=== PATIENT | male | born 1950 | race Caucasian/White ===

== ENCOUNTER → 2017-09-28 10:49 | Outpatient (CLI) | payer MEDICARE, OTHER, SELFPAY ==
--- NOTE | 2017-09-28 10:52 | ECHOD_ITS ---
Reason For Study: DYSPNEA/SOB Procedure This was a 2D Doppler, Color Flow transthoracic echocardiogram. Exam performed in department. Left Ventricle Moderate concentric left ventricular hypertrophy. The estimated ejection fraction is 65 %. Stage 1 diastolic dysfunction. No regional wall motion abnormalities noted. Right Ventricle Normal size and thickness. Normal systolic function. Atria Normal left atrium. Normal right atrium. Normal atrial septum. Mitral Valve The mitral valve is structurally normal. No prolapse or stenosis seen. Trivial mitral valve insufficiency. Tricuspid Valve Normal tricuspid valve. Trivial tricuspid valve insufficiency. Right ventricular systolic pressure estimated to be 28 mmHg. Aortic Valve Trisinus/trileaflet aortic valve. Moderate focal aortic valve thickening. Moderate restriction of the aortic valve. Moderate aortic stenosis. Peak aortic valve gradient 37 mmHg. Mean aortic valve gradient 22 mmHg. Calculated aortic valve area (continuity equation) is 1.2 cm2. Trivial aortic valve insufficiency. Pulmonic Valve Normal pulmonic valve. Great Vessels Normal aortic root. Normal arch. Normal inferior vena cava. Inferior vena cava collapse with sniff. Pericardium/Pleural No pericardial effusion. MMode/2D Measurements & Calculations LVIDd: 3.8 cm IVSd: 1.6 cm LVOT diam: 2.0 cm LVIDs: 2.2 cm LVPWd: 1.4 cm LVOT area: 3.3 cm2 RVDd: 2.7 cm FS: 41.5 % Ao root diam: 2.9 cm LAV(MOD-bp): 46.9 ml EDV(MOD-sp4): 91.6 ml LAV(MOD-bp) Indexed: 21.6 ml/m2 ESV(MOD-sp4): 31.6 ml LAV(MOD-sp2): 56.7 ml EF(MOD-sp4): 65.5 % LAV(MOD-sp4): 36.9 ml SV(MOD-sp4): 60.0 ml LA A4 area: 14.5 cm2 RA A4 area: 11.8 cm2 Time Measurements MV dec time: 0.22 sec Doppler Measurements & Calculations MV E max wilbur: 72.8 cm/sec Lat Peak E' Wilbur: 7.4 cm/sec Med Peak E' Wilbur: 7.4 cm/sec MV A max wilbur: 85.3 cm/sec E/E' lat: 9.9 E/E' med: 9.8 MV E/A: 0.85 Ao V2 max: 292.8 cm/sec LV V1 max: 108.5 cm/sec SV(LVOT): 87.0 ml Ao max P.3 mmHg LV V1 max P.7 mmHg Ao V2 mean: 218.1 cm/sec LV V1 mean P.5 mmHg Ao mean P.9 mmHg LV V1 mean: 74.9 cm/sec Ao V2 VTI: 67.9 cm LV V1 VTI: 26.7 cm HEATHER(I,D): 1.3 cm2 HEATHER(V,D): 1.2 cm2 PA V2 max: 105.2 cm/sec TR max wilbur: 249.4 cm/sec TR max P.9 mmHg Interpretation Summary Moderate concentric left ventricular hypertrophy. The estimated ejection fraction is 65 %. Stage 1 diastolic dysfunction. Trivial mitral valve insufficiency. Right ventricular systolic pressure estimated to be 28 mmHg. Moderate focal aortic valve thickening. Moderate aortic stenosis. Trivial aortic valve insufficiency. Compared to echo report dated 12/09/2013, LV function has remained the same, and aortic stenosis has slightly worsened. Ordering Physician: Dion Selby Referring Physician: LETHA CABALLERO Performed By: Nica Cote RDCS
[2017-09-28 11:54] LABS: AST(SGOT) 16 U/L (15-37); Alanine Aminotransfer ALT/SGPT 21 U/L (16-61); Albumin, Serum 4.1 g/dL (3.2-5.0); Alkaline Phosphatase 83 U/L (45-117); Bilirubin, Direct 0.14 mg/dL (0.00-0.30); Cholesterol 203 mg/dL (200); Globulin 3.8 g/dL (2.2-4.2); High Density Lipoprotein 48 mg/dL; Protein, Total 7.9 g/dL (6.4-8.2); Triglycerides 135 mg/dL; Very Low Density Lipoprotein 27 mg/dL (5-40)
== END ==
PROVIDERS: Family Provider Family Medicine; PCP Family Medicine; Visit Provider Internal Medicine Cardiovascular Disease
DX: I10 Essential (primary) hypertension (principal); R01.1 Cardiac murmur, unspecified; R06.00 Dyspnea, unspecified
CPT/HCPCS: 36415; 80061; 80076; 93306

== ENCOUNTER → 2017-11-01 09:17 | Outpatient (CLI) | payer MEDICARE, OTHER, SELFPAY ==
--- NOTE | 2017-11-01 09:19 | STE_ITS ---
Reason For Study: DYSPNEA/SOB Stress Results Protocol: Stress Echocardiogram Maximum Predicted HR: 153 bpm Target HR: 130 bpm% Maximum Pr edicted HR: 86 % DurationHeart Rate Stage (mm:ss) (bpm) BPCom ment BASELINE 75 156/96 4 ML DILUTED DEFINITY USED ABIODUN PROTOCOL- STAGE 1 3:00 11 8 154/84MIDSTERNAL TIGHTNESS 3 ON SCALE 1-10 ABIODUN PROTOCOL- STAGE 2 2:50 13 1 156/90MIDSTERNAL TIGHTNESS 6 ON SCALE 1-10, SOB RECOVERY 85 160/84 Stress Duration: 5:50 mm:ss Maximum Stress HR: 131 bpm Baseline Echocardiogram Findings The estimated ejection fraction is 65 %. Stress Echo Wall motion Data Resting WMIntermediate WMStress WM Resting Wall Motion Wall Motion Stress No regional wall motion No regional wall motion abnormalities noted. abnormalities noted. EKG Data The baseline ECG displays normal sinus rhythm. The patient exercised according to the regular Abiodun protocol for a total duration of 5:50. The maximum heart rate attained was 131 beats per minute. This was 85% of maximum predicted heart rate. The stress ECG displays diffuse abnormal ST segments. Interpretation Summary The study was technically difficult. Contrast injection was performed. The estimated ejection fraction is 65 %. Abnormal, adequate, treadmill echocardiogram. Positive for ischemia by EKG and echocardiographic criteria. Positive anginal symptoms noted. Patient developed mid anterior and lateral hypokinesis on echocardiogram. Patient developed 1-2 mm of inferior lateral ST segment depression at peak exercise which resolved by 8 minutes 50 seconds into recovery. Chest pain completely resolved during recovery. No arrhythmias noted. Appropriate blood pressure response to exercise. Final LVEF of 55%. Patient was referred immediately to our office to arrange for ANGELINA followed by left and right her catheterization. Ordering Physician: Dion Selby Referring Physician: Dion Selby Performed By: Angi Lezama, ELIEL, RVT
[2017-11-01 11:09] LABS: Absolute Lymphocyte Count 1.83 X10^3/ul (0.83-4.51); Absolute Neutrophil Count 4.7 X10^3/uL (2.0-7.7); Basophil# 0.03 X10^3/uL; Basophil% 0.4 % (0-1); Eosinophil# 0.09 X10^3/uL; Eosinophils% 1.3 % (0-5); Hematocrit 44.1 % (40-54); Hemoglobin 15.3 g/dl (13.0-16.5); Lymphocyte # 1.83 X10^3/ul (4.0); Lymphocyte % 26.3 % (19-41); Mean Corp Hgb Conc 34.7 g/gl (32-36); Mean Corpuscular Volume 89.5 fL (80-94); Mean Platelet Vol. 9.7 fl (6.2-12.0); Monocyte# 0.33 X10^3/uL; Monocyte% 4.7 % (0-10); Neutrophil # 4.65 X10^3/uL (2.7-7.7); Platelet Count 222 K/mm3 (150-450); RBC Distribution Width CV 12.4 % (11.6-14.6); RBC Distribution Width SD 40.7 fl (35.1-43.9); Red Blood Count 4.93 M/mm3 (4.6-6.2)
[2017-11-01 11:10] LABS: POSITIVE COUNT NO; POSITIVE DIFFERENTIAL NO; POSITIVE MORPHOLOGY NO
[2017-11-01 11:18] LABS: International Normalized Ratio 1.1; Prothrombin Time (Protime)PT. 13.7 SECONDS (11.7-14.9)
[2017-11-01 11:42] LABS: Anion Gap 10 (5-15); BUN 19 mg/dL (7-18); BUN/Creat Ratio 21.9 RATIO (10-20); Calcium,Total 9.2 mg/dL (8.5-10.1); Chloride 106 mmol/L (98-107); Creatinine, Serum 0.87 mg/dL (0.70-1.30); EST Glomerular Filtration Rate 93 mL/min (>60); Est Glom Filt Rate - Afr Amer 113 mL/min (>60); Glucose 95 mg/dL (74-106); Potassium 4.1 mmol/L (3.5-5.1); Sodium Level 139 mmol/L (136-145)
--- NOTE | 2017-11-01 12:25 | RAD_ITS ---
STUDY: X-RAY CHEST REASON FOR EXAM: Male, 67 years old. Chest pain. Irregular heart rate. Preheart catheterization examination. TECHNIQUE: PA and lateral views of the chest. COMPARISON: None. FINDINGS: The lungs are clear and expanded. There is no demonstrated pleural abnormality. Normal size heart. Calcified bilateral hilar lymph nodes slightly worse on the left side. Normal visualized pulmonary arteries. Normal visualized aortic arch and descending thoracic aorta. There are diffuse degenerative changes of the visualized thoracic spine. Normal visualized ribs, clavicles, and shoulders. There is no demonstrated abnormality of the visualized soft tissue structures of the upper abdomen. RAD/Chest PA and Lateral IMPRESSION: No acute abnormality is seen. Electronically Signed: Cuate Mccall MD at 12:58 EDT Tel [phone], Service support ,
== END ==
PROVIDERS: Family Provider Family Medicine; PCP Family Medicine; Visit Provider Internal Medicine Cardiovascular Disease
DX: R94.31 Abnormal electrocardiogram [ECG] [EKG] (principal); R06.00 Dyspnea, unspecified; R01.1 Cardiac murmur, unspecified; I10 Essential (primary) hypertension; E66.9 Obesity, unspecified
CPT/HCPCS: 36415; 71046; 80048; 85025; 85610; 93017; 93350; Q9957; A4216; C8928

== ENCOUNTER 2017-11-02 08:00 | Inpatient (IN) | payer MEDICARE, OTHER, SELFPAY ==
[2017-11-02] VITALS (21 sets, daily range): BP systolic 138–194; BP diastolic 50–74; PULSE 57–80; RESP 9–18; TEMP 36.7–37.3; O2SAT 94–100; BMI 32.5; BMI 32.2; BMI 32.1
--- NOTE | 2017-11-02 08:01 | ECHOTEE_ITS ---
Reason For Study: Valve Replacement Eval Medication ANGELINA probe passed with minimal difficulty. No complications were noted. [id number] gargled and swallowed. Cetacaine Topical [place] given X2 orally. Versed 4 mg given slow IVP. Fentanyl 50 mcg given slow IVP. Performed a rapid injection of agitated mix of 9 cc saline and 1cc air to assess for atrial septal defect. Left Ventricle Normal size and thickness. The estimated ejection fraction is 65 %. No regional wall motion abnormalities noted. Right Ventricle Normal size and thickness. Normal systolic function. The right ventricular wall motion is normal. Atria Normal atrial septum. Bubble contrast study negative for right to left interatrial shunt. Normal left atrium. No thrombus is detected in the left atrial appendage. Normal right atrium. Mitral Valve The mitral valve is structurally normal. No prolapse or stenosis seen. Trivial mitral valve insufficiency. Tricuspid Valve Normal tricuspid valve. Trivial tricuspid valve insufficiency. Unable to estimate RV systolic pressure due to inadequate jet, pulmonary artery pressure probably normal. Aortic Valve Trisinus/trileaflet aortic valve. Moderate diffuse aortic valve thickening. Moderate restriction of the aortic valve. Moderate aortic stenosis. Calculated aortic valve area (continuity equation) is 1.2 cm2. Trivial aortic valve insufficiency. Pulmonic Valve Normal pulmonic valve. Vessels Calcified aortic root. Mild atherosclerosis of the aortic arch. Normal pulmonary veins. Pulmonary venous flow normal. Interpretation Summary The estimated ejection fraction is 65 %. Bubble contrast study negative for right to left interatrial shunt. Trivial mitral valve insufficiency. Trivial tricuspid valve insufficiency. Unable to estimate RV systolic pressure due to inadequate jet, pulmonary artery pressure probably normal. Moderate diffuse aortic valve thickening. Moderate to severe restriction of the aortic valve. Moderate to severe aortic stenosis. Calculated aortic valve area (continuity equation) is 1.2 cm2. No thrombus is detected in the left atrial appendage. Ordering Physician: Dion Selby Referring Physician: Dion Selby Performed By: Vasiliy Copeland RCS ??? Reason For Study: Valve Replacement Eval Interpretation Summary The estimated ejection fraction is 65 %. Bubble contrast study negative for right to left interatrial shunt. Trivial mitral valve insufficiency. Trivial tricuspid valve insufficiency. Unable to estimate RV systolic pressure due to inadequate jet, pulmonary artery pressure probably normal. Moderate diffuse aortic valve thickening. Moderate to severe restriction of the aortic valve. Moderate to severe aortic stenosis. Calculated aortic valve area (continuity equation) is 1.2 cm2. No thrombus is detected in the left atrial appendage. Ordering Physician: Dion Selby Referring Physician: Dion Selby Performed By: Vasiliy Copeland RCS
[2017-11-02 11:21] LABS: Blood Gas Specimen Type VEN; VBG BASE EXCESS 2 mmol/L (-1.0-3.5); VBG Bicarbonate 28 mmol/L (22-26); VBG Oxygen Content 29 mmol/L (23-33); VBG PO2 35 mmHg (25-40); VBG SO2 65 % (50-70); VBG pH 7.37 (7.32-7.42)
[2017-11-02 11:21] LABS: Base Excess 2 mmol/L (-2 to +2); Bicarbonate 26.7 mmol/L (22-26); Blood Gas Specimen Type ART; PO2 71 mmHG (75-100); SO2 94 % (95-99); Total Carbon Dioxide 28 mmol/L; pCO2 44.3 mmHg (35-45); pH 7.39 (7.35-7.45)
[2017-11-02 11:21] LABS: Blood Gas Specimen Type VEN; VBG BASE EXCESS 1 mmol/L (-1.0-3.5); VBG Bicarbonate 27 mmol/L (22-26); VBG Oxygen Content 28 mmol/L (23-33); VBG PO2 36 mmHg (25-40); VBG SO2 67 % (50-70); VBG pH 7.37 (7.32-7.42)
--- NOTE | 2017-11-02 11:31 | CL.D_ITS ---
Patient Name: ROLANDO SUNG Study Date: 11/02/2017 Performing: Dion Selby MD Ht: 70.86 inches 180 cm : 1950 Wt: 233.69 lbs 106 kg Age: 67 Gender: male BSA: 2.25 PROCEDURE(S) PERFORMED QV20-OAT/LHC/COR/LV [id number] INSERTION CLINICAL PROFILE AND INDICATIONS Indications: New Onset Angina <= 2 months, Worsening Angina, Suspected CAD, Valvular Disease Heart Failure: None Stress/Imaging Stress Echocardiogram: Yes Result: Positive High RiskStress Echocardiogram: Positi ve High Risk Angina Classification Anginal Classification w/in 2 Weeks: CCS IV CAD Presentations: Unstable angina. Comorbidities/Risk Factors: Hypertension Dyslipidemia CONCLUSIONS Perserved Left Ventricular systolic function with normal EDP [place] Multivessel CAD involving LM, ostial LAD, OM#1 and proximal RCA. Right heart pressures - Normal Aortic Valve Stenosis - moderate to severe with mean pullback gradient of 26 mm Hg and estimated HEATHER= 1.14cm2 by cath. IABP placed to assist with LM and multi-vessel CAD, as well as aortic stenosis given pt's markedly ab normal stress test and periodic rest chest pain. RECOMMENDATIONS Transfer to [facility] ICU under Dr Peng once bed available for CABG and AVR. RFV sheath removal. Heparin gtt at 800 units/hr; keep PTT b/w 50-70 seconds. D/w Hang Leo at [facility] (Dr Peng's [employer] REPA[employer] SUPERVISOR) to assist with transfer. DESCRIPTION OF PROCEDURE The patient arrived to the procedure lab. The risks and benefits of the procedure as well as a full d escription of our services here and current unavailability of surgical backup were fully explained to the patient and/or their significant other prior to the catheterization. The Timeout was completed, verifying the correct patient and procedure. The patient's procedural site was prepped and draped in the usual fashion. Local anesthetic was given subcutaneously to right groin region with Lidocaine 2%. Using a modified Seldinger technique, arterial access was obtained via the right femoral artery, a 4 Fr sheath was inserted Venous access was obtained via the right femoral vein, a 7Fr sheath was insert ed. A 7Fr thermal dilution catheter was inserted and right heart pressures were recorded, it was then advanced to PA position for cardiac outputs. O2 saturations were then obtained. Thermal dilution car diac outputs were then recorded. Left Ventriculography was performed in MARTINEZ projection using a 4 Fr. Pigtail catheter. Simultaneous pressures were then recorded. LV to AO pullback pressures were then re corded. The Thermal dilution catheter was then removed. Left Coronary Artery selective angiography wa s performed in multiple views using a 4 Fr. JL5 catheter. Right Coronary Artery selective angiography was then performed in multiple views using a 4 Fr. 3DRC catheter.Arrow 40cc 7.5F UltraFlex IABP - Qt y: 1 Each Part #: [id number], IABP catheter inserted - 40 cc into right femoral artery, IABP settings: 1:1 ratio, ecg trigger, IABP Augmented BP: 180 mmHgThe venous sheath was then pulled and manual compressi on applied until hemostasis achieved CORONARY ANGIOGRAPHY DOMINANCE: Right Dominant LEFT HEART ASSESSMENT Left Ventricular Ejection Fraction: by LV Gram 65 % Normal LV wall motion Normal Left Ventricular systolic function RIGHT HEART ASSESSMENT Thermal CO: 5.48 Thermal CI: 2.44 PW: 9 PA: 25/6 15 RV: 33/0 7 RA: 8/5 3 PVR: 88 SVR: 1372 Aortic Valve Area: 1.14 Aortic Valve Index: 0.51 Aortic Valve Mean Gradient: 26.2 Mitral Valve Area: 3.41 Mitral Valve index: 1.52 Mitral Valve Mean Gradient: 14.1 Right Heart pressures - normal LEFT MAIN: 85 distal LM % Stenosis LEFT ANTERIOR DECENDING ARTERY: OSTIAL LAD: 70 % Stenosis CIRCUMFLEX ARTERY: OSTIAL CIRC: 60 % Stenosis MID CIRC: 60 % long Stenosis OM 1: Mid - 70 % Stenosis RIGHT CORONARY ARTERY: PROX RCA: 75 % Stenosis VALVE FINDINGS: Aortic Valve Stenosis - moderate to severe with mean pullback gradient of 26 mm Hg and estimated HEATHER= 1.14cm2 by cath. COMPLICATIONS No Complications PROCEDURE MEDICATIONS Heparin 25,000u / 250ml D5W @ 800 u/hr IV started 11/02/2017 11:23:22 SUMMARY OF HEMODYNAMIC DATA Time AIR REST ECG 08:25:13 RA 8/5 (3) SV 10:36:56 RV 33/0, 7 10:37:06 PW (9) PV 10:37:45 PA /6 (15) PA 10:37:59 LV 177/-13, 14 10:42:57 LV 175/-8, 7 10:43:04 LV 174/-9, 9 10:43:20 PW 17/13 (10) 10:43:20 LV 173/-4, 10 10:43:27 PW 19/13 (10) 10:43:27 LV 180/-7, 22 10:43:48 RV 33/1, 7 10:43:48 LV 181/-8, 15 10:43:55 RV 30/0, 7 10:43:55 LV 177/-9, 16 10:44:05 RV 32/0, 6 10:44:05 LVp 175/-12, 17 10:45:21 AOp 157/55 (93) 10:45:26 AO 133/70 (97) SA 10:47:19 11:24:15 Valve Area (c P-P/ms Time AIR REST Mitral 3.41 14.1 mn/162 ms 1.0 pk/162 ms 10:43:20 Aortic 1.14 26.2 mn/378 ms 18.0 pk/378 ms 10:45:21 Type SV CO (l/m) CI (l/m/ HR Time AIR REST Thermal 88.40 5.48 2.44 62 08:25:14 Label % O2 Pres/Loc Time AIR REST AO 94 PV 10:49:08 PA 66 PA 10:49:57 Signed By Dion Selby MD On 11/02/2017 11:31:06 Dion Selby MD
[2017-11-02 13:35] LABS: Absolute Lymphocyte Count 2.83 X10^3/ul (0.83-4.51); Absolute Neutrophil Count 6.1 X10^3/uL (2.0-7.7); Basophil# 0.02 X10^3/uL; Basophil% 0.2 % (0-1); Eosinophil# 0.14 X10^3/uL; Eosinophils% 1.5 % (0-5); Hematocrit 44.2 % (40-54); Hemoglobin 14.7 g/dl (13.0-16.5); Lymphocyte # 2.83 X10^3/ul (4.0); Lymphocyte % 29.5 % (19-41); Mean Corp Hgb Conc 33.3 g/gl (32-36); Mean Corpuscular Hgb 30.4 pg (27.0-32.0); Mean Corpuscular Volume 91.5 fL (80-94); Mean Platelet Vol. 9.8 fl (6.2-12.0); Monocyte# 0.48 X10^3/uL; Neutrophil # 6.12 X10^3/uL (2.7-7.7); Neutrophil % 63.7 % (47-70); Platelet Count 233 K/mm3 (150-450); RBC Distribution Width CV 12.6 % (11.6-14.6); RBC Distribution Width SD 41.9 fl (35.1-43.9); Red Blood Count 4.83 M/mm3 (4.6-6.2); White Blood Count 9.6 K/mm3 (4.4-11.0)
[2017-11-02] MEDS: Losartan Potassium 25 MG Tablet PO (13:36)
[2017-11-02 13:38] LABS: POSITIVE COUNT NO; POSITIVE DIFFERENTIAL NO; POSITIVE MORPHOLOGY NO
[2017-11-02 13:39] LABS: Anion Gap 6 (5-15); BUN 14 mg/dL (7-18); BUN/Creat Ratio 15.1 RATIO (10-20); Calcium,Total 9.2 mg/dL (8.5-10.1); Chloride 106 mmol/L (98-107); Creatinine, Serum 0.93 mg/dL (0.70-1.30); EST Glomerular Filtration Rate 86 mL/min (>60); Est Glom Filt Rate - Afr Amer 105 mL/min (>60); Estimated Creatinine Clearance 82.09 ml/min; Glucose 80 mg/dL (74-106); Potassium 4.3 mmol/L (3.5-5.1); Sodium Level 139 mmol/L (136-145)
[2017-11-02] MEDS: HYDROcodone Bitartrate/Apap 5/325 Tablet PO ×2 (16:19→21:11)
--- NOTE | 2017-11-02 17:42 | HP.PCM_ITS ---
Problem List (1) Abnormal stress echo Status: Acute (2) Non-rheumatic aortic stenosis Status: Chronic (3) Hypertension Status: Chronic (4) Obesity (BMI 30.0-34.9) Status: Chronic (5) CAD (coronary artery disease) Status: Chronic (6) Unstable angina Status: Acute History of Present Illness Date of Admission: 11/02/17 Chief Complaint: ongoing chest tightness, shortness of breath, abnormal stress test The patient is a 67 year old M who initially presented today for outpatient cardiac catheterization and was noted to have significant multivessel disease. He was to be arranged for transfer to [facility] however, bed is not currently available and he is being admitted to monitor until bed becomes available for coronary bypass. Patient states he has had ongoing chest tightness and shortness of breath, worse with exertion for months. He states in August he was on a hiking trip in [facility] and noticed chest tightness and shortness of breath with hiking. He has seen primary care physician/urgent care with similar complaints since that time and was thought to have bronchitis. He recently went to primary care physician who noted a murmur on examination and with concern for recent symptoms, referred him to Dr. Selby for further evaluation. He underwent nuclear stress test yesterday which was abnormal. He returned today for cardiac catheterization which, as previously stated noted significant multivessel disease. Dr. Selby recommended patient go to [facility] to be evaluated by cardiothoracic surgeon. Bed availability pending. Patient denies previous cardiac history although he states he does have a significant family history of CAD. He has a history of hypertension, hyperlipidemia, obesity. Past Medical History Past Medical History (Chronic Problems): Chronic Problems (Last Reviewed 11/01/17 @ 11:16 by Jewell Shields) CAD (coronary artery disease) (Chronic) Non-rheumatic aortic stenosis (Chronic) Hypertension (Chronic) Obesity (BMI 30.0-34.9) (Chronic) Medical History: Medical History (Last Reviewed 11/01/17 @ 11:16 by Jewell Shields) Hypertension (Chronic) I10 Obesity (BMI 30.0-34.9) (Chronic) E66.9 Allergies No Known Allergies Allergy (Verified 11/02/17 07:41) Home Medications: Ambulatory Orders Medication Instructions Recorded celecoxib 200 mg capsule 200 mg PO QDAY 09/17/17 hydrocodone 5 mg-acetaminophen 300 1 tab PO TID 09/17/17 mg tablet metoprolol succinate ER 100 mg 100 mg PO DAILY 09/17/17 tablet,extended release 24 hr cholecalciferol (vitamin D3) 1,000 1,000 unit PO QDAY 09/18/17 unit capsule cyanocobalamin (vit B-12) 5,000 5,000 mcg SUBLINGUAL QDAY 09/18/17 mcg sublingual tablet omega-3 fatty acids 1,000 mg 1,000 mg PO QDAY 09/18/17 capsule aspirin 81 mg tablet,delayed 81 mg PO QDAY 11/01/17 release Atorvastatin Calcium [Lipitor] 20 mg PO QDAY 11/02/17 Clopidogrel Bisulfate [Clopidogrel] 75 mg PO QDAY 11/02/17 Surgical History: Surgical History (Last Reviewed 11/02/17 @ 17:33 by MELY Zee) History of open reduction and internal fixation (ORIF) procedure Onset Date: ~ 1995 Z98.890 left elbow 8 surgeries History of tonsillectomy Z90.89 Psychiatric History: No pertinent psych hx Lives: Spouse/ Significant Other Smoking Status: Former smoker Tobacco Use: Non-smoker Alcohol: Occasional Drugs: None - *Family History Paternal Family History: Family History (Last Reviewed 11/01/17 @ 11:16 by Jewell Shields) Father Myocardial infarction CAD (coronary artery disease) Mother Diabetes Hypertension Brother Diabetes CAD (coronary artery disease) Brother CAD (coronary artery disease) Review of Systems Constitutional: Denies: Chills, Fever, Weight Change HEENT: Denies: Head Aches, Sinus Congestion, Sinus Drainage Cardiovascular: Reports: Chest Tightness. Denies: Edema, Light Headedness, Palpitations, Syncope Respiratory: Reports: Shortness of breath upon exertion. Denies: Cough, Wheezing Gastrointestinal: Denies: Abdominal Pain, Nausea, Vomiting Genitourinary: Reports: Dysuria Musculoskeletal: Denies: Joint Pain, Joint Tenderness Skin: Denies: Rash, Wounds Neurological: Denies: Numbness, Tingling, Focal weakness Psychiatric: Denies: Anxiety, Depression, Homicidal Ideations, Suicidal Ideations Hematologic/ Lymphatic: Denies: Easy Bruising, Easy Bleeding VTE Information - Inpt Only VTE Present on Admission: No VTE Mechan Device Prophylaxis: None VTE Pharm Prophylaxis ordered?: Yes Patient Problems: Active and Suspected Problems (Last Reviewed 11/01/17 @ 11:16 by Jewell Shields) Unstable angina (Acute) - Physical Exam General: Alert, Oriented x3, Cooperative, No apparent distress HEENT: Atraumatic, PERRLA, EOMI, Normocephalic Neck: Supple, No JVD, Negative Carotid Bruits Lungs: Clear to auscultation, Normal air movement Cardiovascular: Regular rate, Regular Rhythm, Normal S1, Normal S2, Murmur Abdomen: Bowel Sounds Present, Soft, Non Tender, Non-Distended Extremities: No clubbing, No cyanosis, No edema, Capillary Refill Less than 3 Seconds Skin: No rashes, No breakdown Musculoskeletal: No Tenderness to Palpation of Joints or Extremities Neurological: Cranial nerves II-XII grossly intact, Neuro grossly intact Psych/Mental Status: Normal Affect, Appropriate Vital Signs Temp Pulse Resp BP Pulse Ox 98.7 F 65 13 142/68 H 97 11/02/17 16:00 11/02/17 17:00 11/02/17 17:00 11/02/17 17:00 11/02/17 17:00 Oxygen Flow Rate (L/min) 2 Oxygen Delivery Method Room Air Weight: 104.6 kg Body Mass Index (BMI) 32.1 Intake and Output for Last 24 Hours 10/31/17 11/01/17 11/02/17 23:59 23:59 23:59 Intake Total 244 / 244 Output Total 1130 / 1130 Balance -886 / -886 Laboratory Tests Past 24 Hrs 11/02/17 11/02/17 11/02/17 10:41 10:44 10:48 WBC RBC Hgb Hct MCV MCH MCHC RDW RDW Differential Plt Count MPV Immature Gran % (Auto) Neut % (Auto) Lymph % (Auto) Trinity % (Auto) Eos % (Auto) Baso % (Auto) Absolute Neuts (auto) Absolute Lymphs (auto) Total Counted APTT Specimen Type CARLOS CARLOS ART pH 7.39 Bicarbonate Actual 26.7 H POC Total CO2 28 Base Excess 2 O2 Saturation 94 L ABG pCO2 44.3 ABG pO2 71 L VBG pH 7.37 7.37 VBG pO2 36 35 VBG O2 Sat (Calc) 67 65 VBG O2 Content 28 29 VBG Base Excess 1 2 POC Mix VBG pCO2 Pt Tmp 46.0 48.0 Sodium Potassium Chloride Carbon Dioxide Anion Gap BUN Creatinine Estim Creat Clear Calc Est GFR (MDRD) Af Amer Est GFR (MDRD) Non-Af BUN/Creatinine Ratio Glucose Calcium 11/02/17 11/02/17 11/02/17 11:55 11:55 11:55 WBC 9.6 RBC 4.83 Hgb 14.7 Hct 44.2 MCV 91.5 MCH 30.4 MCHC 33.3 RDW 12.6 RDW Differential 41.9 Plt Count 233 MPV 9.8 Immature Gran % (Auto) 0.100 Neut % (Auto) 63.7 Lymph % (Auto) 29.5 Trinity % (Auto) 5.0 Eos % (Auto) 1.5 Baso % (Auto) 0.2 Absolute Neuts (auto) 6.1 Absolute Lymphs (auto) 2.83 Total Counted Not Reportable APTT 36.0 Specimen Type pH Bicarbonate Actual POC Total CO2 Base Excess O2 Saturation ABG pCO2 ABG pO2 VBG pH VBG pO2 VBG O2 Sat (Calc) VBG O2 Content VBG Base Excess POC Mix VBG pCO2 Pt Tmp Sodium 139 Potassium 4.3 Chloride 106 Carbon Dioxide 27.0 Anion Gap 6 BUN 14 Creatinine 0.93 Estim Creat Clear Calc 82.09 Est GFR (MDRD) Af Amer 105 Est GFR (MDRD) Non-Af 86 BUN/Creatinine Ratio 15.1 Glucose 80 Calcium 9.2 Assessment/Plan All Active Problems (Last Reviewed 11/01/17 @ 11:16 by Jewell Shields) Unstable angina (Acute) Abnormal stress echo (Acute) 1. Coronary artery disease/unstable angina-abnormal stress test yesterday. Cardiac catheterization this morning demonstrated 85% stenosis left main, ostial LAD 70% stenosis, ostial circumflex 60% stenosis, mid circumflex 60% stenosis, OM1 mid to 70% stenosis, proximal RCA 70% stenosis. Aortic valve stenosis moderate to severe estimated HEATHER 1.14 cm?. Patient was placed in the ICU on heparin drip and with balloon pump. Awaiting bed at [facility] for bypass per recommendations of Dr. Selby. Patient states his family is in the [facility] and he is familiar with [facility] hospitals. Requesting if there is an unexpected delay with transfer to [facility], that [place] facilities be considered. ANGELINA demonstrated EF of 65%, moderate to severe restriction of aortic valve, moderate to severe aortic stenosis. Continue aspirin, statin, losartan, metoprolol. Patient received loading dose of Plavix prior to cath which has since been discontinued. Surgery is tentatively planned for 11/05/2017 at [facility]. 2. Moderate to severe aortic stenosis 3. Hypertension-continue losartan, metoprolol. Continue to monitor. 4. Hyperlipidemia-continue statin. 5. Obesity-encouraged diet and lifestyle modifications. DVT prophylaxis-heparin drip This patient was seen by MELY Zee under the supervision of Dr. Hearn.
[2017-11-02 19:37] LABS: Partial Thromboplast Time 37.5 Seconds (24.1-36.2)
[2017-11-02] MEDS: Atorvastatin Calcium 80 MG Tablet PO (21:11)
[2017-11-02] MEDS: Zolpidem Tartrate 5 MG Tablet PO (21:11)
[2017-11-02] MEDS: Heparin Injection (Vial) 5,000 UNIT/ML VIAL 3000 UNIT IV (21:26)
[2017-11-03] VITALS: BP 151/65; BP 174/74; BP_SYST 175; PULSE 70; RESP 18; O2SAT 97
--- NOTE | 2017-11-03 00:33 | PCM.DC.SUM ---
Discharge Date and Diagnosis - Problem List Patient Problems: Active and Suspected Problems (Last Reviewed 11/01/17 @ 11:16 by Jewell Shields) Unstable angina (Acute) Date of Admission: 11/02/17 Date of Discharge: 11/03/17 - Primary Discharge Diagnosis Active and Suspected Problems (Last Reviewed 11/01/17 @ 11:16 by Jewell Shields) Unstable angina (Acute) - Secondary Discharge Diagnosis Chronic Problems (Last Reviewed 11/01/17 @ 11:16 by Jewell Shielsd) CAD (coronary artery disease) (Chronic) Non-rheumatic aortic stenosis (Chronic) Hypertension (Chronic) Obesity (BMI 30.0-34.9) (Chronic) Hospital Course and Treatment Operations: - - Balloon pump Summary of Care Provided: The patient is a 67 year old male w/ h/o triple-vessel coronary artery disease, moderate to severe aortic stenosis, and HTN admitted after cardiac cath and a balloon pump was placed. 1) CAD: Cardiac cath disclosed 85% stenosis left main, ostial LAD 70% stenosis, ostial circumflex 60% stenosis, mid circumflex 60% stenosis, OM1 mid to 70% stenosis, proximal RCA 70% stenosis. Aortic valve stenosis moderate to severe estimated HEATHER 1.14 cm?. C/w heparin gtt. C/w balloon pump. 2) Moderate to severe aortic stenosis: C/w supportive care. ANGELINA demonstrated EF of 65%, moderate to severe restriction of aortic valve, moderate to severe aortic stenosis. Continue aspirin, statin, losartan, metoprolol. Patient received loading dose of Plavix prior to cath which has since been discontinued. 3) Dispo: Will transfer to [place] per family request. Discharge Diet: No Restrictions Discharge Activity: Return to Normal Activity Call your doctor if you observe: Fever of 101 or Higher, Coldness, Increased Pain, Numbness or Tingling, Change in Color, Inability to urinate, Inability to have a bowel movement Home Medications: Medications to take at Discharge celecoxib 200 mg capsule 200 mg PO QDAY 09/17/17 hydrocodone 5 mg-acetaminophen 300 mg tablet 1 tab PO TID 09/17/17 metoprolol succinate ER 100 mg tablet,extended release 24 hr 100 mg PO DAILY 09/17/17 cholecalciferol (vitamin D3) 1,000 unit capsule 1,000 unit PO QDAY 09/18/17 cyanocobalamin (vit B-12) 5,000 mcg sublingual tablet 5,000 mcg SUBLINGUAL QDAY 09/18/17 omega-3 fatty acids 1,000 mg capsule 1,000 mg PO QDAY 09/18/17 aspirin 81 mg tablet,delayed release 81 mg PO QDAY 11/01/17 Atorvastatin Calcium [Lipitor] 20 mg PO QDAY 11/02/17 Clopidogrel Bisulfate [Clopidogrel] 75 mg PO QDAY 11/02/17 Primary Care Physician: Wilder Rebollar [Primary Care Provider] - Medical Necessity - Tobacco Use Smoking Status: Former smoker Tobacco Use: Non-smoker Meaningful Use Info Meaningful Use Diagnoses (Choose all that apply): None applicable
--- NOTE | 2017-11-03 00:43 | DS.PCM_ITS ---
Discharge Date and Diagnosis - Problem List Patient Problems: Active and Suspected Problems (Last Reviewed 11/01/17 @ 11:16 by Jewell Shields) Unstable angina (Acute) Date of Admission: 11/02/17 Date of Discharge: 11/03/17 - Primary Discharge Diagnosis Active and Suspected Problems (Last Reviewed 11/01/17 @ 11:16 by Jewell Shields) Unstable angina (Acute) - Secondary Discharge Diagnosis Chronic Problems (Last Reviewed 11/01/17 @ 11:16 by Jewell Shields) CAD (coronary artery disease) (Chronic) Non-rheumatic aortic stenosis (Chronic) Hypertension (Chronic) Obesity (BMI 30.0-34.9) (Chronic) Hospital Course and Treatment Operations: - - Balloon pump Summary of Care Provided: The patient is a 67 year old male w/ h/o triple-vessel coronary artery disease, moderate to severe aortic stenosis, and HTN admitted after cardiac cath and a balloon pump was placed. 1) CAD: Cardiac cath disclosed 85% stenosis left main, ostial LAD 70% stenosis , ostial circumflex 60% stenosis, mid circumflex 60% stenosis, OM1 mid to 70% stenosis, proximal RCA 70% stenosis. Aortic valve stenosis moderate to severe estimated HEATHER 1.14 cm?. C/w heparin gtt. C/w balloon pump. 2) Moderate to severe aortic stenosis: C/w supportive care. ANGELINA demonstrated EF of 65%, moderate to severe restriction of aortic valve, moderate to severe aortic stenosis. Continue aspirin, statin, losartan, metoprolol. Patient received loading dose of Plavix prior to cath which has since been discontinued. 3) Dispo: Will transfer to [place] per family request. Discharge Diet: No Restrictions Discharge Activity: Return to Normal Activity Call your doctor if you observe: Fever of 101 or Higher, Coldness, Increased Pain, Numbness or Tingling, Change in Color, Inability to urinate, Inability to have a bowel movement Home Medications: Medications to take at Discharge celecoxib 200 mg capsule 200 mg PO QDAY 09/17/17 hydrocodone 5 mg-acetaminophen 300 mg tablet 1 tab PO TID 09/17/17 metoprolol succinate ER 100 mg tablet,extended release 24 hr 100 mg PO DAILY 11/28 cholecalciferol (vitamin D3) 1,000 unit capsule 1,000 unit PO QDAY 09/18/17 cyanocobalamin (vit B-12) 5,000 mcg sublingual tablet 5,000 mcg SUBLINGUAL QDAY 09/18/17 omega-3 fatty acids 1,000 mg capsule 1,000 mg PO QDAY 09/18/17 aspirin 81 mg tablet,delayed release 81 mg PO QDAY 11/01/17 Atorvastatin Calcium [Lipitor] 20 mg PO QDAY 11/02/17 Clopidogrel Bisulfate [Clopidogrel] 75 mg PO QDAY 11/02/17 Primary Care Physician: Wilder Rebollar [Primary Care Provider] - Medical Necessity - Tobacco Use Smoking Status: Former smoker Tobacco Use: Non-smoker Meaningful Use Info Meaningful Use Diagnoses (Choose all that apply): None applicable
[2017-11-03 01:00] VITALS: BP 148/73; BP 167/61; PULSE 80; RESP 18; O2SAT 97
[2017-11-03 02:00] VITALS: BP 127/60; BP 140/71; BP_SYST 146; PULSE 70; RESP 24; O2SAT 96
[2017-11-03] MEDS: HYDROcodone Bitartrate/Apap 5/325 Tablet PO (02:24)
[2017-11-03 03:00] VITALS: BP 131/53; BP 145/62; BP_SYST 146; PULSE 71; PULSE 72; RESP 2; O2SAT 96
[2017-11-03 04:00] VITALS: BP 116/50; BP 148/61; BP_SYST 125; PULSE 72; RESP 17; O2SAT 96
[2017-11-03 04:32] LABS: Hematocrit 43.3 % (40-54); Mean Corp Hgb Conc 34.6 g/gl (32-36); Mean Corpuscular Hgb 31.3 pg (27.0-32.0); Mean Corpuscular Volume 90.2 fL (80-94); Mean Platelet Vol. 9.7 fl (6.2-12.0); Platelet Count 264 K/mm3 (150-450); RBC Distribution Width CV 12.5 % (11.6-14.6); RBC Distribution Width SD 40.8 fl (35.1-43.9)
[2017-11-03 04:34] LABS: Scan Indicated on CBC? Y/N NO
[2017-11-03 04:35] LABS: Partial Thromboplast Time 45.8 Seconds (24.1-36.2)
[2017-11-03 04:43] LABS: Anion Gap 9 (5-15); BUN 15 mg/dL (7-18); BUN/Creat Ratio 16.8 RATIO (10-20); Calcium,Total 8.9 mg/dL (8.5-10.1); Chloride 105 mmol/L (98-107); Creatinine, Serum 0.89 mg/dL (0.70-1.30); EST Glomerular Filtration Rate 90 mL/min (>60); Est Glom Filt Rate - Afr Amer 109 mL/min (>60); Estimated Creatinine Clearance 85.78 ml/min; Glucose 146 mg/dL (74-106); Potassium 3.8 mmol/L (3.5-5.1); Sodium Level 141 mmol/L (136-145)
[2017-11-03 05:00] VITALS: BP 113/50; BP 118/63; BP_SYST 137; PULSE 65; RESP 18; O2SAT 94
--- NOTE | 2017-11-03 06:11 | NURSING ---
[facility]. Pt was stable on the balloon pump when he left the unit with transport. VSS and Lungs CTA and ABD soft non-tender and non-distended.
== END 2017-11-03 06:15 | disposition short-term general hospital (02) | DRG 271 ==
LOC: ICU 13:10 → CLSP 13:10
PROVIDERS: Nurse Practitioner Family; Admitting Provider Internal Medicine; Family Provider Family Medicine; PCP Family Medicine; Visit Provider Internal Medicine Cardiovascular Disease
DX: I25.110 Atherosclerotic heart disease of native coronary artery with unstable angina pectoris (principal); I35.0 Nonrheumatic aortic (valve) stenosis; E66.9 Obesity, unspecified; Z68.32 Body mass index [BMI] 32.0-32.9, adult; I10 Essential (primary) hypertension; E78.5 Hyperlipidemia, unspecified; Z82.49 Family history of ischemic heart disease and other diseases of the circulatory system
CPT/HCPCS: 33967; 36415; 71046; 80048; 82803; 83735; 85025; 85027; 85610; 85730; 93017; 93312; 93320; 93325; 93350; 93460; J7040; Q9957; Q9967; A4216; C1751; C1769; C1894; C8928; J2310

== ENCOUNTER → 2017-12-10 13:21 | Outpatient (CLI) | payer MEDICARE, OTHER, SELFPAY ==
--- NOTE | 2017-12-10 13:40 | RAD_ITS ---
STUDY: X-RAY CHEST REASON FOR EXAM: Male, 67 years old. Follow-up open heart surgery 4 weeks ago TECHNIQUE: PA and lateral views of the chest. COMPARISON: Prior study of 11/01/2017 FINDINGS: There are mild fibrotic and/or atelectatic changes of the left lung base. There is no demonstrated pleural abnormality. The heart size is within normal limits. Status post cardiac valvular replacement changes are noted. There are calcified left hilar nodes. Normal visualized pulmonary arteries. There are calcified plaques of the aortic arch. There are diffuse degenerative changes of the visualized thoracic spine. Normal visualized ribs, clavicles, and shoulders. There is no demonstrated abnormality of the visualized soft tissue structures of the upper abdomen. RAD/Chest PA and Lateral IMPRESSION: 1. Status post cardiac valvular replacement changes. 2. Mild fibrotic and/or atelectatic changes of the left lung base. This is a new interval finding. 3. Calcified plaques of the aortic arch. 4. Calcified left hilar nodes. 5. Diffuse degenerative changes of the thoracic spine. 6. No acute cardiopulmonary disease process is seen. Electronically Signed: Santos Miller MD at 23:50 EDT , Service support ,
[2017-12-10 14:40] LABS: AST(SGOT) 12 U/L (15-37); Alanine Aminotransfer ALT/SGPT 24 U/L (16-61); Albumin, Serum 3.6 g/dL (3.2-5.0); Alkaline Phosphatase 128 U/L (45-117); Bilirubin, Direct 0.14 mg/dL (0.00-0.30); Globulin 4.2 g/dL (2.2-4.2); Protein, Total 7.8 g/dL (6.4-8.2)
== END ==
PROVIDERS: Family Provider Family Medicine; PCP Family Medicine
DX: R06.00 Dyspnea, unspecified (principal); Z79.899 Other long term (current) drug therapy
CPT/HCPCS: 36415; 71046; 80076

== ENCOUNTER → 2018-01-10 10:03 | Outpatient (CLI) | payer MEDICARE, OTHER, SELFPAY ==
--- NOTE | 2018-01-10 10:27 | PCM.CR.ITP ---
General Information - General Information Admitting Diagnosis: CABG X 4, Aortic valve replacement 11/05/17 - Education/Goals Barriers to Learning: None Individual Counseling: Initial Assessment: Abnormal Cholesterol Levels, High Blood Pressure, Overweight/Obesity, Hypertension, Family History of Heart Disease (under 65 years) Cardiac Rehabilitation Goals: 1. Maintain the individual as the primary focus of care. 2. To improve the patient's quality of life. 3. Identification of cardiac risk factors and provide cardiac risk factor management. 4. Enhance the psychosocial status of the patient. 5. Reconditioning enough to allow the patient to resume customary activities. 6. Control symptoms of cardiac disease Scale for measuring improvement of personal goals: Enter appropriate number in Comments. 2 = Unchanged. 3 = Slightly Better. 4 = Moderate Improvement. 5 = Met my Goal Personal Goals: Initial Assessment: Improve energy level, Participate in home exercise program, Get back to work, or to resume activities faster, Improve knowledge of cardiac disease, Improve muscle strength and endurance, Improve diet and eating habits (eat healthier), Control risk factors (learn risk factor modification) Nutrition - Initial Assessment - Program Goals Nutrition Program Goals: LDL <70. Total Cholesterol <200. HDL >45. Triglycerides <150. HgbA1C <7%. BMI <25 - Visit Date of Assessment:: 01/10/18 - Stages of Change Stages of Change:: Action - Diabetes Diabetes:: No - Weight Management Height: 1.8 m Weight:: 100.244 kg Weight Goal (kg):: 90.718 kg Body Fat %:: 31 Goal % Body Fat:: 24 - Intervention Referral to dietitian:: Yes Referral to Diabetic Clinic:: No Will attend diet classes:: Yes - Education Gave educational materials for:: Relate diabetes to coronary artery disease, Healthy eating Tobacco - Initial Assessment - Program Goals Tobacco Program Goals: Complete smoking cessation. Attend education classes. Improve Knowledge Test score - Stage of Change Stages of Change:: Action - Learning Barriers Learning Barriers: Ready to Learn Total Score:: 20 - Family Support Do you have family support?: Yes - Tobacco Use Tobacco Use: Non-smoker How long ago did you quit using tobacco products?: Greater than or equal to 6 months ago Years Smokin - Intervention Smoking Cessation Referral:: No Individual Education/Counseling:: No Education Schedule Given:: Yes - Education Gave educational material for:: Tobacco triggers, Coronary artery disease, Risk factors, Sexuality, Medical compliance, Cardiac A&P, Angina signs & symptoms Psychosocial - Initial Assess - Target Goals Target Goals: Assess presence or absence of depression. Using a valid screening tool, maximizes coping skills. Positive support system - Stages of Change Stages of Change:: Maintenance, Action - Psychosocial Test Tool Used:: HANDS Depression Questionnaire Self-reported stress:: no Total Mood Screening Score:: 4 Self-Efficacy Score:: 9 - Intervention PS - Interventions: Yes Attend Stress Management Classes, Yes Uses Stress Management Skills, No Referral to Mental Health, No Referral to [facility] Case Management, No Referral to Physician - Education Gave educational materials for:: Coping techniques, Signs & symptoms of depression, Stress management, Relaxation techniques - Patient/Program Goal Preventative Medication(s):: Aspirin, MAINE inhibitor, Clopidogrel, Beta dionicio, Statin/lipid - Assistive Devices Assistive Devices:: None Fall Risk Assessed:: Yes Patient Health Questionnaire Initial Assessment 1. Little interest or pleasure in doing things: Not at all 2. Feeling down, depressed, or hopeless: Not at all 3. Trouble falling or staying asleep, or sleeping too much: Several days 4. Feeling tired or having little energy: More than half the days 5. Poor appetite or overeating: Not at all 6. Feeling bad about yourself -- or that you are a failure or have let yourself or your family down: Not at all 7. Trouble concentrating on things, such as reading the newspaper or watching television: Several days 8. Moving or speaking so slowly that other people could have noticed. Or the opposite - being so fidgety or restless that you have been moving around a lot more than usual: Not at all 9. Thoughts that you would be better off , or of hurting yourself in some way: Not at all How difficult have these problems made it for you to do your work, take care of things at home, or get along with other people?: Not difficult at all Total Score: 4 EDVIN-Q SV Test - Statements CAD is a disease of the arteries in the heart: False Examples of risk factors for heart disease: True Angina is chest pain or discomfort: True The benefits of resistance training include: True Eating more meat and dairy products: False Anti-platelet medications such as aspirin are important: True The only effective way to manage stress: False An exercise warm-up slowly increases heart rate: True Prepared, processed foods usually have high sodium: True Depression is common after a heart attack: True The statin medications lower cholesterol: True To control blood pressure, lower the amount of sodium: True If someone gets chest discomfort during walking: False Transfats are partially hydrogenated vegetable oils: True Sleep apnea that is not treated increases the risk: False To control cholesterol, one should become a vegetarian: False Someone knows if he/she is exercising at the right level: True Diabetes cannot be prevented with exercise & health eating: False Stress is a large risk for heart attack: True A diet that can help lower blood pressure is rich in: True - Total Score Total Correct Responses: 20 Self-Efficacy Initial Assessment We would like to know how confident you are in doing certain activities. Please select your confidence level for:: Select your confidence level for the following using the scale 1-10 where 1 is not at all confident and 10 is totally confident. Your score is the average of all 6 responses. Fatigue: How confident are you that you can keep the fatigue caused by your disease from interfering with the things you want to do? Select Number: 9 Physical Discomfort or Pain: How confident are you that you can keep the physical discomfort or pain of your disease from interfering with the things you want to do? Select Number: 9 Emotional Distress: How confident are you that you can keep the emotional distress caused by your disease from interfering with the things you want to do? Select Number: 9 Other Symptoms or Health Problems: How confident are you that you can keep other symptoms or health problems from interfering with the things you want to do? Select Number: 9 Different Tasks and Activities: How confident are you that you can do the different tasks and activities needed to manage your health condition so as to reduce your need to see a doctor? Select Number: 9 Medication: How confident are you that you can do things other than just taking medication to reduce how much your illness affects your everyday life? Select Number: 9 Total Score:: 9 Nutrition Survey - Nutrition Survey Instructions Scoring Instructions: Scoring is as follows: Yes = 1 points. No = 0 point. Patient score that is >/=12 is considered to be at potential nutritional risk and could benefit from a referral to a registered dietitian. - Nutrition Survey Initial Have you lost >10 lbs over the past 2 months without trying?: Yes Are you following a special diet at home for diabetes, low fat, or low salt?: Yes Are you interested in meeting with a dietitian for help understanding your diet?: Yes Do you eat less than 3 meals a day?: No Do you eat fatty meats (bustamante, sausage, ribs, etc), fried foods, desserts, large amounts of salad dressings, margarine, butter, or cheese most days?: Yes Do you have food allergies? [Enter types in comment field]: No Do you season food with salt, seasoning salt, or garlic salt?: Yes Do you used canned, boxed, frozen meals, or soups, seasoning packets?: No
--- NOTE | 2018-01-10 10:28 | PCM.CR.HP2 ---
CR - History & Physical - General Arrival date:: 01/10/18 Arrival time:: 10:28 Date of Referral:: 01/10/18 Date of CR Evaluation:: 01/10/18 Referring Physician: Dr. Sarai Selby Primary Diagnosis: CABG - History of Present Cardiac Event Onset Date: Enter Onset Date of cardiac illnesses in Comment field below Current stable Angina Pectoris:: No Acute Myocardial Infarction within 12 months:: No Coronary Artery Bypass Graft:: Yes - 11/05/17 Heart valve replacement or repair:: Yes - 11/05/17 Aortic valve replacement PTCA or coronary stenting:: No Heart or Heart-Lung Transplant:: No Heart Failure EF <35%:: No Type of Symptoms:: cough Interventions with present event:: echo, stress test, heart cath, ANGELINA Were there any complications?: AFib post op - Medications Home Medications: Ambulatory Orders Medication Instructions Recorded hydrocodone 5 mg-acetaminophen 300 1 tab PO TID 09/17/17 mg tablet cholecalciferol (vitamin D3) 1,000 1,000 unit PO QDAY 09/18/17 unit capsule cyanocobalamin (vit B-12) 5,000 5,000 mcg SUBLINGUAL QDAY 09/18/17 mcg sublingual tablet omega-3 fatty acids 1,000 mg 1,000 mg PO QDAY 09/18/17 capsule aspirin 81 mg tablet,delayed 81 mg PO QDAY 11/01/17 release Clopidogrel Bisulfate [Clopidogrel] 75 mg PO QDAY 11/02/17 atorvastatin 40 mg tablet PO 30 Days #30 01/04/18 diphenhydramine 50 mg capsule 50 mg PO QHS PRN 01/04/18 loratadine 10 mg tablet 10 mg PO DAILY 01/04/18 melatonin 10 mg capsule 10 mg PO HS PRN 01/04/18 metoprolol tartrate 100 mg tablet PO 30 Days #60 01/04/18 - Allergies Allergies/Adverse Reactions: Allergies No Known Allergies Allergy (Verified 01/04/18 13:46) - Sleep Disorder Evaluation Hx of Sleep Apnea: No Do you snore loudly (louder than talking or can be heard through closed doors)?: No Do you often feel tired/ fatigued/ sleepy during daytime?: Yes Has anyone observed you stop breathing during sleep?: No History of Hypertension (for STOP score): Yes - has been through 2 sleep studies. STOP Results: Positive Advanced Directives - Advanced Directives Power of Account Management Specialist: Yes Living Will: Yes Advance Directives Information Provided: Yes Advance Directives on File: No DNR Order?:: No Past Medical History - Past Medical Illness Medical History: Past Medical History (Last Reviewed 11/01/17 @ 11:16 by Jewell Shields) Hypertension (Chronic) I10 Obesity (BMI 30.0-34.9) (Chronic) E66.9 - Past Surgical History Surgical History: Past Surgical History (Last Updated 01/04/18 @ 14:01 by HAYES Eaton) History of aortic valve replacement (Chronic) Onset Date: 11/05/17 Z95.2 AVR w/23MM hernandez intuity pericardial valve History of coronary artery bypass graft (Chronic) Onset Date: 11/05/17 Z95.1 MUSTAFA-LAD, SVG seq OM1-OM2, SVG-PDA History of open reduction and internal fixation (ORIF) procedure Onset Date: ~1995 Z98.890 left elbow 8 surgeries History of tonsillectomy Z90.89 - Family History Summary Family History: Family History (Last Updated 01/04/18 @ 13:48 by Aminta Jansen) Father Myocardial infarction from [place] age 59 CAD (coronary artery disease) Mother Diabetes Hypertension Brother Diabetes age 62 from diabetic complications CAD (coronary artery disease) coronary stent Brother CAD (coronary artery disease) CABG Brother Heart disease Social History - Smoking History Smoking Status: Former smoker - quit 43 years ago Years Smokin Packs Smoked per Day: 2 Hx Smoking Cessation Date: 43 years ago Hx Tobacco Use: No Hx Smoking Exposure: No - Alcohol Use Alcohol Usage: Yes - 4x/week wine or beer x 1 - Substance Abuse Hx Substance Use: No - Occupation Occupation (List type of work in comments):: Retired - Hobbies, Recreation, Social Activities Hobbies: Exercise - walking, Other - gardening Recreational Activities: I am able to engage in most, but not all activities Social Environment - Status Marital Status: - Current Living Arrangements Living Environment:: Spouse - Children How many children do you have?: 3 Do any of your children live nearby?: Yes - Safety Do you feel safe in your surroundings?: Yes - Assistance Do you need any assistance at home?: no Review of Systems - Review of Systems Hints: Right click = Denies ([place]ash). Left click = Reports ([place]) Review of Present Symptoms: Reports: Operative Discomfort, Fatigue, Appetite - Special Diet - cardiac. Denies: Shortness of Breath at Rest, Shortness of Breath with Exertion, PVD, Angina, Wound Healing, Dizziness/Lightheadedness, Heart Arrhythmia/Irregularities, Appetite - Normal, Sleep - Normal - some nights not as good as others, Sexual Changes - Pain Is Patient Pain Free?: No Pain Location: chest, upper extremity - left elbow chronic pain. Pain Level: 610 - Yulan used for usual arm pain. Previous experience dealing with pain?: Celebrex, Vicodin, Lyrica Risk Factor Assessment - Chief Complaint Chief Complaint: s/p CABG - Pulse Pulse Rate: 64 Pulse Rhythm: Regular - Hypertension How long have you been treated?: 4 years On medication(s)?: yes Blood Pressure Sitting - Right Arm: 134/74 - For Smoking Smoking Risk Guidelines: Smoking Low Risk: None or quit greater than 6 months ago. Smoking Moderate Risk: Smoker or quit 6 months or less ago. Smoking High Risk: Smoker - For Dyslipidemia Dyslipidemia Risk Guidelines: Low Risk: Moderate Risk: High Risk: 15-25% fat 25.1-29% fat >/= 30% fat. <7% sat fat 7-9% sat fat >9% sat fat. <150 mg chol 150-299 mg chol >/= 300 mg chol. LDL <100 LDL 100-129 LDL >/= 130. Chol/HDL ratio <5.0 Chol/HDL ratio 5.0-6.0 Chol/HDL ratio >6.0. Triglycerides <100 Triglycerides 100-149 Triglycerides >/= 150 - For Diabetes Mellitus Diabetes Risk Guidelines: Diabetes Low Risk: HgA1c <6.5% and/or FBG <120. Diabetes Moderate Risk: HgA1c 6.6-7.9% and/or FBG 120-180. Diabetes High Risk: HgA1c >/= 8% and/or FBG >180 - For Obesity/Overweight Obesity/Overweight Risk Guidelines: Obesity Low Risk: BMI <25.0. Obesity Moderate Risk: BMI 25-29.9. Obesity High Risk: BMI >/= 30.0 - For Hypertension Hypertension Risk Guidelines: Hypertension Low Risk: Systolic <120 and Diastolic <80. Hypertension Moderate Risk: Systolic 120-139 and Diastolic 80-89. Hypertension High Risk: Systolic >/= 140 and Diastolic >/= 90 - For Sedentary Lifestyle Sedentary Lifestyle Risk Guidelines: Sedentary Lifestyle Low Risk: >/= 1,500 kcal/week. Sedentary Lifestyle Moderate Risk: 700-1,499 kcal/week. Sedentary Lifestyle High Risk: < 700 kcal/week - For Depression Depression Risk Guidelines: Depression Low Risk: Not clinically depressed. Depression Moderate Risk: Mildly depressed. Depression High Risk: Clinically depressed - Family History Family History: Family History (Last Updated 01/04/18 @ 13:48 by Aminta Jansen) Father Myocardial infarction CAD (coronary artery disease) Mother Diabetes Hypertension Brother Diabetes CAD (coronary artery disease) Brother CAD (coronary artery disease) Brother Heart disease
[2018-01-10 11:54] VITALS: BMI 30.8
[2018-01-10 12:02] VITALS: BP 134/74; PULSE 64
== END ==
PROVIDERS: Family Provider Family Medicine; PCP Family Medicine; Visit Provider Internal Medicine Cardiovascular Disease
DX: Z95.1 Presence of aortocoronary bypass graft (principal)

== ENCOUNTER → 2018-01-25 07:28 | Outpatient (CLI) | payer MEDICARE, OTHER, SELFPAY ==
[2018-01-25 08:32] LABS: AST(SGOT) 16 U/L (15-37); Alanine Aminotransfer ALT/SGPT 26 U/L (16-61); Albumin, Serum 3.8 g/dL (3.2-5.0); Alkaline Phosphatase 107 U/L (45-117); Bilirubin, Direct 0.14 mg/dL (0.00-0.30); Cholesterol 93 mg/dL (200); Globulin 4.1 g/dL (2.2-4.2); High Density Lipoprotein 39 mg/dL; Protein, Total 7.9 g/dL (6.4-8.2); Triglycerides 116 mg/dL; Very Low Density Lipoprotein 23 mg/dL (5-40)
== END ==
PROVIDERS: Family Provider Family Medicine; PCP Family Medicine; Visit Provider Physician Assistant Medical
DX: I10 Essential (primary) hypertension (principal); I35.0 Nonrheumatic aortic (valve) stenosis; I25.10 Atherosclerotic heart disease of native coronary artery without angina pectoris; Z95.1 Presence of aortocoronary bypass graft
CPT/HCPCS: 36415; 80061; 80076; 93798

== ENCOUNTER 2018-01-28 09:15 | Outpatient (RCR) | payer MEDICARE, OTHER, SELFPAY | END 2018-02-10 23:59 | LOC: CR 09:15 | PROVIDERS: Family Provider Family Medicine; PCP Family Medicine; Visit Provider Internal Medicine Cardiovascular Disease | DX: Z95.2 Presence of prosthetic heart valve (principal); Z95.1 Presence of aortocoronary bypass graft | CPT/HCPCS: 93798 ==

== ENCOUNTER 2018-03-13 08:00 | Outpatient (RCR) | payer MEDICARE, OTHER, SELFPAY ==
--- NOTE | 2018-02-22 11:24 | PCM.CR.ITP ---
General Information - General Information Admitting Diagnosis: CABG - Education/Goals Cardiac Rehabilitation Goals: 1. Maintain the individual as the primary focus of care. 2. To improve the patient's quality of life. 3. Identification of cardiac risk factors and provide cardiac risk factor management. 4. Enhance the psychosocial status of the patient. 5. Reconditioning enough to allow the patient to resume customary activities. 6. Control symptoms of cardiac disease Scale for measuring improvement of personal goals: Enter appropriate number in Comments. 2 = Unchanged. 3 = Slightly Better. 4 = Moderate Improvement. 5 = Met my Goal Exercise - 30-day Assessment - Visit Date of Eval: 02/22/18 Session #:: 7 - Stages of Change Stages of Change:: Action - Exercise Prescription Mode:: Treadmill, Airdyne, NuStep Frequency (x/week): 3 Duration:: 30 METs - Progression: 0.5-1 MET as tolerated: 4.5 Target Heart Rate:: 114-122 - Hypertension Resting Blood Pressure:: 124/68 Peak Exercise Blood Pressure:: 156/70 Medication Changes:: No - Intervention Home Exercise/Activity Goal:: Sitting Time <3 hrs/day - Education Goals:: Warm-up, RPE MAVIS Scale, S/S, Safe Exercise, Self-Monitoring - Exercise Program Goals Exercise Program Goals: Aerobic Activity >30 min, B/P <130/80 Nutrition - 30-Day Assessment - Program Goals Nutrition Program Goals: LDL <70. Total Cholesterol <200. HDL >45. Triglycerides <150. HgbA1C <7%. BMI <25 - Visit Date of Eval: 02/22/18 - Stages of Change Stages of Change:: Action - Lipids Has the patient seen the dietitian?: No - Diabetes Diabetes:: No - Weight Management Weight:: 104.78 kg - Intervention Referral to dietitian:: Yes Referral to Diabetic Clinic:: No Will attend diet classes:: Yes - Education Attended class for:: Signs & symptoms of hypoglycemia, Signs & symptoms of hyperglycemia, Relate diabetes to coronary artery disease, Healthy eating Tobacco - Initial Assessment - Program Goals Tobacco Program Goals: Complete smoking cessation. Attend education classes. Improve Knowledge Test score - Learning Barriers Learning Barriers: Ready to Learn Tobacco - 30-Day Assessment - Program Goals Tobacco Program Goals: Complete smoking cessation. Attend education classes. Improve Knowledge Test score - Stage of Change Stages of Change:: Action - Learning Barriers Learning Barriers: Participates in education - Family Support Do you have family support?: Yes - Tobacco Use Tobacco Use: Non-smoker Do you use smokeless tobacco?: No - Intervention Smoking Cessation Referral:: No Individual Education/Counseling:: No Education Schedule Given:: Yes - Education Attended class for:: Tobacco triggers, Coronary artery disease, Risk factors, Sexuality, Medical compliance, Cardiac A&P, Angina signs & symptoms Psychosocial - Initial Assess - Target Goals Target Goals: Assess presence or absence of depression. Using a valid screening tool, maximizes coping skills. Positive support system - Psychosocial Test Tool Used:: HANDS Depression Questionnaire - Assistive Devices Fall Risk Assessed:: Yes Psychosocial - 30-Day Assess - Target Goals Target Goals: Assess presence or absence of depression. Using a valid screening tool, maximizes coping skills. Positive support system - Stages of Change Stages of Change:: Action - Psychosocial Test Tool Used:: HANDS Depression Questionnaire - Intervention PS - Interventions: Yes Attend Stress Management Classes, Yes Uses Stress Management Skills, No Referral to Mental Health, No Referral to [facility] Case Management, No Referral to Physician - Education Attended classes for:: Coping techniques, Signs & symptoms of depression, Stress management, Relaxation techniques - Assistive Devices Assistive Devices:: None Fall Risk Assessed:: Yes Patient Health Questionnaire 30-Day Re-eval Assessment 1. Little interest or pleasure in doing things: Not at all 2. Feeling down, depressed, or hopeless: Not at all 3. Trouble falling or staying asleep, or sleeping too much: Several days 4. Feeling tired or having little energy: More than half the days 5. Poor appetite or overeating: Not at all 6. Feeling bad about yourself -- or that you are a failure or have let yourself or your family down: Not at all 7. Trouble concentrating on things, such as reading the newspaper or watching television: Several days 8. Moving or speaking so slowly that other people could have noticed. Or the opposite - being so fidgety or restless that you have been moving around a lot more than usual: Not at all 9. Thoughts that you would be better off , or of hurting yourself in some way: Not at all How difficult have these problems made it for you to do your work, take care of things at home, or get along with other people?: Not difficult at all Total Score: 4 Self-Efficacy 30-Day Re-eval Assessment We would like to know how confident you are in doing certain activities. Please select your confidence level for:: Select your confidence level for the following using the scale 1-10 where 1 is not at all confident and 10 is totally confident. Your score is the average of all 6 responses. Fatigue: How confident are you that you can keep the fatigue caused by your disease from interfering with the things you want to do? Select Number: 9 Physical Discomfort or Pain: How confident are you that you can keep the physical discomfort or pain of your disease from interfering with the things you want to do? Select Number: 9 Emotional Distress: How confident are you that you can keep the emotional distress caused by your disease from interfering with the things you want to do? Select Number: 9 Other Symptoms or Health Problems: How confident are you that you can keep other symptoms or health problems from interfering with the things you want to do? Select Number: 9 Different Tasks and Activities: How confident are you that you can do the different tasks and activities needed to manage your health condition so as to reduce your need to see a doctor? Select Number: 9 Medication: How confident are you that you can do things other than just taking medication to reduce how much your illness affects your everyday life? Select Number: 9 Total Score:: 9
[2018-02-22 11:29] VITALS: BP 124/68; BP 156/70
== END 2018-03-13 23:59 ==
LOC: CR 08:00
PROVIDERS: Family Provider Family Medicine; PCP Family Medicine; Referring Provider Internal Medicine Cardiovascular Disease; Visit Provider Internal Medicine Cardiovascular Disease
DX: Z95.2 Presence of prosthetic heart valve (principal); Z95.1 Presence of aortocoronary bypass graft
CPT/HCPCS: 93798

== ENCOUNTER 2018-04-12 06:30 | Outpatient (RCR) | payer MEDICARE, OTHER, SELFPAY ==
[2018-03-14 00:26] VITALS: BP 124/68; BP 156/70
[2018-03-25 07:34] VITALS: BP 132/70; BP 152/78
--- NOTE | 2018-03-25 07:34 | CR.ITP_ITS ---
Exercise - 60-Day Assessment - Visit Date of Eval: 03/25/18 Session #:: 24 - Stages of Change Stages of Change:: Action - Exercise Prescription Mode:: Treadmill, Airdyne, NuStep Frequency (x/week): 3 Duration:: 35 METs: 7.5 Target Heart Rate:: 114-122 w/ max HR 106 - Hypertension Resting Blood Pressure:: 132/70 Peak Exercise Blood Pressure:: 152/78 Medication Changes:: No - Intervention Home Exercise/Activity Goal:: Moderate Exercise 30 min/day x 5 days/wk - Education Goals:: Warm-up, RPE MAVIS Scale, S/S, Safe Exercise, Self-Monitoring - Exercise Program Goals Exercise Program Goals: Aerobic Activity >30 min Nutrition - 60-Day Assessment - Program Goals Nutrition Program Goals: LDL <70. Total Cholesterol <200. HDL >45. Triglycerides <150. HgbA1C <7%. BMI <25 - Visit Date of Eval: 03/25/18 - Stages of Change Stages of Change:: Action - Lipids Has the patient seen the dietitian?: No - Diabetes Diabetes:: No - Weight Management Weight:: 230 lb - down 5 pounds this month - Intervention Referral to dietitian:: No Will attend diet classes:: Yes - Education Attended class for:: Healthy eating Tobacco - Initial Assessment - Program Goals Tobacco Program Goals: Complete smoking cessation. Attend education classes. Improve Knowledge Test score - Learning Barriers Learning Barriers: Ready to Learn Tobacco - 60-Day Assessment - Program Goals Tobacco Program Goals: Complete smoking cessation. Attend education classes. Improve Knowledge Test score - Stage of Change Stages of Change:: Action - Learning Barriers Learning Barriers: Participates in education - Tobacco Use Tobacco Use: Non-smoker Do you use smokeless tobacco?: No - Intervention Smoking Cessation Referral:: No Education Schedule Given:: Yes - Education Attended class for:: Coronary artery disease, Risk factors, Sexuality, Medical compliance, Cardiac A&P, Angina signs & symptoms Psychosocial - Initial Assess - Target Goals Target Goals: Assess presence or absence of depression. Using a valid screening tool, maximizes coping skills. Positive support system - Psychosocial Test Tool Used:: HANDS Depression Questionnaire - Assistive Devices Fall Risk Assessed:: Yes Psychosocial - 60-Day Assess - Target Goals Target Goals: Assess presence or absence of depression. Using a valid screening tool, maximizes coping skills. Positive support system - Stages of Change Stages of Change:: Action - Psychosocial Test Tool Used:: HANDS Depression Questionnaire - Intervention PS - Interventions: Yes Attend Stress Management Classes, Yes Uses Stress Management Skills, No Referral to Mental Health, No Referral to [facility] Case Management, No Referral to Physician - Education Attended classes for:: Coping techniques, Signs & symptoms of depression, Stress management, Relaxation techniques - Patient/Program Goal Preventative Medication(s):: Aspirin, Clopidogrel, Beta dionicio, Statin/lipid - Assistive Devices Assistive Devices:: None Fall Risk Assessed:: Yes Patient Health Questionnaire 60-Day Re-eval Assessment 1. Little interest or pleasure in doing things: Not at all 2. Feeling down, depressed, or hopeless: Not at all 3. Trouble falling or staying asleep, or sleeping too much: Not at all 4. Feeling tired or having little energy: Not at all 5. Poor appetite or overeating: Not at all 6. Feeling bad about yourself -- or that you are a failure or have let yourself or your family down: Not at all 7. Trouble concentrating on things, such as reading the newspaper or watching television: Not at all 8. Moving or speaking so slowly that other people could have noticed. Or the opposite - being so fidgety or restless that you have been moving around a lot more than usual: Not at all 9. Thoughts that you would be better off , or of hurting yourself in some way: Not at all How difficult have these problems made it for you to do your work, take care of things at home, or get along with other people?: Not difficult at all Total Score: 0 Self-Efficacy 60-Day Re-eval Assessment We would like to know how confident you are in doing certain activities. Please select your confidence level for:: Select your confidence level for the following using the scale 1-10 where 1 is not at all confident and 10 is totally confident. Your score is the average of all 6 responses. Fatigue: How confident are you that you can keep the fatigue caused by your disease from interfering with the things you want to do? Select Number: 10 Physical Discomfort or Pain: How confident are you that you can keep the physical discomfort or pain of your disease from interfering with the things you want to do? Select Number: 10 Emotional Distress: How confident are you that you can keep the emotional distress caused by your disease from interfering with the things you want to do? Select Number: 10 Other Symptoms or Health Problems: How confident are you that you can keep other symptoms or health problems from interfering with the things you want to do? Select Number: 10 Different Tasks and Activities: How confident are you that you can do the different tasks and activities needed to manage your health condition so as to reduce your need to see a doctor? Select Number: 10 Medication: How confident are you that you can do things other than just taking medication to reduce how much your illness affects your everyday life? Select Number: 10 Total Score:: 10
== END 2018-04-12 23:59 ==
LOC: CR 06:30
PROVIDERS: Family Provider Family Medicine; PCP Family Medicine; Referring Provider Internal Medicine Cardiovascular Disease; Visit Provider Internal Medicine Cardiovascular Disease
DX: Z95.2 Presence of prosthetic heart valve (principal); Z95.1 Presence of aortocoronary bypass graft
CPT/HCPCS: 93798

== ENCOUNTER 2018-04-22 06:30 | Outpatient (RCR) | payer MEDICARE, OTHER, SELFPAY ==
[2018-01-10 11:54] VITALS: BMI 30.8
[2018-04-13 00:29] VITALS: BP 132/70; BP 152/78
== END 2018-05-13 23:59 ==
LOC: CR 06:30
PROVIDERS: Family Provider Family Medicine; PCP Family Medicine; Referring Provider Internal Medicine Cardiovascular Disease; Visit Provider Internal Medicine Cardiovascular Disease
DX: Z95.2 Presence of prosthetic heart valve (principal); Z95.1 Presence of aortocoronary bypass graft
CPT/HCPCS: 93798

== ENCOUNTER → 2018-12-19 13:58 | Outpatient (CLI) | payer MEDICARE, OTHER, SELFPAY ==
[2018-12-06 10:01] VITALS: BMI 34.9
--- NOTE | 2018-12-19 14:00 | ECHOD_ITS ---
Reason For Study: Valvel Replacement Procedure This was a 2D Doppler, Color Flow transthoracic echocardiogram. Exam performed in department. Left Ventricle Normal size and thickness. The estimated ejection fraction is 65 %. Stage 2 diastolic dysfunction. No regional wall motion abnormalities noted. Right Ventricle Normal size and thickness. Normal systolic function. Atria The left atrium is mildly enlarged. Normal right atrium. Normal atrial septum. Mitral Valve The mitral valve is structurally normal. No prolapse or stenosis seen. Trivial mitral valve insufficiency. Tricuspid Valve Normal tricuspid valve. Trivial tricuspid valve insufficiency. Right ventricular systolic pressure estimated to be 26 mmHg. Aortic Valve Peak aortic valve gradient 26 mmHg. Mean aortic valve gradient 13 mmHg. Stable appearing bioprosthetic aortic valve apparatus. Pulmonic Valve Normal pulmonic valve. Trivial pulmonic valve insufficiency. Great Vessels Normal aortic root. Normal arch. Normal inferior vena cava. Inferior vena cava collapse with sniff. Pericardium/Pleural No pericardial effusion. MMode/2D Measurements & Calculations LVIDd: 4.4 cm IVSd: 1.2 cm LVOT diam: 2.0 cm LVIDs: 2.9 cm LVPWd: 1.0 cm LVOT area: 3.1 cm2 RVDd: 3.4 cm FS: 34.3 % Ao root diam: 3.6 cm LAV(MOD-sp4): 72.7 ml LA A4 area: 21.9 cm2 LA dimension(2D): 4.4 cm RA A4 area: 16.5 cm2 Time Measurements MV dec time: 0.20 sec Doppler Measurements & Calculations MV E max wilbur: 93.3 cm/sec Lat Peak E' Wilbur: 9.0 cm/sec Med Peak E' Wilbur: 5.7 cm/sec MV A max wilbur: 78.3 cm/sec E/E' lat: 10.4 E/E' med: 16.4 MV E/A: 1.2 Ao V2 max: 227.4 cm/sec LV V1 max: 92.6 cm/sec SV(LVOT): 77.8 ml Ao max P.0 mmHg LV V1 max P.5 mmHg Ao V2 mean: 158.3 cm/sec LV V1 mean P.0 mmHg Ao mean P.0 mmHg LV V1 mean: 67.7 cm/sec Ao V2 VTI: 51.7 cm LV V1 VTI: 25.0 cm HEATHER(I,D): 1.5 cm2 HEATHER(V,D): 1.3 cm2 PA V2 max: 106.1 cm/sec TR max wilbur: 229.5 cm/sec TR max P.1 mmHg Interpretation Summary The estimated ejection fraction is 65 %. Stage 2 diastolic dysfunction. The left atrium is mildly enlarged. Trivial mitral valve insufficiency. Trivial tricuspid valve insufficiency. Right ventricular systolic pressure estimated to be 26 mmHg. Stable appearing and normal functioning bioprosthetic aortic valve apparatus. 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 Ordering Physician: Dion Selby Referring Physician: Wilder Rebollar Performed By: Angi Lezama RDCS, RVT
== END ==
PROVIDERS: Family Provider Family Medicine; PCP Family Medicine; Referring Provider Internal Medicine Cardiovascular Disease; Visit Provider Internal Medicine Cardiovascular Disease
DX: I25.10 Atherosclerotic heart disease of native coronary artery without angina pectoris (principal)
CPT/HCPCS: 93306

== ENCOUNTER → 2019-06-13 10:00 | Outpatient (CLI) | payer MEDICARE, OTHER, SELFPAY ==
[2018-12-06 10:01] VITALS: BMI 34.9
[2019-06-13 11:46] LABS: AST(SGOT) 20 U/L (15-37); Alanine Aminotransfer ALT/SGPT 37 U/L (16-61); Alkaline Phosphatase 90 U/L (45-117); Bilirubin, Direct 0.17 mg/dL (0.00-0.30); Cholesterol 117 mg/dL (200); Globulin 4.1 g/dL (2.2-4.2); High Density Lipoprotein 43 mg/dL; Protein, Total 8.1 g/dL (6.4-8.2); Triglycerides 128 mg/dL; Very Low Density Lipoprotein 26 mg/dL (5-40)
== END ==
PROVIDERS: PCP Family Medicine; Referring Provider Internal Medicine Cardiovascular Disease; Visit Provider Internal Medicine Cardiovascular Disease
DX: I25.10 Atherosclerotic heart disease of native coronary artery without angina pectoris (principal); I10 Essential (primary) hypertension; Z95.1 Presence of aortocoronary bypass graft
CPT/HCPCS: 36415; 80061; 80076

== ENCOUNTER → 2019-07-15 | Outpatient (CLI) | payer MEDICARE, OTHER, SELFPAY ==
[2019-06-13 11:07] VITALS: BMI 35.1
--- NOTE | 2019-07-15 08:00 | RAD_ITS ---
STUDY: X-RAY - RIGHT SHOULDER REASON FOR EXAM: Male, 68 years old. NKI, pain TECHNIQUE: 4 view(s) of the shoulder. COMPARISON: None. FINDINGS: Normal glenohumeral articulation. Normal acromioclavicular joint. Normal acromion. Normal humeral head and visualized proximal humerus. The soft tissue structures are unremarkable. Normal visualized pulmonary apex. RAD/Shoulder min 2 Views IMPRESSION: Normal x-ray examination of the shoulder. Electronically Signed: Andre Swan MD at 8:46 EST Tel , Service support ,
== END | disposition home or self-care (01) ==
LOC: RAD 07:54
PROVIDERS: PCP Family Medicine; Referring Provider Family Medicine; Visit Provider Family Medicine
DX: M25.511 Pain in right shoulder (principal)
CPT/HCPCS: 73030

== ENCOUNTER → 2019-12-29 | Outpatient (CLI) | payer MEDICARE, OTHER, SELFPAY ==
[2019-06-13 11:07] VITALS: BMI 35.1
[2019-12-29 11:58] LABS: AST(SGOT) 17 U/L (15-37); Alanine Aminotransfer ALT/SGPT 25 U/L (16-61); Albumin, Serum 3.8 g/dL (3.2-5.0); Alkaline Phosphatase 83 U/L (45-117); Bilirubin, Direct 0.19 mg/dL (0.00-0.30); Cholesterol 103 mg/dL (200); Globulin 3.7 g/dL (2.2-4.2); High Density Lipoprotein 36 mg/dL; Protein, Total 7.5 g/dL (6.4-8.2); Triglycerides 141 mg/dL; Very Low Density Lipoprotein 28 mg/dL (5-40)
== END | disposition home or self-care (01) ==
LOC: LAB 10:51
PROVIDERS: PCP Family Medicine; Referring Provider Internal Medicine Cardiovascular Disease; Visit Provider Internal Medicine Cardiovascular Disease
DX: E78.00 Pure hypercholesterolemia, unspecified (principal); I25.10 Atherosclerotic heart disease of native coronary artery without angina pectoris
CPT/HCPCS: 36415; 80061; 80076

== ENCOUNTER → 2020-07-05 10:08 | Outpatient (CLI) | payer MEDICARE, OTHER, SELFPAY ==
[2019-12-29 10:52] VITALS: BMI 47.7
[2020-07-05 11:05] LABS: AST(SGOT) 17 U/L (15-37); Alanine Aminotransfer ALT/SGPT 29 U/L (16-61); Alkaline Phosphatase 91 U/L (45-117); Bilirubin, Direct 0.19 mg/dL (0.00-0.30); Cholesterol 109 mg/dL (200); Globulin 3.8 g/dL (2.2-4.2); High Density Lipoprotein 43 mg/dL; Protein, Total 7.8 g/dL (6.4-8.2); Triglycerides 102 mg/dL; Very Low Density Lipoprotein 20 mg/dL (5-40)
== END ==
PROVIDERS: Internal Medicine Cardiovascular Disease; PCP Family Medicine; Referring Provider Physician Assistant Medical; Visit Provider Physician Assistant Medical
DX: E78.00 Pure hypercholesterolemia, unspecified (principal); I25.10 Atherosclerotic heart disease of native coronary artery without angina pectoris
CPT/HCPCS: 36415; 80061; 80076

== ENCOUNTER → 2020-07-14 10:49 | Outpatient (CLI) | payer MEDICARE, OTHER, SELFPAY ==
[2020-07-05 10:29] VITALS: BMI 47.9
--- NOTE | 2020-07-14 10:52 | CDU_ITS ---
Reason For Study: Bilateral carotid bruit Rt. Velocities/BP Lt. Velocities/BP Prox CCA 73.9/11.3 cm/sec. Prox CCA 70.3/18.8 cm/sec. Mid CCA 101.1/16.3 cm/sec. Mid CCA 58.1/18.8 cm/sec. Dist CCA 94.9/18.8 cm/sec. Dist CCA 53.2/15.1 cm/sec. Bulb 167.4/20.4. Prox ICA 145.5/31.4 cm/sec. Prox ICA 117.4/17 cm/sec. Mid ICA 114.8/31. cm/sec. Mid ICA 110.1/27.9 cm/sec. Dist ICA 115.6/27.9 cm/sec. Dist ICA 90/29.8 cm/sec. Lt. ICA/CCA = 2.50. Rt. ICA/CCA = 1.24. Prox ECA 362/19.4 cm/sec. Prox ECA 171.8/5 cm/sec. Lt. Vert. 66.7/12.6 cm/sec. Rt. Vert. 51.9/13.9 cm/sec. Right Extracranial There is homogeneous, smooth atherosclerotic plaque noted in the right common carotid artery. There is heterogeneous, irregular atherosclerotic plaque noted in the right internal carotid artery. The atherosclerotic plaque causes acoustic shadowing. There is heterogeneous, irregular atherosclerotic plaque noted in the right external carotid artery. Antegrade flow is noted in the right vertebral artery. There is heterogeneous, irregular atherosclerotic plaque noted in the right bulb. Left Extracranial There is homogeneous, smooth atherosclerotic plaque noted in the left common carotid artery. There is heterogeneous, irregular atherosclerotic plaque noted in the left internal carotid artery. There is heterogeneous, irregular atherosclerotic plaque noted in the left external carotid artery. Antegrade flow is noted in the left vertebral artery. Procedure Carotid Duplex 30397. This is a Carotid Duplex examination using B-mode, color flow and specral Doppler. Exam performed in department. Interpretation Summary Moderate (50-69%) stenosis right extracranial internal carotid. Moderate (50-69%) stenosis left extracranial internal carotid. Flow within the vertebral arteries is antegrade bilaterally. Ordering Physician: Breanna Collins Referring Physician: Wilder Rebollar Performed By: Ciera Coello RVT
== END ==
PROVIDERS: PCP Family Medicine; Referring Provider Physician Assistant Medical; Visit Provider Physician Assistant Medical
DX: R09.89 Other specified symptoms and signs involving the circulatory and respiratory systems (principal)
CPT/HCPCS: 93880

== ENCOUNTER → 2020-08-12 08:40 | Outpatient (CLI) | payer MEDICARE, OTHER, SELFPAY ==
[2020-07-27 12:55] VITALS: BMI 36.6
--- NOTE | 2020-08-12 08:42 | AAAS_ITS ---
Reason For Study: PULSATILE MASS Aorta Measurements Aorta Doppler Measurements Proximal aorta measures1.8 X 1.8cm. in cross- Peak systolic flow velocities within the proximal sectional axis. aorta measure 122.3 cm/sec. Proximal aorta measures1.8cm. in longitudinal Peak systolic flow velocities within the mid aorta axis. measure 150.8 cm/sec. Mid aorta measures1.8 X 1.8cm. in cross-sectional Peak systolic flow velocities within the distal axis. aorta measure 127.4 cm/sec. Mid aorta measures1.8cm. in longitudinal axis. Distal aorta measures1.9 X 1.9cm. in cross- sectional axis. Distal aorta measures2.0cm. in longitudinal axis. Left Iliac Artery Left iliac artery measures 1.1 X 1.2 cm. in the longitudinal axis. Left iliac artery measures 1.1 cm. in the cross-sectional axis. Peak systolic velocity in the left iliac artery measures 256.2 cm/sec. Right Iliac Artery Right iliac artery measures .8 X .8 cm. in the longitudinal axis. Right iliac artery measures .9 cm. in the cross-sectional axis. Peak systolic velocity in the right iliac artery measures 228.5 cm/sec. Procedure Aorta IVC Iliac vasculature or bypass grafts [id number]. Exam performed in department. VL/AAA Screening Interpretation Summary Maximal aortic dimensions with the distal abdominal aorta measuring 1.9 x 1.9 c m in diameter Elevated peak systolic velocity within the mid abdominal aorta at 150.8 cm/s Left common iliac artery 1.1 x 1.2 cm in diameter with elevated velocity at 256 cm/s flow Right common iliac artery 0.8 x 0.8 cm in diameter with peak systolic velocity of 228 cm/s flow Abdominal aortic aneurysm is not identified. Ordering Physician: Greg Blackman Referring Physician: LETHA CABALLERO Performed By: Ghada Sherwood, OZZIECS, RVT
== END ==
PROVIDERS: PCP Family Medicine; Referring Provider Surgery; Visit Provider Surgery
DX: R19.00 Intra-abdominal and pelvic swelling, mass and lump, unspecified site (principal)
CPT/HCPCS: 76706

== ENCOUNTER → 2020-12-20 11:10 | Outpatient (CLI) | payer MEDICARE, OTHER, SELFPAY ==
[2020-07-27 12:55] VITALS: BMI 36.6
[2020-12-20 12:08] LABS: AST(SGOT) 18 U/L (15-37); Alanine Aminotransfer ALT/SGPT 27 U/L (16-61); Albumin, Serum 4.1 g/dL (3.2-5.0); Alkaline Phosphatase 71 U/L (45-117); Anion Gap 6 (5-15); BUN 28 mg/dL (7-18); BUN/Creat Ratio 21.9 RATIO (10-20); Bilirubin, Direct 0.18 mg/dL (0.00-0.30); Calcium,Total 9.3 mg/dL (8.5-10.1); Chloride 105 mmol/L (98-107); Cholesterol 104 mg/dL (200); Creatinine, Serum 1.28 mg/dL (0.70-1.30); EST Glomerular Filtration Rate 59 mL/min (>60); Est Glom Filt Rate - Afr Amer 71 mL/min (>60); Globulin 3.7 g/dL (2.2-4.2); Glucose 92 mg/dL (74-106); High Density Lipoprotein 39 mg/dL; Potassium 4.7 mmol/L (3.5-5.1); Protein, Total 7.8 g/dL (6.4-8.2); Sodium Level 138 mmol/L (136-145); Triglycerides 138 mg/dL; Very Low Density Lipoprotein 28 mg/dL (5-40)
== END ==
PROVIDERS: PCP Family Medicine; Referring Provider Physician Assistant Medical; Visit Provider Physician Assistant Medical
DX: E78.00 Pure hypercholesterolemia, unspecified (principal); I25.10 Atherosclerotic heart disease of native coronary artery without angina pectoris; I10 Essential (primary) hypertension; R09.89 Other specified symptoms and signs involving the circulatory and respiratory systems; Z95.1 Presence of aortocoronary bypass graft
CPT/HCPCS: 36415; 80048; 80061; 80076

== ENCOUNTER → 2021-02-02 06:50 | Outpatient (CLI) | payer MEDICARE, OTHER, SELFPAY ==
--- NOTE | 2021-02-02 06:52 | ECHOCS_ITS ---
Reason For Study: AV Replacement Procedure This was a 2D Doppler, Color Flow transthoracic echocardiogram. The study was technically difficult. Contrast injection was performed. Exam performed in department. Left Ventricle Normal LV size. Mid cavitary false tendon noted. Left ventricular systolic function is normal. The estimated ejection fraction is 65 %. No regional wall motion abnormalities noted. Right Ventricle Normal RV size. Normal systolic function. Atria Normal left atrium. Normal right atrium. No doppler evidence for ASD. Mitral Valve There is no mitral annular calcification. Normal mitral valve. Mild (1+) mitral valve insufficiency. Tricuspid Valve Normal tricuspid valve. Trivial tricuspid valve insufficiency. Unable to estimate RV systolic pressure/pulmonary artery pressure due to technically difficult study. Aortic Valve Stable appearing bioprosthetic aortic valve apparatus. Pulmonic Valve The pulmonic valve is not well visualized. Great Vessels Normal sized aortic root. Pericardium/Pleural No pericardial effusion. Medication 22 gauge I.V. with prn adaptor inserted into right arm. Diluted definity 2ml given slow IV push to enhance endocardial definition. MMode/2D Measurements & Calculations LVIDd: 3.9 cm IVSd: 1.3 cm LVOT diam: 2.0 cm LVIDs: 2.1 cm LVPWd: 1.2 cm FS: 46.3 % LVOT area: 3.1 cm2 Ao root diam: 3.5 cm LAV(MOD-bp): 51.4 ml LA A4 area: 17.5 cm2 LA dimension: 4.5 cm LAV(MOD-bp) Indexed: 22.8 ml/m2 LAV(MOD-sp2): 57.7 ml LAV(MOD-sp4): 44.2 ml RA A4 area: 13.3 cm2 Time Measurements MV dec time: 0.25 sec Doppler Measurements & Calculations MV E max wilbur: 81.5 cm/sec Lat Peak E' Wilbur: 9.4 cm/sec Med Peak E' Wilbur: 6.0 cm/sec MV A max wilbur: 70.6 cm/sec E/E' lat: 8.7 E/E' med: 13.6 MV E/A: 1.2 MV V2 max: 89.3 cm/sec MV P1/2t max wilbur: 89.7 cm/sec Ao V2 max: 139.6 cm/sec MV max P.2 mmHg MV P1/2t: 67.8 msec Ao max P.8 mmHg MV V2 mean: 45.2 cm/sec MV dec slope: 387.8 cm/sec2 Ao V2 mean: 97.6 cm/sec MV mean P.0 mmHg Ao mean P.4 mmHg MV V2 VTI: 24.8 cm MVA(P1/2t): 3.2 cm2 Ao V2 VTI: 33.0 cm MVA(VTI): 2.5 cm2 HEATHER(I,D): 1.9 cm2 HEATHER(V,D): 1.8 cm2 LV V1 max: 81.5 cm/sec SV(LVOT): 62.3 ml PA V2 max: 89.6 cm/sec LV V1 max P.7 mmHg LV V1 mean P.6 mmHg LV V1 mean: 59.4 cm/sec LV V1 VTI: 20.3 ECHO/Echo Complete W/ Contrast Interpretation Summary The study was technically difficult. Contrast injection was performed. Left ventricular systolic function is normal. The estimated ejection fraction is 65 %. Mid cavitary false tendon noted. Mild (1+) mitral valve insufficiency. Trivial tricuspid valve insufficiency. Stable appearing bioprosthetic aortic valve apparatus. Unable to estimate RV systolic pressure/pulmonary artery pressure due to techni albert difficult study. Transmitral diastolic flow velocities suggest diastolic dysfunction (pseudonorm al pattern). Ordering Physician: Syed Rubio Referring Physician: Wilder Rebollar Performed By: Vasiliy Copeland RCS
== END ==
PROVIDERS: PCP Family Medicine; Referring Provider Internal Medicine Cardiovascular Disease; Visit Provider Internal Medicine Cardiovascular Disease
DX: I25.10 Atherosclerotic heart disease of native coronary artery without angina pectoris (principal); R06.00 Dyspnea, unspecified; R07.89 Other chest pain; I10 Essential (primary) hypertension; Z86.79 Personal history of other diseases of the circulatory system; Z95.1 Presence of aortocoronary bypass graft; Z95.2 Presence of prosthetic heart valve
CPT/HCPCS: 78452; 93017; 93306; A9500; Q9957; A4216; C8929; J3490

== ENCOUNTER 2021-03-08 16:42 | Observation (INO) | payer MEDICARE, OTHER, SELFPAY ==
--- NOTE | 2021-02-18 09:52 | RAD_ITS ---
STUDY: X-RAY CHEST REASON FOR EXAM: Male, 70 years old. Preop for heart catheter TECHNIQUE: PA and lateral views of the chest. COMPARISON: 2017 FINDINGS: The lungs are clear and expanded. There is no demonstrated pleural abnormality. Previous sternotomy and valve replacement. Normal mediastinum and dajuan. Normal visualized pulmonary arteries. There is atherosclerotic calcification of the aortic arch with tortuosity. There are diffuse degenerative changes of the visualized thoracic spine. Normal visualized ribs, clavicles, and shoulders. There is no demonstrated abnormality of the visualized soft tissue structures of the upper abdomen. RAD/Chest PA and Lateral IMPRESSION: No acute pulmonary process Electronically Signed: Francesco Piper MD at 10:09 EDT , Service support ,
[2021-02-18 10:19] LABS: Basophil# 0.06 X10^3/uL; Basophil% 0.7 % (0-1); Eosinophil# 0.24 X10^3/uL; Eosinophils% 2.6 % (0-5); Hematocrit 41.6 % (40-54); Hemoglobin 13.7 g/dL (13.0-16.5); Lymphocyte % 24.1 % (19-41); Mean Corp Hgb Conc 32.9 g/dL (32-36); Mean Corpuscular Volume 94.1 fL (80-94); Mean Platelet Vol. 9.8 fl (6.2-12.0); Monocyte# 0.56 X10^3/uL; Monocyte% 6.1 % (0-10); NRBC Flagged by Analyzer 0 % (0-5); Neutrophil # 6.03 X10^3/uL (2.7-7.7); Neutrophil % 66.2 % (47-70); Platelet Count 213 K/mm3 (150-450); RBC Distribution Width CV 12.2 % (11.6-14.6); RBC Distribution Width SD 42.5 fl (35.1-43.9); Red Blood Count 4.42 M/mm3 (4.6-6.2); White Blood Count 9.1 K/mm3 (4.4-11.0)
[2021-02-18 10:31] LABS: Prothrombin Time (Protime)PT. 12.8 SECONDS (11.7-14.9)
[2021-02-18 10:32] LABS: Partial Thromboplast Time 31.9 Seconds (24.1-36.2)
[2021-02-18 10:51] LABS: Anion Gap 5 (5-15); BUN 22 mg/dL (7-18); BUN/Creat Ratio 16.9 RATIO (10-20); Calcium,Total 9.2 mg/dL (8.5-10.1); Chloride 108 mmol/L (98-107); EST Glomerular Filtration Rate 58 mL/min (>60); Est Glom Filt Rate - Afr Amer 70 mL/min (>60); Glucose 95 mg/dL (74-106); Potassium 4.7 mmol/L (3.5-5.1); Sodium Level 140 mmol/L (136-145)
[2021-03-07 13:29] VITALS: BMI 36.4
--- NOTE | 2021-03-07 18:29 | PCM.HP.BLA ---
History and Physical Date of Admission: 03/08/21 [facility] [id number] [place], [place] [phone] OFFICE VISIT Date of Service: 02/18/21 MR#:[id number]: ROLANDO SUNGRep #:[id number] Provider:Dr. Saúl Calderon MDAge/Sex: 70/M [facility] H[facility] HPI History of Present Illness Surgical H&P: Yes Details: This is a 70-year-old white male with a past cardiovascular history which is included underlying CAD, status post CABG (October 2017: [facility]: MUSTAFA to the LAD, sequential SVG to OM1 and OM2, and SVG to the PDA), status post aortic valve replacement (October 2017: [facility]: Number 23 mm Costello Intuity pericardial valve), superimposed upon hyperlipidemia, and hypertension. He states that he has noticed, when exerting himself such as going up an incline, he has been having increased shortness of breath and dyspnea and along with that the sensation of a vague chest discomfort. He notes this is similar to but not as dramatic as it was prior to his original open heart surgery procedure. He has denied any resting symptoms. There has been no obvious orthopnea or PND or peripheral pitting edema. He has had no near syncope or syncope. Based upon his ongoing issues he recently underwent evaluation with a transthoracic echocardiogram and an exercise tolerance test/imaging study. The results of his study are noted below. They were reviewed with him. It has been recommended that he seek reevaluation with diagnostic cardiac catheterization. The procedure and risks have been discussed with him. He has been agreeable to this approach. Intake Vital Signs 02/18/21 11:06 Height 5 ft 10 in Weight: 254 lb 2 oz BP 142/68 H Blood Pressure Location Lt brachial Position Sitting Respiration 18 Pulse 56 L Pulse Source Auscultation Intake Visit Reasons: 6 MO F/U (MANUEL PT) Laminating Machine Feeder Required: No Accompanied by: Self Allergies poison kaylyn extract Allergy (Intermediate, Verified 02/18/21 11:10) Rash Medications cholecalciferol (vitamin D3) 25 mcg (1,000 unit) capsule 1,000 unit PO QDAY 09/18/17 [History Confirmed 02/18/21] cyanocobalamin (vitamin B-12) 5,000 mcg sublingual tablet 5,000 mcg SUBLINGUAL QDAY 09/18/17 [History Confirmed 02/18/21] omega-3 fatty acids 1,000 mg capsule 1,000 mg PO QDAY 09/18/17 [History Confirmed 02/18/21] loratadine 10 mg tablet 10 mg PO DAILY PRN 01/04/18 [History Confirmed 02/18/21] melatonin 10 mg capsule 10 mg PO HS PRN 01/04/18 [History Confirmed 02/18/21] aspirin 81 mg tablet,delayed release 162 mg PO DAILY tab 12/06/18 [History Confirmed 02/18/21] amoxicillin 500 mg tablet 500 mg PO .COMPLEX #4 tab 02/10/20 [Rx Confirmed 02/18/21] meloxicam 15 mg tablet 15 mg PO DAILY tab 07/27/20 [History Confirmed 02/18/21] turmeric root extract 500 mg capsule 1,000 mg PO DAILY cap 07/27/20 [History Confirmed 02/18/21] atorvastatin 40 mg tablet 40 mg PO QHS #90 tab 09/23/20 [Rx Confirmed 02/18/21] metoprolol tartrate 100 mg tablet 100 mg PO BID #180 tab 10/07/20 [Rx Confirmed 02/18/21] diphenhydramine HCl 50 mg capsule 50 mg PO QHS 12/24/20 [History Confirmed 02/18/21] hydrocodone-acetaminophen 5-325mg 5mg-325mg 1 tab PO Q8H PRN 12/24/20 [History Confirmed 02/18/21] lisinopril 5 mg tablet 10 mg PO DAILY #90 tab 12/24/20 [Rx Confirmed 02/18/21] pregabalin 50 mg capsule 50 mg PO BID cap 12/24/20 [History Confirmed 02/18/21] clopidogrel 75 mg tablet 75 mg PO DAILY #30 tab 02/18/21 [Rx Confirmed 02/18/21] nitroglycerin 0.4 mg sublingual tablet 0.4 mg SUBLINGUAL Q5-15M PRN #90 tab 02/18/21 [Rx Confirmed 02/18/21] [facility] Medical History (Updated 02/18/21 @ 12:[address] Saúl Caldeorn MD) Atherosclerotic heart disease of one[place] coronary artery without angina pectoris Bilateral carotid artery stenosis Essential hypertension History of aortic valve stenosis HLD (hyperlipidemia) Obesity (BMI 30.0-34.9) Osteoarthritis Surgical History History of aortic valve replacement (11/05/17) History of colonoscopy (~2018) History of coronary artery bypass graft (11/05/17) History of elbow surgery History of open reduction and internal fixation (ORIF) procedure (~1995) History of tonsillectomy Family History Father Myocardial infarction from [place] age 59 CAD (coronary artery disease) Mother Diabetes Hypertension Brother Diabetes age 62 from diabetic complications CAD (coronary artery disease) coronary stent Brother CAD (coronary artery disease) CABG Brother Heart disease Social History Smoking Status: Former smoker quit date: 05/14/74 pack-years: 6 alcohol intake: current alcohol intake frequency: a few times a week Alcohol type: wine caffeine: Yes Type: coffee Number of servings: 1 ROS Const Const: Negative for fatigue, weakness, frequent falls, excessive sweating, weight gain or weight loss Eyes Eyes: Negative for transient loss of vision, blurry vision or change in vision ENT ENT: Positive for dizziness (occasional when standing); Negative for balance problems Cardio Chest Pain: No Palpitations: No Edema: None Muscle aches with walking: None Resp Respiratory: Positive for SOB with activity (need to take an extra breath, notices SOB); Negative for SOB at rest GI GI: Negative vomiting or vomiting blood/hematemesis : Negative for hematuria Musc Musc: Negative for muscle aches/ myalgia, muscle weakness, joint pain or balance problems Skin Skin: Negative non-healing lesions or rash Neuro Neuro: Positive for dizziness (occasional when standing); Negative for lightheadedness, orthostatic symptoms, frequent falls, weakness or blurry vision Noel Hematologic/Lymphatic: Negative for easy bleeding Endo Endo: Negative for fatigue or excessive sweating Psych Psych: Negative for anxiety or depression Allergy Allergy/Immunology: Negative for hives and Negative for rash Cardiology Exam Const Appearance: cooperative, healthy appearing, comfortable, no acute distress, well developed and well groomed Nutritional Appearance: overweight Orientation: alert, awake and oriented x3 Head Head: normal to inspection and normocephalic Ears: hearing grossly normal bilaterally Nose: external nose normal Face and Sinus: face symmetric Eyes Eyelids: eyelids normal Conjunctivae: conjunctivae normal Pupils: PERRL EOM: EOM intact bilaterally Neck Neck: normal visual inspection and full ROM Carotids: normal carotid upstroke Chest Chest inspection: normal inspection of the chest, symmetric chest movement, midline sternotomy incision and normal respiratory effort Auscultation: Bilateral: Clear to Auscultation Cardio Rate: regular rate Rhythm: regular rhythm Heart sounds: S1 normal, S2 normal and murmur Murmur: Grade 2/6, soft, mid systolic, LLSB, LVOT and sternal notch GI GI: normal to inspection, soft and bowel sounds present Neuro General: patient alert, patient awake, patient oriented x3, gait normal and moves all extremities Skin Skin: no rashes or lesions noted Extremities Pulses: Normal: Right Radial Pulse and Left Radial Pulse Lower Extremity Edema: None: Bilateral Psych Psychological: normal affect Assessment and Plan Assessment and Plan (1) Angina pectoris: Status: Acute Orders: Orders: Left Heart Cath/COR/LV Percut Today Basic Metabolic Profile (BMP) Today Partial Thromboplast Time Today Prothrombin Time w/INR Today CBC W/Diff, Automated Today Chest PA and Lateral Today Plan - Dr. Saúl Calderon MD: At the present time he does have symptoms concerning for an exertional angina pectoris. He does have an abnormal stress ECG/nuclear imaging study. He has been recommended for further evaluation with diagnostic cardiac catheterization. The procedure and risks have been discussed with him. He is agreeable to this approach. (2) Atherosclerotic heart disease of oneida coronary artery without angina pectoris: Status: Chronic Comment: MUSTAFA-LAD, SVG seq OM1-OM2, SVG-PDA Orders: Orders: 12 Lead EKG performed by BMS Today Left Heart Cath/COR/LV Percut Today Basic Metabolic Profile (BMP) Today Partial Thromboplast Time Today Prothrombin Time w/INR Today CBC W/Diff, Automated Today Chest PA and Lateral Today Plan - Dr. Saúl Calderon MD: His CAD history was reviewed with him. Based upon his recent symptoms and findings there is concern of progression of oneida vessel disease and/or possibly graft vessel disease. Thus he will continue medical therapy and undergo evaluation as described above. (3) History of coronary artery bypass graft: Status: Chronic Comment: MUSTAFA-LAD, SVG seq OM1-OM2, SVG-PDA Orders: Orders: 12 Lead EKG performed by BMS Today Left Heart Cath/COR/LV Percut Today Basic Metabolic Profile (BMP) Today Partial Thromboplast Time Today Prothrombin Time w/INR Today CBC W/Diff, Automated Today Chest PA and Lateral Today Plan - Dr. Saúl Calderon MD: There would be concern as to whether or not there has been a development with his SVG graft especially doubt related to his LCx/OM distribution. At this time he will continue medical therapy and proceed with further evaluation with diagnostic cardiac catheterization. (4) History of aortic valve replacement: Status: Chronic Comment: AVR w/23MM costello intuity pericardial valve Orders: Orders: 12 Lead EKG performed by BMS Today Left Heart Cath/COR/LV Percut Today Basic Metabolic Profile (BMP) Today Partial Thromboplast Time Today Prothrombin Time w/INR Today CBC W/Diff, Automated Today Chest PA and Lateral Today Plan - Dr. Saúl Calderon MD: Based upon his examination and his echocardiogram his bioprosthetic aortic valve appears to be stable. He will continue AHA antibiotic prophylaxis. (5) Abnormal stress test: Status: Acute Orders: Orders: 12 Lead EKG performed by BMS Today Left Heart Cath/COR/LV Percut Today Basic Metabolic Profile (BMP) Today Partial Thromboplast Time Today Prothrombin Time w/INR Today CBC W/Diff, Automated Today Chest PA and Lateral Today Plan - Dr. Saúl Calderon MD: Again his stress test is abnormal with both the ECG portion and the nuclear imaging portion. Thus he will undergo further evaluation as described. (6) HLD (hyperlipidemia): Status: Acute Qualifiers: Hyperlipidemia type: unspecified Qualified Code(s): E78.5 - Hyperlipidemia, unspecified Plan - Dr. Saúl Calderon MD: He recently had lipid labs on 12-20-2020. His total cholesterol is 104 with an LDL of 37 and an HDL of 39. His triglycerides were 138. He will continue medical therapy. (7) Essential hypertension: Status: Acute Plan - Dr. Saúl Calderon MD: His systolic blood pressure is mildly elevated today. He will continue medical therapy. His blood pressure will be monitored. Depending upon his blood pressure findings he may need further adjustment of his antihypertensive regimen. Plan Details Other Medications: New: clopidogrel (Plavix) 75 mg PO DAILY 30 tabs 3RF nitroglycerin do not exceed 3 doses per episode 0.4 mg sublingual Q5-15M PRN 90 tabs 6RF chest pain Other Orders: Orders: Partial Thromboplast Time Today I65.23 CBC W/Diff, Automated Today E66.9 Additional Comments: Thank you for allowing me to participate in the care of your patient. Please don't hesitate to call if any issues arise. This note was generated using a voice recognition system and there may be incorrect words, spelling or punctuation that were not noted when reviewing the office note prior to saving. Follow Up: 3 Months (PFM ) COVID (Procedure Consent) Procedure Criteria Procedure Criteria: Yes Elective The surgeon/proceduralist and patient have discussed in detail the risk of exposure to and/or potential harm posed by the COVID-19 virus with having a surgery/procedure at this time versus the risk of delaying the surgery/procedure. It is not possible to know either the risk of delaying the surgery or procedure or chance of getting an infection with perfect accuracy, but a joint decision was made between the patient and the surgeon/proceduralist to proceed at this time with the scheduled surgery/procedure as indicated on the consent form. Coding Level of Care Code Off vis,est,level 5 Diagnoses Angina pectoris I20.9 Atherosclerotic heart disease of oneida coronary artery without angina pectoris I25.10 History of coronary artery bypass graft Z95.1 History of aortic valve replacement Z95.2 Abnormal stress test R94.39 HLD (hyperlipidemia) E78.5 Hyperlipidemia type: unspecified Essential hypertension I10 Coding Level of Care Code Off vis,est,level 5 Diagnoses Angina pectoris I20.9 Atherosclerotic heart disease of [place] coronary artery without angina pectoris I25.10 History of coronary artery bypass graft Z95.1 History of aortic valve replacement Z95.2 Abnormal stress test R94.39 HLD (hyperlipidemia) E78.5 Hyperlipidemia type: unspecified Essential hypertension I10 Supplemental Info Supplemental Information Echocardiogram 2018: Moderate concentric left ventricular hypertrophy. The estimated ejection fraction is 65 %. Stage 1 diastolic dysfunction. Trivial mitral valve insufficiency. Right ventricular systolic pressure estimated to be 28 mmHg. Moderate focal aortic valve thickening. Moderate aortic stenosis. Trivial aortic valve insufficiency. Compared to echo report dated 12/09/2013, LV function has remained the same, and aortic stenosis has slightly worsened. Echocardiogram 12/2018: The estimated ejection fraction is 65 %. Stage 2 diastolic dysfunction. The left atrium is mildly enlarged. Trivial mitral valve insufficiency. Trivial tricuspid valve insufficiency. Right ventricular systolic pressure estimated to be 26 mmHg. Stable appearing and normal functioning bioprosthetic aortic valve apparatus. 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 Echocardiogram: 02-02-2021 Interpretation Summary The study was technically difficult. Contrast injection was performed. Left ventricular systolic function is normal. The estimated ejection fraction is 65 %. Mid cavitary false tendon noted. Mild (1+) mitral valve insufficiency. Trivial tricuspid valve insufficiency. Stable appearing bioprosthetic aortic valve apparatus. Unable to estimate RV systolic pressure/pulmonary artery pressure due to technically difficult study. Transmitral diastolic flow velocities suggest diastolic dysfunction (pseudonormal pattern). Stress Test Report Date: 02-02-2021 Procedure: Exercise tolerance test/imaging study Indications: Chest pain; shortness of breath/dyspnea; CAD; CABG; status post AVR Consent: Per the patient Procedure: The patient exercised on a Abiodun protocol for 6 minutes and 31 seconds completing Stage II and 31 seconds of Stage III achieving a peak heart rate of 150 bpm (100% predicted maximal heart rate) with a peak blood pressure 202/82 mmHg and a peak MET capacity of 8 METs. The baseline ECG demonstrated sinus rhythm. The peak exercise ECG demonstrated somatic/motion artifact with the appearance of 1 to [address] segment depression in leads I, II, III, aVF, and V3 through V6 with gradual resolution towards baseline in recovery. There was an occasional PVC during exercise and recovery. The functional capacity was considered average. There was no complaint of chest discomfort during exercise or recovery. The examination was discontinued secondary to shortness of breath/dyspnea. Impression: 1. Technically adequate (percent predicted maximal heart rate greater than 85%) exercise tolerance test 2. Peak exercise ECG demonstrated the appearance of 1 to [address] segment depression in leads I, II, III, aVF, and V3 through V6 with gradual resolution towards baseline in recovery 3. There was an occasional PVC during exercise and recovery 4. Nuclear images pending Myocardial perfusion imaging study: Technique: The patient was injected with 14 point mCi of technetium 99m Cardiolite and subsequently rest SPECT Cardiolite nuclear imaging was obtained in the horizontal long, vertical long, and short axis views. The patient exercised on a Abiodun protocol for 6 minutes and 31 seconds completing Stage II and 31 seconds of Stage III achieving a peak heart rate of 150 bpm (100% predicted maximal heart rate) with a peak blood pressure 202/82 mmHg and a peak MET capacity of 8 METs. The patient was injected with 44.7 mCi of technetium 99m Cardiolite and subsequently stress SPECT Cardiolite nuclear imaging was obtained in the horizontal long, vertical long, and short axis views. A gated Cardiolite study at peak stress was obtained. Interpretation: Rest and stress SPECT Cardiolite nuclear imaging status post realignment, normalization, and attenuation correction, demonstrates the appearance of relative uniform tracer uptake at rest and status post stress the appearance of diminished absence of myocardial perfusion/tracer uptake in the basal to mid lateral segments. There are similar type findings on the resting and stress polar map images. There is diminished end systolic thickening and brightening in the aforementioned area. The gated Cardiolite study demonstrates myocardial thickening and inward wall motion. The reported LVEF is 61%. Impression: 1. Rest and stress SPECT Cardiolite nuclear imaging demonstrate myocardial perfusion changes concerning for an area of stress-induced myocardial ischemia in the basal to mid lateral segments. 2. The gated Cardiolite study reports an LVEF of 61%. Cardiac catheterization: 11-02-2017 CONCLUSIONS Perserved Left Ventricular systolic function with normal EDP [place] Multivessel CAD involving LM, ostial LAD, OM#1 and proximal RCA. Right heart pressures - Normal Aortic Valve Stenosis - moderate to severe with mean pullback gradient of 26 mm Hg and estimated HEATHER=1.14cm2 by cath. IABP placed to assist with LM and multi-vessel CAD, as well as aortic stenosis given pt's markedly abnormal stress test and periodic rest chest pain. RECOMMENDATIONS Transfer to [facility] ICU under Dr Peng once bed available for CABG and AVR. RFV sheath removal. Heparin gtt at 800 units/hr; keep PTT b/w 50-70 seconds. D/w Hang Leo at [facility] (Dr Peng's PANMAN) to assist with transfer. DESCRIPTION OF PROCEDURE The patient arrived to the procedure lab. The risks and benefits of the procedure as well as a full description of our services here and current unavailability of surgical backup were fully explained to the patient and/or their significant other prior to the catheterization. The Timeout was completed, verifying the correct patient and procedure. The patient's procedural site was prepped and draped in the usual fashion. Local anesthetic was given subcutaneously to right groin region with Lidocaine 2%. Using a modified Seldinger technique, arterial access was obtained via the right femoral artery, a 4Fr sheath was inserted Venous access was obtained via the right femoral vein, a 7Fr sheath was inserted. A 7Fr thermal dilution catheter was inserted and right heart pressures were recorded, it was then advanced to PA position for cardiac outputs. O2 saturations were then obtained. Thermal dilution cardiac outputs were then recorded. Left Ventriculography was performed in MARTINEZ projection using a 4 Fr. Pigtail catheter. Simultaneous pressures were then recorded. LV to AO pullback pressures were then recorded. The Thermal dilution catheter was then removed. Left Coronary Artery selective angiography was performed in multiple views using a 4 Fr. JL5 catheter. Right Coronary Artery selective angiography was then performed in multiple views using a 4 Fr. 3DRC catheter.Arrow 40cc 7.5F UltraFlex IABP - Qty: 1 Each Part #: [id number], IABP catheter inserted - 40 cc into right femoral artery, IABP settings: 1:1 ratio, ecg trigger, IABP Augmented BP: 180 mmHg The venous sheath was then pulled and manual compression applied until hemostasis achieved CORONARY ANGIOGRAPHY DOMINANCE: Right Dominant LEFT HEART ASSESSMENT Left Ventricular Ejection Fraction: by LV Gram 65 % Normal LV wall motion Normal Left Ventricular systolic function RIGHT HEART ASSESSMENT Thermal CO: 5.48 Thermal CI: 2.44 PW: 14/13 9 PA: 25/6 15 RV: 33/0 7 RA: 8/5 3 PVR: 88 SVR: 1372 Aortic Valve Area: 1.14 Aortic Valve Index: 0.51 Aortic Valve Mean Gradient: 26.2 Mitral Valve Area: 3.41 Mitral Valve index: 1.52 Mitral Valve Mean Gradient: 14.1 Right Heart pressures - normal LEFT MAIN: 85 distal LM % Stenosis LEFT ANTERIOR DECENDING ARTERY: OSTIAL LAD: 70 % Stenosis CIRCUMFLEX ARTERY: OSTIAL CIRC: 60 % Stenosis MID CIRC: 60 % long Stenosis OM 1: Mid - 70 % Stenosis RIGHT CORONARY ARTERY: PROX RCA: 75 % Stenosis VALVE FINDINGS: Aortic Valve Stenosis - moderate to severe with mean pullback gradient of 26 mm Hg and estimated HEATHER=1.14cm2 by cath. Open heart surgery: 11-05-2017: [facility] MUSTAFA to the LAD SVG sequential graft to OM1 and OM 2 SVG to the PDA Aortic valve replacement with a number 23 mm Costello Intuity pericardial tissue valve Labs: LDL Cholesterol 37 mg/dL (0-130) HDL Cholesterol 39 mg/dL (40-) L Triglycerides 138 mg/dL (-199) VLDL Cholesterol 28 mg/dL (5-40) Diagnostics: Electrocardiogram Echocardiogram Transesophageal Echocardiogram Stress Echocardiogram Stress Test NM Stress Test Cardiac Catheterization Chest X-Ray Pulmonary: No Data to Display 02/18/21 [id number]<Electronically signed by Saúl Calderon MD>Date Saúl Calderon MD Cosigner Signature:Date (if applicable) CC: Dr. Wilder Rebollar MD ~ Assessment & Plan Addt'l Comments I have re-examined the patient. There are no clinical changes since date of exam.
--- NOTE | 2021-03-08 11:14 | PCI.CARDCATH ---
PCI Cardiac Cath Report PCI Report: 1. Successful PCI of proximal RCA 75% stenosis with VAN-3 flow With predilatation using 2.5 x 15 mm balloon, followed by placement of drug-eluting stent 3.5 x 26 mm/Orsiro Postdilated with 4 x 15 mm NC balloon/Euphora with reduction of stenosis from 75% to 0% and maintenance of VAN-3 flow. 2. Successful placement of Perclose to the right common femoral artery arteriotomy site. 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 Presentation symptoms of shortness of breath and significantly abnormal electrocardiogram on the exercise stress test, 1-[address] depression noted in lead to 3 aVF and V3 to V5 which Resolved with rest. Patient underwent cardiac catheterization by his primary bottle labeler Dr. Calderon Findings reviewed distal left main 85%, LAD ostial 70%, high-grade proximal circumflex and proximal RCA 75%. Consistent with severe [place] coronary artery atherosclerosis Graft angiography patent MUSTAFA to LAD, patent sequential SVG graft to OM1 and OM 2 and occluded SVG graft to the RCA. Based on clinical presentation and significant coronary atherosclerosis involving the proximal RCA and change in the EKG in the inferior lead. We proceed with PCI of the proximal RCA. Consent; Risk and benefit of procedure explained detail to the patient elected to proceed informed consent obtained. Interventional equipment and plan; 1. 6 [place] sheath in the right common femoral artery 2. 6 Lithuanian JR4 guide 3. 0.014 run-through extra floppy 180 cm straight 0.035 150 cm standard J-wire Patient was given a total of 6000 of heparin ACT level is 253, following placement of Perclose patient received additional 2000 units of heparin. Patient was on Plavix and he was given additional 300 mg of Plavix in the Geriatric Personal Care Aide. 4. Drug-eluting stent 3.5 x 26 mm/orsiro 5. NC balloon 4 x 15 mm 6. Perclose to the right common femoral artery arteriotomy site. Procedure in detail; We proceed with the 6 [place]ian JR4 guide advanced ascending aorta cannulated the right coronary ostium without difficulty Then followed by 0.14 run-through wire across the lesion in the proximal RCA followed by predilatation using 2.5 x 15 mm regular balloon Followed by placement of drug-eluting stent 3.5 x 26 mm/Orsiro, followed by postdilatation using 4 x 50 mm NC balloon And achievement of excellent result with reduction of stenosis of the proximal RCA from 75% to 0% and maintenance of VAN-3 flow Following this selective angiographic view of the right common femoral artery angiography obtained and Perclose used to close the right common femoral artery artery arteriotomy site without complication in the Geriatric Personal Care Aide Conclusion; Successful PCI of the proximal RCA as described Recommendation and plan; 1. Continue on DAPT/Plavix 75 mg in addition to 81 mg of aspirin daily for 12 months 2. Patient will be scheduled for cardiac rehab phase 1 3. Patient will follow up with the primary bottle labeler Dr. Calderon for continuation of cardiac care plan. Sara Borjas MD,FACC,[facility]
--- NOTE | 2021-03-08 12:11 | CRPHASE1_ITS ---
Patient Communication Former Patient:: Phase II PHII Cardiac Rehab Discussed with Patient:: Yes Guide to Cardiac Rehab Given to Patient:: Yes Cardiac Rehab Facility Choice List Given to Patient:: Yes Choice Program [facility] CR PHII:: Communication Given to CR Electrical Plumbing Supervisor:: Sara Borjas Refer Phase II Cardiac Rehab:: Yes Sessions:: 36 sessions - 3 days/wk, 12 weeks Cardiac Rehabilitation Info Cardiac Rehabilitation Program Information: Cardiac Rehabilitation is important for patients like you who are recovering from a heart problem. Cardiac rehabilitation programs are recognized as integral to the continued care of the patient with coronary heart disease. The cardiac rehabilitation program is designed to optimize a patient's physical, psychological, and social functioning. Health healthcare administration internship work in cardiac rehabilitation programs and assist you with getting the treatments you need to get stronger and healthier - like exercise, healthy eating habits, and medications. Cardiac rehabilitation has been show to help people with heart problems live longer and have better life enjoyment than people who do not go to cardiac rehabilitation. Please contact the Cardiac Rehabilitation Program at [facility] at in two weeks if you have not heard from them.
--- NOTE | 2021-03-08 12:11 | CRPH1.INST_ITS ---
General Education CAD and cardiac anatomy and function:: Patient communicates acknowledgment, Family communicates acknowledgment Explanation of diagnoses and procedures:: Patient communicates acknowledgment, Family communicates acknowledgment Sign/Symptoms of MA:: Patient communicates acknowledgment, Family communicates acknowledgment Antiplatelet therapy: Patient communicates acknowledgment, Family communicates acknowledgment Proper use of NTG-SL: Patient communicates acknowledgment, Family communicates acknowledgment Emergency procedures and activation of EMS: Patient communicates acknowledgment, Family communicates acknowledgment Compliance of all prescribed medications: Patient communicates acknowledgment, Family communicates acknowledgment Smoking Patient Nicotine/Smoking Risk Factors Are:: Non-smoker Recommendations Include:: Previous smoker; encourage continued cessation Nicotine/Smoking Response Code:: Patient communicates acknowledgment, Family communicates acknowledgment Dyslipidemia Patient Dyslipidemia Risk Factors Are:: Total Cholesterol, Triglycerides, HDL, LDL Recommendations Include:: Lipid profile not available Dyslipidemia Response Code:: Patient communicates acknowledgment, Family communicates acknowledgment Overweight/Obesity Patient Overweight/Obesity Risk Factors Are:: Obesity - > or = 30 Recommendations Include:: Weight loss of 5-10%, Reduced calorie diet, Exercise 5-7 times/week Overweight/Obesity:: Patient communicates acknowledgment, Family communicates acknowledgment Hypertension Recommendations Include:: Maintain BP <130/85, Decrease/maintain normal body weight, Moderation of ETOH Hypertension:: Patient communicates acknowledgment, Family communicates acknowledgment Heart Disease Patient Heart Disease Risk Factors Are:: Previous cardiac event Recommendations Include:: Educated family members of their risk, Educated family members of importance of prevention of heart disease Heart Disease Response Code:: Patient communicates acknowledgment, Family communicates acknowledgment Diabetes Patient Diabetes Risk Factors Are:: No documented hx of diabetes Sedentary Patient Sedentary Risk Factors Are:: Lack of regular exercise Recommendations Include:: Aerobic exercise 5-7 times/week for 20-30 minutes continuously, Benefits of regular exercise, Discussed home walking program, Monitored Outpatient Cardiac Rehab Sedentary Response Code:: Patient communicates acknowledgment, Family co mmunicates acknowledgment
--- NOTE | 2021-03-08 12:33 | CL.D_ITS ---
Patient Name: HERB SUNG EDNJ Study Date: 03/08/2021 Performing: Saúl Calderon MD Ht: 70.07 inches 178 cm : 1950 Wt: 253.53 lbs 115 kg Age: 70 Gender: male BSA: 2.31 PROCEDURE(S) PERFORMED [id number]/COR/CABG DC11-AO ROOT ANGIO WITH HEART CATH [id number] W OR WO PTCA, SINGLE CORONARY ARTERY CLINICAL PROFILE AND INDICATIONS Indications: Worsening Angina, Valvular Disease Heart Failure: None Stress/Imaging Date: 02/02/2021tress Test with SPECT MPI: Positive Intermediate Risk Angina Classification Anginal Classification w/in 2 Weeks: CCS III CAD Presentations: Other: worsening angina CONCLUSIONS [place] Multivessel CAD Stable appearing bioprosthetic aortic valve apparatus MUSTAFA to LAD: patent SVG to OM1 sequencing to OM2: patent SVG to RCA: occluded RECOMMENDATIONS Risk factor modification Medical therapy Referred for immediate PCI DESCRIPTION OF PROCEDURE The patient arrived to the procedure lab. The risks and benefits of the procedure as well as a full d escription of our services here and current unavailability of surgical backup were fully explained to the patient and/or their significant other prior to the catheterization. The Timeout was completed, verifying the correct patient and procedure. The patient's procedural site was prepped and draped in the usual fashion. Local anesthetic was given subcutaneously to right groin region with Lidocaine 2%. Using a modified Seldinger technique, arterial access was obtained via the right femoral artery, a 4 Fr sheath was inserted Left Coronary Artery selective angiography was performed in multiple views us ing a 4 Fr. JL5 catheter. Right Coronary Artery selective angiography was then performed in multiple views using a 4 Fr. 3DRC catheter. Sequential Saphenous Vein graft to the OM 1 and OM 2 selective ang iography was performed in multiple views using a 4 Fr. 3DRC catheter. Left internal mammary artery graft to the LAD selective angiography was performed in multiple views using a 4 Fr. 3 DRC catheter. Left internal mammary artery graft to the LAD selective angiography was performed in mu ltiple views using a 4 Fr. IM catheter. Ascending (root) aorta selective angiography was then perform ed in single view. Ascending (root) aorta selective angiography was then performed in single view.Con trast was injected through the sheath and the Right Iliac and Femoral artery were assessed for possib le closure device.The arterial sheath was pulled and a Perclose closure device was deployed for hemos tasis CORONARY ANGIOGRAPHY DOMINANCE: Right Dominant LEFT HEART ASSESSMENT Left Ventricular Ejection Fraction: Not assessed LEFT MAIN: distal: eccentric: 85 % Stenosis LEFT ANTERIOR DESCENDING ARTERY: PROX LAD: 50 % Stenosis MID LAD: fills from antegrade flow and MUSTAFA graft flow with no angiographically significant appearing disease distal to the graft attachment CIRCUMFLEX ARTERY: PROX CIRC: 50 % Stenosis OM 1: Distal - no obvious flow distal to the graft attachment OM 2: Distal - no obvious flow distal to the graft attachment RIGHT CORONARY ARTERY: PROX RCA: smooth: eccentric: 75 % Stenosis GRAFTS: MUSTAFA graft to the Mid LAD is patent Saphenous Vein graft to the 1st OM is patent with sequential portion to 2nd OM patent and s/p the heather stomosis no obvious distal flow in OM1 or OM2 Saphenous Vein graft to the RCA is totally occluded VALVE FINDINGS: Stable appearing bioprosthetic aortic valve AORTIC ROOT: Angiographically normal COMPLICATIONS No Complications PROCEDURE MEDICATIONS Fentanyl 50 mcg IV Versed 1 mg IV Fentanyl 50 mcg IV Versed 1 mg IV Fentanyl 50 mcg IV Oxygen: 2 L/min via nasal cannula Heparin 7000 unit(s) IV 03/08/2021 10:17:17 Heparin 200 unit(s) IV 03/08/2021 10:52:59 Nitro 200 mcg IC 03/08/2021 10:36:03 Plavix 300 mg PO 03/08/2021 10:13:37 SUMMARY OF HEMODYNAMIC DATA Time AIR REST ECG 08:13:48 AO 163/75 (110) SA 09:37:37 ECG 11:30:37 Signed By Saúl Calderon MD On 03/08/2021 12:33:10 PM Saúl Calderon MD
[2021-03-08 15:20] VITALS: BP 127/64; PULSE 64; RESP 16; TEMP 36.8; O2SAT 98; BMI 33.5
--- NOTE | 2021-03-08 15:32 | PCS.PANDOC ---
PANDEMIC DOCUMENTATION INITIATED: Date: 12/27/2020 Time: 190
[2021-03-08 16:03] VITALS: O2SAT 97
[2021-03-08 16:18] VITALS: PULSE 67
[2021-03-08] MEDS: 0.9% Normal Saline 1,000 ML 75 ML IV (16:19)
[2021-03-08 19:10] VITALS: PULSE 72
[2021-03-08 21:25] VITALS: BP 114/53; PULSE 72; RESP 17; TEMP 36.4; O2SAT 97
[2021-03-08] MEDS: Pregabalin 50 MG Capsule PO (21:25)
[2021-03-08] MEDS: Metoprolol Tartrate 100 MG Tablet PO (21:25)
[2021-03-08] MEDS: Atorvastatin Calcium 40 MG Tablet PO (21:26)
[2021-03-08] MEDS: HYDROcodone Bitartrate/Apap 5/325 Tablet PO (22:03)
[2021-03-08 23:08] VITALS: PULSE 73
[2021-03-09 03:33] VITALS: PULSE 63
[2021-03-09 05:00] VITALS: BP 115/50; PULSE 65; RESP 17; TEMP 36.6; O2SAT 98
[2021-03-09 06:53] LABS: Absolute Lymphocyte Count 1.41 X10^3/uL (0.83-4.51); Absolute Neutrophil Count 6.4 X10^3/uL (2.0-7.7); Basophil# 0.05 X10^3/uL; Basophil% 0.6 % (0-1); Eosinophils% 2.3 % (0-5); Hematocrit 39.1 % (40-54); Hemoglobin 12.9 g/dL (13.0-16.5); Lymphocyte # 1.41 X10^3/ul (0.83-4.51); Lymphocyte % 16.1 % (19-41); Mean Corpuscular Hgb 30.7 pg (27.0-32.0); Mean Corpuscular Volume 93.1 fL (80-94); Mean Platelet Vol. 9.6 fl (6.2-12.0); Monocyte# 0.62 X10^3/uL; Monocyte% 7.1 % (0-10); NRBC Flagged by Analyzer 0 % (0-5); Neutrophil # 6.44 X10^3/uL (2.7-7.7); Neutrophil % 73.6 % (47-70); Platelet Count 184 K/mm3 (150-450); RBC Distribution Width CV 12.3 % (11.6-14.6); RBC Distribution Width SD 41.8 fl (35.1-43.9); White Blood Count 8.8 K/mm3 (4.4-11.0)
[2021-03-09 07:16] VITALS: O2SAT 92
[2021-03-09 07:26] LABS: AST(SGOT) 20 U/L (15-37); Alanine Aminotransfer ALT/SGPT 25 U/L (16-61); Albumin, Serum 3.3 g/dL (3.2-5.0); Alkaline Phosphatase 75 U/L (45-117); Anion Gap 5 (5-15); BUN 25 mg/dL (7-18); BUN/Creat Ratio 20.7 RATIO (10-20); Calcium,Total 8.9 mg/dL (8.5-10.1); Chloride 107 mmol/L (98-107); Creatinine, Serum 1.21 mg/dL (0.70-1.30); EST Glomerular Filtration Rate 63 mL/min (>60); Est Glom Filt Rate - Afr Amer 76 mL/min (>60); Globulin 3.4 g/dL (2.2-4.2); Glucose 97 mg/dL (74-106); Potassium 4.2 mmol/L (3.5-5.1); Protein, Total 6.7 g/dL (6.4-8.2); Sodium Level 140 mmol/L (136-145)
[2021-03-09 07:40] VITALS: PULSE 66
[2021-03-09 07:50] VITALS: BP 128/67; PULSE 65; RESP 16; TEMP 36.5; O2SAT 94
[2021-03-09 07:58] VITALS: RESP 16; O2SAT 94
--- NOTE | 2021-03-09 08:45 | DCINST_ITS ---
Discharge Instructions Diet Discharge Diet: Low fat / Low cholesterol Activity Discharge Activity: May Not Drive (x 48 hours ), May Shower (Today) and May Take a Tub Bath (in 7 days) May resume sexual activity in: 1-2 weeks Weight Bearing Status: - (Avoid heavy lifting / exertional activity for 1 week then resume normal activity as tolerated) Dressing / Incision Call your doctor if your incision/area has: Continuous Slow Oozing, Sudden Increased Bleeding, Increased Pain/ Swelling, Increased Redness, Foul Smelling Discharge and Swelling at the incision site Call your doctor if you observe: Fever of 101 or Higher, Shortness of breath, Fainting spells, Swelling in the ankles, Chest pain, Increased palpitations (irregular heartbeat), Calf discomfort and Uncontrolled pain Remove Dressing in: 1 day Cleanse incision/area with: Soap & Water Follow Up Care Please Follow Up With: Zaynab De Paz NP, MANAGEMENT PLANNER-C When: 03/22/2021 @ 10:30 AM Test Results: Test results from this visit will be discussed in further detail at your follow-up appointment, if applicable. Discharge Plan Admission Admit Date/Time: 03/08/21 16:42 Primary Reason for Your Visit: Abnormal Stress Test: Cardiac Catheterization Attending Provider: Saúl Calderon Primary Care Provider: Wilder Rebollar Discharge Orders/Prescriptions Prescriptions: Continued omega-3 fatty acids [Fish Oil Concentrate] 1,000 mg capsule 1,000 mg PO QDAY RF: 0 cyanocobalamin (vit B-12) 5,000 mcg sublingual tablet 5,000 mcg tablet, sublingual 5,000 mcg SUBLINGUAL QDAY RF: 0 cholecalciferol (vitamin D3) 1,000 unit capsule 1,000 unit PO QDAY RF: 0 aspirin [Adult Aspirin Regimen] 81 mg tablet,delayed release (DR/EC) 162 mg PO DAILY RF: 0 melatonin 10 mg capsule 10 mg PO HS PRN (Reason: Insomnia) RF: 0 loratadine [Allergy Relief (loratadine)] 10 mg tablet 10 mg PO DAILY PRN (Reason: Allergies) RF: 0 Lyrica 50 mg capsule 50 mg PO BID RF: 0 clopidogrel [Plavix] 75 mg tablet 75 mg PO DAILY Qty: 30 RF: 3 nitroglycerin 0.4 mg tablet, sublingual 0.4 mg sublingual Q5-15M PRN (Reason: chest pain) Qty: 90 RF: 6 hydrocodone-acetaminophen 5-325 mg tablet 1 tab PO Q8H PRN (Reason: Pain) RF: 0 diphenhydramine HCl 50 mg capsule 50 mg PO QHS RF: 0 lisinopril 5 mg tablet 10 mg PO DAILY Qty: 90 RF: 3 atorvastatin 40 mg tablet 40 mg PO QHS Qty: 90 RF: 3 metoprolol tartrate 100 mg tablet 100 mg PO BID Qty: 180 RF: 3 No Action meloxicam 15 mg tablet 15 mg PO DAILY RF: 0 turmeric root extract 500 mg capsule 1,000 mg PO DAILY RF: 0 Referrals / Follow Up: Wilder Rebollar MD [Primary Care Provider] - Saúl Calderon MD [STAFF PHYSICIAN] -
--- NOTE | 2021-03-09 08:52 | PCM.DC.SUM ---
Providers Date of Admission: 03/08/21 Primary Care Physician: Dr. Wilder Rebollar MD Reason For Visit: ABNORMAL STRESS Diagnosis Discharge Diagnosis (1) Atherosclerotic heart disease of [place] coronary artery without angina pectoris: Status: Chronic Code(s): I25.10 - Atherosclerotic heart disease of [place] coronary artery without angina pectoris (2) History of coronary artery bypass graft: Status: Chronic Code(s): Z95.1 - Presence of aortocoronary bypass graft (3) History of aortic valve replacement: Status: Chronic Code(s): Z95.2 - Presence of prosthetic heart valve (4) Presence of stent in coronary artery: Status: Acute Code(s): Z95.5 - Presence of coronary angioplasty implant and graft (5) HLD (hyperlipidemia): Status: Acute Code(s): E78.5 - Hyperlipidemia, unspecified Qualifiers: Hyperlipidemia type: unspecified Qualified Code(s): E78.5 - Hyperlipidemia, unspecified (6) Essential hypertension: Status: Acute Code(s): I10 - Essential (primary) hypertension Medications at Discharge Home Medications cholecalciferol (vitamin D3) 25 mcg (1,000 unit) capsule 1,000 unit PO QDAY 09/18/17 cyanocobalamin (vitamin B-12) 5,000 mcg sublingual tablet 5,000 mcg SUBLINGUAL QDAY 09/18/17 omega-3 fatty acids 1,000 mg capsule 1,000 mg PO QDAY 09/18/17 loratadine 10 mg tablet 10 mg PO DAILY PRN 01/04/18 melatonin 10 mg capsule 10 mg PO HS PRN 01/04/18 aspirin 81 mg tablet,delayed release 162 mg PO DAILY tab 12/06/18 meloxicam 15 mg tablet 15 mg PO DAILY tab 07/27/20 turmeric root extract 500 mg capsule 1,000 mg PO DAILY cap 07/27/20 atorvastatin 40 mg tablet 40 mg PO QHS #90 tab 09/23/20 metoprolol tartrate 100 mg tablet 100 mg PO BID #180 tab 10/07/20 diphenhydramine HCl 50 mg capsule 50 mg PO QHS 12/24/20 hydrocodone-acetaminophen 5-325mg 5mg-325mg 1 tab PO Q8H PRN 12/24/20 lisinopril 5 mg tablet 10 mg PO DAILY #90 tab 08/13/21 pregabalin 50 mg capsule 50 mg PO BID cap 12/24/20 clopidogrel 75 mg tablet 75 mg PO DAILY #30 tab 02/18/21 nitroglycerin 0.4 mg sublingual tablet 0.4 mg SUBLINGUAL Q5-15M PRN #90 tab 02/18/21 Hospital Course Procedures Cardiac catheterization and - (Cardiac Intervention: PCI) Summary of Care Provided Minutes Spent on Discharge: 45 Hospital Course: The patient presented to [facility] for concerns of angina pectoris and an abnormal stress nuclear imaging study for further evaluation with diagnostic cardiac catheterization. The patient underwent diagnostic cardiac catheterization which subsequently resulted in cardiac intervention with RCA PTCA/WALDEMAR. The patient was monitored overnight. On this day he appeared to be symptomatically and hemodynamically stable for release home for continued outpatient cardiovascular follow-up and outpatient cardiac rehabilitation. Physical Exam Const alert, oriented x3 and no apparent distress General Appearance: cooperative, comfortable, well kempt and well developed HEENT normocephalic, head/scalp atraumatic and hearing grossly normal bilaterally Head and Scalp: normal to inspection and normocephalic Neck full ROM Chest Chest: midline sternotomy incision Resp normal respiratory effort and clear to auscultation bilaterally Cardio regular rate, regular rhythm, S1 normal heart sound and S2 normal heart sound GI normal to inspection, nondistended, normoactive bowel sounds Extremity Peripheral Pulses: Yes femoral pulses present right (No obvious bruits: No obvious hematoma) 2+ Neuro oriented x3, moves all extremities, no focal motor deficits and no sensory deficits noted Weight / BMI Weight Weight: 240 lb Body Mass Index (BMI) 33.5 ABG / Lab / Microbiology Data Result Diagrams: 03/09/21 06:16 03/09/21 06:16 Laboratory: Laboratory Results - last 24 hr 03/09/21 06:16: WBC 8.8, RBC 4.20 L, Hgb 12.9 L, Hct 39.1 L, MCV 93.1, MCH 30.7, MCHC 33.0, RDW Std Deviation 41.8, RDW Coeff of Reyna 12.3, Plt Count 184, MPV 9.6, Immature Gran % (Auto) 0.300, Neut % (Auto) 73.6 H, Lymph % (Auto) 16.1 L, [place] % (Auto) 7.1, Eos % (Auto) 2.3, Baso % (Auto) 0.6, Absolute Neuts (auto) 6.4, Absolute Lymphs (auto) 1.41, Nucleated RBC % 0 03/09/21 06:16: Sodium 140, Potassium 4.2, Chloride 107, Carbon Dioxide 28.0, Anion Gap 5, BUN 25 H, Creatinine 1.21, Estim Creat Clear Calc 60.50, Est GFR (MDRD) Af Amer 76, Est GFR (MDRD) Non-Af 63, BUN/Creatinine Ratio 20.7 H, Glucose 97, Calcium 8.9, Total Bilirubin 0.50, AST 20, ALT 25, Alkaline Phosphatase 75, Total Protein 6.7, Albumin 3.3, Globulin 3.4, Albumin/Globulin Ratio 1.0 D/C Instructions Discharge Diet: Low fat / Low cholesterol May resume sexual activity in: 1-2 weeks Weight Bearing Status: - (Avoid heavy lifting / exertional activity for 1 week then resume normal activity as tolerated) Call your doctor if your incision/area has: Continuous Slow Oozing, Sudden Increased Bleeding, Increased Pain/ Swelling, Increased Redness, Foul Smelling Discharge and Swelling at the incision site Call your doctor if you observe: Fever of 101 or Higher, Shortness of breath, Fainting spells, Swelling in the ankles, Chest pain, Increased palpitations (irregular heartbeat), Calf discomfort and Uncontrolled pain Cleanse incision/area with: Soap & Water Please Follow Up With: Zaynab De Paz MAKE UP GIRL, MAKE UP GIRL-C When: 03/22/2021 @ 10:30 AM Meaningful Use Info Meaningful Use Diagnoses (Choose all that apply): None applicable Discharge Plan Admission Admit Date/Time: 03/08/21 16:42 Primary Reason for Your Visit: Abnormal Stress Test: Cardiac Catheterization Attending Provider: Saúl Calderon Primary Care Provider: Wilder Rebollar Discharge Orders/Prescriptions Prescriptions: Continued omega-3 fatty acids [Fish Oil Concentrate] 1,000 mg capsule 1,000 mg PO QDAY RF: 0 cyanocobalamin (vit B-12) 5,000 mcg sublingual tablet 5,000 mcg tablet, sublingual 5,000 mcg SUBLINGUAL QDAY RF: 0 cholecalciferol (vitamin D3) 1,000 unit capsule 1,000 unit PO QDAY RF: 0 aspirin [Adult Aspirin Regimen] 81 mg tablet,delayed release (DR/EC) 162 mg PO DAILY RF: 0 melatonin 10 mg capsule 10 mg PO HS PRN (Reason: Insomnia) RF: 0 loratadine [Allergy Relief (loratadine)] 10 mg tablet 10 mg PO DAILY PRN (Reason: Allergies) RF: 0 Lyrica 50 mg capsule 50 mg PO BID RF: 0 clopidogrel [Plavix] 75 mg tablet 75 mg PO DAILY Qty: 30 RF: 3 nitroglycerin 0.4 mg tablet, sublingual 0.4 mg sublingual Q5-15M PRN (Reason: chest pain) Qty: 90 RF: 6 hydrocodone-acetaminophen 5-325 mg tablet 1 tab PO Q8H PRN (Reason: Pain) RF: 0 diphenhydramine HCl 50 mg capsule 50 mg PO QHS RF: 0 lisinopril 5 mg tablet 10 mg PO DAILY Qty: 90 RF: 3 atorvastatin 40 mg tablet 40 mg PO QHS Qty: 90 RF: 3 metoprolol tartrate 100 mg tablet 100 mg PO BID Qty: 180 RF: 3 No Action meloxicam 15 mg tablet 15 mg PO DAILY RF: 0 turmeric root extract 500 mg capsule 1,000 mg PO DAILY RF: 0 Referrals / Follow Up: Wilder Rebollar MD [Primary Care Provider] - Saúl Calderon MD [STAFF PHYSICIAN] -
--- NOTE | 2021-03-09 10:00 | EKG12_ITS ---
Test Reason : AM Blood Pressure : / mmHG Vent. Rate : 062 BPM Atrial Rate : 062 BPM P-R Int : 214 ms QRS Dur : 082 ms QT Int : 390 ms P-R-T Axes : 042 -04 111 degrees QTc Int : 395 ms Sinus rhythm with 1st degree A-V block T wave abnormality, consider lateral ischemia Abnormal ECG When compared with ECG of 08-MAR-2021 10:33, MANUAL COMPARISON REQUIRED, DATA IS UNCONFIRMED Confirmed by POLY BLANDON, RADHA ([id number]), editor producer JULIO LAFLEUR ([id number]) on 03/09/2021 1:54:17 PM Referred By: Saúl Calderon Confirmed By:RADHA PANG MD
== END 2021-03-09 08:56 | disposition home or self-care (01) ==
LOC: PCU 17:34 → CLSP 03-09 08:29
PROVIDERS: Internal Medicine Interventional Cardiology; Nurse Practitioner Family; Admitting Provider Internal Medicine Cardiovascular Disease; PCP Family Medicine; Referring Provider Internal Medicine Cardiovascular Disease; Visit Provider Internal Medicine Cardiovascular Disease
DX: I25.118 Atherosclerotic heart disease of native coronary artery with other forms of angina pectoris (principal); I10 Essential (primary) hypertension; R94.39 Abnormal result of other cardiovascular function study; E78.5 Hyperlipidemia, unspecified; E66.9 Obesity, unspecified; M19.90 Unspecified osteoarthritis, unspecified site; I08.0 Rheumatic disorders of both mitral and aortic valves; R06.02 Shortness of breath; R94.31 Abnormal electrocardiogram [ECG] [EKG]; I25.82 Chronic total occlusion of coronary artery; I44.0 Atrioventricular block, first degree; Q25.46 Tortuous aortic arch; R93.1 Abnormal findings on diagnostic imaging of heart and coronary circulation; Z95.1 Presence of aortocoronary bypass graft; Z95.3 Presence of xenogenic heart valve; Z79.899 Other long term (current) drug therapy; Z79.82 Long term (current) use of aspirin; Z79.02 Long term (current) use of antithrombotics/antiplatelets; Z68.33 Body mass index [BMI] 33.0-33.9, adult; Z87.891 Personal history of nicotine dependence; Z87.74 Personal history of (corrected) congenital malformations of heart and circulatory system
CPT/HCPCS: 36415; 71046; 80048; 80053; 85025; 85610; 85730; 92928; 93005; 93459; 93567; 96360; 96361; 99152; 99153; 99218; C1874; J7030; J7040; Q9967; C1725; C1760; C1769; C1887; C1894; C9600; G0378

== ENCOUNTER → 2021-03-16 10:29 | Outpatient (CLI) | payer MEDICARE, OTHER, SELFPAY ==
--- NOTE | 2021-03-16 13:30 | CR.HP_ITS ---
CR - History & Physical - General Arrival date:: 03/16/21 Arrival time:: 13:30 Date of Referral:: 03/08/21 Date of CR Evaluation:: 03/16/21 Referring Physician: Dr. Saúl Calderon Primary Diagnosis: PCI w/coronary stent - History of Present Cardiac Event Onset Date: Enter Onset Date of cardiac illnesses in Comment field below Coronary Artery Bypass Graft:: Yes - 2017 Quad vessel bypass Heart valve replacement or repair:: Yes - 2017 Aortic Valve replacement also done PTCA or coronary stenting:: Yes - 03/08/2021 Type of Symptoms:: One of the bypass grafts was failing and required the stent. Shortness of breath walkign inclines, breathing heavier, more tired. Interventions with present event:: Nuclear stress test indicatred one of the bypass graft had occlusion -cath - Sleep Disorder Evaluation Hx of Sleep Apnea: No Do you snore loudly (louder than talking or can be heard through closed doors)?: No - rare occasionally with seasonal allergies, deviated septum wears nasal strip Do you often feel tired/ fatigued/ sleepy during daytime?: No - some, mostly feel it in his legs. Has anyone observed you stop breathing during sleep?: No History of Hypertension (for STOP score): Yes STOP Results: Negative - Medications Home Medications: Ambulatory Orders Medication Instructions Recorded cholecalciferol (vitamin D3) 25 1,000 unit PO QDAY 09/18/17 mcg (1,000 unit) capsule cyanocobalamin (vitamin B-12) 5,000 mcg SUBLINGUAL QDAY 09/18/17 5,000 mcg sublingual tablet omega-3 fatty acids 1,000 mg 1,000 mg PO QDAY 09/18/17 capsule loratadine 10 mg tablet 10 mg PO DAILY PRN 01/04/18 melatonin 10 mg capsule 10 mg PO HS PRN 01/04/18 aspirin 81 mg tablet,delayed 162 mg PO DAILY tab 12/06/18 release meloxicam 15 mg tablet 15 mg PO DAILY tab 07/27/20 turmeric root extract 500 mg 1,000 mg PO DAILY cap 07/27/20 capsule atorvastatin 40 mg tablet 40 mg PO QHS #90 tab 09/23/20 metoprolol tartrate 100 mg tablet 100 mg PO BID #180 tab 10/07/20 diphenhydramine HCl 50 mg capsule 50 mg PO QHS 12/24/20 hydrocodone-acetaminophen 5-325mg 1 tab PO Q8H PRN 12/24/20 5mg-325mg lisinopril 5 mg tablet 10 mg PO DAILY #90 tab 12/24/20 pregabalin 50 mg capsule 50 mg PO BID cap 12/24/20 clopidogrel 75 mg tablet 75 mg PO DAILY #30 tab 02/18/21 nitroglycerin 0.4 mg sublingual 0.4 mg SUBLINGUAL Q5-15M PRN #90 02/18/21 tablet tab - Allergies Allergies/Adverse Reactions: Allergies poison kaylyn extract Allergy (Intermediate, Verified 02/18/21 11:10) Rash Advanced Directives - Advanced Directives 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 Living Will: Yes Advance Directives Information Provided: No Advance Directives on File: No DNR Order?:: No - MOLST See MOLST form: No Past Medical History - Covid-19 Screening Fever: No Unexplained muscle aches: No Current respiratory symptoms: No - Seasonal allergies, chronic rhinitis Upper respiratory infections symptoms: No Gastro-intestinal symptoms: No - GERD Vod-Jbau-Boestg symptoms: No Has tested positive for COVID-19 in last 30 days: No 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; 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 Had contact w/person w/symptoms or Covid-19 (+) last 14 days: No Has High Risk Exposures ID'd by Health dept/Inf Control team: No 65 years or older:: Yes Lives in Assisted Living facility:: No Has a chronic lung disease or moderate to severe asthma:: No Has a serious heart condition:: Yes Immunocompromised:: No Severely obese (Body Mass Index of 40 or higher):: No Diabetic:: No Has chronic kidney disease undergoing dialysis:: No Has liver disease:: No - Past Medical Illness Medical History: Past Medical History (Last Reviewed 03/08/21 @ 15:32 by Gwendolyn Salas) 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 MUSTAFA-LAD, SVG seq OM1-OM2, SVG-PDA Bilateral carotid artery stenosis I65.23 Essential hypertension I10 History of aortic valve stenosis Z86.79 Valve replaced 11/05/17 concomittent with CABG surgery HLD (hyperlipidemia) E78.5 Obesity (BMI 30.0-34.9) E66.9 Osteoarthritis M19.90 - Past Surgical History Surgical History: Past Surgical History (Last Reviewed 03/08/21 @ 15:32 by Gwendolyn Salas) History of aortic valve replacement Onset Date: 11/05/17 Z95.2 AVR w/23MM hernandez intuity pericardial valve History of colonoscopy Onset Date: ~2018 Z98.890 History of coronary artery bypass graft Onset Date: 11/05/17 Z95.1 MUSTAFA-LAD, SVG seq OM1-OM2, SVG-PDA History of elbow surgery Z98.890 left elbow surgery x7 History of open reduction and internal fixation (ORIF) procedure Onset Date: ~1995 Z98.890 left elbow 8 surgeries History of tonsillectomy Z90.89 Presence of stent in coronary artery Onset Date: ~03/08/21 Z95.5 Successful PCI of proximal RCA 75% stenosis with VAN-3 flow With predilatation using 2.5 x 15 mm balloon, followed by placement of drug- eluting stent 3.5 x 26 mm/Orsiro Postdilated with 4 x 15 mm NC balloon/Euphora with reduction of stenosis from 75% to 0% and maintenance of VAN-3 flow 03/08/21 - Family History Summary Family History: Family History (Last Reviewed 03/08/21 @ 15:32 by Gwendolyn Salas) Father Myocardial infarction from [place] age 59 CAD (coronary artery disease) Mother Diabetes Hypertension Brother Diabetes age 62 from diabetic complications CAD (coronary artery disease) coronary stent Brother CAD (coronary artery disease) CABG Brother Heart disease Social History - Smoking History Smoking Status: Former smoker - Quit 46 years ago. Hx Tobacco Use: No Hx Smoking Exposure: No - Alcohol Use Alcohol Usage: Yes - glass of wine a few times per week. - Substance Abuse Hx Substance Use: No - Occupation Occupation (List type of work in comments):: Retired - Hobbies, Recreation, Social Activities Hobbies: Hiking, Walking, Exercise, Other - gardening Recreational Activities: I am able to engage in all my recreational activities Social Environment - Status Marital Status: - Current Living Arrangements Living Environment:: Spouse - 46 years - Children How many children do you have?: 3 - 9 grandchildren Do any of your children live nearby?: Yes - Safety Do you feel safe in your surroundings?: Yes - Assistance Do you need any assistance at home?: no Review of Systems - Review of Systems Hints: Right click = Denies ([place]ash). Left click = Reports ([place]) Review of Present Symptoms: Reports: Shortness of Breath with Exertion - hard to tell if it has improved since the stent adhering to the recommendation of the doctor to cut back on heavy activities., Dizziness/Lightheadedness - occasionally if getting up to fast., Fatigue, Heart Arrhythmia/Irregularities - H/O 1st degree AV block, Appetite - Normal, Appetite - Special Diet - try to keep to the [place] diet, Sleep - Normal. Denies: Shortness of Breath at Rest, Angina, Sexual Changes - Pain Is Patient Pain Free?: Yes Pain Location: none Pain Level: 0/10 Risk Factor Assessment - Chief Complaint Chief Complaint: 70 yr male patietn of Dr. Calderon'annabel who presents to cardiac rehab following recent PCI and stent procedure on 03/08/2021 of one of his coronary bypass grafts. Patient previously participated in our CR program back in 2018 following his CABG and aortic valve replacement procedures. - Vital Signs Temperature: 97.6 F Respiratory Rate: 16 Pulse Ox: 97 Blood Pressure: 142/68 - Pulse Pulse Rate: 56 Pulse Rhythm: Regular - Hypertension Blood Pressure Sitting - Left Arm: 142/68 - Blood Cholesterol/Lipids Total Cholesterol (mg/dL) Goal = less than 200 mg/dL: 104 HDL Cholesterol (mg/dL) Goal = less than 40 mg/dL: 39 LDL Cholesterol (mg/dL) Goal = less than 70 mg/dL: 37 Triglycerides (mg/dL) Goal = less than 150 mg/dL: 138 - Diabetes Nutrition Referral for Diabetes: No - Obesity Height: 5 ft 11 in Weight:: 240 lb Weight in Pounds: 240.0 lbs Weight Source: Standing Scale Body Mass Index (BMI): 33.5 Nutritional Referral for Obesity: Yes - Physical Inactivity Physical Inactivity: Reg Exercise 30 min/day - Risk Stratification Risk Guidelines: Lowest Risk: Risk Factor for Smoking, Risk Factor for Dyslipidemia, Risk Factor for Diabetes, Risk Factor for Sedentary Lifestyle, Risk Factor for Depression, Moderate Risk: Risk Factor for Hypertension - 142/68, Highest Risk: Risk Factor for Obesity - Family History Family History: Family History (Last Reviewed 03/08/21 @ 15:32 by Gwendolyn Salas) Father Myocardial infarction CAD (coronary artery disease) Mother Diabetes Hypertension Brother Diabetes CAD (coronary artery disease) Brother CAD (coronary artery disease) Brother Heart disease Motivation - Motivation to Participate On a scale of 1 to 10, how prepared are you to commit to attending program?: 10 What do you see as barriers to successfully being able to complete the program?: drive for the sesisons almost the same What do you see as the benefits of succesfully completing the program? In other words, what do you hope to get out of participating in the program?: getting all the knowledge and exercise Are there issues you are dealing with that will interfere with completing the program?: none Do you have a spouse or signficant other, family or friends who will help support you to complete the program?: Yes
--- NOTE | 2021-03-16 13:30 | PCM.CR.ITP ---
Diagnosis - General Information Admitting Diagnosis: PCI w/coronary stent Secondary Diagnosis: Previosu S/P CABG & Aortic Valve Replacement in 2018 Personal Learning Style:: Audio/Visual, Written Barriers to Learning: Vision Impairment Stage of change r/t lifestyle modifications:: Action Gave educational material for:: Treating Heart Disease, Emotions & Heart Disease, Stress Management & Relaxation, Sleep Disorders & Heart Disease, How The Heart Works, What it means to have Heart Disease, How Coronary Artery Disease is Diagnosed, Heart Procedures, What Heart Medications Do, Risk Factors & Modifications, Living an Active Life, Nutrition - Education/Goals Individual Counseling: Initial Assessment: Abnormal Cholesterol Levels, High Blood Pressure, Overweight/Obesity Cardiac Rehabilitation Goals: 1. Maintain the individual as the primary focus of care. 2. To improve the patient's quality of life. 3. Identification of cardiac risk factors and provide cardiac risk factor management. 4. Enhance the psychosocial status of the patient. 5. Reconditioning enough to allow the patient to resume customary activities. 6. Control symptoms of cardiac disease Personal Goals: Initial Assessment: Improve energy level, Improve knowledge of cardiac disease, Improve muscle strength and endurance, Improve diet and eating habits (eat healthier), Control risk factors (learn risk factor modification), Other goal: Scale for measuring improvement of personal goals: Enter appropriate number in Comments. 2 = Unchanged. 3 = Slightly Better. 4 = Moderate Improvement. 5 = Met my Goal - Diagnosis & Disease Process Outcomes/Goals: Pt IDs own risk factors & lifestyle modifications by Session 10, Verbalizes symptoms of angina & response by session 3., Pt independently manages Plan/Interventions: Assist Pt to ID & engage in lifestyle modification to reduce CVD risk, Instruct on individual risk factors, Review symptoms of angina & emergency actions, Review secondary diagnosis & identify educational needs. - Safety Referral to Physical Therapy: No Referral to [facility] Case Management: No Fall Risk Assessed:: Yes Assistive Devices:: None Exercise - Initial Assessment - Visit Date of Eval: 03/16/21 Session #:: 0 - Pre-cardiac rehab evaluation Mets: Pre-: >7 METS for 30 minutes by discharge - Physician Prescribed Exercise Modalities: Treadmill, Rower, Airdyne, NuStep Frequency: 3x/week for 12 weeks [36 sessions] Intensity: 60-80% of age predicted maximum heart rate reserve Current METSs:: 4.0 Target Heart Rate:: 98-128 Resting Blood Pressure: 142/68 EKG Type: Sinus bradycardia w/1st degree AV block - Outcomes & Goals Goals:: Verbalizes understanding of THR, RPE & goal METS by session 6, Documents in home exercise log/reports 30 min aerobic 5 day/wk by DC, Demonstrates accurate pulse taking by DC - Intervention & Plan Exercise Program Goals: Instruct on personal THR & RPE, Instruct on MET level & personal MET goal, Show patient to take own pulse /validate performance until accurate, Instruct on home exercise - Physical Activity Home Exercise Physical Activity - Home Exercise: Safe Exercise, Warm-up, Self-monitoring, Cool-Down, Home Exercise > 30 min Daily, Sitting Time <3 hours/daily - Outcomes & Goals Outcomes/Goals: Demonstrates correct Warm-up/exercise Cool-Down (S3) if = 2.5 METs, Verbalizes symptoms of exercise intolerance by Session 3 (S3), Demonstrate safe equipment use (S3) & follows exercise prescrition (6) - Intervention & Plan Plan/Intervention: Instruct warm-up & cool-down if exercising at > 2 METs, Instruct on symptoms of exercise intolerance & actions to take, Instruct & monitor on saf, Assess intial functional capacity & safety risk Nutrition - Initial Assessment - Program Goals Nutrition Program Goals: LDL <100 optimal. 100 - 129 Near optimal. 130 - 159 Borderline High. 160 - 189 High. Total Cholesterol <200 desirable. 200 - 239 Borderline High. >/= 240 High. HDL < 40 Low >/=60 High. Triglycerides <150 desirable. <199 optimal. VlDL 5 - 40. HgbA1C <7%. BMI <25 Patient has diagnosis of Hyperlipidemia (ICD E78)?: Yes - Visit Date of Assessment:: 03/16/21 Session #:: 0 - Pre-cardiac rehab evaluation - Cholesterol/Lipids Triglycerides (mg/dL): 138 Total Cholesterol (mg/dL): 104 LDL Cholesterol (mg/dL): 37 HDL Cholesterol (mg/dL): 39 Determine presence & major risk factors that modify LDL goal: Hypertension or hypertensive medication, Low HDL cholesterol <40 mg/dL*, Family history of premature CHD in Male < 55 years: female <65 yearsFa, Age men > 45 years; women >/= 55 years Outcomes/Goals: Pt IDs own risk factors & lifestyle modifications by Session 10, Verbalizes symptoms of angina & response by session 3., Pt independently manages Intervention/Plan: Instruct on personal lipid levels & lipid goals/NCEP guidelines, Instruct on cholesterol Referral to dietitian:: Yes - Medical Nutrition Therapy - Diabetes (Other Core Measures) Diabetes Type: Not Applicable - Weight Mgt (Other Care) Not Applicable: No Height: 5 ft 10 in Weight:: 240 lb BMI: 34.4 Diagnosis Overweight/Obesity BMI> 30% ICD-10 E66: Yes Diagnosis High BMI/Morbid Obesity BMI> 35% ICD-10 Z68: No Outcomes/Goals: Pt sets, maintains & shows weight loss goal & trend during rehab Intervention/Plan: Instruct on ideal BMI & set weight loss goal w/patient, Assist pt to ID & incorporate diet changes for weight loss by S9, Refer to Structured Weight Loss program as appropriate, Encourage goal of using 250-300dcal per session for weight loss - Healthy Eating Habits Will attend diet classes:: Yes Outcomes/Goals:: Consume diet rich in vegs,fruits,whole grain/high fiber,fish,lean meat, Limit sat/trans fats,cholesterol & added salts & sugars Intervention/Plan:: Assess current eating habits - Education Gave educational materials for:: Healthy eating Nutrition - 30-Day Assessment Nutrition - 60-Day Assessment Nutrition - 90-Day Assessment Nutrition - Final Assessment Medical - Initial Assessment - Visit Date of Eval: 03/16/21 Session #:: 0 - Pre-cardiac rehab evaluation - Medication Compliance Preventative Medication(s):: Aspirin, Clopidogrel/P2Y12 inhibit, Statin/lipid, Beta dionicio H/O mental health issues: depression, anxiety, or addiction?: No Doesn?t believe in the benefits of treatment?: No Believes medications are unnecessary or harmful?: No Has a concern about medication side effects?: No Expresses concern over the cost of medications?: No Outcomes/Goals: Verbalizes medications,desired effect & common side effects @ DC, Pt self-reports following medication regimen, Keeps card in wallet w/medications listed by DC Interventions/plans: Instruct on medication effects & side effects, Review medication list w/patient every two weeks, Instruct importance of taking meds as ordered & assist problem solving - Tobacco Use Tobacco Use: Non-smoker - Hypertension Hypertension Diagnosis:: Hypertension ICD-10 I10 Resting Blood Pressure:: 142/68 [place] [employer] Hypertension Guidelines: [place] [employer] Hypertension Guidelines. Normal BP Less than 120/80. Elevated BP 120/80. Hypertension Stage 1: BP 130-139/80-89. Hypertesnion Stage 2: BP 140 or higher/90 or higher. Hypertension Crisis: BP higher than 180/120 Outcomes/Goals: Able to verbalize/achieve optimal blood pressure <130/80, Incorporates diet changes & exercise for blood pressure control by DC Interventions/plan: Instruct on optimal blood pressure, hypertension & medications, Instruct on effects of sodium, alcohol, stress, exercise &hypertension - Tobacco Cessation Referral Smoking Cessation Referral:: No Individual Education/Counseling:: No Education Schedule Given:: Yes Medical- 30-Day Assessment Medical- 60-Day Assessment Medical- 90-Day Assessment Medical - Final Assessment Psychosocial - Initial Assess - VIsit Date of Eval: 03/16/21 Session #:: 0 - Pre-cardiac rehab evaluation Not Applicable: Yes History of previous Mental disease:: No - Psychosocial Test Tool Used:: Henry Araiza QOL Cardiac, PHQ-9 Questionnaire phq-9 Severity: Severity. 1-4 Minimal Depression. 5-9 Mild Depression. 10-14 Moderate Depression. 15-19 Moderately Sever Depression. 20-27 Severe Depression. Rule: - Referral to Behavioral Health PS - Interventions: Yes Attend Stress Management Classes, No Referral to Behavioral Health if PHQ-9 score >9:, No Referral to [facility], No Referral to Physician if PHQ-9 if score is 5-9: - Outcomes/Goals: See list Psychosocial Outcomes/Goals:: ID's personal stressors & 2 strategies to manage stress by discharge - Intervention/Plan: See List Interventions/Plan:: Assess stressors,coping strategies & signs of derpression on admission, Instruct/assist pt to develop coping & personal stress Mgt strategies, Instruct patient to recognize signs & symptoms of depression, Instruct patient to recog Psychosocial - 30-Day Assess Psychosocial - 60-Day Assess Psychosocial - 90-Day Assess Psychosocial - Final Assessmen Patient Health Questionnaire Initial Assessment 1. Little interest or pleasure in doing things: Not at all 2. Feeling down, depressed, or hopeless: Not at all 3. Trouble falling or staying asleep, or sleeping too much: Not at all 4. Feeling tired or having little energy: Not at all 5. Poor appetite or overeating: Not at all 6. Feeling bad about yourself -- or that you are a failure or have let yourself or your family down: Not at all 7. Trouble concentrating on things, such as reading the newspaper or watching television: Not at all 8. Moving or speaking so slowly that other people could have noticed. Or the opposite - being so fidgety or restless that you have been moving around a lot more than usual: Not at all 9. Thoughts that you would be better off , or of hurting yourself in some way: Not at all Total Score: 0 EDVIN-Q SV Test - Statements CAD is a disease of the arteries in the heart: False Examples of risk factors for heart disease: True Angina is chest pain or discomfort: True The benefits of resistance training include: True Eating more meat and dairy products: False Anti-platelet medications such as aspirin are important: False The only effective way to manage stress: False An exercise warm-up slowly increases heart rate: True Prepared, processed foods usually have high sodium: True Depression is common after a heart attack: True The statin medications lower cholesterol: True To control blood pressure, lower the amount of sodium: True If someone gets chest discomfort during walking: False Transfats are partially hydrogenated vegetable oils: True Sleep apnea that is not treated increases the risk: False To control cholesterol, one should become a vegetarian: False Someone knows if he/she is exercising at the right level: True Diabetes cannot be prevented with exercise & health eating: False Stress is a large risk for heart attack: True A diet that can help lower blood pressure is rich in: True - Total Score Total Correct Responses: 19 Self-Efficacy Initial Assessment We would like to know how confident you are in doing certain activities. Please select your confidence level for:: Select your confidence level for the following using the scale 1-10 where 1 is not at all confident and 10 is totally confident. Your score is the average of all 6 responses. Fatigue: How confident are you that you can keep the fatigue caused by your disease from interfering with the things you want to do? Select Number: 10 Physical Discomfort or Pain: How confident are you that you can keep the physical discomfort or pain of your disease from interfering with the things you want to do? Select Number: 8 Emotional Distress: How confident are you that you can keep the emotional distress caused by your disease from interfering with the things you want to do? Select Number: 9 Other Symptoms or Health Problems: How confident are you that you can keep other symptoms or health problems from interfering with the things you want to do? Select Number: 8 Different Tasks and Activities: How confident are you that you can do the different tasks and activities needed to manage your health condition so as to reduce your need to see a doctor? Select Number: 9 Medication: How confident are you that you can do things other than just taking medication to reduce how much your illness affects your everyday life? Select Number: 9 Total Score:: 8 Nutrition Survey - Nutrition Survey Initial Have you lost >10 lbs over the past 2 months without trying?: No Are you following a special diet at home for diabetes, low fat, or low salt?: Yes Are you interested in meeting with a dietitian for help understanding your diet?: Yes Do you eat less than 3 meals a day?: Yes Do you eat fatty meats (bustamante, sausage, ribs, etc), fried foods, desserts, large amounts of salad dressings, margarine, butter, or cheese most days?: No Do you have food allergies? [Enter types in comment field]: No Do you eat in restaurants more than 3 times a week?: No Do you season food with salt, seasoning salt, or garlic salt?: No Do you used canned, boxed, frozen meals, or soups, seasoning packets?: No Total Score:: 3
[2021-03-16 13:58] VITALS: BP 142/68; PULSE 56; RESP 16; TEMP 36.4; O2SAT 97; BMI 33.5
[2021-03-16 14:20] VITALS: BP 142/68; BMI 34.4
== END ==
PROVIDERS: PCP Family Medicine; Referring Provider Internal Medicine Cardiovascular Disease; Visit Provider Internal Medicine Cardiovascular Disease
DX: Z95.5 Presence of coronary angioplasty implant and graft (principal)

== ENCOUNTER 2021-04-11 10:30 | Outpatient (RCR) | payer MEDICARE, OTHER, SELFPAY ==
[2021-03-16 14:20] VITALS: BMI 34.4
== END 2021-04-12 23:59 ==
LOC: CR 10:30
PROVIDERS: PCP Family Medicine; Referring Provider Internal Medicine Cardiovascular Disease; Visit Provider Internal Medicine Cardiovascular Disease
DX: I25.10 Atherosclerotic heart disease of native coronary artery without angina pectoris (principal); Z95.5 Presence of coronary angioplasty implant and graft
CPT/HCPCS: 93798

== ENCOUNTER 2021-05-11 08:00 | Outpatient (RCR) | payer MEDICARE, OTHER, SELFPAY ==
[2021-03-16 14:20] VITALS: BMI 34.4
--- NOTE | 2021-04-13 09:06 | CR.ITP_ITS ---
Diagnosis Exercise - 30-day Assessment - Visit Date of Eval: 04/13/21 Session #:: 36 - Physician Prescribed Exercise Modalities: Treadmill, Rower, Airdyne, NuStep Frequency: 3x/week for 12 weeks [36 sessions] Intensity: 60-80% of age predicted maximum heart rate reserve Current METSs:: 5.0 INCREASED FROM 4.0 Target Heart Rate:: 98-128 Current RPE:: 12-14 Maximum Excercise HR:: 101 Resting Blood Pressure: 140/70 - Report of resting BPs sent to Dr. Calderon Maximum Exercise Blood Pressure: 160/80 EKG Type: NSR to sinus tach with rare PVCs Current Physical Activity or Exercising minutes: 44:32 - Outcomes & Goals Goals:: Verbalizes understanding of THR, RPE & goal METS by session 6, Documents in home exercise log/reports 30 min aerobic 5 day/wk by DC, Demonstrates accurate pulse taking by DC - Intervention & Plan Exercise Program Goals: Instruct on personal THR & RPE, Instruct on MET level & personal MET goal, Show patient to take own pulse /validate performance until accurate, Instruct on home exercise - 30-day Reassessments 30 day Reassessments:: Progressing - Physical Activity Home Exercise Physical Activity - Home Exercise: Safe Exercise, Warm-up, Self-monitoring, Cool-Down, Home Exercise > 30 min Daily, Sitting Time <3 hours/daily - Outcomes & Goals Outcomes/Goals: Demonstrates correct Warm-up/exercise Cool-Down (S3) if = 2.5 METs, Verbalizes symptoms of exercise intolerance by Session 3 (S3), Demonstrate safe equipment use (S3) & follows exercise prescrition (6) - Intervention & Plan Plan/Intervention: Instruct warm-up & cool-down if exercising at > 2 METs, Instruct on symptoms of exercise intolerance & actions to take, Instruct & monitor on saf, Assess intial functional capacity & safety risk - 30-day Reassessments 30 day Reassessments:: Progressing Nutrition - Initial Assessment Nutrition - 30-Day Assessment - Program Goals Nutrition Program Goals: LDL <100 optimal. 100 - 129 Near optimal. 130 - 159 Borderline High. 160 - 189 High. Total Cholesterol <200 desirable. 200 - 239 Borderline High. >/= 240 High. HDL < 40 Low >/=60 High. Triglycerides <150 desirable. <199 optimal. VlDL 5 - 40. HgbA1C <7%. BMI <25 Patient has diagnosis of Hyperlipidemia (ICD E78)?: Yes - Visit Date of Assessment:: 04/13/21 Session #:: 6 - Cholesterol/Lipids Triglycerides (mg/dL): 138 Total Cholesterol (mg/dL): 104 LDL Cholesterol (mg/dL): 37 HDL Cholesterol (mg/dL): 39 Determine presence & major risk factors that modify LDL goal: Hypertension or hypertensive medication, Low HDL cholesterol <40 mg/dL*, Family history of premature CHD in Male < 55 years: female <65 yearsFa, Age men > 45 years; women >/= 55 years Outcomes/Goals: Pt IDs own risk factors & lifestyle modifications by Session 10, Verbalizes symptoms of angina & response by session 3., Pt independently manages Intervention/Plan: Instruct on personal lipid levels & lipid goals/NCEP guidelines, Instruct on cholesterol Referral to dietitian:: Yes - Medical Nutrition Therapy 30-day Reassessments:: Progressing - Diabetes (Other Core Measures) Diabetes Type: Not Applicable - Weight Mgt (Other Care) Not Applicable: No Height: 5 ft 10 in Weight:: 252 lb - unchanged BMI: 36.1 Diagnosis Overweight/Obesity BMI> 30% ICD-10 E66: Yes Diagnosis High BMI/Morbid Obesity BMI> 35% ICD-10 Z68: Yes Outcomes/Goals: Pt sets, maintains & shows weight loss goal & trend during rehab Intervention/Plan: Instruct on ideal BMI & set weight loss goal w/patient, Assist pt to ID & incorporate diet changes for weight loss by S9, Refer to Structured Weight Loss program as appropriate, Encourage goal of using 250- 300dcal per session for weight loss 30 day Reassessments:: Not Met - Healthy Eating Habits Will attend diet classes:: Yes Outcomes/Goals:: Consume diet rich in vegs,fruits,whole grain/high fiber,fish,lean meat, Limit sat/trans fats,cholesterol & added salts & sugars Intervention/Plan:: Assess current eating habits 30-day Reassessments:: Progressing - Education Gave educational materials for:: Healthy eating Nutrition - 60-Day Assessment Nutrition - 90-Day Assessment Nutrition - Final Assessment Medical - Initial Assessment Medical- 30-Day Assessment - Visit Date of Eval: 04/13/21 Session #:: 6 - Medication Compliance Preventative Medication(s):: Aspirin, Clopidogrel/P2Y12 inhibit, Statin/lipid, Beta dionicio H/O mental health issues: depression, anxiety, or addiction?: No Doesn?t believe in the benefits of treatment?: No Believes medications are unnecessary or harmful?: No Has a concern about medication side effects?: No Expresses concern over the cost of medications?: No Outcomes/Goals: Verbalizes medications,desired effect & common side effects @ DC, Pt self-reports following medication regimen, Keeps card in wallet w/medications listed by DC Interventions/plans: Instruct on medication effects & side effects, Review medication list w/patient every two weeks, Instruct importance of taking meds as ordered & assist problem solving 30-day Reassessments:: Progressing - Tobacco Use Tobacco Use: Non-smoker - Hypertension Hypertension Diagnosis:: Hypertension ICD-10 I10 Resting Blood Pressure:: 140/70 - Report of resting BPs sent to Dr. Calderon [place] [employer] Hypertension Guidelines: [place] [employer] Hypertension Guidelines. Normal BP Less than 120/80. Elevated BP 120/80. Hypertension Stage 1: BP 130-139/80-89. Hypertesnion Stage 2: BP 140 or higher/90 or higher. Hypertension Crisis: BP higher than 180/120 Peak Exercise Blood Pressure:: 160/80 Outcomes/Goals: Able to verbalize/achieve optimal blood pressure <130/80, Incorporates diet changes & exercise for blood pressure control by DC Interventions/plan: Instruct on optimal blood pressure, hypertension & medications, Instruct on effects of sodium, alcohol, stress, exercise &hypertension 30 day Reassessments:: Progressing - Tobacco Cessation Referral Smoking Cessation Referral:: No Individual Education/Counseling:: No Education Schedule Given:: Yes Medical- 60-Day Assessment Medical- 90-Day Assessment Medical - Final Assessment Psychosocial - Initial Assess Psychosocial - 30-Day Assess - VIsit Date of Eval: 04/13/21 Session #:: 6 Not Applicable: Yes History of previous Mental disease:: No - Psychosocial Test Tool Used:: PHQ-9 Questionnaire phq-9 Severity: Severity. 1-4 Minimal Depression. 5-9 Mild Depression. 10-14 Moderate Depression. 15-19 Moderately Sever Depression. 20-27 Severe Depression. Rule: - Referral to Behavioral Health PS - Interventions: Yes Attend Stress Management Classes, No Referral to Behavioral Health if PHQ-9 score >9:, No Referral to [facility], No Referral to Physician if PHQ-9 if score is 5-9: - Outcomes/Goals: See list Psychosocial Outcomes/Goals:: ID's personal stressors & 2 strategies to manage stress by discharge - Intervention/Plan: See List Interventions/Plan:: Assess stressors,coping strategies & signs of derpression on admission, Instruct/assist pt to develop coping & personal stress Mgt strategies, Instruct patient to recognize signs & symptoms of depression, Instruct patient to recog - 30-day Reassessments: 30 day Reassessments:: Progressing Psychosocial - 60-Day Assess Psychosocial - 90-Day Assess Psychosocial - Final Assessmen Patient Health Questionnaire 30-Day Re-eval Assessment 1. Little interest or pleasure in doing things: Not at all 2. Feeling down, depressed, or hopeless: Not at all 3. Trouble falling or staying asleep, or sleeping too much: Not at all 4. Feeling tired or having little energy: Not at all 5. Poor appetite or overeating: Not at all 6. Feeling bad about yourself -- or that you are a failure or have let yourself or your family down: Not at all 7. Trouble concentrating on things, such as reading the newspaper or watching television: Not at all 8. Moving or speaking so slowly that other people could have noticed. Or the opposite - being so fidgety or restless that you have been moving around a lot more than usual: Not at all 9. Thoughts that you would be better off , or of hurting yourself in some way: Not at all How difficult have these problems made it for you to do your work, take care of things at home, or get along with other people?: Not difficult at all Total Score: 0 Self-Efficacy 30-Day Re-eval Assessment We would like to know how confident you are in doing certain activities. Please select your confidence level for:: Select your confidence level for the following using the scale 1-10 where 1 is not at all confident and 10 is totally confident. Your score is the average of all 6 responses. Fatigue: How confident are you that you can keep the fatigue caused by your disease from interfering with the things you want to do? Select Number: 10 Physical Discomfort or Pain: How confident are you that you can keep the physical discomfort or pain of your disease from interfering with the things you want to do? Select Number: 8 Emotional Distress: How confident are you that you can keep the emotional distress caused by your disease from interfering with the things you want to do? Select Number: 9 Other Symptoms or Health Problems: How confident are you that you can keep other symptoms or health problems from interfering with the things you want to do? Select Number: 9 Different Tasks and Activities: How confident are you that you can do the different tasks and activities needed to manage your health condition so as to reduce your need to see a doctor? Select Number: 9 Medication: How confident are you that you can do things other than just taking medication to reduce how much your illness affects your everyday life? Select Number: 9 Total Score:: 9 Nutrition Survey
[2021-04-13 09:21] VITALS: BP 140/70; BP 160/80; BMI 36.1
== END 2021-05-13 23:59 ==
LOC: CR 08:00
PROVIDERS: PCP Family Medicine; Referring Provider Internal Medicine Cardiovascular Disease; Visit Provider Internal Medicine Cardiovascular Disease
DX: I25.10 Atherosclerotic heart disease of native coronary artery without angina pectoris (principal); Z95.5 Presence of coronary angioplasty implant and graft
CPT/HCPCS: 93798

== ENCOUNTER 2021-05-20 08:00 | Outpatient (RCR) | payer MEDICARE, OTHER, SELFPAY ==
[2021-04-13 09:21] VITALS: BMI 36.1
[2021-05-14 00:33] VITALS: BP 140/70; BP 160/80
--- NOTE | 2021-05-16 08:48 | PCM.CR.ITP ---
Diagnosis Exercise - 60-day Assessment - Visit Date of Eval: 05/16/21 Session #:: 18 - Physician Prescribed Exercise Modalities: Treadmill, Rower, Airdyne, NuStep Frequency: 3x/week for 12 weeks [36 sessions] Intensity: 60-80% of age predicted maximum heart rate reserve Current METSs:: 6.0 increased from 5.0 Target Heart Rate:: 98-128 Current RPE:: 12-13 Maximum Excercise HR:: 90 Resting Blood Pressure: 132/70 Maximum Exercise Blood Pressure: 144/74 EKG Type: Sinus rachel to NSR with rare PACs, noted T wave inversion. Current Physical Activity or Exercising minutes: 40:32 - Outcomes & Goals Goals:: Verbalizes understanding of THR, RPE & goal METS by session 6, Documents in home exercise log/reports 30 min aerobic 5 day/wk by DC, Demonstrates accurate pulse taking by DC - Intervention & Plan Exercise Program Goals: Instruct on personal THR & RPE, Instruct on MET level & personal MET goal, Show patient to take own pulse /validate performance until accurate, Instruct on home exercise - 30-day Reassessments 30 day Reassessments:: Progressing - Physical Activity Home Exercise Physical Activity - Home Exercise: Safe Exercise, Warm-up, Self-monitoring, Cool-Down, Home Exercise > 30 min Daily, Sitting Time <3 hours/daily - Outcomes & Goals Outcomes/Goals: Demonstrates correct Warm-up/exercise Cool-Down (S3) if = 2.5 METs, Verbalizes symptoms of exercise intolerance by Session 3 (S3), Demonstrate safe equipment use (S3) & follows exercise prescrition (6) - Intervention & Plan Plan/Intervention: Instruct warm-up & cool-down if exercising at > 2 METs, Instruct on symptoms of exercise intolerance & actions to take, Instruct & monitor on saf, Assess intial functional capacity & safety risk - 30-day Reassessments 30 day Reassessments:: Progressing Nutrition - Initial Assessment Nutrition - 30-Day Assessment Nutrition - 60-Day Assessment - Program Goals Nutrition Program Goals: LDL <100 optimal. 100 - 129 Near optimal. 130 - 159 Borderline High. 160 - 189 High. Total Cholesterol <200 desirable. 200 - 239 Borderline High. >/= 240 High. HDL < 40 Low >/=60 High. Triglycerides <150 desirable. <199 optimal. VlDL 5 - 40. HgbA1C <7%. BMI <25 Patient has diagnosis of Hyperlipidemia (ICD E78)?: Yes - Visit Date of Assessment:: 05/16/21 Session #:: 18 - Cholesterol/Lipids Triglycerides (mg/dL): 138 Total Cholesterol (mg/dL): 104 LDL Cholesterol (mg/dL): 37 HDL Cholesterol (mg/dL): 39 Determine presence & major risk factors that modify LDL goal: Hypertension or hypertensive medication, Low HDL cholesterol <40 mg/dL*, Family history of premature CHD in Male < 55 years: female <65 yearsFa, Age men > 45 years; women >/= 55 years Outcomes/Goals: Pt IDs own risk factors & lifestyle modifications by Session 10, Verbalizes symptoms of angina & response by session 3., Pt independently manages Intervention/Plan: Instruct on personal lipid levels & lipid goals/NCEP guidelines, Instruct on cholesterol Referral to dietitian:: Yes - Medical Nutrition Therapy 30-day Reassessments:: Progressing - Diabetes (Other Core Measures) Diabetes Type: Not Applicable - Weight Mgt (Other Care) Not Applicable: No Height: 5 ft 10 in Weight:: 256 lb BMI: 36.7 Diagnosis Overweight/Obesity BMI> 30% ICD-10 E66: Yes Diagnosis High BMI/Morbid Obesity BMI> 35% ICD-10 Z68: Yes Outcomes/Goals: Pt sets, maintains & shows weight loss goal & trend during rehab Intervention/Plan: Instruct on ideal BMI & set weight loss goal w/patient, Assist pt to ID & incorporate diet changes for weight loss by S9, Refer to Structured Weight Loss program as appropriate, Encourage goal of using 250-300dcal per session for weight loss 30 day Reassessments:: Not Met - Healthy Eating Habits Will attend diet classes:: Yes Outcomes/Goals:: Consume diet rich in vegs,fruits,whole grain/high fiber,fish,lean meat, Limit sat/trans fats,cholesterol & added salts & sugars Intervention/Plan:: Assess current eating habits 30-day Reassessments:: Progressing - Education Gave educational materials for:: Healthy eating Nutrition - 90-Day Assessment Nutrition - Final Assessment Medical - Initial Assessment Medical- 30-Day Assessment Medical- 60-Day Assessment - Visit Date of Eval: 05/16/21 Session #:: 18 - Medication Compliance Preventative Medication(s):: Aspirin, Clopidogrel/P2Y12 inhibit, Statin/lipid, Beta dionicio H/O mental health issues: depression, anxiety, or addiction?: No Doesn?t believe in the benefits of treatment?: No Believes medications are unnecessary or harmful?: No Has a concern about medication side effects?: No Expresses concern over the cost of medications?: No Outcomes/Goals: Verbalizes medications,desired effect & common side effects @ DC, Pt self-reports following medication regimen, Keeps card in wallet w/medications listed by DC Interventions/plans: Instruct on medication effects & side effects, Review medication list w/patient every two weeks, Instruct importance of taking meds as ordered & assist problem solving 30-day Reassessments:: Progressing - Tobacco Use Tobacco Use: Non-smoker - Hypertension Hypertension Diagnosis:: Hypertension ICD-10 I10 Resting Blood Pressure:: 132/76 - [employer] Hypertension Guidelines: [employer] Hypertension Guidelines. Normal BP Less than 120/80. Elevated BP 120/80. Hypertension Stage 1: BP 130-139/80-89. Hypertesnion Stage 2: BP 140 or higher/90 or higher. Hypertension Crisis: BP higher than 180/120 Peak Exercise Blood Pressure:: 150/72 Outcomes/Goals: Able to verbalize/achieve optimal blood pressure <130/80, Incorporates diet changes & exercise for blood pressure control by DC Interventions/plan: Instruct on optimal blood pressure, hypertension & medications, Instruct on effects of sodium, alcohol, stress, exercise &hypertension 30 day Reassessments:: Not Met - Resting BPs remain above 130/70 or > - Tobacco Cessation Referral Smoking Cessation Referral:: No Individual Education/Counseling:: No Education Schedule Given:: Yes Medical- 90-Day Assessment Medical - Final Assessment Psychosocial - Initial Assess Psychosocial - 30-Day Assess Psychosocial - 60-Day Assess - VIsit Date of Eval: 05/16/21 Session #:: 18 Not Applicable: Yes History of previous Mental disease:: No - Psychosocial Test Tool Used:: PHQ-9 Questionnaire phq-9 Severity: Severity. 1-4 Minimal Depression. 5-9 Mild Depression. 10-14 Moderate Depression. 15-19 Moderately Sever Depression. 20-27 Severe Depression. Rule: - Referral to Behavioral Health PS - Interventions: Yes Attend Stress Management Classes, No Referral to Behavioral Health if PHQ-9 score >9:, No Referral to [facility], No Referral to Physician if PHQ-9 if score is 5-9: - Outcomes/Goals: See list Psychosocial Outcomes/Goals:: ID's personal stressors & 2 strategies to manage stress by discharge - Intervention/Plan: See List Interventions/Plan:: Assess stressors,coping strategies & signs of derpression on admission, Instruct/assist pt to develop coping & personal stress Mgt strategies, Instruct patient to recognize signs & symptoms of depression, Instruct patient to recog - 30-day Reassessments: 30 day Reassessments:: Progressing Psychosocial - 90-Day Assess Psychosocial - Final Assessmen Patient Health Questionnaire 60-Day Re-eval Assessment 1. Little interest or pleasure in doing things: Not at all 2. Feeling down, depressed, or hopeless: Not at all 3. Trouble falling or staying asleep, or sleeping too much: Several days 4. Feeling tired or having little energy: Not at all 5. Poor appetite or overeating: Not at all 6. Feeling bad about yourself -- or that you are a failure or have let yourself or your family down: Not at all 7. Trouble concentrating on things, such as reading the newspaper or watching television: Not at all 8. Moving or speaking so slowly that other people could have noticed. Or the opposite - being so fidgety or restless that you have been moving around a lot more than usual: Not at all 9. Thoughts that you would be better off , or of hurting yourself in some way: Not at all Total Score: 1 Self-Efficacy 60-Day Re-eval Assessment We would like to know how confident you are in doing certain activities. Please select your confidence level for:: Select your confidence level for the following using the scale 1-10 where 1 is not at all confident and 10 is totally confident. Your score is the average of all 6 responses. Fatigue: How confident are you that you can keep the fatigue caused by your disease from interfering with the things you want to do? Select Number: 8 Physical Discomfort or Pain: How confident are you that you can keep the physical discomfort or pain of your disease from interfering with the things you want to do? Select Number: 9 Emotional Distress: How confident are you that you can keep the emotional distress caused by your disease from interfering with the things you want to do? Select Number: 10 Other Symptoms or Health Problems: How confident are you that you can keep other symptoms or health problems from interfering with the things you want to do? Select Number: 10 Different Tasks and Activities: How confident are you that you can do the different tasks and activities needed to manage your health condition so as to reduce your need to see a doctor? Select Number: 10 Medication: How confident are you that you can do things other than just taking medication to reduce how much your illness affects your everyday life? Select Number: 10 Total Score:: 9 Nutrition Survey
[2021-05-16 08:56] VITALS: BP 132/70; BP 132/76; BP 150/72; BMI 36.7
== END 2021-06-13 23:59 ==
LOC: CR 08:00
PROVIDERS: PCP Family Medicine; Referring Provider Internal Medicine Cardiovascular Disease; Visit Provider Internal Medicine Cardiovascular Disease
DX: I25.10 Atherosclerotic heart disease of native coronary artery without angina pectoris (principal); Z95.5 Presence of coronary angioplasty implant and graft
CPT/HCPCS: 93798

== ENCOUNTER 2021-06-15 05:59 | Outpatient (RCR) | payer MEDICARE, OTHER, SELFPAY ==
[2021-05-16 08:56] VITALS: BMI 36.7
[2021-06-14 00:40] VITALS: BP 132/70; BP 132/76; BP 150/72
--- NOTE | 2021-06-14 09:15 | PCM.CR.ITP ---
Diagnosis Nutrition - Initial Assessment Nutrition - 30-Day Assessment Nutrition - 60-Day Assessment Nutrition - 90-Day Assessment Nutrition - Final Assessment Medical - Initial Assessment Medical- 30-Day Assessment Medical- 60-Day Assessment Medical- 90-Day Assessment Medical - Final Assessment Psychosocial - Initial Assess Psychosocial - 30-Day Assess Psychosocial - 60-Day Assess Psychosocial - 90-Day Assess Psychosocial - Final Assessmen Nutrition Survey
--- NOTE | 2021-06-16 10:21 | PCM.CR.ITP ---
Diagnosis Exercise - 90-day Assessment - Visit Date of Eval: 06/16/21 Session #:: 20 - Physician Prescribed Exercise Modalities: Treadmill, Rower, NuStep Frequency: 3x/week for 12 weeks [36 sessions] Intensity: 60-80% of age predicted maximum heart rate reserve Current METSs:: 6 Target Heart Rate:: 98-128 Current RPE:: 13-14 Maximum Excercise HR:: 86 Resting Blood Pressure: 130/74 Maximum Exercise Blood Pressure: 174/84 EKG Type: SB to NSR with rare PAC. Twave inversion. - Outcomes & Goals Goals:: Verbalizes understanding of THR, RPE & goal METS by session 6, Documents in home exercise log/reports 30 min aerobic 5 day/wk by DC, Demonstrates accurate pulse taking by DC, Other additional outcome/goals: see below - Intervention & Plan Exercise Program Goals: Instruct on personal THR & RPE, Instruct on MET level & personal MET goal, Show patient to take own pulse /validate performance until accurate, Instruct on home exercise, Other additional plan/int - 30-day Reassessments 30 day Reassessments:: Progressing - Physical Activity Home Exercise Physical Activity - Home Exercise: Safe Exercise, Warm-up, Self-monitoring, Cool-Down, Home Exercise > 30 min Daily, Sitting Time <3 hours/daily - Outcomes & Goals Outcomes/Goals: Demonstrates correct Warm-up/exercise Cool-Down (S3) if = 2.5 METs, Verbalizes symptoms of exercise intolerance by Session 3 (S3), Demonstrate safe equipment use (S3) & follows exercise prescrition (6), Other: See below - Intervention & Plan Plan/Intervention: Instruct warm-up & cool-down if exercising at > 2 METs, Instruct on symptoms of exercise intolerance & actions to take, Instruct & monitor on saf, Assess intial functional capacity & safety risk, Other See below - 30-day Reassessments 30 day Reassessments:: Progressing Nutrition - Initial Assessment Nutrition - 30-Day Assessment Nutrition - 60-Day Assessment Nutrition - 90-Day Assessment - Program Goals Nutrition Program Goals: LDL <100 optimal. 100 - 129 Near optimal. 130 - 159 Borderline High. 160 - 189 High. Total Cholesterol <200 desirable. 200 - 239 Borderline High. >/= 240 High. HDL < 40 Low >/=60 High. Triglycerides <150 desirable. <199 optimal. VlDL 5 - 40. HgbA1C <7%. BMI <25 Patient has diagnosis of Hyperlipidemia (ICD E78)?: Yes - Visit Date of Assessment:: 06/16/21 Session #:: 20 - Cholesterol/Lipids Determine presence & major risk factors that modify LDL goal: Hypertension or hypertensive medication, Low HDL cholesterol <40 mg/dL*, Family history of premature CHD in Male < 55 years: female <65 yearsFa, Age men > 45 years; women >/= 55 years Outcomes/Goals: Pt IDs own risk factors & lifestyle modifications by Session 10, Verbalizes symptoms of angina & response by session 3., Pt independently manages, Other Additional Outcomes/Goals: Intervention/Plan: Advocate for lipid panel cholesterol medication if applicable, Instruct on personal lipid levels & lipid goals/NCEP guidelines, Instruct on cholesterol, Other additional plan/int Referral to dietitian:: Yes - medical nutrition therapy 30-day Reassessments:: Progressing - Diabetes (Other Core Measures) Diabetes Type: Not Applicable - Weight Mgt (Other Care) Height: 5 ft 10 in Weight:: 116.12 kg BMI: 36.7 Diagnosis High BMI/Morbid Obesity BMI> 35% ICD-10 Z68: Yes Outcomes/Goals: Pt sets, maintains & shows weight loss goal & trend during rehab, Other additional outcomes/goals 30 day Reassessments:: Progressing - Healthy Eating Habits Will attend diet classes:: Yes Outcomes/Goals:: Consume diet rich in vegs,fruits,whole grain/high fiber,fish,lean meat, Limit sat/trans fats,cholesterol & added salts & sugars, Other additional outcome/goals: Intervention/Plan:: Assess current eating habits, Other Additional plan/interventions 30-day Reassessments:: Progressing - Education Gave educational materials for:: Signs & symptoms of hypoglycemia, Signs & symptoms of hyperglycemia, Relate diabetes to coronary artery disease, Healthy eating Nutrition - Final Assessment Medical - Initial Assessment Medical- 30-Day Assessment Medical- 60-Day Assessment Medical- 90-Day Assessment - Visit Date of Eval: 06/16/21 Session #:: 20 - Medication Compliance Preventative Medication(s):: Aspirin, Clopidogrel/P2Y12 inhibit, Statin/lipid, Beta dionicio H/O mental health issues: depression, anxiety, or addiction?: No Doesn?t believe in the benefits of treatment?: No Has a concern about medication side effects?: No Expresses concern over the cost of medications?: No Outcomes/Goals: Verbalizes medications,desired effect & common side effects @ DC, Pt self-reports following medication regimen, Keeps card in wallet w/medications listed by DC, Other additional outcome/goals: Interventions/plans: Instruct on medication effects & side effects, Review medication list w/patient every two weeks, Instruct importance of taking meds as ordered & assist problem solving, Other additional 30-day Reassessments:: Progressing - Tobacco Use Tobacco Use: Non-smoker - Hypertension Hypertension Diagnosis:: Hypertension ICD-10 I10 Resting Blood Pressure:: 130/74 [place] [employer] Hypertension Guidelines: [place] [employer] Hypertension Guidelines. Normal BP Less than 120/80. Elevated BP 120/80. Hypertension Stage 1: BP 130-139/80-89. Hypertesnion Stage 2: BP 140 or higher/90 or higher. Hypertension Crisis: BP higher than 180/120 Peak Exercise Blood Pressure:: 174/84 Outcomes/Goals: Able to verbalize/achieve optimal blood pressure <130/80, Incorporates diet changes & exercise for blood pressure control by DC, Other additional outcomes/goals Interventions/plan: Instruct on optimal blood pressure, hypertension & medications, Instruct on effects of sodium, alcohol, stress, exercise &hypertension, Other additional plan/interventions 30 day Reassessments:: Progressing - Tobacco Cessation Referral Smoking Cessation Referral:: No Individual Education/Counseling:: No Education Schedule Given:: Yes Medical - Final Assessment Psychosocial - Initial Assess Psychosocial - 30-Day Assess Psychosocial - 60-Day Assess Psychosocial - 90-Day Assess - VIsit Date of Eval: 06/16/21 Session #:: 20 History of previous Mental disease:: No - Intervention/Plan: See List Interventions/Plan:: Assess stressors,coping strategies & signs of derpression on admission, Instruct/assist pt to develop coping & personal stress Mgt strategies, Refer to Behavioral Health if appropriate, Refer to Physician if appropriate, Instruct patient to recognize signs & symptoms of depression, Instruct patient to recog, Other additional plan/intervention - 30-day Reassessments: 30 day Reassessments:: Progressing Psychosocial - Final Assessmen Patient Health Questionnaire 90-Day Re-eval Assessment 1. Little interest or pleasure in doing things: Not at all 2. Feeling down, depressed, or hopeless: Not at all 3. Trouble falling or staying asleep, or sleeping too much: Several days 4. Feeling tired or having little energy: Not at all 5. Poor appetite or overeating: Not at all 6. Feeling bad about yourself -- or that you are a failure or have let yourself or your family down: Not at all 7. Trouble concentrating on things, such as reading the newspaper or watching television: Not at all 8. Moving or speaking so slowly that other people could have noticed. Or the opposite - being so fidgety or restless that you have been moving around a lot more than usual: Not at all How difficult have these problems made it for you to do your work, take care of things at home, or get along with other people?: Not difficult at all Total Score: 1 Self-Efficacy 90-Day Re-eval Assessment We would like to know how confident you are in doing certain activities. Please select your confidence level for:: Select your confidence level for the following using the scale 1-10 where 1 is not at all confident and 10 is totally confident. Your score is the average of all 6 responses. Fatigue: How confident are you that you can keep the fatigue caused by your disease from interfering with the things you want to do? Select Number: 8 Physical Discomfort or Pain: How confident are you that you can keep the physical discomfort or pain of your disease from interfering with the things you want to do? Select Number: 9 Emotional Distress: How confident are you that you can keep the emotional distress caused by your disease from interfering with the things you want to do? Select Number: 10 Other Symptoms or Health Problems: How confident are you that you can keep other symptoms or health problems from interfering with the things you want to do? Select Number: 10 Different Tasks and Activities: How confident are you that you can do the different tasks and activities needed to manage your health condition so as to reduce your need to see a doctor? Select Number: 10 Medication: How confident are you that you can do things other than just taking medication to reduce how much your illness affects your everyday life? Select Number: 10 Total Score:: 9 Nutrition Survey
[2021-06-16 10:31] VITALS: BP 130/74; BP 174/84; BMI 36.7
== END 2021-07-11 23:59 ==
LOC: CR 05:59
PROVIDERS: PCP Family Medicine; Referring Provider Internal Medicine Cardiovascular Disease; Visit Provider Internal Medicine Cardiovascular Disease
DX: I25.10 Atherosclerotic heart disease of native coronary artery without angina pectoris (principal); Z95.5 Presence of coronary angioplasty implant and graft
CPT/HCPCS: 93798

== ENCOUNTER 2021-06-22 08:27 | Outpatient (CLI) | payer MEDICARE, OTHER, SELFPAY ==
[2021-06-22 10:03] LABS: AST(SGOT) 19 U/L (15-37); Alanine Aminotransfer ALT/SGPT 33 U/L (16-61); Albumin, Serum 3.9 g/dL (3.2-5.0); Alkaline Phosphatase 91 U/L (45-117); Bilirubin, Direct 0.09 mg/dL (0.00-0.30); Cholesterol 115 mg/dL (200); High Density Lipoprotein 35 mg/dL; Protein, Total 7.9 g/dL (6.4-8.2); Triglycerides 185 mg/dL; Very Low Density Lipoprotein 37 mg/dL (5-40)
[2021-06-22 12:00] LABS: Anion Gap 4 (5-15); BUN 23 mg/dL (7-18); BUN/Creat Ratio 19.3 RATIO (10-20); Calcium,Total 9.3 mg/dL (8.5-10.1); Chloride 107 mmol/L (98-107); Creatinine, Serum 1.19 mg/dL (0.70-1.30); EST Glomerular Filtration Rate 64 mL/min (>60); Est Glom Filt Rate - Afr Amer 78 mL/min (>60); Glucose 95 mg/dL (74-106); Potassium 4.7 mmol/L (3.5-5.1); Sodium Level 139 mmol/L (136-145)
== END 2021-06-22 23:59 | disposition home or self-care (01) ==
PROVIDERS: Physician Assistant Medical; PCP Family Medicine; Referring Provider Nurse Practitioner Family; Visit Provider Nurse Practitioner Family
DX: I10 Essential (primary) hypertension (principal); E78.5 Hyperlipidemia, unspecified; I25.10 Atherosclerotic heart disease of native coronary artery without angina pectoris; E78.00 Pure hypercholesterolemia, unspecified; Z95.2 Presence of prosthetic heart valve; Z95.1 Presence of aortocoronary bypass graft
CPT/HCPCS: 36415; 80048; 80061; 80076

== ENCOUNTER 2021-07-27 09:58 | Outpatient (CLI) | payer MEDICARE, OTHER, SELFPAY ==
--- NOTE | 2021-07-27 10:01 | CDU_ITS ---
Reason For Study: Stenosis Rt. Velocities/BP Lt. Velocities/BP Prox CCA 108.3/17 cm/sec. Prox CCA 63/20 cm/sec. Mid CCA 106.5/22.5 cm/sec. Mid CCA 72.8/22.5 cm/sec. Dist CCA 99.2/22.5 cm/sec. Dist CCA 70.4/21.2 cm/sec. Bulb, 218.4/31.9 cm/sec. Prox ICA 171.8/40.2 cm/sec. Prox ICA 149.9/35.8 cm/sec. Mid ICA 134.5/29.2 cm/sec. Mid ICA 106.5/29.8 cm/sec. Dist ICA 106.5/24.3 cm/sec. Dist ICA 99.2/33.4 cm/sec. Lt. ICA/CCA = 2.44. Rt. ICA/CCA = 1.41. Prox ECA 213.2/13.7 cm/sec. Prox ECA 215.8/16.3 cm/sec. Lt. Vert. 73.6/17 cm/sec. Rt. Vert. 64.5/17 cm/sec. Right Extracranial There is heterogeneous, irregular atherosclerotic plaque noted in the right common carotid artery. There is heterogeneous, irregular atherosclerotic plaque noted in the right internal carotid artery. There is heterogeneous, irregular atherosclerotic plaque noted in the right external carotid artery. Antegrade flow is noted in the right vertebral artery. Left Extracranial There is homogeneous, smooth atherosclerotic plaque noted in the left common carotid artery. There is heterogeneous, irregular atherosclerotic plaque noted in the left internal carotid artery. There is heterogeneous, irregular atherosclerotic plaque noted in the left external carotid artery. Antegrade flow is noted in the left vertebral artery. Procedure Carotid Duplex 32623. This is a Carotid Duplex examination using B-mode, color flow and specral Doppler. Exam performed in department. VL/Carotid Duplex Ultrasound Interpretation Summary Irregular calcific plaque in the proximal right internal carotid artery with 50 to 69% stenosis. Moderately elevated velocities noted in the right carotid bulb as well Greater than 50% stenosis right external carotid artery Irregular calcific plaque with shadowing at the proximal left internal carotid artery with 50 to 69% stenosis Greater than 50% stenosis left external carotid artery Patent and antegrade vertebral arteries bilaterally Increase in degree of stenosis right proximal internal carotid artery from the previous examination of July 14, 2020 when it was felt to be less than 50% stenosis Ordering Physician: Greg Blackman Referring Physician: Wilder Rebollar Performed By: Ciera Coello RVT
== END 2021-07-27 23:59 | disposition home or self-care (01) ==
LOC: CVS 10:00
PROVIDERS: PCP Family Medicine; Referring Provider Surgery; Visit Provider Surgery
DX: R09.89 Other specified symptoms and signs involving the circulatory and respiratory systems (principal)
CPT/HCPCS: 93880

== ENCOUNTER 2021-08-22 09:05 | Outpatient (CLI) | payer MEDICARE, OTHER, SELFPAY ==
--- NOTE | 2021-08-22 09:08 | AAAS_ITS ---
Reason For Study: Screening for AAA Aorta Measurements Aorta Doppler Measurements Proximal aorta measures1.53 x 1.50cm. in cross- Peak systolic flow velocities within the proximal sectional axis. aorta measure 100.8 cm/sec. Proximal aorta measures1.54cm. in longitudinal Peak systolic flow velocities within the mid aorta axis. measure 159.3 cm/sec. Mid aorta measures1.65 x 1.65cm. in cross- Peak systolic flow velocities within the distal sectional axis. aorta measure 150.5 cm/sec. Mid aorta measures1.64cm. in longitudinal axis. Distal aorta measures1.24 x 1.24cm. in cross- sectional axis. Distal aorta measures1.28cm. in longitudinal axis. Left Iliac Artery Left iliac artery measures 0.89 x 0.89 cm. in the cross-sectional axis. Left iliac artery measures 0.93 cm. in the longitudinal axis. Peak systolic velocity in the left iliac artery measures 296.7 cm/sec. Right Iliac Artery Right iliac artery measures 0.87 x 0.85 cm. in the cross-sectional axis. Right iliac artery measures 0.89 cm. in the longitudinal axis. Peak systolic velocity in the right iliac artery measures 288.8 cm/sec. Procedure Aorta IVC Iliac vasculature or bypass grafts [id number]. Exam performed in department. VL/AAA Screening Interpretation Summary Maximal aortic diameter 1.65 x 1.65 cm diameter mid abdominal aorta. Flow rate slightly elevated 159 cm/s flow. Left common iliac artery normal at 0.89 x 0.89 cm in diameter but peak systolic velocity is elevated 296 cm/s Right common iliac artery measures 0.87 x 0.85 cm diameter with an increased fl ow rate of 288 cm/s Findings suggest no evidence for abdominal aortic aneurysm. 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 Clinical correlation would b e appropriate. Ordering Physician: Greg Blackman Referring Physician: Wilder Rebollar Performed By: Ciera Coello RVT
== END 2021-08-22 23:59 | disposition home or self-care (01) ==
LOC: CVS 09:06
PROVIDERS: PCP Family Medicine; Referring Provider Surgery; Visit Provider Surgery
DX: Z13.6 Encounter for screening for cardiovascular disorders (principal)
CPT/HCPCS: 76706

== ENCOUNTER → 2021-12-07 | Outpatient (CLI) | payer MEDICARE, OTHER, SELFPAY ==
[2021-12-07 12:57] LABS: AST(SGOT) 20 U/L (15-37); Alanine Aminotransfer ALT/SGPT 30 U/L (16-61); Albumin, Serum 3.7 g/dL (3.2-5.0); Alkaline Phosphatase 76 U/L (45-117); Bilirubin, Direct 0.14 mg/dL (0.00-0.30); Cholesterol 115 mg/dL (200); Globulin 3.5 g/dL (2.2-4.2); High Density Lipoprotein 38 mg/dL; Protein, Total 7.2 g/dL (6.4-8.2); Triglycerides 144 mg/dL; Very Low Density Lipoprotein 29 mg/dL (5-40)
== END | disposition home or self-care (01) ==
LOC: LAB 11:02
PROVIDERS: Nurse Practitioner Family; PCP Family Medicine; Visit Provider Internal Medicine Cardiovascular Disease
DX: E78.5 Hyperlipidemia, unspecified (principal)
CPT/HCPCS: 36415; 80061; 80076

== ENCOUNTER → 2021-12-08 | Outpatient (CLI) | payer MEDICARE, OTHER, SELFPAY ==
[2021-12-08 11:00] LABS: Anion Gap 4 (5-15); BUN 18 mg/dL (7-18); BUN/Creat Ratio 15.7 RATIO (10-20); Calcium,Total 9.4 mg/dL (8.5-10.1); Chloride 106 mmol/L (98-107); Creatinine, Serum 1.15 mg/dL (0.70-1.30); EST Glomerular Filtration Rate 67 mL/min (>60); Est Glom Filt Rate - Afr Amer 81 mL/min (>60); Glucose 96 mg/dL (74-106); Potassium 4.6 mmol/L (3.5-5.1); Sodium Level 139 mmol/L (136-145)
[2021-12-08 12:24] LABS: BNP,B-Type NATRIURETIC PEPTIDE 74.4 pg/mL (0-100)
== END | disposition home or self-care (01) ==
LOC: LAB 10:13
PROVIDERS: PCP Family Medicine; Referring Provider Nurse Practitioner Family; Visit Provider Nurse Practitioner Family
DX: R06.00 Dyspnea, unspecified (principal); I10 Essential (primary) hypertension; I25.10 Atherosclerotic heart disease of native coronary artery without angina pectoris; Z95.2 Presence of prosthetic heart valve; Z95.1 Presence of aortocoronary bypass graft
CPT/HCPCS: 36415; 80048; 83880

== ENCOUNTER → 2021-12-26 | Outpatient (CLI) | payer MEDICARE, OTHER, SELFPAY ==
--- NOTE | 2021-12-26 09:00 | STRESSREP_ITS ---
Stress Test Report Date: 12-26-2021 Procedure: Exercise tolerance test/imaging study Indications: Shortness of breath/dyspnea on exertion; CAD; PCI; CABG; status post AVR Consent: Per the patient Procedure: The patient exercised on a Abiodun protocol for 6 minutes and 30 seconds completing Stage II and 30 seconds of Stage III achieving a peak heart rate of 144 bpm (96% predicted maximal heart rate) with a peak blood pressure 162/70 mmHg and a peak MET capacity of 8 METs. The baseline ECG demonstrated normal sinus rhythm. The peak exercise ECG demonstrated the appearance of approximately 1 to [address] segment depression in leads II, III, aVF, and V4 through V6 with resolution towards baseline beginning less than 1 minute in recovery with subsequent gradual resolution to baseline. There was a rare PVC during recovery. The functional capacity was considered good. There was no complaint of chest discomfort during exercise or recovery. The examination was discontinued secondary to dyspnea and fatigue. Impression: 1. Technically adequate (percent predicted maximal heart rate greater than 85%) exercise tolerance test 2. Peak exercise ECG with approximately 1 to [address] segment depression in leads II, III, aVF, and V4 through V6 with resolution towards baseline beginning less than 1 minute in recovery with subsequent gradual resolution to baseline 3. There was a rare PVC during recovery 4. Nuclear images pending Myocardial perfusion imaging study: Technique: The patient was injected with 14.4 mCi of technetium 99m Cardiolite and subsequently rest SPECT Cardiolite nuclear imaging was obtained in the horizontal long, vertical long, and short axis views. The patient exercised on a Abiodun protocol for 6 minutes and 30 seconds completing Stage II and 30 seconds of Stage III achieving a peak heart rate of 144 bpm (96% predicted maximal heart rate) with a peak blood pressure 162/70 mmHg and a peak MET capacity of 8 METs. The patient was injected with 44.8 mCi of technetium 99m Cardiolite and subsequently stress SPECT Cardiolite nuclear imaging was obtained in the horizontal long, vertical long, and short axis views. A gated Cardiolite study at peak stress was obtained. Interpretation: Rest and stress SPECT Cardiolite nuclear imaging status post realignment, normalization, and attenuation correction, demonstrates at rest the appearance of relative uniform tracer uptake and myocardial perfusion appearing within normal limits. Status post stress there is notation of diminished myocardial pe rfusion/tracer uptake in portions of the mid lateral segments. There is diminished end-systolic thickening and brightening in the aforementioned area. The gated Cardiolite study demonstrates myocardial thickening and inward wall motion. The reported LVEF is 70%. Impression: 1. Rest and stress SPECT Cardiolite nuclear imaging demonstrate myocardial perfusion changes concerning for an area of stress-induced myocardial ischemia involving the mid lateral segments. 2. The gated Cardiolite study reports an LVEF of 70%. This note was generated with [employer] software. It may contain incorrect words, spelling, and punctuation that were not noted in checking the note before signing.
== END | disposition home or self-care (01) ==
LOC: CVS 05:50
PROVIDERS: PCP Family Medicine; Referring Provider Nurse Practitioner Family; Visit Provider Nurse Practitioner Family
DX: R06.02 Shortness of breath (principal); I10 Essential (primary) hypertension; I25.10 Atherosclerotic heart disease of native coronary artery without angina pectoris; Z95.1 Presence of aortocoronary bypass graft; Z95.2 Presence of prosthetic heart valve
CPT/HCPCS: 78452; 93017; A9500; A4216

== ENCOUNTER 2022-01-06 06:57 | Day surgery (SDC) | payer MEDICARE, OTHER, SELFPAY ==
--- NOTE | 2022-01-05 06:15 | RAD_ITS ---
STUDY: X-RAY CHEST REASON FOR EXAM: Male, 71 years old. [id number] TECHNIQUE: PA and lateral views of the chest. COMPARISON: Comparison is made with prior study dated 02/18/2021. FINDINGS: The lungs are clear and expanded. There is no demonstrated pleural abnormality. Sternal cerclage wires and vascular clips are present from a prior sternotomy and coronary artery bypass graft procedure (CABG). Prior mitral valve replacement. Normal mediastinum and dajuan. Normal visualized pulmonary arteries. There is atherosclerotic calcification of the aortic arch with tortuosity. There are degenerative changes of the visualized thoracic spine. Normal visualized ribs, clavicles, and shoulders. There is no demonstrated abnormality of the visualized soft tissue structures of the upper abdomen. RAD/Chest PA and Lateral IMPRESSION: No acute abnormality is seen. Electronically Signed: Cuate Mccall MD at 10:38 EDT ,
[2022-01-05 07:21] LABS: Absolute Lymphocyte Count 2.33 X10^3/uL (0.83-4.51); Absolute Neutrophil Count 5.2 X10^3/uL (2.0-7.7); Basophil# 0.06 X10^3/uL; Basophil% 0.7 % (0-1); Eosinophil# 0.21 X10^3/uL; Eosinophils% 2.5 % (0-5); Hematocrit 41.3 % (40-54); Hemoglobin 13.8 g/dL (13.0-16.5); Lymphocyte # 2.33 X10^3/ul (0.83-4.51); Lymphocyte % 27.9 % (19-41); Mean Corp Hgb Conc 33.4 g/dL (32-36); Mean Corpuscular Hgb 31.2 pg (27.0-32.0); Mean Corpuscular Volume 93.4 fL (80-94); Mean Platelet Vol. 9.8 fl (6.2-12.0); Monocyte# 0.56 X10^3/uL; Monocyte% 6.7 % (0-10); NRBC Flagged by Analyzer 0 % (0-5); Neutrophil # 5.16 X10^3/uL (2.7-7.7); Neutrophil % 61.8 % (47-70); Platelet Count 190 K/mm3 (150-450); RBC Distribution Width CV 12.3 % (11.6-14.6); RBC Distribution Width SD 42.5 fl (35.1-43.9); Red Blood Count 4.42 M/mm3 (4.6-6.2); White Blood Count 8.4 K/mm3 (4.4-11.0)
[2022-01-05 07:41] LABS: Anion Gap 3 (5-15); BUN 20 mg/dL (7-18); BUN/Creat Ratio 17.9 RATIO (10-20); Calcium,Total 9.3 mg/dL (8.5-10.1); Chloride 110 mmol/L (98-107); Creatinine, Serum 1.12 mg/dL (0.70-1.30); EST Glomerular Filtration Rate 69 mL/min (>60); Est Glom Filt Rate - Afr Amer 83 mL/min (>60); Glucose 90 mg/dL (74-106); Potassium 4.3 mmol/L (3.5-5.1); Sodium Level 141 mmol/L (136-145)
[2022-01-05 08:03] LABS: International Normalized Ratio 1.1; Prothrombin Time (Protime)PT. 13.9 SECONDS (11.7-14.9)
[2022-01-05 08:04] LABS: Partial Thromboplast Time 31.6 Seconds (24.1-36.2)
[2022-01-05 09:07] VITALS: BMI 36.6
--- NOTE | 2022-01-05 18:10 | HP.PCM_ITS ---
History and Physical Date of Admission: 01/06/22 [facility] [address] [place] [address] OFFICE VISIT Date of Service:? 12/08/21 MR#: [id number] Acct: [id number] Name:HERB GUTIÉRREZ Rep #: [id number] : 1950 ?Provider: ?MELY Rubio Age/Sex:? 71/M ?[place] [facility] [place] Status: Signed with Addenda ADDENDUM by? MELY Rubio on 01/03/22 at 0848 Addendum Addendum Details:: On account of shortness of breath and history of coronary artery disease, he underwent a stress test on 12/26/2021 that showed myocardial perfusion changes concerning for an area of stress-induced myocardial ischemia involving the mid lateral segments.? Ejection fraction was reported at 70%. On account of stress test results and symptoms, he will proceed with left heart catheterization. 01/03/22 0849 <Electronically signed by Syed BOONE> Date Syed Rubio NP cc:? Dr. Wilder Rebollar MD ~* Signed HPI HPI History of Present Illness Details: This is a 70-year-old white male that presents to the office today for a cardiovascular visit. He has a past cardiovascular history which includes underlying CAD, status post CABG (October 2017: [facility]: MUSTAFA to the LAD, sequential SVG to OM1 and OM2, and SVG to the PDA), status post aortic valve replacement (October 2017: [facility]: Number 23 mm Costello Intuity pericardial valve), and status post Drug-eluting stent to proximal RCA in February 2021, superimposed upon hyperlipidemia, and hypertension. He denies chest, arm, jaw, or neck discomfort. He states shortness of breath with exertion that improves with rest. This this most noted when going uphill/incline or long period of talking. He feels this to be worsening. He also states his notices it more. He states intermittent difficulty swallowing with liquids. This is not associated with cough. He denies symptoms of shortness of breath at rest, orthopnea, PND, sudden weight gain, or bilateral lower extremity edema. He notes leg fatigue with activity such as walking up steps or a hill. He denies chronic cough. He denies palpitations, lightheadedness, dizziness, near syncope, or syncopal episodes. He denies claudication issues. He denies fever or chills. He denies blood in urine, blood in stool, or epistaxis. He denies myalgia. He denies unexplainable fatigue. His exercise tolerance is stable. He states his sleeps in another room on account of snoring. Intake Vital Signs ? 06/13/2209:16 06/16/2209:31 12/08/2208:15 12/08/2208:20 Height 5 ft 10 in 5 ft 10 in 5 ft 10 in 5 ft 10 in Weight: ? ? ? 255 lb BMI ? ? ? 36.6 BP ? ? ? 147/74 H Blood Pressure Location ? ? ? Lt brachial Position ? ? ? Sitting Respiration ? ? ? 16 Pulse ? ? ? 53 L Pulse Source ? ? ? NIBP Oxygen Delivery Method ? ? ? room air Intake Visit Reasons:?6 m fu Allergies poison kaylyn extract Allergy (Intermediate, Verified 12/08/21 09:25) Rash Medications cholecalciferol (vitamin D3) 25 mcg (1,000 unit) capsule 1,000 unit PO QDAY [facility] 09/18/17 [History Confirmed 12/08/21] cyanocobalamin (vitamin B-12) 5,000 mcg sublingual tablet (Vitamin B-12) 5,000 mcg sublingual QDAY [facility] 09/18/17 [History Confirmed 12/08/21] omega-3 fatty acids 1,000 mg capsule (Fish Oil Concentrate) 1,000 mg PO QDAY [facility] 09/18/17 [History Confirmed 12/08/21] loratadine 10 mg tablet (Allergy Relief (loratadine)) 10 mg PO DAILY PRN Allergies 01/04/18 [History Confirmed 12/08/21] aspirin 81 mg tablet,delayed release (Adult Aspirin Regimen) 162 mg PO DAILY heart 12/06/18 [History Confirmed 12/08/21] turmeric root extract 500 mg capsule 1,000 mg PO DAILY supplement 07/27/20 [History Confirmed 12/08/21] pregabalin 50 mg capsule (Lyrica) 50 mg PO BID pain 12/24/20 [History Confirmed 12/08/21] nitroglycerin 0.4 mg sublingual tablet 0.4 mg sublingual Q5-15M PRN chest pain #90 tabs 02/18/21 [Rx Confirmed 12/08/21] lisinopril 20 mg tablet 20 mg PO DAILY #90 tabs 06/13/21 [Rx Confirmed 12/08/21] atorvastatin 40 mg tablet 40 mg PO QHS #90 tabs 07/06/21 [Rx Confirmed 12/08/21] metoprolol tartrate 100 mg tablet 100 mg PO BID #180 tabs 07/18/21 [Rx Confirmed 12/08/21] amoxicillin 500 mg tablet 500 mg PO .COMPLEX PRN 08/15/21 [History Confirmed 12/08/21] clopidogrel 75 mg tablet (Plavix) 75 mg PO DAILY #90 tabs 08/30/21 [Rx Confirmed 12/08/21] amlodipine 2.5 mg tablet 2.5 mg PO DAILY #90 tabs 12/08/21 [Rx Confirmed 12/08/21] diphenhydramine HCl 50 mg capsule 50 mg PO QHS sleep 12/08/21 [History Confirmed 12/08/21] hydrocodone-acetaminophen 5-325mg 5mg-325mg 1 tab PO Q8H Pain 12/08/21 [History Confirmed 12/08/21] melatonin 10 mg capsule 10 mg PO HS Insomnia 12/08/21 [History Confirmed 12/08/21] PFSH Medical History?(Reviewed 12/08/21 @ 09:20 by Syed Rubio [employer], [employer]-C) Atherosclerotic heart disease of [place] coronary artery without angina pectoris Bilateral carotid artery stenosis Encounter for screening for COVID-19 Essential hypertension History of aortic valve stenosis HLD (hyperlipidemia) Obesity (BMI 30.0-34.9) Osteoarthritis URI (upper respiratory infection) Surgical History? History of aortic valve replacement (11/05/17) History of colonoscopy (~2018) History of coronary artery bypass graft (11/05/17) History of elbow surgery History of open reduction and internal fixation (ORIF) procedure (~1995) History of tonsillectomy Presence of stent in coronary artery (~03/08/21) Family History? Father?? Myocardial infarction ?? ? from [place] age 59 CAD (coronary artery disease)Mother Diabetes HypertensionBrother Diabetes ?? ? age 62 from diabetic complications CAD (coronary artery disease) ?? ? coronary stentBrother CAD (coronary artery disease) ?? ? CABGBrother Heart disease Social History?(Updated 12/08/21 @ 09:25 by Syed Rubio NP, [employer]-C) Smoking Status:? Former smoker (Quit 46 years ago.) quit date: 05/14/74 pack- years: 6 alcohol intake:? current alcohol intake frequency: a few times a week Alcohol type: wine caffeine:? Yes Type: coffee Number of servings: 1 ROS Const Const: Negative for fatigue, weakness, body ache, fever(s) or chills ENT ENT: Negative for dizziness or Nosebleed/epistaxis Cardio Chest Pain: No Palpitations: No Edema: None Muscle aches with walking: None Resp Respiratory: Positive for SOB with activity and snoring; Negative for SOB at rest, SOB orthopnea\SOB lying down, Cough or paroxysmal nocturnal dyspnea GI GI: Positive for heartburn (intermittent) and Difficulty Swallowing; Negative nausea, vomiting blood/hematemesis, bright, red blood in stools or black,tarry stools : Negative for hematuria or frequent nighttime urination/ nocturia Musc Musc: Positive for muscle weakness (legs with walking uphill or steps); Negative for muscle aches/ myalgia Skin Skin: Negative non-healing lesions or rash Neuro Neuro: Negative for dizziness, lightheadedness, near syncope, syncope, orthostatic symptoms or weakness Endo Endo: Negative for fatigue Allergy Allergy/Immunology: Negative for rash Cardiology Exam Const Appearance: cooperative, healthy appearing, comfortable and no acute distress Nutritional Appearance: well nourished and obese Orientation: alert, awake and oriented x3 Head Head: normal to inspection Ears: hearing grossly normal bilaterally Nose: external nose normal Face and Sinus: face symmetric Mouth: oral mucosae normal Eyes General: appearance normal, both eyes and all related structures Eyelids: eyelids normal EOM: EOM intact bilaterally Neck Neck: normal visual inspection and no JVD Carotids: normal carotid upstroke Chest Chest inspection: normal inspection of the chest, symmetric chest movement and normal respiratory effort; Negative cough Auscultation: Bilateral: Clear to Auscultation Cardio Rate: regular rate Rhythm: regular rhythm Heart sounds: S1 normal and S2 normal; Negative rub, gallop or murmur GI GI: normal to inspection and obese Neuro General: patient alert, patient awake, patient oriented x3 and CN's II-XI intact bilaterally Skin Skin: no rashes or lesions noted Extremities Pulses: Normal: Right Posterior Tibial Pulse, Left Posterior Tibial Pulse, Right Radial Pulse and Left Radial Pulse Lower Extremity Edema: None: Bilateral Psych Psychological: normal affect Supplemental Info Supplemental Information Echocardiogram: 02-02-2021 Interpretation Summary The study was technically difficult. Contrast injection was performed. ? Left ventricular systolic function is normal. The estimated ejection fraction is 65 %. Mid cavitary false tendon noted. Mild (1+) mitral valve insufficiency. Trivial tricuspid valve insufficiency. Stable appearing bioprosthetic aortic valve apparatus. Unable to estimate RV systolic pressure/pulmonary artery pressure due to technically difficult study. Transmitral diastolic flow velocities suggest diastolic dysfunction (pseudonormal pattern). Echocardiogram 12/2018: The estimated ejection fraction is 65 %. Stage 2 diastolic dysfunction. The left atrium is mildly enlarged. Trivial mitral valve insufficiency. Trivial tricuspid valve insufficiency. Right ventricular systolic pressure estimated to be 26 mmHg. Stable appearing and normal functioning bioprosthetic aortic valve apparatus. 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 Echocardiogram 2018: Moderate concentric left ventricular hypertrophy. The estimated ejection fraction is 65 %. Stage 1 diastolic dysfunction. Trivial mitral valve insufficiency. Right ventricular systolic pressure estimated to be 28 mmHg. Moderate focal aortic valve thickening. Moderate aortic stenosis. Trivial aortic valve insufficiency. Compared to echo report dated 12/09/2013, LV function has remained the same, and aortic stenosis has slightly worsened. Stress Test Report Date: 02-02-2021 Procedure: Exercise tolerance test/imaging study Indications: Chest pain; shortness of breath/dyspnea; CAD; CABG; status post AVR Consent: Per the patient Procedure: The patient exercised on a Abiodun protocol for 6 minutes and 31 seconds completing Stage II and 31 seconds of Stage III achieving a peak heart rate of 150 bpm (100% predicted maximal heart rate) with a peak blood pressure 202/82 mmHg and a peak MET capacity of 8 METs. The baseline ECG demonstrated sinus rhythm.? The peak exercise ECG demonstrated somatic/motion artifact with the appearance of 1 to [address] segment depression in leads I, II, III, aVF, and V3 through V6 with gradual resolution towards baseline in recovery. There was an occasional PVC during exercise and recovery. The functional capacity was considered average. There was no complaint of chest discomfort during exercise or recovery. The examination was discontinued secondary to shortness of breath/dyspnea. Impression: 1.? Technically adequate (percent predicted maximal heart rate greater than 85%) exercise tolerance test 2.? Peak exercise ECG demonstrated the appearance of 1 to [address] segment depression in leads I, II, III, aVF, and V3 through V6 with gradual resolution towards baseline in recovery 3. There was an occasional PVC during exercise and recovery 4.? Nuclear images pending Myocardial perfusion imaging study: Technique: The patient was injected with 14 point mCi of technetium 99m Cardiolite and subsequently rest SPECT Cardiolite nuclear imaging was obtained in the horizontal long, vertical long, and short axis views. The patient exercised on a Abiodun protocol for 6 minutes and 31 seconds completing Stage II and 31 seconds of Stage III achieving a peak heart rate of 150 bpm (100% predicted maximal heart rate) with a peak blood pressure 202/82 mmHg and a peak MET capacity of 8 METs. The patient was injected with 44.7 mCi of technetium 99m Cardiolite and subsequently stress SPECT Cardiolite nuclear imaging was obtained in the horizontal long, vertical long, and short axis views.? A gated Cardiolite study at peak stress was obtained. Interpretation: Rest and stress SPECT Cardiolite nuclear imaging status post realignment, normalization, and attenuation correction, demonstrates the appearance of relative uniform tracer uptake at rest and status post stress the appearance of diminished absence of myocardial perfusion/tracer uptake in the basal to mid l ateral segments. There are similar type findings on the resting and stress polar map images. There is diminished end systolic thickening and brightening in the aforementioned area.? The gated Cardiolite study demonstrates myocardial thickening and inward wall motion.? The reported LVEF is 61%. Impression: 1.? Rest and stress SPECT Cardiolite nuclear imaging demonstrate myocardial perfusion changes concerning for an area of stress-induced myocardial ischemia in the basal to mid lateral segments. 2.? The gated Cardiolite study reports an LVEF of 61%. Cardiac Catheterization 03/08/2021: PROCEDURE(S) PERFORMED [id number]/COR/CABG DC11-AO ROOT ANGIO WITH HEART CATH [id number]-BFO W OR WO PTCA, SINGLE CORONARY ARTERY CLINICAL PROFILE AND INDICATIONS Indications: ? ? Worsening Angina, Valvular Disease Heart Failure: ? ? None Stress/Imaging ? ? Date: 02/02/2021tress Test with SPECT MPI: Positive Intermediate Risk Angina Classification ? ? Anginal Classification w/in 2 Weeks: CCS III CAD Presentations: ? ? Other: worsening angina CONCLUSIONS [place] Multivessel CAD Stable appearing bioprosthetic aortic valve apparatus MUSTAFA to LAD: patent SVG to OM1 sequencing to OM2: patent SVG to RCA: occluded RECOMMENDATIONS Risk factor modification Medical therapy Referred for immediate PCI CORONARY ANGIOGRAPHY DOMINANCE:? Right Dominant LEFT HEART ASSESSMENT Left Ventricular Ejection Fraction: Not assessed LEFT MAIN: distal: eccentric: 85 % Stenosis LEFT ANTERIOR DESCENDING ARTERY: PROX LAD: 50 % Stenosis MID LAD: fills from antegrade flow and MUSTAFA graft flow with no angiographically significant appearing disease distal to the graft attachment CIRCUMFLEX ARTERY: PROX CIRC: 50 % Stenosis OM 1: Distal - no obvious flow distal to the graft attachment OM 2: Distal - no obvious flow distal to the graft attachment RIGHT CORONARY ARTERY: PROX RCA: smooth: eccentric: 75 % Stenosis GRAFTS: ?MUSTAFA graft to the Mid LAD is patent Saphenous Vein graft to the 1st OM is patent with sequential portion to 2nd OM patent and s/p the anastomosis no obvious distal flow in OM1 or OM2 Saphenous Vein graft to the RCA is totally occluded VALVE FINDINGS: Stable appearing bioprosthetic aortic valve AORTIC ROOT: Angiographically normal Cardiac catheterization: 11-02-2017 CONCLUSIONS Perserved Left Ventricular systolic function with normal EDP [place] Multivessel CAD involving LM, ostial LAD, OM#1 and proximal RCA. Right heart pressures - Normal Aortic Valve Stenosis - moderate to severe with mean pullback gradient of 26 mm Hg and estimated HEATHER=1.14cm2 by cath. IABP placed to assist with LM and multi-vessel CAD, as well as aortic stenosis given pt's markedly abnormal stress test and periodic rest chest pain. RECOMMENDATIONS Transfer to [facility] ICU under Dr Peng once bed available for CABG and AVR. RFV sheath removal. Heparin gtt at 800 units/hr; keep PTT b/w 50-70 seconds. D/w Hang Leo at [facility] (Dr Peng's MECHATRONICS TECHNOLOGIST) to assist with transfer. CORONARY ANGIOGRAPHY DOMINANCE:? Right Dominant LEFT HEART ASSESSMENT Left Ventricular Ejection Fraction: by LV Gram 65 % Normal LV wall motion Normal Left Ventricular systolic function RIGHT HEART ASSESSMENT Thermal CO: 5.48? Thermal CI: 2.44 PW: 14/13? 9 PA: 25/6? 15 RV: 33/0? 7 RA: 8/5? 3 PVR: 88? SVR: 1372 Aortic Valve Area: 1.14 Aortic Valve Index: 0.51? Aortic Valve Mean Gradient: 26.2 Mitral Valve Area: 3.41 Mitral Valve index: 1.52? Mitral Valve Mean Gradient: 14.1 Right Heart pressures - normal LEFT MAIN: 85 distal LM % Stenosis LEFT ANTERIOR DESCENDING ARTERY: OSTIAL LAD: 70 % Stenosis CIRCUMFLEX ARTERY: OSTIAL CIRC: 60 % Stenosis MID CIRC: 60 % long Stenosis OM 1: Mid - 70 % Stenosis RIGHT CORONARY ARTERY: PROX RCA: 75 % Stenosis VALVE FINDINGS: Aortic Valve Stenosis - moderate to severe with mean pullback gradient of 26 mm Hg and estimated HEATHER=1.14cm2 by cath. PCI Cardiac Cath Report: 03/08/2021 PCI Report: 1.? Successful PCI of proximal RCA 75% stenosis with VAN-3 flow With predilatation using 2.5 x 15 mm balloon, followed by placement of drug- eluting stent 3.5 x 26 mm/Orsiro Postdilated with 4 x 15 mm NC balloon/Euphora with reduction of stenosis from 75% to 0% and maintenance of VAN-3 flow. 2.? Successful placement of Perclose to the right common femoral artery arteriotomy site. 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 Presentation symptoms of shortness of breath and significantly abnormal electrocardiogram on the exercise stress test, 1-[address] depression noted in lead to 3 aVF and V3 to V5 which Resolved with rest. Patient underwent cardiac catheterization by his primary furnace setter Dr. Calderon Findings reviewed distal left main 85%, LAD ostial 70%, high-grade proximal circumflex and proximal RCA 75%.? Consistent with severe [place] coronary artery atherosclerosis Graft angiography patent MUSTAFA to LAD, patent sequential SVG graft to OM1 and OM 2 and occluded SVG graft to the RCA. Based on clinical presentation and significant coronary atherosclerosis involving the proximal RCA and change in the EKG in the inferior lead. We proceed with PCI of the proximal RCA. Consent; Risk and benefit of procedure explained detail to the patient elected to proceed informed consent obtained. Interventional equipment and plan; 1.? 6 [place] sheath in the right common femoral artery 2.? 6 [place] JR4 guide 3.? 0.014 run-through extra floppy 180 cm straight 0.035 150 cm standard J-wire Patient was given a total of 6000 of heparin ACT level is 253, following placement of Perclose patient received additional 2000 units of heparin. Patient was on Plavix and he was given additional 300 mg of Plavix in the Tattooer. 4.? Drug-eluting stent 3.5 x 26 mm/orsiro 5.? NC balloon 4 x 15 mm 6.? Perclose to the right common femoral artery arteriotomy site. Procedure in detail; We proceed with the 6 [place] JR4 guide advanced ascending aorta cannulated the right coronary ostium without difficulty Then followed by 0.14 run-through wire across the lesion in the proximal RCA followed by predilatation using 2.5 x 15 mm regular balloon Followed by placement of drug-eluting stent 3.5 x 26 mm/Orsiro, followed by postdilatation using 4 x 50 mm NC balloon And achievement of excellent result with reduction of stenosis of the proximal RCA from 75% to 0% and maintenance of VAN-3 flow Following this selective angiographic view of the right common femoral artery angiography obtained and Perclose used to close the right common femoral artery artery arteriotomy site without complication in the Tattooer Conclusion; Successful PCI of the proximal RCA as described Recommendation and plan; 1.? Continue on DAPT/Plavix 75 mg in addition to 81 mg of aspirin daily for 12 months 2.? Patient will be scheduled for cardiac rehab phase 1 3.? Patient will follow up with the primary furnace setter Dr. Calderon for continuation of cardiac care plan. Open heart surgery: 11-05-2017: [facility] MUTSAFA to the LAD SVG sequential graft to OM1 and OM 2 SVG to the PDA Aortic valve replacement with a number 23 mm Costello Intuity pericardial tissue valve Carotid duplex ultrasound from 07/14/2020: Interpretation Summary Moderate (50-69%) stenosis right extracranial internal carotid. Moderate (50- 69%) stenosis left extracranial internal carotid. Flow within the vertebral arteries is antegrade bilaterally. Labs: ?? ? LDL Cholesterol 48 mg/dL (0-130) ?? ? HDL Cholesterol 38 mg/dL (40-) L ?? ? Triglycerides 144 mg/dL (-199) ?? ? VLDL Cholesterol 29 mg/dL (5-40) Diagnostics: ?? ? No Data to Display Pulmonary: ?? ? No Data to Display Assessment and Plan Assessment and Plan (1) Atherosclerotic heart disease of [place] coronary artery without angina pectoris: ?Status:?Chronic ?Comment: MUSTAFA-LAD, SVG seq OM1-OM2, SVG-PDA ?Plan: He denies chest, arm, jaw, or neck discomfort.? To assess his shortness of breath as an anginal equivalent, he was asked undergo a stress test to assess further.? Based on test results, further recommendation will be made. (2) Presence of stent in coronary artery: ?Status:?Chronic ?Comment: Successful PCI of proximal RCA 75% stenosis with VAN-3 flow With predilatation using 2.5 x 15 mm balloon, followed by placement of drug- eluting stent 3.5 x 26 mm/Estefany Postdilated with 4 x 15 mm NC balloon/Euphora with reduction of stenosis from 75% to 0% and maintenance of VAN-3 flow 03/08/21 ?Plan: He will continue aspirin, atorvastatin, Plavix, lisinopril, and metoprolol tartrate. (3) History of coronary artery bypass graft: ?Status:?Chronic ?Comment: MUSTAFA-LAD, SVG seq OM1-OM2, SVG-PDA ?Plan: He will continue risk factor and lifestyle modification. (4) History of aortic valve replacement: ?Status:?Chronic ?Comment: AVR w/23MM costello intuity pericardial valve ?Plan: His last echocardiogram January 2021 showed ejection fraction of 65% and stable appearing bioprosthetic aortic valve apparatus.? This appears stable today.? He will continue current medications.? We will continue to monitor through history, exam, and repeat echocardiogram as needed.? At this time, it is not felt that his valve is contributing to shortness of breath as he does not have any significant murmur noted on exam.? However, this will be considered on ongoing basis depending on work-up and overall symptoms. He will continue antibiotics per AHA guidelines. (5) Essential hypertension: ?Status:?Chronic ?Plan: His blood pressure is elevated today in office.? This may be contributing to his shortness of breath.? Thus, he will begin amlodipine 2.5 mg p.o. daily.? We will titrate this accordingly based on blood pressure.? When he is contacted regarding stress test results, we will discern response to amlodipine therapy and adjust as necessary. (6) HLD (hyperlipidemia): ?Status:?Chronic ?Qualifiers: ?Hyperlipidemia type:?unspecified? Qualified Code(s):?E78.5 - Hyperlipidemia, unspecified ?Plan: Lipid panel from 12/07/2021 showed Cholesterol: 115, HDL: 38, LDL: 48, and Triglycerides: 144.? He will continue with atorvastatin 40 mg p.o. nightly. (7) Dyspnea on exertion: ?Status:?Acute ?Plan: This is his main concern today.? The exact etiology is unclear and is most likely multifactorial.? He was asked to undergo a stress test to rule out anginal equivalent in relation to CAD.? He was asked to undergo laboratory testing to assess for fluid volume overload.? We will consider echocardiogram on an ongoing basis to assess valvular component.? He will begin amlodipine therapy for tighter blood pressure control.? He was asked to continue exercise and diet modification.? He was asked to discuss with primary care provider regarding possible concerns for obstructive sleep apnea as well as noncardiac etiology of shortness of breath. Depending on results and progress, further recommendation will be made. ? ? ? Orders: Orders Nuclear Stress Test - Treadmil Today I10 - Essential (primary) hypertension, I25.10 - Atherosclerotic heart disease of [place] coronary artery without angina pectoris, R06.00 - Dyspnea, unspecified, Z95.1 - Presence of aortocoronary bypass graft, Z95.2 - Presence of prosthetic heart valve ? Basic Metabolic Profile (BMP) Today I10 - Essential (primary) hypertension, I25.10 - Atherosclerotic heart disease of [place] coronary artery without angina pectoris, R06.00 - Dyspnea, unspecified, Z95.1 - Presence of aortocoronary bypass graft, Z95.2 - Presence of prosthetic heart valve ? BNP,B-Type NATRIURETIC PEPTIDE Today I10 - Essential (primary) hypertension, I25.10 - Atherosclerotic heart disease of [place] coronary artery without angina pectoris, R06.00 - Dyspnea, unspecified, Z95.1 - Presence of aortocoronary bypass graft, Z95.2 - Presence of prosthetic heart valve ? Medications: New amlodipine 2.5 mg? PO DAILY 90 tabs 3RF ? ? Plan Details Additional Comments: Thank you for allowing us to participate in the patients plan of care, if you have any questions please do not hesitate to call. This note was generated using a voice recognition system and there may be incorrect words, spelling or punctuation that were not noted when reviewing the office note prior to saving. Portions of this documentation were copied and pasted from previous office visit notes to provide a cohesive continuity of the history. The note has been reviewed, edited, and updated, as necessary. Follow Up: ? ? Keep as is (PFM) ? ? 6-8 weeks (HEAD [employer]/PA) Coding Level of Care Code Off vis,est,level 4 Diagnoses Atherosclerotic heart disease of [place] coronary artery without angina pectoris? I25.10 Presence of stent in coronary artery? Z95.5 History of coronary artery bypass graft? Z95.1 History of aortic valve replacement? Z95.2 Essential hypertension? I10 HLD (hyperlipidemia)? E78.5 ? ? ? Hyperlipidemia type: unspecified Dyspnea on exertion? R06.00 Coding Level of Care Code Off vis,est,level 4 Diagnoses Atherosclerotic heart disease of [place] coronary artery without angina pectoris? I25.10 Presence of stent in coronary artery? Z95.5 History of coronary artery bypass graft? Z95.1 History of aortic valve replacement? Z95.2 Essential hypertension? I10 HLD (hyperlipidemia)? E78.5 ? ? ? Hyperlipidemia type: unspecified Dyspnea on exertion? R06.00 12/08/21 1314 <Electronically signed by Syed Rubio NP [employer]-C> Date [facility]-Yessenia Sanchez Signature: Date (if applicable) CC:? Dr. Wilder Rebollar MD ~ Assessment & Plan Addt'l Comments I have re-examined the patient. There are no clinical changes since date of exam
--- NOTE | 2022-01-06 09:38 | CL.D_ITS ---
Patient Name: HERB SUNG Study Date: 01/06/2022 Performing: Saúl Calderon MD Ht: 70 inches 177.8 cm : 1950 Wt: 255.01 lbs 115.67 kg Age: 71 Gender: male BSA: 2.31 PROCEDURE(S) PERFORMED [id number]-([id number])LHC/COR/CABG CLINICAL PROFILE AND INDICATIONS Indications: Suspected CAD Heart Failure: None Stress/Imaging Date: 12/26/2021tress Test with SPECT MPI: Positive Intermediate Risk Angina Classification Anginal Classification w/in 2 Weeks: Anginal Equivalent Dyspnea CONCLUSIONS [place] Multivessel CAD RCA: stent: patent MUSTAFA to LAD: patent SVG to OM1 sequencing to OM2: patent SVG to RCA: occluded: chronic RECOMMENDATIONS Risk factor modification Medical therapy Case discussed / reviewed with Dr. Germain of Interventional Cardiology DESCRIPTION OF PROCEDURE The patient arrived to the procedure lab. The risks and benefits of the procedure as well as a full description of our services here and current unavailability of surgical backup were fully explained to the patient and/or their significant other prior to the catheterization. The Timeout was completed, verifying the correct patient and procedure. The patient's procedural site was prepped and draped in the usual fashion. Local anesthetic was given subcutaneously to right groin region with Lidocaine 2%. Using a modified Seldinger technique, arterial access was obtained via the right femoral artery, a 4Fr sheath was inserted Left Coronary Artery selective angiography was performed in multiple views using a 4 Fr. JL5 catheter. Right Coronary Artery selective angiography was then performed in multiple views using a 4 Fr. 3DRC catheter. Saphenous Vein graft to the OM 1 seq to OM2 selective angiography was performed in multiple views using a 4 Fr. 3DRC catheter. Left internal mammary artery graft to the LAD selective angiography was performed in multiple views using a 4 Fr. 3DRC catheter.The arterial sheath was pulled and manual compression applied until hemostasis is achieved. CORONARY ANGIOGRAPHY DOMINANCE: Right Dominant LEFT HEART ASSESSMENT Left Ventricular Ejection Fraction: Not assessed LEFT MAIN: distal: eccentric: 85 % Stenosis LEFT ANTERIOR DESCENDING ARTERY: PROX LAD: 50 % Stenosis MID LAD: fills from antegrade flow and MUSTAFA graft flow with no angiographically significant appearing disease distal to the graft attachment DIAGONAL 1: Proximal - fills from antegrade flow and retrograde from MUSTAFA graft flow to the LAD CIRCUMFLEX ARTERY: PROX CIRC: 50 % Stenosis OM 1: Distal - no obvious flow distal to the SVG graft attachment OM 2: Distal - no obvious flow distal to the SVG graft attachment RIGHT CORONARY ARTERY: PROX RCA: Previously placed stent is patent GRAFTS: MUSTAFA graft to the Mid LAD is patent Saphenous Vein graft to the 1st OM is patent with sequential portion to the 2nd OM being patent and s/p the anastomosis no obvious distal flow in OM1 and OM2 Saphenous Vein graft to the RCA is totally occluded (demonstrated on the [facility] cardiac catheterization from 03/08/2021 and not reevaluated during this procedure) VALVE FINDINGS: Stable appearing bioprosthetic aortic valve apparatus COMPLICATIONS No Complications PROCEDURE MEDICATIONS Fentanyl 50 mcg IV Versed 1 mg IV Fentanyl 50 mcg IV Versed 1 mg IV Oxygen: 2 L/min via nasal cannula SUMMARY OF HEMODYNAMIC DATA Time AIR REST AO 168/72 (109) SA 08:37:45 AO 140/80 (107) 08:38:29 ECG 09:35:10 09:35:14 Signed By Saúl Calderon MD On 01/06/2022 09:37:18 Saúl Calderon MD
== END 2022-01-06 13:30 | disposition home or self-care (01) ==
PROVIDERS: Nurse Practitioner Family; PCP Family Medicine; Referring Provider Internal Medicine Cardiovascular Disease; Visit Provider Internal Medicine Cardiovascular Disease
DX: I25.118 Atherosclerotic heart disease of native coronary artery with other forms of angina pectoris (principal); I10 Essential (primary) hypertension; R06.00 Dyspnea, unspecified; E78.5 Hyperlipidemia, unspecified; E66.9 Obesity, unspecified; Z95.1 Presence of aortocoronary bypass graft; Z95.5 Presence of coronary angioplasty implant and graft; Z87.891 Personal history of nicotine dependence; Z79.82 Long term (current) use of aspirin; Z79.899 Other long term (current) drug therapy; Z95.2 Presence of prosthetic heart valve; Z79.01 Long term (current) use of anticoagulants
CPT/HCPCS: 36415; 71046; 80048; 85025; 85610; 85730; 93455; 99152; 99153; C1769; C1894; Q9967

== ENCOUNTER → 2022-03-29 | Outpatient (CLI) | payer OTHER, MEDICARE, SELFPAY ==
--- NOTE | 2022-03-29 11:04 | RAD_ITS ---
STUDY: X-RAY - LEFT ELBOW REASON FOR EXAM: Male, 71 years old. Trauma. Pain. TECHNIQUE: 3 view(s) of the elbow. COMPARISON: None. FINDINGS: Marked osteopenia. Radial head prosthesis with slight resorption around the distal component of the prosthesis. Moderate to marked arthrosis of the radiocapitellar and ulnotrochlear articulations. Normal soft tissues. 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 No acute osseous abnormality. Electronically Signed: Mario Alberto Miller, at 15:12 EST ,
== END | disposition home or self-care (01) ==
LOC: RAD 10:59
PROVIDERS: PCP Family Medicine
DX: M12.522 Traumatic arthropathy, left elbow (principal)
CPT/HCPCS: 73080

== ENCOUNTER → 2022-06-27 | Outpatient (CLI) | payer MEDICARE, OTHER, SELFPAY ==
[2022-06-27 11:06] LABS: AST(SGOT) 19 U/L (15-37); Alanine Aminotransfer ALT/SGPT 28 U/L (16-61); Albumin, Serum 3.9 g/dL (3.2-5.0); Alkaline Phosphatase 74 U/L (45-117); Bilirubin, Direct 0.16 mg/dL (0.00-0.30); Cholesterol 98 mg/dL (200); Globulin 3.6 g/dL (2.2-4.2); High Density Lipoprotein 39 mg/dL; Protein, Total 7.5 g/dL (6.4-8.2); Triglycerides 112 mg/dL; Very Low Density Lipoprotein 22 mg/dL (5-40)
== END | disposition home or self-care (01) ==
LOC: LAB 09:41
PROVIDERS: PCP Family Medicine; Referring Provider Nurse Practitioner Family; Visit Provider Nurse Practitioner Family
DX: R06.00 Dyspnea, unspecified (principal); E78.5 Hyperlipidemia, unspecified; I10 Essential (primary) hypertension; I25.10 Atherosclerotic heart disease of native coronary artery without angina pectoris; Z95.2 Presence of prosthetic heart valve; Z95.1 Presence of aortocoronary bypass graft
CPT/HCPCS: 36415; 80061; 80076

== ENCOUNTER → 2022-07-11 | Outpatient (CLI) | payer MEDICARE, OTHER, SELFPAY ==
--- NOTE | 2022-07-11 12:51 | CDU_ITS ---
Reason For Study: Stenosis Rt. Velocities/BP Lt. Velocities/BP Prox CCA 81.7/14.6 cm/sec. Prox CCA 60.5/9.0 cm/sec. Mid CCA 85.0/16.8 cm/sec. Mid CCA 67.9/17.6 cm/sec. Dist CCA 101.4/19.0 cm/sec. Dist CCA 45.0/11.9 cm/sec. Bulb 195.2/34.5 cm/sec. Prox ICA 172.5/38.6 cm/sec. Prox ICA 138.1/24.1 cm/sec. Mid ICA 130.8/23.3 cm/sec. Mid ICA 99.3/24.1 cm/sec. Dist ICA 115.5/21.1 cm/sec. Dist ICA 90.5/21.2 cm/sec. Lt. ICA/CCA = 2.5. Rt. ICA/CCA = 2.3. Prox ECA 276.4/44.5 cm/sec. Prox ECA 192.6/13.7 cm/sec. Lt. Vert. 88.6/18.2 cm/sec. Rt. Vert. 36.0/7.7 cm/sec. Right Extracranial There is heterogeneous, irregular atherosclerotic plaque noted in the right common carotid artery. There is heterogeneous, irregular atherosclerotic plaque noted in the right internal carotid artery. There is heterogeneous, irregular atherosclerotic plaque noted in the right external carotid artery. Antegrade flow is noted in the right vertebral artery. There is heterogeneous, irregular atherosclerotic plaque noted in the right bulb. Acoustic shadowing. Left Extracranial There is homogeneous, smooth atherosclerotic plaque noted in the left common carotid artery. There is heterogeneous, irregular atherosclerotic plaque noted in the left internal carotid artery. There is heterogeneous, irregular atherosclerotic plaque noted in the left external carotid artery. Antegrade flow is noted in the left vertebral artery. There is heterogeneous, irregular atherosclerotic plaque noted in the left bulb. Procedure Carotid Duplex [id number]. This is a Carotid Duplex examination using B-mode, color flow and specral Doppler. The exam was diagnostic. Exam performed in department. VL/Carotid Duplex Ultrasound Interpretation Summary Irregular calcific plaque of the right carotid bulb and proximal internal carot id artery with increased velocity in the carotid bulb 195 cm second flow. 50 to 69% stenosis of the right internal carotid artery Less than 50% stenosis right external carotid artery Irregular calcific plaque at the proximal left internal carotid artery with 50 to 69% stenosis Greater than 50% stenosis left external carotid artery Patent and antegrade vertebral arteries bilaterally No change from the previous examination of July 27, 2021 Ordering Physician: Greg Blackman Referring Physician: Wilder Rebollar Performed By: Tamir Marquez RVT
--- NOTE | 2022-07-11 12:51 | ECHOD_ITS ---
Reason For Study: BILAT CS Procedure This was a 2D Doppler, Color Flow transthoracic echocardiogram. The study was technically difficult. Exam performed in department. Left Ventricle Normal LV size. Left ventricular systolic function is normal. The estimated ejection fraction is 65 %. Diastolic function is indeterminate. No regional wall motion abnormalities noted. Right Ventricle Normal RV size. Normal systolic function. Atria Normal left atrium. Normal right atrium. No doppler evidence for ASD. Mitral Valve There is no mitral annular calcification. Mild focal mitral valve calcification of the posterior leaflet. Mild (1+) mitral valve insufficiency. Tricuspid Valve Normal tricuspid valve. Mild tricuspid valve insufficiency. Unable to estimate RV systolic pressure/pulmonary artery pressure due to technically difficult study. Aortic Valve Stable appearing bioprosthetic aortic valve apparatus. Pulmonic Valve The pulmonic valve is not well visualized. Trivial pulmonic valve insufficiency. Great Vessels Normal sized aortic root. Pericardium/Pleural No pericardial effusion. MMode/2D Measurements & Calculations LVIDd: 5.0 cm IVSd: 1.0 cm LVOT diam: 2.0 cm LVIDs: 3.1 cm LVPWd: 1.2 cm LVOT area: 3.2 cm2 FS: 38.7 % Ao root diam: 3.7 cm LAV(MOD-sp4): 73.1 ml LVAd ap4: 33.6 cm2 LVLd ap4: 8.2 cm EDV(MOD-sp4): 113.8 ml EDV(sp4-el): 116.6 ml LVAs ap4: 18.4 cm2 LVLs ap4: 6.6 cm ESV(MOD-sp4): 43.8 ml ESV(sp4-el): 43.5 ml EF(MOD-sp4): 61.5 % EF(sp4-el): 62.7 % SV(MOD-sp4): 70.0 ml SV(sp4-el): 73.1 ml LA A4 area: 24.5 cm2 RA A4 area: 21.2 cm2 Time Measurements MV dec time: 0.17 sec Doppler Measurements & Calculations MV E max wilbur: 73.7 cm/sec Lat Peak E' Wilbur: 13.4 cm/sec Med Peak E' Wilbur: 7.0 cm/sec MV A max wilbur: 65.7 cm/sec E/E' lat: 5.5 E/E' med: 10.5 MV E/A: 1.1 MV V2 max: 128.7 cm/sec Ao V2 max: 153.1 cm/sec MV max P.6 mmHg MV dec slope: 433.4 cm/sec2 Ao max P.7 mmHg MV V2 mean: 76.0 cm/sec Ao V2 mean: 104.5 cm/sec MV mean P.6 mmHg Ao mean P.1 mmHg MV V2 VTI: 36.0 cm Ao V2 VTI: 36.2 cm AV (velocity ratio): 0.72 MVA(VTI): 2.3 cm2 HEATHER(I,D): 2.3 cm2 HEATHER(V,D): 2.0 cm2 LV V1 max: 94.9 cm/sec SV(LVOT): 83.2 ml LV V1 max P.6 mmHg LV V1 mean P.2 mmHg LV V1 mean: 71.5 cm/sec LV V1 VTI: 26.3 cm ECHO/Echo Complete Interpretation Summary The study was technically difficult. Left ventricular systolic function is normal. The estimated ejection fraction is 65 %. Mild focal mitral valve calcification of the posterior leaflet. Mild (1+) mitral valve insufficiency. Mild tricuspid valve insufficiency. Stable appearing bioprosthetic aortic valve apparatus. Trivial pulmonic valve insufficiency. Unable to estimate RV systolic pressure/pulmonary artery pressure due to techni albert difficult study. Diastolic function is indeterminate. Ordering Physician: Saúl Calderon Referring Physician: Wilder Rebollar Performed By: Jessica Langley RCS
== END | disposition home or self-care (01) ==
LOC: CVS 12:51
PROVIDERS: PCP Family Medicine; Visit Provider Internal Medicine Cardiovascular Disease
DX: R09.89 Other specified symptoms and signs involving the circulatory and respiratory systems (principal); I25.10 Atherosclerotic heart disease of native coronary artery without angina pectoris; Z95.5 Presence of coronary angioplasty implant and graft; E78.5 Hyperlipidemia, unspecified; I10 Essential (primary) hypertension; R06.00 Dyspnea, unspecified; I65.23 Occlusion and stenosis of bilateral carotid arteries
CPT/HCPCS: 93306; 93880

== ENCOUNTER → 2022-12-25 | Outpatient (CLI) | payer MEDICARE, OTHER, SELFPAY ==
[2022-12-25 09:12] LABS: Absolute Lymphocyte Count 2.16 X10^3/uL (0.83-4.51); Absolute Neutrophil Count 5.4 X10^3/uL (2.0-7.7); Basophil# 0.07 X10^3/uL; Basophil% 0.8 % (0-1); Eosinophil# 0.28 X10^3/uL; Eosinophils% 3.3 % (0-5); Hemoglobin 13.3 g/dL (13.0-16.5); Lymphocyte # 2.16 X10^3/ul (0.83-4.51); Lymphocyte % 25.4 % (19-41); Mean Corp Hgb Conc 31.7 g/dL (32-36); Mean Corpuscular Hgb 30.5 pg (27.0-32.0); Mean Corpuscular Volume 96.3 fL (80-94); Mean Platelet Vol. 9.8 fl (6.2-12.0); Monocyte% 7.1 % (0-10); NRBC Flagged by Analyzer 0 % (0-5); Neutrophil # 5.36 X10^3/uL (2.7-7.7); Neutrophil % 62.9 % (47-70); Platelet Count 197 K/mm3 (150-450); RBC Distribution Width CV 12.3 % (11.6-14.6); RBC Distribution Width SD 43.5 fl (35.1-43.9); Red Blood Count 4.36 M/mm3 (4.6-6.2); White Blood Count 8.5 K/mm3 (4.4-11.0)
[2022-12-25 09:40] LABS: Vitamin B12 > 2000 pg/mL (211-911); Vitamin D,25 Hydroxy 45.9 ng/mL
[2022-12-25 09:45] LABS: Hemoglobin A1c 5.6 % (3.8-5.6)
[2022-12-25 09:47] LABS: AST(SGOT) 19 U/L (15-37); Alanine Aminotransfer ALT/SGPT 29 U/L (16-61); Albumin, Serum 3.7 g/dL (3.2-5.0); Alkaline Phosphatase 82 U/L (45-117); Anion Gap 4 (5-15); BUN 19 mg/dL (7-18); BUN/Creat Ratio 17.3 RATIO (10-20); Bilirubin, Direct 0.15 mg/dL (0.00-0.30); Calcium,Total 9.1 mg/dL (8.5-10.1); Chloride 108 mmol/L (98-107); Cholesterol 116 mg/dL (200); EST Glomerular Filtration Rate 70 mL/min (>60); Est Glom Filt Rate - Afr Amer 85 mL/min (>60); Globulin 3.7 g/dL (2.2-4.2); Glucose 95 mg/dL (74-106); High Density Lipoprotein 43 mg/dL; Magnesium 2.2 mg/dL (1.6-2.6); Potassium 4.9 mmol/L (3.5-5.1); Protein, Total 7.4 g/dL (6.4-8.2); Sodium Level 141 mmol/L (136-145); Thyroid Stim Hormone (TSH) 3.05 uIU/mL (0.358-3.74); Triglycerides 117 mg/dL; Very Low Density Lipoprotein 23 mg/dL (5-40)
== END | disposition home or self-care (01) ==
PROVIDERS: PCP Family Medicine; Referring Provider Nurse Practitioner Family; Visit Provider Nurse Practitioner Family
DX: I10 Essential (primary) hypertension (principal); R73.09 Other abnormal glucose; Z12.5 Encounter for screening for malignant neoplasm of prostate; E78.00 Pure hypercholesterolemia, unspecified; E53.8 Deficiency of other specified B group vitamins; E55.9 Vitamin D deficiency, unspecified
CPT/HCPCS: 36415; 80053; 80061; 82248; 82306; 82607; 83036; 83735; 84153; 84443; 85025; G0103

== ENCOUNTER → 2023-06-15 | Outpatient (CLI) | payer MEDICARE, OTHER, SELFPAY ==
--- OUTSIDE RECORDS SUMMARY | 2023-06-15 07:57 | XMS RPT_ITS | CCD ---
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 Name Role Phone Gwyn Sorensen Unavailable Unavailable Letha Rebollar Unavailable Unavailable Gwyn Sorensen Unavailable Unavailable Letha Rebollar Unavailable Unavailable GANDHI, POWER X Unavailable Unavailable OKSANA POWER X Unavailable Unavailable [facility] Unavailable Unavailable Letha Rebollar Unavailable [phone] GIOVANNY ALICEA Unavailable Unavail able ALINA BENOIT Unavailable Unavailable MCINTOSH, THIAGO CAMACHO Unavailable Unavaila ble MCINTOSH, THIAGO CAMACHO Unavailable Unavaila ble MCINTOSH, THIAGO CAMACHO Unavailable Unavaila ble PINEDA, KASEY Unavailable Unavailable DION MCKEON Unavailable Unavailable Giovanny Alicea Unavailable [phone] RAMSES RAMIREZ Unavailable Unavailable RAMSES RAMIREZ Unavailable Unavailable DION PENG Unavailable Unavailable LETHA REBOLLAR Unavailable Unavailable DARBY MIMS Unavailable Unavailable LETHA REBOLLAR Unavailable Unavailable LETHA REBOLLAR Unavailable Unavailable DARBY MIMS Unavailable Unavailable Letha Rebollar Primary Care Provider Allergies Allergy Classification Reported Allergen(s) Allergy Type Date of Onset Reaction(s) Facility (1 source) No Known Medication Allergies; Translations: [No Known Medication Allergies] Propensity to adverse reactions to drug (disorder) [facility] Repository Medications Current Medications Medication Drug Class(es) Dates Sig (Normalized) Sig (Original) aspirin 81 mg delayed release oral tablet (7 sources) Nonsteroidal Anti-inflammatory Drug Start: 11-11-2017 take 2 tablets by mouth once daily aspirin 81 MG EC tablet Take 2 (two) tablets (162 mg total) by mouth daily. 60 tablet 2 11/11/2017 Active Completed/Discontinued Medications Medication Drug Class(es) Dates Sig (Normalized) Sig (Original) acetaminophen 325 mg oral tablet (5 sources) Start: 11-10-2017 End: 12-13-2017 take 2 tablets by mouth every four hours as needed acetaminophen (TYLENOL) 325 MG tablet Take 2 (two) tablets (650 mg total) by mouth every 4 (four) hours as needed. 30 tablet 0 11/10/2017 12/13/2017 Discontinued Problems Active Problems Problem Classification Problem Date Documented Date Episodic/Chronic Cardiac dysrhythmias (3 sources) Atrial fibrillation; Translations: [Atrial fibrillation, transient (HCC)] Onset: 12-13-2017 12-13-2017 Chronic Coronary atherosclerosis and other heart disease (3 sources) Atherosclerotic heart disease of kaibab coronary artery without angina pectoris; Translations: [Multi vessel coronary artery disease] Onset: 11-05-2017 11-05-2017 Chronic Coronary atherosclerosis and other heart disease (2 sources) Presence of aortocoronary bypass graft; Translations: [Presence of aortocoronary bypass graft] Onset: 11-21-2017 Episodic Essential hypertension (3 sources) Essential (primary) hypertension; Translations: [Hypertensive disorder] Onset: 11-21-2017 Chronic Heart valve disorders (5 sources) Nonrheumatic aortic (valve) stenosis; Translations: [Aortic valve disorder] Onset: 11-02-2017 11-03-2017 Chronic Joint disorders and dislocations; trauma-related (4 sources) Traumatic arthropathy, upper arm; Translations: [Traumatic arthropathy of upper extremity] Onset: 02-09-2015 02-11-2015 Chronic Osteoarthritis (7 sources) Primary osteoarthritis, left elbow; Translations: [Localized osteoarthrosis] Onset: 01-12-2015 01-12-2015 Chronic Other lower respiratory disease (3 sources) Dyspnea; Translations: [Shortness of breath] Onset: 11-03-2017 Episodic Other nervous system disorders (4 sources) Lesion of ulnar nerve; Translations: [Lesion of ulnar nerve] Onset: 02-09-2015 02-09-2015 Chronic Other non-traumatic joint disorders (1 source) Arthritis of left elbow; Translations: [Arthritis of left elbow] Onset: 01-12-2015 01-12-2015 Unclassified (1 source) Acute pain Episodic Unclassified (2 sources) Unknown / UNK(Unknown) Onset: 11-02-2017 Unclassified (2 sources) Pain, unspecified; Translations: [Pain, unspecified] Onset: 11-03-2017 Past or Other Problems Problem Classification Problem Date Documented Da te Episodic/Chronic Unclassified (1 source) Post-op Onset: 12-13-2017 Unclassified (1 source) CAD, multiple vessel Results Test Name Value Interpretation Reference Range Facil ity Vital Signs Date Time Vital Sign Value Performing Clinician Facsridhar lity 12-13-2017 09:50-0400 BMI (Body Mass Index) 28.76 kg/m2 [facility] 12-13-2017 09:50-0400 BP Diastolic 86 mm[Hg] [facility] 12-13-2017 09:50-0400 BP Systolic 155 mm[Hg] [facility] 12-13-2017 09:50-0400 Height 185.4 cm [facility] 12-13-2017 09:50-0400 Pulse (Heart Rate) 60 /min [facility] 12-13-2017 09:50-0400 Pulse Oximetry 98 % [facility] 12-13-2017 09:50-0400 Weight 98.88 kg [facility] 11-10-2017 13:35-0400 BP Diastolic 70 mm[Hg] Luis Shelley [facility] 11-10-2017 13:35-0400 BP Systolic 119 mm[Hg] [facility] 11-10-2017 13:35-0400 Pulse (Heart Rate) 71 /min Luis Shelley [facility] 11-10-2017 13:35-0400 Pulse Oximetry 96 % Luis Shelley [facility] 11-10-2017 13:35-0400 Respiratory Rate 17 /min Luisannabel Shelley [facility] 11-10-2017 11:10-0400 Body Temperature 98.6 [degF] Luis Shelley [facility] 11-09-2017 22:10-0400 BMI (Body Mass Index) 30.8 kg/m2 Luis Shelley [facility] 11-09-2017 22:10-0400 Weight 105.9 kg Luis Shelley [facility] 11-05-2017 10:47-0400 Height 185.4 cm Luis Barth [facility] Encounters Encounter Date Encounter Type Care Provider Facility Start: 07-08-2020 End: 07-08-2020 Orders Only Chelsea Carlos Lucas Work Phone: [facility] Start: 12-13-2017 End: 12-13-2017 Patient encounter DARBY MIMS [facility] Start: 12-13-2017 End: 12-13-2017 Postop follow up visit related to original px Darby Mims Work Phone: [facility] Start: 11-21-2017 End: 11-21-2017 Patient encounter RAMSES RAMIREZ [facility] Start: 11-03-2017 End: 11-10-2017 Evaluation and management of inpatient GIOVANNYDEREK MCCARTHY NIXON [facility] Start: 11-03-2017 End: 11-10-2017 Evaluation and management of inpatient AlbaroIban Barth Work Phone: [facility] Start: 11-02-2017 End: 11-02-2017 Patient encounter Giovanny Alicea [facility] Start: 11-02-2017 Evaluation and management of inpatient POWER X GANDHI Facility:[facility] Start: 09-13-2017 Ambulatory Gwyn Sorensen Facility: [facility] Procedures Date Procedure Procedure Detail Performing Clinician Start: 11-06-2017 End: 11-06-2017 Echo jony guid tcat icar/vessel structural intvn Thiago Mcintosh Work Phone: Start: 11-05-2017 End: 11-05-2017 VENTILATOR Thiago christianson Work Phone: Start: 11-05-2017 End: 11-05-2017 VENTILATOR WEANING SPONTANEOUS BREATHING TRIAL (SBT) Thiago Mcintosh Work Phone: Start: 11-05-2017 End: 11-05-2017 CORONARY ARTERY BYPASS GRAFTS TIMES FOUR WITH AORTIC VALVE REPLACEMENT, ENDOSCOPIC VEIN HARVEST, TRANSESOPHAGEAL ECHOCARDIOGRAM Thiago Mcintosh Work Phone: Start: 11-05-2017 End: 11-05-2017 Spmtry w/vc expiratory dani w/wo mxml vol vntj Stephy Vazquez Work Phone: Plan of Treatment Date Care Activity Detail Author Start: 01-13-2020 Influenza vaccination given Sequential Influenza Vaccine (#1) [facility] Start: 01-23-2018 Pneumococcal vaccination Pneumococcal Vaccine Age 65+ (2 of 2 - PPSV23) [facility] Start: 01-12-2018 Influenza vaccination [facility] Start: 12-13-2017 End: 12-13-2017 Ambulatory 12/13/2017 Follow-Up Cardiothoracic Surgery [facility] Start: 11-22-2017 End: 11-22-2017 Ambulatory 11/22/2017 Follow-Up Cardiothoracic Surgery Damari Bassett, COSMETOLOGIST APPRENTICE [address] [facility] [address] [place] [id number] [phone] [facility] Start: 01-13-2016 CLASS III : OFFICE VISIT CLASS III : OFFICE VISIT [facility] Start: 08-21-2015 Pneumococcal vaccination PNEUMOCOCCAL VACCINE AGE 65+ (1 of 2 - PCV13) [facility] Start: 03-20-2013 Administration of herpes zoster vaccine Zoster Vaccines (2 of 3) [facility] Start: 2010 Zoster vaccine hzv live for subcutaneous use ZOSTER VACCINE [facility] Start: 2000 Screening for malignant neoplasm of colon [facility] Start: 1968 Hepatitis C antibody, confirmatory test Hepatitis C Screening [facility] Start: 1966 COVID-19 Vaccine (1 of 2) COVID-19 Vaccine (1 of 2) [facility] Start: 1962 Adolescent depression screening assessment Depression Screening (PHQ9) [facility] Start: 1953 History and physical examination, annual for health maintenance Wellness Visit [facility] Start: 1950 Fall risk assessment Falls Risk Assessment [facility] Start: 1950 Prostate specific antigen measurement PSA Level [facility] Start: 1950 CLASS III : ALT CLASS III : ALT [facility] Start: 1950 CLASS III : AST CLASS III : AST [facility] Start: 1950 CLASS III : CXR CLASS III : CXR [facility] Start: 1950 CLASS III : EKG CLASS III : EKG [facility] Start: 1950 CLASS III : PFT CLASS III : PFT [facility] Start: 1950 CLASS III : TSH CLASS III : TSH [facility] Start: 1950 HEPATITIS C SCREENING HEPATITIS C SCREENING [facility] Start: 1950 Screening colonoscopy COLONOSCOPY [facility] Start: 1950 End: 1950 Tetanus vaccination [facility] Payers Date Payer Category Payer Medicare 2015 Medicare MEDICARE MEDICAR E PART A & B [id number] 2015-Present CT [id number] 1995 Worker's Compensation [id number] Medicare [id number] Unknown [id number] Unknown [employer] [id number] Effective for all dates [id number] Social History Date Type Detail Facility Start: 11-06-2017 End: 12-13-2017 Tobacco smoking status NHIS Never smoker [facility] Sex Assigned At Not on file [facility] Start: 12-13-2017 Tobacco use and exposure Never used [facility] Start: 12-13-2017 Alcohol intake Current drinke r of alcohol (finding) [facility] Start: 01-12-2015 Alcohol Comment 2-3 drinks per week [facility] Medical Equipment Procedure Code Equipment Code Equipment Origin al Text Equipment Identifier Dates Kit Mini Device Cor-Knot - [id number] Start: 11-05-2017 George Intuity Elite Aortic Valve Start: 11-05-2017 Syringe 4ml Pre-Filled Sealant Preveleak - [id number] Start: 11-05-2017 Kit Mini Device Cor-Knot - [id number] Start: 11-05-2017 George Intuity Elite Aortic Valve Start: 11-05-2017 Syringe 4ml Pre-Filled Sealant Preveleak - [id number] Start: 11-05-2017 Kit Mini Device Cor-Knot - [id number] Start: 11-05-2017 Summary Purpose Family History No Family History Records FoundNo Family History Records FoundNo Family History Records FoundNo Family History Records FoundNo Family History Records FoundNo Family History Records Found Advance Directives No Advanced Directives Records FoundLatest Code Status on File Code Status Date Activated Date Inactivated Comments Full Code 11/06/2017 6:23 PM Full Code 11/05/2017 7:18 PM 11/06/2017 6:23 PM Full Code 11/03/2017 9:03 AM 11/05/2017 7:18 PM Discharge Instructions * Discharge Instr - IP OT - Meghan Prater, OT - 11/09/2017 4:21 PM EDT CURRENT SELF CARE CONCERNS:(Patient should NOT complete the following tasks/roles UNASSISTED):MANAGE YOUR MEDICATION Recommendation: someone to double check your medication before you take it is/are needed to help you (your patient) safely manage your medications when you return home. * Discharge Instr - IP PT - Mya Díaz, BUSINESS CONTINUITY CONSULTANT - 11/06/2017 3:00 PM EDT Walking Program: Begin your walking program on your first full day at home. Time your first walk and record it in your Home Exercise Record. You first walk should be around 6 minutes. Add 30 seconds to 1 minute each time you walk. Make sure that you are able to hold a conversation while walking andtake rest breaks when necessary. CURRENT MOBILITY CONCERNS: (Patient should NOT complete the following tasks UNASSISTED): MANAGE STAIRS and GET IN / OUT OF THE CAR * Discharge Instr - IP SHAUN - Stephy Sparks CPhT - 11/05/2017 11:08 AM EDT There may be medications on your list that you were prescribed or previously taking but you said you are no longer taking. These medications may still be important for your health. Please discuss these with the person who prescribed the medication(s) to you. * Stephy Vazquez, CHAR - 11/09/2017 Formatting of this note may be different from the original. Aortic valve replacement with a 23 mm George Intuity pericardial valve. Coronary artery bypass grafting x4 with a left internal mammary artery to the left anterior descending, saphenous vein graft sequenced to the obtuse marginal 1 and obtuse margin 2, and a saphenous vein graft to the posterior descending artery and endoscopic vein harvest of the left leg HEART SURGERY HOME CARE INSTRUCTIONS Refer to your Heart Healthy Notebook for more information. Join an Outpatient Cardiac Rehab program. Activity -It is common to feel tired. Rest between activities. -If you have some depression, it will gradually get better. -Use sternal precautions and do not lift anything heavier than 10 pounds. -Increase your activity as instructed. -Limit stairs for the 1st week. -Do not sleep on your side or your stomach for 2 weeks. -You may do light household activities but avoid strenuous activities until your checkup -Do not drive or return to work until your doctor okays it. -You may resume sexual activities when you are ready. -If you have swelling in your legs, elevate them higher than the heart. -Your family member may remove your stockings for your bath and at night. -Incentive spirometry at least 4 times daily. -Weigh yourself every morning at the same time and record it. Sternal precautions: -Do not lift more than 10 pounds until seen by surgeon -Support breastbone with a bear hug when coughing or sneezing -Patient may exert light pressure on arms when changing positions -Patient may raise arms above head in a pain free range -Patient may not put both arms behind them at the same time -May sleep on side with a pillow propped along back. Avoid exerting direct pressure on sternum -May sleep in any position that is comfortable two weeks after the surgery -Use log roll technique to get in and out of bed -Let pain be your guide Incision Care: -You may shower but do not take a bath or swim until okay d by your doctor. Do not let the water directly hit your incision. -Gently wash your incision with antibacterial soap and water. Do not put lotions or powders on yourincision. -If you have michael they will be removed in the doctor s office. -If you have tape-like strips, they will begin to curl and fall off in about 2 weeks. You may trim them. Call your doctor if you notice: -Signs of infection: fever over 101?F, increased redness, swelling, pain or drainage from your incision. -Pain uncontrolled by medicine, worse or new pain. -A weight gain of 3 pounds in 2 days or 5 pounds in 1 week. -Difficulty breathing, especially at rest or when lying flat in bed; -Waking up breathless at night; -Frequent, dry, hacking cough, especially when lying down; -Increased tiredness; -Swollen feet, ankles, legs and/or abdomen. People with heart and blood vessel disease are at risk of having a stroke. Here are some warning signs of stroke and risk factors that you can modify to improve your health. Warning signs of stroke: If you have any of the following call 911 -Sudden numbness or weakness of the face, arm or leg, especially on one side of the body -Sudden confusion, trouble speaking or understanding -Sudden trouble seeing in one or both eyes -Sudden trouble walking, dizziness, loss of balance or coordination -Sudden severe headache with no known cause Personal Risk factors for stroke discussed include: [place] pertinent risk factors -High blood pressure -Elevated cholesterol -Diabetes -Overweight (BMI>=25) -Physical inactivity -Excessive alcohol consumption -Carotid artery stenosis -Atrial fibrillation -Smoking Heart Valve Precautions Home Care Instructions Tell all your health care providers (nurses, doctors and dentists) that you have a heart valve replacement. Take Antibiotics Before All Dental And Invasive Procedures -You have a valve replacement so for the rest of your life, you need antibiotics before all dental and invasive procedures. -Before all dental and invasive procedures, call your family doctor or dentist and tell them you need prophylactic antibiotics. You will get a prescription and instructions on taking the antibiotics. X-ray for Follow-up Visit -You will be given a prescription for the x-ray -You may go to any radiological facility close to your home to get this x-ray -Get the chest x-ray within one week of your appointment. Make arrangements with the x-ray facilityto wait for or meat pickler the x-ray films later to take to your doctor s appointment. -Bring that x-ray to your doctor s appointment. STATIN HOME CARE INSTRUCTIONS You have been placed on a medicine to lower cholesterol and help protect the heart. It is called atorvastatin. You will need to have a fasting blood draw in about 3 weeks to check your cholesterol and liver function. This can be done at your family doctor's office or any lab that your insurance covers. Please have this test done prior to your follow-up appointment on 12/13. Please call your family physician if you develop muscle weakness or pain. Lab Results Component Value Date HGBA1C 5.5 11/03/2017 Wt Readings from Last 3 Encounters: 11/08/17 106.2 kg (234 lb 2.1 oz) 01/12/15 112.5 kg (248 lb) Lab Results Component Value Date ALT 11 11/03/2017 AST 15 11/03/2017 ALKPHOS 73 11/03/2017 BILITOT 0.5 11/03/2017 Lab Results Component Value Date CHOL 163 11/03/2017 Lab Results Component Value Date HDL 48 11/03/2017 Lab Results Component Value Date LDLCALC 92 11/03/2017 Lab Results Component Value Date TRIG 117 11/03/2017 Lab Results Component Value Date CHOLHDL 3.4 11/03/2017 Lab Results Component Value Date HGB 7.9 (L) 11/09/2017 Lab Results Component Value Date CREATININE 0.71 (L) 11/09/2017 in this encounter Assessments Diagnosis Acute pain - Primary SOB (shortness of breath) Shortness of breath Aortic valve disorder Aortic valve disorders CAD, multiple vessel Diagnosis CAD, multiple vessel - Prima ry Aortic valve stenosis, etiol ogy of cardiac valve disease unspecified Atrial fibrillation, transie nt (HCC) Hypertension, unspecified ty pe Additional Source Comments (unrecognized sect ion and content) No Status Records FoundNo Status Records FoundNo Status Records FoundNo Status Records FoundNo Status Records FoundNo Status Records Found INFORMATION SOURCE (unrecogn ized section and content) DATE CREATED AUTHOR AUTHOR'S ORGANIZ ATION 11/02/2017 [facility] DATE CREATED AUTHOR AUTHOR'S ORGANIZ ATION 11/16/2017 [facility] DATE CREATED AUTHOR AUTHOR'S ORGANIZ ATION 12/13/2017 [facility] DATE CREATED AUTHOR AUTHOR'S ORGANIZ ATION 12/05/2019 [facility] DATE CREATED AUTHOR AUTHOR'S ORGANIZ ATION 08/01/[address] [facility] Thiago Mcintosh MD - 11/05/2017 12:41 PM Thiago Cuba MD - 11/03/2017 2:12 PM Ethan Grimaldo DO - 11/03/2017 9:16 AM EDT H&P Notes (unrecognized sect ion and content) INTERVAL HISTORY AND PHYSICAL Patient Name: Marco Sung Admit Date: [id number] MR #: [id number] : 1950 The H&P has been reviewed and the patient has been examined. I concur with the findings of the H&P. There are no significant changes. It is appropriate to proceed with the planned procedure. Thiago Mcintosh MD 11/05/2017 12:41 PM Formatting of this note may be different from the original. CARDIOTHORACIC CONSULT NOTE Patient Name: Marco Sung Admit Date: [id number] MR #: [id number] : 1950 Physicians: Letha Rebollar MD (Family); No ref. provider found (Referring) Chief Complaint/Reason for Visit: Unstable angina History of Present Illness: Marco Sung is a 67 y.o. y/o male presenting from home with c/o chest discomfort. This has been present for approximately 6 months. It seems to have been getting worse. He recently went on a 500 mile hike through [facility] and was experiencing chest pressure and dyspnea on exertion while walking up hills and strenuous activity. He felt this was bronchitis and was medicating himself with [id number] remedies. However, this did not resolve his symptoms. He denies angina at rest. He denies chest pain currently. He denies paroxysmal nocturnal dyspnea or orthopnea. He saw his primary care physician who ordered a stress test, which was abnormal, which led to a left heart catheterization. Left heart catheterization revealed a high-grade distal left main, proximal LAD and right coronary artery high-grade stenosis, which necessitated placing intraaortic balloon pump and subsequent referral for open- heart surgery. A family friend is Dr. Osmel Lara, who requested he come to [facility] for definitive care. He is currently without complaints. He denies chest pain, amaurosis fugax, lower extremity claudication. He is a former smoker many years ago. Not for at least 20 or 30 years. He denies previous heart surgery, previous heart attack, previous coronary stents. He denies CVA. He denies lower extremity claudication. Echo was performed which shows a preserved ejection fraction and moderate to severe aortic stenosis. History: Past Medical History: Diagnosis Date Arthritis Hypertension History reviewed. No pertinent surgical history. 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 Patient has no known allergies. Home Medications: Outpatient Prescriptions as of 11/03/2017 Medication Sig celecoxib (CELEBREX) 200 MG capsule Take 200 mg by mouth daily. cephALEXin (KEFLEX) 500 MG capsule Take 500 mg by mouth. As needed prior to surgical procedures HYDROcodone-acetaminophen (NORCO) 5-325 mg per tablet Take 1 tablet by mouth 3 (three) times a day. metoprolol succinate (TOPROL-XL) 100 MG 24 hr tablet Take 100 mg by mouth daily. Review of Systems: The following system(s) were reviewed and pertinent findings noted: Constitutional:No fever, no weight loss Eyes:No diplopia ENT:No sinus drainage CV:No chest pain. Resp:denies copd/asthma/+ AGUILERA GI:No abdominal pain.No abdominal distention denies melana :No dysuria Neuro:denies sx cva or tia Integumentary:No skin rash MuscSkel:No arthralgias Endo:denies sx dm Heme/lymphatic:No apparent lymphadenopathy Psych:No unusual mood swings Physical Examination: Vital Signs: BP (!) 153/81 Pulse 73 Temp 98.2 ?F (36.8 ?C) (Oral) Resp (!) 7 Ht 6' 1 Wt 102.6 kg (226 lb 3.1 oz) SpO2 97% BMI 29.84 kg/m General: Alert, cooperative, no distress, appears stated age Head: Normocephalic, without obvious abnormality, atraumatic Eyes: PERRL, conjunctiva/corneas clear, EOM's intact Throat: Lips, mucosa, and tongue normal; teeth and gums normal Neck: Supple, symmetrical, trachea midline, no adenopathy; thyroid: no enlargement/tenderness/nodules; no carotid bruit or JVD Lungs: Clear to auscultation bilaterally, no wheeze or rhonchi no accessory muscles used Chest Wall: No tenderness or deformity Cardiovascular: Regular rate and rhythm, 3/6 HUSAM RSB radiating to carotids, no rub or gallop; Pulses 2+ and symmetric all extremities Abdomen: Soft, non-tender, bowel sounds active all four quadrants,no masses, no organomegaly Extremities: Normal, atraumatic, no cyanosis , no clubbing Skin: Skin color, texture, turgor normal, no rashes or lesions Musculoskeletal: Full range of motion of all extremities; no joint edema Neurologic: Awake and alert, IRASEMA x 4 equal, no focal deficeits Psych: Mood and affect appropriate Laboratory and Additional Data Reviewed: Laboratory 11/03/17 2:12 PM Microbiology 11/03/17 2:12 PM Pathology 11/03/17 2:12 PM Radiology 11/03/17 2:12 PM Cardiology 11/03/17 2:12 PM Medications 11/03/17 2:12 PM Transcriptions 11/03/17 2:12 PM Assessment and Plan: Marco Sung is a 67-year-old, gentleman with unstable angina, and moderate to severe 3-vessel coronary artery disease, and moderate to severe aortic stenosis. He was referred for aortic valve replacement and coronary artery bypass grafting. He is currently chest pain free. He is currently on a heparin drip; however, he is not on nitroglycerin. His hemodynamics have been stable. I do believe it would be reasonable to remove his intra-aortic balloon pump if this can be weaned without significant chest pain. We will obtain a carotid duplex and vein mapping here, and will plan for aortic valve repair and coronary artery bypass grafting on 11/05/2017. We will continue medical management of his hypertension and other comorbidities. Formatting of this note may be different from the original. Resident History and Physical Patient Name: Marco Sung : 1950 Admit Date: [id number] Assessment and Plan Marco Sung is a 67 y.o. male who has a past medical history of Arthritis and Hypertension. The patient presents as a transfer from outside hospital s/p CATH and IABP due to identified mod/severe and Unstable Anginal with multivessel disease - transferred for CABG/SAVR eval. Unstable Angina. Cath at outside hospital - 85% stenosis in left main, Ostial LAD 70% stenosis, ostial circ 60% stenosis, mid circ 60% stenosis, OM1 mid to 70% stenosis, prox RCA 70%. IABP in place. Preserved EF . HD stable and chest pain free at this time. Plan: likely CT surgery and CABG eval. On hep gtt, holding asa/plavix at this time . Aortic Stenosis Mod/severe. AO valve stenosis HEATHER 1.14 cm2 By cath. . Peak/mean gradient of 34 and 21 mm HG JONY with EF 65% CT surgery consulted. Last plavix on 11/02/17 , loaded 11/01 Will likely need surgical intervention Chronic Pain Left UE s/p remote surgery. On celecoxib- held and norco 5mg . Avoiding nsaids. No recorded opioids on narc-check Will give norco prn After discussion, the patient was determined to be Full Code. dvt ppx hep gtt. Chief Complaint Chest pain History of Present Illness Marco Sung is a 67 y.o. male who has a past medical history of Arthritis and Hypertension. The patient presents as a transfer from outside hospital s/p CATH and IABP due to identified mod/severe and Unstable Anginal with multivessel disease - transferred for CABG/SAVR eval. Transferred from [place] to [facility] ICU on heparin and IABP in place. On arrival Alert and Oriented x3, conversant, HD stable , IABP in place, chest pain free, on room air. Noted history of 6-12 months of symptoms of chest pain and shortness of breath . However patient remained active and recently hiked > 500 miles in [place] with symptoms and limited medical evaluation. Presented to PCP and furtehr to [facility]. Systolic murmur was noted. Patient underwent a stress test echo which was abnormal with ekg chagnes and anteriolat wall hypokinesis. Proceeded to cath with 85% stenosis in left main, Ostial LAD 70% stenosis, ostial circ 60% stenosis, mid circ 60% stenosis, OM1 mid to 70% stenosis, prox RCA 70%. As well as TEEE. Chest pain feels like pressure with shortness of breath And AGUILERA . 3/10. Increasingly at rest. No recent infections. Past Medical/ Surgical/ Social/ Family History Past Medical History: Diagnosis Date Arthritis Hypertension No past surgical history on file. 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 Patient has no known allergies. Patient Review of Systems Review of Systems Constitutional: Positive for activity change and fatigue. Respiratory: Positive for chest tightness and shortness of breath. Cardiovascular: Positive for chest pain. Negative for palpitations and leg swelling. Gastrointestinal: Negative for abdominal distention, constipation and diarrhea. Musculoskeletal: Negative for arthralgias. Neurological: Positive for dizziness, weakness and light-headedness. Negative for tremors and syncope. Psychiatric/Behavioral: Negative for agitation. Physical Exam Vital Signs: BP 142/65 Pulse 75 Temp 98.2 ?F (36.8 ?C) Resp 14 Ht 6' 1 Wt 102.6 kg (226 lb 3.1 oz) SpO2 96% BMI 29.84 kg/m Physical Exam Constitutional: He is oriented to person, place, and time. He appears well- developed and well-nourished. No distress. Cardiovascular: Normal rate and regular rhythm. Right IABP Pulmonary/Chest: Effort normal and breath sounds normal. No respiratory distress. Abdominal: Soft. Bowel sounds are normal. Musculoskeletal: Normal range of motion. He exhibits no edema, tenderness or deformity. Neurological: He is alert and oriented to person, place, and time. Additional Data - Labs/ Radiology/ etc. I have independently reviewed the patient's labs, radiological imaging, and medical tests below: Recent Labs 11/03/17 0933 NA 140 K 4.2 CL 102 BICARB 23 BUN 12 CREATININE 0.67* GLUCOSE 109* Recent Labs 11/03/17 0933 WBC 13.89* HGB 14.9 HCT 43.8 PLT 258 Lab Results Component Value Date ALT 11 11/03/2017 AST 15 11/03/2017 ALKPHOS 73 11/03/2017 BILITOT 0.5 11/03/2017 ALBUMIN 4.3 11/03/2017 Recent Labs 11/03/17 0934 INR 1.1 No results found for: HGBA1C No orders to display Patient Home Medications I have independently reviewed and reconciled the patient's medications below: Marco Sung Home Medication Instructions Prior to Surgery TIFFANIE:[id number] Printed on:11/03/17 0601 Medication Information Take last dose on Take the morning of surgery Comment(s) celecoxib (CELEBREX) 200 MG capsule Take 200 mg by mouth daily. cephALEXin (KEFLEX) 500 MG capsule Take 500 mg by mouth. As needed prior to surgical procedures HYDROcodone-acetaminophen (NORCO) 5-325 mg per tablet Take 1 tablet by mouth 3 (three) times a day. metoprolol succinate (TOPROL-XL) 100 MG 24 hr tablet Take 100 mg by mouth daily. Associated attestation - Luis Acuña MD - 11/04/2017 9:20 AM EDT I have personally interviewed and examined the patient. I have reviewed all of the pertinent clinical, radiologic, and laboratory findings. I agree with the findings, assessment, and plan as outlined by the resident, with the following additional comments: 67 y.o. male who has a past medical history of Arthritis and Hypertension. The patient presents as a transfer from outside hospital s/p CATH and IABP due to identified mod/severe and Unstable Anginal with multivessel disease - transferred for CABG/SAVR eval. Unstable Angina, severe complex LMCA, ostial LAD/LCx stenosis, 90% mid RCA stenosis. IABP out yesterday. Plan for CABG/AVR tomorrow. Chest pain free. Moderate , will do SAVR at same time tomorrow.in this encounter Cielo Gonzalez CNP - 11/03/2017 6:15 PM EDT Procedure Notes (unrecognize d section and content) Procedure(s): IABP REMOVAL Stable hemodynamics with IABP 1:[address] Mcintosh and proceed with removal Coags: INR 1.1 Plts 258, Transfused with 1 adult pack (5units) prior to removal for plts < 100K IABP removed intact with no complication Manual pressure held for 5 min with good hemostasis; no hematoma noted Bedside nurse resumed manual pressure Distal pulses present in this encounter Shana Gracía RN - 11/07/2017 2:48 PM Saskia Berger OT - 11/06/2017 3:12 PM Thiago Cuba MD - 11/03/2017 2:12 PM ALYSIATAlina Benoit MD - 11/03/2017 1:23 PM EDT Consult Notes (unrecognized section and content) Associated Order(s): IP CONSULT TO CARDIAC REHAB Cardiac rehab teaching completed. See education for details. Will continue to follow up with patient and family to address any additional educational needs or concerns in regards to post-op and home care. Formatting of this note may be different from the original. Occupational Therapy OCCUPATIONAL THERAPY EVALUATION NOTE Skilled Therapy Needs After Discharge Anticipate Resolution of Current Assessment Limitations Including: Pain, Mechanical Barriers Are Skilled Therapy Services Needed After Discharge: No DME Recommendation: (continue to assess) Rehab Potential: Good, For goals Outcomes Measures Prior Function Daily Activity: Raw Score: 24 Prior Function Daily Activity % Impaired: 0% functionally impaired AM-PAC Daily Activity: Raw Score: 14 AM-PAC Daily Activity % Impaired: 59.67% functionally impaired Occupational Therapy Assessment The patient presents with musculoskeletal and cardiopulmonary impairment(s) in generalized debility which create performance deficits including balance, activity tolerance, respiratory capacity and pain, insight and safety re: new sternal precautions. These performance impairments limit participation in grooming, UE dressing, LE dressing, bathing, toileting, medication management and functional mobility in the chosen occupational roles of premorbid level individual. The patient's co morbidities do affect patient performance in the above activities and roles. 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 The patient's awareness of own capacity and performance is a animal bounty hunter to return to prior level of function. During the assessment, minimal to moderate modification of task was required and several treatment options were identified in the plan of care. This consultation required expanded review of the medical and therapy history. Activity Tolerance Activity Tolerance: Tolerates less than 10 min activity, no significant change in vital signs (pt reoports increase dizziness) Therapy Precautions Orthotic Devices: (P) No Weight Bearing Status: (P) WFL General Rehab Precautions: (P) Fall risk, Sternal (CT x 2, external pacemaker) Cognition Overall Cognitive Status: Within Functional Limits Arousal/Alertness: Appropriate responses to stimuli Orientation Level: Oriented X4 Executive functioning: Min impairment, Insight (re: new sternal precautions) Safety Judgment: Decreased awareness of need for safety Problem Solving: Assistance required to identify errors made Attention: Attends to quiet environment, Attends to distracted environment Hearing Status: WFL Social Interaction: Cooperative, Appropriate Comments: Pt able to follow 1-2 step commands without difficulty. Skilled Intervention: Education provided on sternal precautions with hand out provided. ADL/IADL LE Dressing: Max Toileting : Dependent (catherine) Bed Mobility Skilled Intervention: Not observed- completed bed mobility from bed in chair position. Verbal education provided on log roll technique Functional Transfers Sit to Stand: Min Bed to Chair Transfers: Min Skilled Intervention: Facilitated functional STS transfer from bed level with verbal cues provided for anterior weight shift and hand placement. Pt tolerates bed>chair mobility ~7ft with Breanne provided d/t mild balance impairments; cues required for upright posture. Mobility limited this date d/t increase dizziness with cues for pursed lip breathing. 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 Comments: (P) +drives, +manages meds Past Medical History: Diagnosis Date Arthritis Hypertension Past Surgical History: Procedure Laterality Date CABG AVR N/A 11/05/2017 Procedure: CORONARY ARTERY BYPASS GRAFTS TIMES FOUR WITH AORTIC VALVE REPLACEMENT, ENDOSCOPIC VEIN HARVEST, TRANSESOPHAGEAL ECHOCARDIOGRAM; Surgeon: Thiago Mcintosh MD; Location: [facility] OR; Service: Cardiothoracic For complete objective data, detailed plan of care and patient education refer to: OT EVALUATION flow sheet, OT TREATMENT flow sheet, patient Plan of Care, Plan of Care progress note, and Patient Education. This note stands as the current Discharge Summary upon patient discharge from the hospital or completion of Occupational Therapy Plan of Care. Associated Order(s): IP CONSULT TO CARDIOTHORACIC SURGERY Formatting of this note may be different from the original. CARDIOTHORACIC CONSULT NOTE Patient Name: Marco Sung Admit Date: [id number] MR #: [id number] : 1950 Physicians: Letha Rebollar MD (Family); No ref. provider found (Referring) Chief Complaint/Reason for Visit: Unstable angina History of Present Illness: Marco Sung is a 67 y.o. y/o male presenting from home with c/o chest discomfort. This has been present for approximately 6 months. It seems to have been getting worse. He recently went on a 500 mile hike through [facility] and was experiencing chest pressure and dyspnea on exertion while walking up hills and strenuous activity. He felt this was bronchitis and was medicating himself with [id number] remedies. However, this did not resolve his symptoms. He denies angina at rest. He denies chest pain currently. He denies paroxysmal nocturnal dyspnea or orthopnea. He saw his primary care physician who ordered a stress test, which was abnormal, which led to a left heart catheterization. Left heart catheterization revealed a high-grade distal left main, proximal LAD and right coronary artery high-grade stenosis, which necessitated placing intraaortic balloon pump and subsequent referral for open- heart surgery. A family friend is Dr. Osmel Lara, who requested he come to [facility] for definitive care. He is currently without complaints. He denies chest pain, amaurosis fugax, lower extremity claudication. He is a former smoker many years ago. Not for at least 20 or 30 years. He denies previous heart surgery, previous heart attack, previous coronary stents. He denies CVA. He denies lower extremity claudication. Echo was performed which shows a preserved ejection fraction and moderate to severe aortic stenosis. History: Past Medical History: Diagnosis Date Arthritis Hypertension History reviewed. No pertinent surgical history. 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 Patient has no known allergies. Home Medications: Outpatient Prescriptions as of 11/03/2017 Medication Sig celecoxib (CELEBREX) 200 MG capsule Take 200 mg by mouth daily. cephALEXin (KEFLEX) 500 MG capsule Take 500 mg by mouth. As needed prior to surgical procedures HYDROcodone-acetaminophen (NORCO) 5-325 mg per tablet Take 1 tablet by mouth 3 (three) times a day. metoprolol succinate (TOPROL-XL) 100 MG 24 hr tablet Take 100 mg by mouth daily. Review of Systems: The following system(s) were reviewed and pertinent findings noted: Constitutional:No fever, no weight loss Eyes:No diplopia ENT:No sinus drainage CV:No chest pain. Resp:denies copd/asthma/+ AGUILERA GI:No abdominal pain.No abdominal distention denies melana :No dysuria Neuro:denies sx cva or tia Integumentary:No skin rash MuscSkel:No arthralgias Endo:denies sx dm Heme/lymphatic:No apparent lymphadenopathy Psych:No unusual mood swings Physical Examination: Vital Signs: BP (!) 153/81 Pulse 73 Temp 98.2 ?F (36.8 ?C) (Oral) Resp (!) 7 Ht 6' 1 Wt 102.6 kg (226 lb 3.1 oz) SpO2 97% BMI 29.84 kg/m General: Alert, cooperative, no distress, appears stated age Head: Normocephalic, without obvious abnormality, atraumatic Eyes: PERRL, conjunctiva/corneas clear, EOM's intact Throat: Lips, mucosa, and tongue normal; teeth and gums normal Neck: Supple, symmetrical, trachea midline, no adenopathy; thyroid: no enlargement/tenderness/nodules; no carotid bruit or JVD Lungs: Clear to auscultation bilaterally, no wheeze or rhonchi no accessory muscles used Chest Wall: No tenderness or deformity Cardiovascular: Regular rate and rhythm, 3/6 HUSAM RSB radiating to carotids, no rub or gallop; Pulses 2+ and symmetric all extremities Abdomen: Soft, non-tender, bowel sounds active all four quadrants,no masses, no organomegaly Extremities: Normal, atraumatic, no cyanosis , no clubbing Skin: Skin color, texture, turgor normal, no rashes or lesions Musculoskeletal: Full range of motion of all extremities; no joint edema Neurologic: Awake and alert, IRASEMA x 4 equal, no focal deficeits Psych: Mood and affect appropriate Laboratory and Additional Data Reviewed: Laboratory 11/03/17 2:12 PM Microbiology 11/03/17 2:12 PM Pathology 11/03/17 2:12 PM Radiology 11/03/17 2:12 PM Cardiology 11/03/17 2:12 PM Medications 11/03/17 2:12 PM Transcriptions 11/03/17 2:12 PM Assessment and Plan: Marco Sung is a 67-year-old, gentleman with unstable angina, and moderate to severe 3-vessel coronary artery disease, and moderate to severe aortic stenosis. He was referred for aortic valve replacement and coronary artery bypass grafting. He is currently chest pain free. He is currently on a heparin drip; however, he is not on nitroglycerin. His hemodynamics have been stable. I do believe it would be reasonable to remove his intra-aortic balloon pump if this can be weaned without significant chest pain. We will obtain a carotid duplex and vein mapping here, and will plan for aortic valve repair and coronary artery bypass grafting on 11/05/2017. We will continue medical management of his hypertension and other comorbidities. Associated Order(s): IP CONSULT TO CHIEF DEPUTY COURT CLERK Formatting of this note may be different from the original. Critical Care Consult Note Impression and Recommendations Marco Sung is a 67 y.o. male with: 1. Unstable angina - s/p LHC at OSH with mulitvessel disease (LD, circ, OM and RCA) - IABP placed at OSH - cont IABP and heparin infusion - Cardiology managing and CTS consulted to eval for possible CABG 2. Aortic stenosis - echo at OSH with peak gradient of 34 - has preserved LVEF - CTS consulted 3. Chronic pain - hold home NSAIDs - cont prn norco 4. F/E/N:npo 5. Prophylaxis: DVT with heparin infusion for IABP and SCDs. 6. Critical care mobility: limited by IABP 7. Goals of Care: Full 8. Lines/tubes: 1. Right femoral IABP Reason for Consultation: severe , IABP , multivessel CAD pending CABG History of Presenting Illness: Marco Sung is a 67 y.o. male who presented to [facility] for evaluation of severe , IABP , multivessel CAD pending CABG. He states he was undergoing evaluation for his 6-12 month history of intermittent chest pain and shortness of breath typically with exertion. He had a stress test which was abnormal followed by a [facility] which showed 85% stenosis in left main, Ostial LAD 70% stenosis, ostial circ 60% stenosis, mid circ 60% stenosis, OM1 mid to 70% stenosis, prox RCA 70%. An IABP was placed and he was transferred for further evaluation. Upon arrival he denies any shortness of breath or chest pain Review of Systems: [x] All other systems were reviewed and negative except for those as specified in History of Present illness. [] Unable to obtain history or ROS secondary to clinical circumstances Past Medical, Surgical, Family, and Social History: Past Medical History: Diagnosis Date Arthritis Hypertension No past surgical history on file. 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 Home meds restarted as medically indicated and noted in assessment and plan. Exam: Vital Signs: Temp: [98.2 ?F (36.8 ?C)] 98.2 ?F (36.8 ?C) Heart Rate: [68-83] 73 Resp: [7-25] 7 BP: (141-156)/(59-93) 153/81 Intake/Output Summary (Last 24 hours) at 11/03/17 1323 Last data filed at 11/03/17 0857 Gross per 24 hour Intake 0 ml Output 225 ml Net -225 ml RASS: 0 (goal RASS -1 to +1) [facility]: - General appearance: alert, no distress, appears younger than stated age Head: NC Mouth: mucous membranes moist, pharynx normal without lesions Eyes/Pupils: sclera anicteric Neck: supple, no significant adenopathy Chest: clear to auscultation, no wheezes, rales or rhonchi, symmetric air entry CV: normal rate and regular rhythm Abdomen: soft, non-tender, without masses or organomegaly Extremities: no pedal edema noted, IABP in right fem Skin: normal coloration and turgor, no rashes, no suspicious skin lesions noted Neurological:alert, oriented, normal speech, no focal findings or movement disorder noted Data [x] Medications reviewed: pertinent positives mentioned in HPI, assessment and plan. [x] Labs reviewed: pertinent positives mentioned in HPI, assessment and plan.. [x] Radiology reviewed: pertinent positives mentioned in HPI, assessment and plan.. [] Pathology reviewed: pertinent positives mentioned in HPI, assessment and plan.. Cr 0.67 Alina Benoit MD, MSc Pulmonary and Critical Care [facility] [phone] (cell) scallop cutter machine phone (5p-8a and on weekends): [phone] ([phone] ICUS) Formatting of this note may be different from the original. Pulmonary and Critical Care Consult Note Impression and Recommendations Marco Sung is a 67 y.o. male with: Unstable Angina: Extensive multivessel CAD noted on [facility]. Continue IABP and heparin gtt. CT surgery consulted for CABG evaluation. Aortic Stenosis: Noted to be severe with peak gradient 34 per [facility] TTE. CT surgery consulted for AVR evaluation. D/W Dr. Sara Olvera PA-C [facility] [phone] Reason for Consultation: CAD Aortic Stenosis History of Presenting Illness: Marco Sung is a 67 y.o. male with a past medical history that includes CAD, HTN. He presented to [facility] on 11/03/2017 as a a transfer from [facility] with severe CAD for CABG w/u. Patient initially presented to his PCP with exertional chest pain in September. He was referred to a living nurse and was undergoing outpatient work-up. [facility] with extensive multi-vessel disease and JONY with severe aortic stenosis. He was transferred to [facility] for CT surgery evaluation. Review of Systems: [x] All other systems were reviewed and negative except for those as specified in History of Present illness. [] Unable to obtain history or ROS secondary to clinical circumstances Past Medical, Surgical, Family, and Social History: Past Medical History: Diagnosis Date Arthritis Hypertension No past surgical history on file. 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 Social History Main Topics Smoking status: Never Smoker Smokeless tobacco: Not on file Alcohol use 0.0 oz/week Comment: 2-3 drinks per week Drug use: Unknown Sexual activity: Not on file Other Topics Concern Not on file Social History Narrative No narrative on file Allergies and Medications: Allergies: No Known Allergies Current meds: senna-docusate 1 tablet Oral BID sodium chloride (PF) 5 mL Intravenous Q8H [place] Data: Laboratory Data: [x] Pertinent lab data reviewed Radiology: [x] Pertinent lab data reviewed No results for input(s): PHART, LQH4SYY, PO2ART, X0JRLPYH, RESPRATE, TIDALVOL, PEEP, Z9ININMV in the last 72 hours. Recent Labs 11/03/17 0933 WBC 13.89* HGB 14.9 PLT 258 Recent Labs 11/03/17 0933 NA 140 K 4.2 CL 102 BICARB 23 BUN 12 CREATININE 0.67* GLUCOSE 109* PHOS 2.7 MG 1.9 TITO 5.3 CALCIUM 9.1 BILITOT 0.5 ALKPHOS 73 ALT 11 AST 15 PROT 7.1 ALBUMIN 4.3 Recent Labs 11/03/17 0934 INR 1.1 PTT 42* Physical Exam: Vital Signs: Temp: [98.2 ?F (36.8 ?C)] 98.2 ?F (36.8 ?C) Heart Rate: [68-83] 83 Resp: [13-25] 25 BP: (141-156)/(59-93) 156/75 Intake/Output Summary (Last 24 hours) at 11/03/17 1301 Last data filed at 11/03/17 0857 Gross per 24 hour Intake 0 ml Output 225 ml Net -225 ml GENERAL: Comfortable, Appears stated age EYES: Normal sclera. PERRL HEENT: Head: Normocephalic. Atraumatic Hearing: grossly WNL. NECK: Supple, no LAD or thyromegaly. RESP: Easy respirations. Mostly CTA bilaterally. CARDIO: RRR. Systolic murmur. No edema ABD: Soft. NT. ND. +BS MS: No clubbing or cyanosis SKIN: Warm & dry NEURO: A/ox3. MAETC. LINES: Right femoral IABP Associated attestation - Alina Benoit MD - 11/04/2017 7:40 AM EDT Patient examined and discussed with Critical Care team on rounds. Historical data, most recent available chest images, meds, labs, VS, I/O's reviewed at that time. Assessment and plan discussed. Please see my note. Alina Benoit MD, MSc Pulmonary and Critical Care [facility] [phone] (cell) scallop cutter machine phone (5p-8a and on weekends): [phone] ([phone] ICUS) in this encounter [facility] - Allison Garcia, OT - 11/09/2017 2:54 PM [facility] - Honey Mack BUSINESS CONTINUITY CONSULTANT - 11/08/2017 11:57 AM ED[facility] - Allison Garcia OT - 11/07/2017 4:08 PM EDT Miscellaneous Notes (unrecog nized section and content) OCCUPATIONAL THERAPY VISIT VARIANCE NOTE Attempted to see patient at this time, but unable secondary to: OT Visit [facility]: Patient Unavailable (with PT). Will follow up as appropriate. PHYSICAL THERAPY VISIT VARIANCE NOTE Attempted to see patient at this time, but unable secondary to: PT Visit [facility]: Refused (2 AM attempts; pt finishing with OT and cleaning up w/ PSA). Will follow up as appropriate. OCCUPATIONAL THERAPY VISIT VARIANCE NOTE Attempted to see patient at this time, but unable secondary to: OT Visit Variance: Refused (politely requests to hold d/t pain and spasms at chest tube site ). Will follow up as appropriate. Formatting of this note may be different from the original. Anesthesia Post-op Follow-up Note 1 Day Post-Op Procedure(s): CORONARY ARTERY BYPASS GRAFTS TIMES FOUR WITH AORTIC VALVE REPLACEMENT, ENDOSCOPIC VEIN HARVEST, TRANSESOPHAGEAL ECHOCARDIOGRAM Introducer 11/05/17 Right Internal jugular PA Cath (Active) Reassessment Unchd 11/06/2017 8:00 AM Specific Qualities PA Catheter in place 11/06/2017 8:00 AM Site Assessment Clean;Dry;Intact 11/06/2017 8:00 AM Sideport Introducer Lumen Status Infusing 11/06/2017 8:00 AM RV/[place]ort Lumen Status Infusing 11/06/2017 8:00 AM CVP/RA Lumen Status Infusing 11/06/2017 8:00 AM PA Catheter (cm) 45 cm 11/06/2017 8:00 AM CVP Waveform Appropriate waveforms 11/06/2017 8:00 AM Pressurized Line Care Zeroed and calibrated;Leveled;Flushes easily;Flushed with saline;Pressure at 300mmHg;Connections checked and tightened 11/06/2017 8:00 AM Dressing Type Transparent 11/06/2017 8:00 AM Dressing Status Clean;Dry;Intact;Occlusive 11/06/2017 8:00 AM Line Necessity Reviewed? Y 11/06/2017 8:00 AM Line Necessity Yes, meets criteria 11/06/2017 8:00 AM Line Necessity Reviewed With dr mcintosh 11/06/2017 8:00 AM Number of days: 1 Arterial Line 11/05/17 Left Radial (Active) Reassessment Unchd X 11/06/2017 8:00 AM Site Assessment Clean;Dry;Intact 11/06/2017 8:00 AM Line Status Blood return noted;Pulsatile blood flow 11/06/2017 8:00 AM Art Line Waveform Positional;Appropriate waveform 11/06/2017 8:00 AM Pressurized Line Care Zeroed and calibrated;Leveled;Flushes easily;Flushed with saline;Pressure at 300mmHg;Line pulled back 11/06/2017 8:00 AM Color/Movement/Sensation Capillary refill less than/ equal to 3 sec 11/06/2017 8:00 AM Dressing Type Transparent 11/06/2017 8:00 AM Dressing Status Dry;Clean;Intact;Transparent;Occlusive 11/06/2017 8:00 AM Number of days: 1 Pacer Wires 11/05/17 (Active) Reassessment Unchd 11/06/2017 8:00 AM Pacer Wire Status Pacing wires not connected to pacer 11/06/2017 8:00 AM Site Assessment Intact;Clean;Dry 11/06/2017 8:00 AM How Pacer Wires are Secured Pacing wires isolated and secured 11/06/2017 8:00 AM Dressing Status Clean;Dry;Intact 11/06/2017 8:00 AM Dressing Intervention Guaze;Tape 11/06/2017 8:00 AM Number of days: 1 Patient participation: patient cannot participate (intubation) - Expected recovery: unknown Temp: [37 ?C (98.6 ?F)] 37 ?C (98.6 ?F) Heart Rate: [59-81] 70 Resp: [6-20] 12 BP: (98-166)/(51-86) 103/61 SpO2: [97 %-100 %] 100 % Associated Problem(s): CAD, multiple vessel 11/05/17 Aortic valve replacement with a 23 mm George Intuity pericardial valve. Coronary artery bypass grafting x4 with a left internal mammary artery to the left anterior descending, saphenous vein graft sequenced to the obtuse marginal 1 and obtuse margin 2, and a saphenous vein graft to the posterior descending artery and endoscopic vein harvest of the left leg POD #5 Cardiac Status: EF 65% Rhythm sinus per monitor, rate in the 70s A/V wires dc'd per protocol without incident, tolerated well by pt - Had post op Afib on amiodarone SBP 120-140s Continue ASA, high intensity statin, BB Neurologic Status: Awake, alert, oriented, NAD No deficits Respiratory Status: FEV1: 96%/ 3.57 liters SpO2 100% on RA - Continue aggressive post-op pulmonary toilet Acute blood loss anemia: Post-operative Hgb 8.6 Plts 209 Chest tubes: - L pleural - 30, 50ml - DC today - monitor Renal function: Cr 0.71 Urine output very good Weight up 3kg - Continue daily Lasix - send home with 1wk lasix - monitor Post operative blood glucose control: A1C 5.5 - post-op aggressive glucose management with SSI - blood glucose well controlled Surgical incision: Sternum stable; incision intact - Encourage sternal precautions Post op pain control: - pain control with narcotics PRN - alternate with Tylenol Discharge planning underway; dc to home today NARx check completed, no scripts noted MARCO SUNG [id number] 1950 DATE 11/05/2017 OPERATIVE REPORT SURGEON THIAGO MCINTOSH MD PRE PRESS PROOFER MISTI ACOSTAC PRE PRESS PROOFER 2 HONEY ORDAZ PA-C PREOPERATIVE DIAGNOSES Coronary artery disease, multivessel; angina pectoris, hypertension, hyperlipidemia, moderate to severe aortic stenosis. POSTOPERATIVE DIAGNOSES Coronary artery disease, multivessel; angina pectoris, hypertension, hyperlipidemia, moderate to severe aortic stenosis. PROCEDURE PERFORMED 1. Aortic valve replacement with a 23 mm George Intuity pericardial valve. 2. Coronary artery bypass grafting x4 with a left internal mammary artery to the left anterior descending, saphenous vein graft sequenced to the obtuse marginal 1 and obtuse margin 2, and a saphenous vein graft to the posterior descending artery. 3. Endoscopic vein harvest of the left leg. No qualified hand frame surgical elastic knitter available to assist. ANESTHESIA General endotracheal anesthesia. ESTIMATED BLOOD LOSS 300 mL. COMPLICATIONS None. FINDINGS Trileaflet calcified aortic valve, 2 mm targets. Good quality REED and good quality vein. TUBES A 40-Japanese mediastinal, 24-Japanese left pleural Julian. WIRES Two atrial and 2 ventricular. HISTORY OF PRESENT ILLNESS Mr. Sung is a 67-year-old active gentleman who has been having worsening shortness of breath and chest tightness. He sought opinion of his physician who ordered a stress test which was markedly abnormal, prompting left heart catheterization. Left heart catheterization was performed which revealed distal left main and high-grade right coronary disease. He had an echo performed which revealed moderate to severe aortic stenosis with an aortic valve area of 1.2 cm2. His ejection fraction was preserved. He was transferred to [facility] for definitive care. He had an intra-aortic balloon pump placed at that point. He had no further evidence of angina; therefore, his balloon pump was removed. His pulmonary function testing revealed a normal FEV1. His carotid duplex revealed 40-59% stenosis of the carotid arteries bilaterally. Vein mapping was adequate. OPERATIVE DETAIL After informed consent was obtained, patient was taken to the operating theater, placed supine on the OR table, induced under general anesthetic, endotracheally intubated. Catherine catheter was placed. Cardiovascular monitoring lines were placed, and patient was positioned, padded, prepped, and draped in the standard fashion for open heart surgery. Time-out was called, identifying the patient we were performing said procedure. All were in agreement, and antibiotics had been given prior to skin incision. Left greater saphenous vein harvest via endoscopic techniques was performed and the vein was prepared as a bypass conduit and the wounds were closed in layers with 2-0 and 3-0 Vicryl. Simultaneous median sternotomy and left internal mammary artery harvest were performed. Heparin was administered. The graft was transected distally and papaverine was instilled. A pericardial well was developed. The distal ascending aorta and the right atrial appendage were cannulated in the usual fashion. Retrograde coronary sinus catheter was placed. The mammary was prepared and found to be an excellent pulsatile conduit. Cardiopulmonary bypass was initiated. The AP window was taken down. Our targets were identified. LV vent was placed. Cardioplegia root vent was placed. A cross-clamp was applied. One liter of cold high K antegrade cardioplegia was given with good diastolic arrest. Distal anastomoses were performed in the following order: End-to-side with vein to the PDA, end-to-side with vein to the OM2, [id number]-[id number]-nabb with vein to the OM1, and end-to-side to the LAD with the REED. The veins were de-aired and sutures were secured and 60 mL of cold high K antegrade cardioplegia was given. A bulldog was placed on the intermediary segment for the sequence graft, and subsequently the mammary was probed with a 1.5 mm coronary probe and found to be patent as well as the LAD. This was allowed to free bleed. The suture was secured, and then the bulldog re-occluded the mammary pedicle. This was tacked down with 6-0 Prolene x2. Antegrade cardioplegia had been re- dosed during this portion of the case, and subsequently retrograde cardioplegia was re-dosed at 20 minute intervals during the aortic portion of the case. We turned our direction to the aortic valve. The aortic valve was exposed through a transverse aortotomy with a hockey stick extension into the noncoronary sinus. The valve was trileaflet. It was calcified at its bases, around the anulus, but still had a reasonable amount of mobility in it. Because the valve area was listed at 1.2, I did not feel this valve should be left in place; therefore, it was resected and the anulus debrided. I sized this to a 23 mm George Intuity valve, placed with 3 meg stitches, loaded the valve onto the stiches, seated this well on the annulus, then deployed the stent to 4.5 atmospheres for 10 seconds. After this was done, the Cor-Knot system was used to secure the meg stitches. Aortotomy sutures had been placed prior to seating the valve, and this was closed in a 2-layer Ronal fashion. Once this was done, Preveleak was applied to the needle holes. Two proximal aortotomies were created with a 4.5 mm aortic punch and vein graft anastomoses were fashioned with 5-0 Prolene. The aorta was then de-aired. Warm retrograde blood cardioplegia was given, and after the heart was adequately de-aired the cross-clamp was removed and plegia was discontinued. The vein grafts were de-aired, the bulldogs were removed, and the bulldog was removed off the mammary pedicle. The patient developed ventricular fibrillation and was defibrillated x1, and then epicardial pacing wires were placed on the surface of the heart and the heart was AV sequentially paced without difficulty. Proximal and distal anastomoses were hemostatic. Our aortotomy was hemostatic and our mammary pedicle was hemostatic. The lungs were ventilated. We were able to wean from cardiopulmonary bypass on the first attempt without difficulty. The LV vent was removed, and an aortic root vent had been placed prior to weaning from bypass, and JONY interrogation revealed no evidence of perivalvular leak with a mean gradient of 6 post separation from cardiopulmonary bypass. The patient was then serially decannulated. Protamine was administered. Hemostasis was obtained. Thymic fat and pericardium were closed over the ascending aorta and grafts. The heavy gauge steel wire was used to reapproximate the sternum. Fascia, subdermal, and skin were closed in the usual fashion. The patient tolerated the procedure well and was taken to open heart recovery in a critical, but stable fashion. I was scrubbed and present for the entire case. MD Miles BALLESTEROS 11/05/2017 19:02 [id number] T 11/06/2017 05:47 JML/MODL Patient self extubated; breathing very shallow, no effective respirations; bagging started; anesthesia called stat. Reintubated with glidoscope by Dr. Swan without complications. 11/05/17 CABGx4; AORTIC VALVE REPLACEMENT POD#0 Cardiac Status: EF 65% Rhythm sinus per monitor ; A/V wires in place Hemodynamics hypotension secondary to hypovolemia- CVP < 10 with PA pressure less than pre-op baseline. Given volume- several liters of crystalloid and several liters of colloid Repeat MVG ~68% Neurologic Status: Post anesthesia, intubated, and sedated- did wake up and move all extremities Respiratory Status: FEV1: 96%/ 3.57 liters CXR reviewed no pneumo, no effusion, lines and tubes appropriate O2 sat >92 on FIO2 40%/PEEP 5 -Vent wean per protocol -Aggressive post- op pulmonary toilet Acute blood loss anemia: Post operative Hgb 8.4 [id number] INR 1.4 Chest tubes MS and left Julian with moderate chest tube output -monitor Renal function: Cr. 0.91 Urine output adeqiate - monitor Post operative blood glucose control: A1C 5.5 -post-op aggressive glucose management with IV insulin Surgical incision: Sternum stable; incision intact -sternal precautions Post op pain control: -pain control with narcotics PRN Continue in CVICU BPCI yes- given prior to surgery Expectation Letter given prior to surgery Formatting of this note may be different from the original. Brief Post Operative Note Patient Name: Marco Sung : 1950 (67 y.o.) Date of Service: 11/03/2017 - 11/05/2017 CSN: [id number] Procedure(s): CORONARY ARTERY BYPASS GRAFTS TIMES FOUR WITH AORTIC VALVE REPLACEMENT, ENDOSCOPIC VEIN HARVEST, TRANSESOPHAGEAL ECHOCARDIOGRAM Pre-Operative Diagnoses: * UNSTABLE ANGINA Post-Operative Diagnoses: * Nonrheumatic aortic valve stenosis [I35.0] * CAD, multiple vessel [I25.10] * Angina pectoris (HCC) [I20.9] Surgeon(s) and Role: * Thiago Mcintosh MD - Primary Anesthesiologist: Maynor Zelaya MD Senior Investment Manager: Abiodun Pinto Physician Senior Product Engineer: Meghan Lopez PA-C; Honey Ordaz PA-C Relief Qa Tech: Radha George RN; Maricruz Whitmore, RUBÉN; Kenia Simon RN Relief Scrub: Kartik Pickens RN Qa Tech Orientee: Luba Ruffin RN Qa Tech Preceptor: Rosanne Mendoza RN Scrub Person Preceptor: Maite Pritchard; Maricruz Whitmore RN Scrub Person Orientee: RUBÉN Calderon RN: Bernadette Sandoval RN Operative findings: trileaflet calcified aortic valve, 2mm LAD, om1,om2, pda, good reed good vein. Mn gradient 6, pk 10mmhg post repair Intra and immediate post-operative complications: none Type of anesthesia used: General Estimated blood loss: 250 mL Estimated urine output: 700 mL Specimen(s): ID Type Source Tests Collected by Time Destination A : Tissue Heart Valve, Aortic TISSUE EXAM Thiago Mcintosh MD 11/05/2017 1655 Implant(s): Implant Name Type Inv. Item Serial No. Experimental Flight Test Mechanic Lot No. LRB No. Used Action KIT MINI DEVICE COR-KNOT - [id number] KIT MINI [employer]ICE [employer]-KNOT [id number] LSI SOLUTI [id number] N/A 1 Implanted GEORGE INTUITY ELITE AORTIC VALVE [id number] GEORGE LI N/A 1 Implanted SYRINGE 4ML PRE-FILLED SEALANT PREVELEAK - [id number] SYRINGE 4ML PRE-FILLED SEALANT PREVELEAK MALLINCKRO [id number] N/A 1 Implanted Drain(s): Chest Tube 2 Anterior;Left Pleural 24 Fr. (Active) Chest Tube Other (Comment) Mediastinal 40 Fr. (Active) Urethral Catheter Latex;Temperature probe 16 Fr. (Active) Wound(s): Incision 11/05/17 Chest (Active) Incision 11/05/17 Groin Left (Active) Incision 11/05/17 Leg Left (Active) Thiago Mcintosh MD 11/05/2017 6:47 PM OCCUPATIONAL THERAPY VISIT VARIANCE NOTE Attempted to see patient at this time, but unable secondary to: OT Visit Variance: Awaiting Medical Clearance (CABG scheduled today). Will follow up as appropriate. PHYSICAL THERAPY VISIT VARIANCE NOTE Attempted to see patient at this time, but unable secondary to: PT Visit Variance: Awaiting Medical Clearance (CABG today). Will follow up as appropriate. PHYSICAL THERAPY VISIT VARIANCE NOTE Attempted to see patient at this time, but unable secondary to: PT Visit Variance: Awaiting Medical Clearance (Plan for CABG 11/05). Will follow up as appropriate. OCCUPATIONAL THERAPY VISIT VARIANCE NOTE Attempted to see patient at this time, but unable secondary to: OT Visit Variance: Awaiting Medical Clearance (pending CABG planned for 11/05). Will follow up as appropriate. -Pt. For CABG/AVR on 11/[address] Mcintosh -EF 65% -On ASA, high intensity statin, metoprolol 25 mg BID -No ACEi -PAT ordered to include: labs, chest xray, MRSA for suspected carrier, milton saphenous vein mapping, carotid dopplers, UA, T&S, -No hx of AFib -Premature family hx: YES, father of [place] age 59, brother had CABG age 58, brother had CABG four weeks ago age 69 -Pre-op teaching completed, all questions answered -Consent obtained, placed in blue folder -BPCI: yes, info given and discussed -setting expectations info given and discussed -caregiver, Tootie -primary living nurse/cathing living nurse Dr. Dion Peng, [facility] -STS for CABG/AVR: 2.708%/24.085% for age, sex, EF, Cr, HTN, CAD, , trivial MR, trivial TV, urgent status, IABP Problem: Actual or potential alteration in health Goal: Knowledge of Interdisciplinary Plan of Care Outcome: Partially Met Notified of plan for CABG + AVR 11/05/2017 CCM Attending I saw and discussed the patient with the housestaff/APPs. Full note to follow. Notified of patient on floor at 0818 Examined patient at 0837 Alina Benoit MD, MSc Pulmonary and Critical Care [facility] [phone] (cell) scallop cutter machine phone (5p-8a and on weekends): [phone] ([phone] ICUS) [facility] Night Physician [phone] Patient transported to [place] [facility] by Medic: medflight as a direct admit. Receiving unit notified of patient's arrival. Patient's vital signs BP 145/70, HR 80, RR 20, Pulse Ox 94% on room air . Patient has a chief complaint of needs CABG. Patient Does have IV access. Patient was on surveillance system monitor prior to arrival. Patient transported to room 5107 in stable condition. Pt is CP free upon arrival to [facility] and has hep gtt infusing BUSINESS CONTINUITY CONSULTANT. Pt also on a balloon pumpin this encounter Spoke to [facility]- transport there now. Spoke to [facility] [place]. [facility] will be transporting the pt. ETA to [place] is 4 am. Report from [facility] [place], [facility] ICU. PMH CAD, non-rheumatic aortic stenosis, HTN, obesity, arthritis. Symptoms of shortness of breath & exertional chest tightness. Had outpatient stress test which did not pass. Heart cath done today, significant blockage, EF 65%, has balloon pump. Was supposed to go to [facility] on Sunday to have CABG done but family lives in [place] so plan is to transfer to [facility]. Heart sounds murmur, lung sounds clear, abd soft, non-tender, non-distended & is passing gas but no bm today. A&o x3. Balloon pump is 1:1 & stable. Has chronic back & shoulder pain & states pt is tired of lying flat. VS: 156/67, p 66, p 14, temp 99.2, 96-97% room air Ht & wt: 6'0 & 104.6 kg Isolation: none Full code NKDA IV: 20 ga right arm & 22 ga left hand Meds: heparin gtt 1000 units/hr, 0.9 NS kvo at 15 mL/hr Monitor: NSR Labs WBC 9.6 H&H 14.7 & 44.2 Plt 233 Initial PTT 36.0 Repeat PTT 37.5 PT/INR- not ordered Na 139 K 4.3 Cl 106 CO2 27.0 BUN & cr 14 & 0.93 Glucose 80 Ca 9.2 Mag ordered for in the am Call from Dr. Sebastian Rollins, [facility] Cardiology. States wants to have pt transferred from [facility], inpatient ICU [phone], to [facility] CCU bed & consult surgery. Dx: aortic stenosis & CAD. Has balloon pump but is stable. [facility] Dr. Shelley is aware of the transfer. in this encounter FOR RECORDS PERTAINING TO PATIENTS WHO ARE OR HAVE BEEN ENROLLED IN A CHEMICAL DEPENDENCY/SUBSTANCEABUSE PROGRAM, SOME INFORMATION MAY BE OMITTED. This clinical summary was aggregated from multiple sources. Caution should be exercised in using it in the provision of clinical care. This summary normalizes information from multiple sources, and as a consequence, information in this document may materially change the coding, format and clinical context of patient data. In addition, data may be omitted in some cases. CLINICAL DECISIONS SHOULD BE BASED ON THE PRIMARY CLINICAL RECORDS. [employer] provides no warranty or guarantee of the accuracy or completeness of information in this document.
[2023-06-15 09:55] LABS: AST(SGOT) 16 U/L (15-37); Alanine Aminotransfer ALT/SGPT 27 U/L (16-61); Alkaline Phosphatase 91 U/L (45-117); Bilirubin, Direct 0.14 mg/dL (0.00-0.30); Cholesterol 124 mg/dL (200); Globulin 3.8 g/dL (2.2-4.2); High Density Lipoprotein 48 mg/dL; Protein, Total 7.8 g/dL (6.4-8.2); Triglycerides 101 mg/dL; Very Low Density Lipoprotein 20 mg/dL (5-40)
== END | disposition home or self-care (01) ==
LOC: LAB 07:48
PROVIDERS: PCP Family Medicine; Referring Provider Nurse Practitioner Family; Visit Provider Nurse Practitioner Family
DX: I25.10 Atherosclerotic heart disease of native coronary artery without angina pectoris (principal); E78.5 Hyperlipidemia, unspecified
CPT/HCPCS: 36415; 80061; 80076

== ENCOUNTER → 2023-07-04 | Outpatient (CLI) | payer MEDICARE, OTHER, SELFPAY ==
--- NOTE | 2023-07-04 07:00 | CDU_ITS ---
Reason For Study: Stenosis Rt. Velocities/BP Lt. Velocities/BP Prox CCA 64.4/11.7 cm/sec. Prox CCA 78.7/16.0 cm/sec. Mid CCA 95.2/22.6 cm/sec. Mid CCA 62.2/16.0 cm/sec. Dist CCA 106.2/21.5 cm/sec. Dist CCA 43.5/14.9 cm/sec. Prox ICA 155.0/27.7 cm/sec. Prox ICA 179.7/44.0 cm/sec. Mid ICA 111.1/25.5 cm/sec. Mid ICA 115.5/29.9 cm/sec. Dist ICA 77.6/19.3 cm/sec. Dist ICA 100.1/23.3 cm/sec. Rt. ICA/CCA = 1.6. Lt. ICA/CCA = 2.9. Prox ECA 150.6/14.5 cm/sec. Prox ECA 157.1/37.8 cm/sec. Rt. Vert. 39.1/11.7 cm/sec. Lt. Vert. 69.5/17.9 cm/sec. Right Extracranial There is heterogeneous, irregular atherosclerotic plaque noted in the right common carotid artery. There is heterogeneous, irregular atherosclerotic plaque noted in the right internal carotid artery. There is heterogeneous, irregular atherosclerotic plaque noted in the right external carotid artery. Antegrade flow is noted in the right vertebral artery. Left Extracranial There is heterogeneous, irregular atherosclerotic plaque noted in the left common carotid artery. There is heterogeneous, irregular atherosclerotic plaque noted in the left internal carotid artery. There is heterogeneous, irregular atherosclerotic plaque noted in the left external carotid artery. Antegrade flow is noted in the left vertebral artery. Procedure Carotid Duplex 51144. This is a Carotid Duplex examination using B-mode, color flow and specral Doppler. The exam was diagnostic. Definity administered to patient during prior exam. Exam performed in department. VL/Carotid Duplex Ultrasound Interpretation Summary Irregular calcific plaque with shadowing at the proximal right internal carotid artery with 50 to 69% stenosis Less than 50% stenosis right external carotid artery Irregular calcific plaque at the proximal left internal carotid artery with 50 to 69% stenosis Less than 50% stenosis left external carotid artery Patent and antegrade vertebral arteries bilaterally Findings appear similar to previous examination of July 11, 2022 although a t that time there was felt to be greater than 50% stenosis of the left external carotid artery. Ordering Physician: Greg Blackman Referring Physician: Do Shaw Performed By: Tamir Marquez Juno
--- NOTE | 2023-07-04 07:00 | ECHOD_ITS ---
Reason For Study: CAD, AVR Procedure This was a 2D Doppler, Color Flow transthoracic echocardiogram. The study was technically difficult. Exam performed in department. Left Ventricle Normal LV size. Mild concentric left ventricular hypertrophy. The estimated ejection fraction is 65 %. No regional wall motion abnormalities noted. Right Ventricle Normal RV size. Normal systolic function. Aortic Valve Peak aortic valve gradient 23 mmHg. Mean aortic valve gradient 12 mmHg. Mild aortic stenosis. Bioprosthetic aortic valve. Pulmonic Valve Normal pulmonic valve. Great Vessels Normal aortic root. The pulmonary artery is normal size. Normal inferior vena cava. Pericardium/Pleural No pericardial effusion. Medication 22 gauge I.V. with prn adaptor inserted into right arm. Diluted definity 1ml given slow IV push to enhance endocardial definition. MMode/2D Measurements & Calculations LVIDd: 4.3 cm IVSd: 1.3 cm LVOT diam: 2.0 cm LVIDs: 2.4 cm LVPWd: 1.2 cm LVOT area: 3.1 cm2 RVDd: 3.9 cm FS: 44.4 % Ao root diam: 3.7 cm LAV(MOD-bp): 55.8 ml LVAd ap4: 31.7 cm2 LAV(MOD-bp) Indexed: 24.7 ml/m2 LVLd ap4: 8.7 cm LAV(MOD-sp2): 60.0 ml EDV(MOD-sp4): 92.1 ml LAV(MOD-sp4): 51.9 ml EDV(sp4-el): 98.3 ml LVAs ap4: 16.9 cm2 LVLs ap4: 7.5 cm ESV(MOD-sp4): 33.3 ml ESV(sp4-el): 32.6 ml EF(MOD-sp4): 63.8 % EF(sp4-el): 66.9 % SV(MOD-sp4): 58.8 ml SV(MOD-sp2): 63.3 ml LVAd ap2: 30.5 cm2 LVLd ap2: 8.6 cm EDV(MOD-sp2): 92.7 ml EDV(sp2-el): 91.9 ml LVAs ap2: 15.2 cm2 LVLs ap2: 6.6 cm ESV(MOD-sp2): 29.4 ml ESV(sp2-el): 29.8 ml EF(MOD-sp2): 68.3 % SV(sp4-el): 65.7 ml LA A4 area: 18.8 cm2 LA dimension(2D): 4.5 cm TAPSE: 1.5 cm RA A4 area: 15.5 cm2 Time Measurements MV dec time: 0.21 sec Doppler Measurements & Calculations MV E max wilbur: 87.5 cm/sec Lat Peak E' Wilbur: 10.2 cm/sec Med Peak E' Wilbur: 5.3 cm/sec MV A max wilbur: 66.2 cm/sec E/E' lat: 8.6 E/E' med: 16.5 MV E/A: 1.3 MV dec slope: 409.9 cm/sec2 Ao V2 max: 239.5 cm/sec LV V1 max: 123.9 cm/sec Ao max P.0 mmHg LV V1 max P.1 mmHg Ao V2 mean: 164.1 cm/sec LV V1 mean P.3 mmHg Ao mean P.0 mmHg LV V1 mean: 84.6 cm/sec Ao V2 VTI: 58.1 cm LV V1 VTI: 31.6 cm AV (velocity ratio): 0.54 HEATHER(I,D): 1.7 cm2 HEATHER(V,D): 1.6 cm2 SV(LVOT): 96.5 ml PA V2 max: 94.5 cm/sec ECHO/Echo Complete W/ Contrast Interpretation Summary Normal LV size. Mild concentric left ventricular hypertrophy. The estimated ejection fraction is 65 %. Bioprosthetic aortic valve. Mean aortic valve gradient 12 mmHg. Ordering Physician: Syed Rubio Referring Physician: Do Shaw Performed By: Darlyn Saeed RDCS
--- OUTSIDE RECORDS SUMMARY | 2023-07-04 07:03 | XMS RPT_ITS | CCD ---
Author Name Unknown Address [address] [facility] [address] [place] [address] Organization [facility] Care Team Providers Care Business Process Expert Name Role Phone Gwyn Sorensen Unavailable Unavailable Letha Rebollar Unavailable Unavailable Gwyn Sorensen Unavailable Unavailable Letha Rebollar Unavailable Unavailable GANDHI, POWER X Unavailable Unavailable OKSANA POWER X Unavailable Unavailable IMCA Unavailable Unavailable Letha Rebollar Unavailable GIOVANNY ALICEA Unavailable Unavail able ALINA BENOIT Unavailable Unavailable MCINTOSH, THIAGO CAMACHO Unavailable Unavaila ble MCINTOSH, THIAGO CAMACHO Unavailable Unavaila ble MCINTOSH, THIAGO CAMACHO Unavailable Unavaila ble PINEDA, KASEY Unavailable Unavailable DION MCKEON Unavailable Unavailable Giovanny Alicea Unavailable RAMSES RAMIREZ Unavailable Unavailable RAMSES RAMIREZ Unavailable [...] Propensity to adverse reactions to drug (disorder) [facility] Repository Medications Current Medications Medication [...] disease (3 sources) Atherosclerotic heart disease of augustine coronary artery without angina pectoris; Translations: [Multi [...] 09:50-0400 BMI (Body Mass Index) 28.76 kg/m2 [facility] 12-13-2017 09:50-0400 BP Diastolic 86 mm[Hg] [facility] 12-13-2017 09:50-0400 BP Systolic 155 mm[Hg] [facility] 12-13-2017 09:50-0400 Height 185.4 cm [facility] 12-13-2017 09:50-0400 Pulse (Heart Rate) 60 /min [facility] 12-13-2017 09:50-0400 Pulse Oximetry 98 % [facility] 12-13-2017 09:50-0400 Weight 98.88 kg [facility] 11-10-2017 13:35-0400 BP Diastolic 70 mm[Hg] Luis Shelley [facility] 11-10-2017 13:35-0400 BP Systolic 119 mm[Hg] [facility] 11-10-2017 13:35-0400 Pulse (Heart Rate) 71 /min Luis Shelley [facility] 11-10-2017 13:35-0400 Pulse Oximetry 96 % Luis Shelley [facility] 11-10-2017 13:35-0400 Respiratory Rate 17 /min Luisannabel Shelley [facility] 11-10-2017 11:10-0400 Body Temperature 98.6 [degF] Luis Shelley [facility] 11-09-2017 22:10-0400 BMI (Body Mass Index) 30.8 kg/m2 Luis Shelley [facility] 11-09-2017 22:10-0400 Weight 105.9 kg Luis Shelley [facility] 11-05-2017 10:47-0400 Height 185.4 cm Luis Barth [facility] Encounters Encounter Date Encounter Type Care Provider Facility Start: 07-08-2020 End: 07-08-2020 Orders Only Chelsea Carlos Lucas Work Phone: [facility] Start: 12-13-2017 End: 12-13-2017 Patient encounter DARBY MIMS [facility] Start: 12-13-2017 End: 12-13-2017 Postop follow up visit related to original px Darby Mims Work Phone: [facility] Start: 11-21-2017 End: 11-21-2017 Patient encounter RAMSES RAMIREZ [facility] Start: 11-03-2017 End: 11-10-2017 Evaluation and management of inpatient GIOVANNYDEREK MCCARTHY NIXON [facility] Start: 11-03-2017 End: 11-10-2017 Evaluation and management of inpatient AlbaroIban Barth Work Phone: [facility] Start: 11-02-2017 End: 11-02-2017 Patient encounter Giovanny Alicea [facility] Start: 11-02-2017 Evaluation and management of inpatient POWER X GANDHI Facility:[facility] Start: 09-13-2017 Ambulatory Gwyn Sorensen Facility: [facility] Procedures Date Procedure Procedure Detail Performing Clinician [...] Influenza vaccination given Sequential Influenza Vaccine (#1) [facility] Start: 01-23-2018 Pneumococcal vaccination Pneumococcal Vaccine Age 65+ (2 of 2 - PPSV23) [facility] Start: 01-12-2018 Influenza vaccination [facility] Start: 12-13-2017 End: 12-13-2017 Ambulatory 12/13/2017 Follow-Up Cardiothoracic Surgery [facility] Start: 11-22-2017 End: 11-22-2017 Ambulatory 11/22/2017 Follow-Up Cardiothoracic Surgery Damari Bassett, VEGETABLE TRIMMER [address] [facility] [address] [place] [address] [phone] [facility] Start: 01-13-2016 CLASS III : OFFICE VISIT CLASS III : OFFICE VISIT [facility] Start: 08-21-2015 Pneumococcal vaccination PNEUMOCOCCAL VACCINE AGE 65+ (1 of 2 - PCV13) [facility] Start: 03-20-2013 Administration of herpes zoster vaccine Zoster Vaccines (2 of 3) [facility] Start: 2010 Zoster vaccine hzv live for subcutaneous use ZOSTER VACCINE [facility] Start: 2000 Screening for malignant neoplasm of colon [facility] Start: 1968 Hepatitis C antibody, confirmatory test Hepatitis C Screening [facility] Start: 1966 COVID-19 Vaccine (1 of 2) COVID-19 Vaccine (1 of 2) [facility] Start: 1962 Adolescent depression screening assessment Depression Screening (PHQ9) [facility] Start: 1953 History and physical examination, annual for health maintenance Wellness Visit [facility] Start: 1950 Fall risk assessment Falls Risk Assessment [facility] Start: 1950 Prostate specific antigen measurement PSA Level [facility] Start: 1950 CLASS III : ALT CLASS III : ALT [facility] Start: 1950 CLASS III : AST CLASS III : AST [facility] Start: 1950 CLASS III : CXR CLASS III : CXR [facility] Start: 1950 CLASS III : EKG CLASS III : EKG [facility] Start: 1950 CLASS III : PFT CLASS III : PFT [facility] Start: 1950 CLASS III : TSH CLASS III : TSH [facility] Start: 1950 HEPATITIS C SCREENING HEPATITIS C SCREENING [facility] Start: 1950 Screening colonoscopy COLONOSCOPY [facility] Start: 1950 End: 1950 Tetanus vaccination [facility] Payers Date Payer Category Payer Medicare 2015 Medicare MEDICARE MEDICAR E PART A & B [id number] 2015-Present [place] [id number] 1995 Worker's Compensation [id number] Medicare [id number] Unknown [id number] Unknown [employer] [id number] Effective for all dates [id number] Social History Date Type Detail Facility Start: 11-06-2017 End: 12-13-2017 Tobacco smoking status NHIS Never smoker [facility] Sex Assigned At Not on file [facility] Start: 12-13-2017 Tobacco use and exposure Never used [facility] Start: 12-13-2017 Alcohol intake Current drinke r of alcohol (finding) [facility] Start: 01-12-2015 Alcohol Comment 2-3 drinks per week [facility] Medical Equipment Procedure Code Equipment Code Equipment Origin al Text Equipment Identifier Dates Kit Mini Device Cor-Knot - [id number] Start: 11-05-2017 George Intuity Elite Aortic Valve Start: 11-05-2017 Syringe 4ml Pre-Filled Sealant Preveleak - [id number] Start: 11-05-2017 Kit Mini Device Cor-Knot - [id number] Start: 11-05-2017 George Intuity Elite Aortic Valve Start: 11-05-2017 Syringe 4ml Pre-Filled Sealant Preveleak - [id number] Start: 11-05-2017 Kit Mini Device Cor-Knot - [id number] Start: 11-05-2017 Summary Purpose Family History [...] Instr - IP PT - Mya Díaz, ROAD CLEANER - 11/06/2017 3:00 PM EDT Walking Program: [...] Personal Risk factors for stroke discussed include: Crandall pertinent risk factors -High blood pressure -Elevated [...] with the x-ray facilityto wait for or product picker the x-ray films later to take to [...] DATE CREATED AUTHOR AUTHOR'S ORGANIZ ATION 11/02/2017 [facility] DATE CREATED AUTHOR AUTHOR'S ORGANIZ ATION 11/16/2017 [facility] DATE CREATED AUTHOR AUTHOR'S ORGANIZ ATION 12/13/2017 [facility] DATE CREATED AUTHOR AUTHOR'S ORGANIZ ATION 12/05/2019 [facility] DATE CREATED AUTHOR AUTHOR'S ORGANIZ ATION 08/01/2020 [facility] Thiago Mcintosh MD - 11/05/2017 12:41 PM Thiago Cuba MD - 11/03/2017 2:12 PM Ethan Grimaldo DO - 11/03/2017 9:16 AM EDT H&P Notes (unrecognized sect ion and content) INTERVAL HISTORY AND PHYSICAL Patient Name: Marco Sung Admit Date: [id number] MR #: [id number] : 1950 The H&P has been reviewed and the patient has been examined. I concur with the findings of the H&P. There are no significant changes. It is appropriate to proceed with the planned procedure. Thiago Mcintosh MD 11/05/2017 12:41 PM Formatting of this note may be different from the original. CARDIOTHORACIC CONSULT NOTE Patient Name: Marco Sung Admit Date: [id number] MR #: [id number] : 1950 Physicians: Letha Rebollar MD (Family); No ref. provider found (Referring) Chief Complaint/Reason for Visit: Unstable angina History of Present Illness: Marco Sung is a 67 y.o. y/o male presenting from home with c/o chest discomfort. This has been present for approximately 6 months. It seems to have been getting worse. He recently went on a 500 mile hike through [facility] and was experiencing chest pressure and dyspnea on exertion while walking up hills and strenuous activity. He felt this was bronchitis and was medicating himself with wffo-hez-evqkngk remedies. However, this did not resolve his [...] Osmel Lara, who requested he come to [facility] for definitive care. 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 [facility] [place] [facility] on heparin and IABP in place. [...] evaluation. Presented to PCP and furtehr to [facility]. Systolic murmur was noted. 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 The patient's home setup is a supervisor of communications and family/caregiver support is a supervisor of communications for return to prior level of function. The patient's awareness of own capacity and performance is a supervisor of communications to return to prior level of function. 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 provider found (Referring) Chief Complaint/Reason for Visit: Unstable angina History of Present Illness: Marco Sung is a 67 y.o. y/o male presenting from home with c/o chest discomfort. This has been present for approximately 6 months. It seems to have been getting worse. He recently went on a 500 mile hike through [facility] and was experiencing chest pressure and dyspnea on exertion while walking up hills and strenuous activity. He felt this was bronchitis and was medicating himself with gvxc-gly-kyeoymo remedies. However, this did not resolve his [...] Osmel Lara, who requested he come to [facility] for definitive care. 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 Associated Order(s): IP CONSULT TO EXTENSION DIVISION DIRECTOR Formatting of this note may be different [...] a 67 y.o. male who [facility] for evaluation of severe , IABP , multivessel CAD pending CABG. He states he was undergoing evaluation for his 6-12 month history of intermittent chest pain and shortness of breath typically with exertion. 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 Pulmonary and Critical Care Consult Note Impression and Recommendations Marco Sung is a 67 y.o. male with: Unstable Angina: Extensive multivessel CAD noted on [facility]. Continue IABP and heparin gtt. CT surgery consulted for CABG evaluation. Aortic Stenosis: Noted to be severe with peak gradient 34 per [facility] TTE. CT surgery consulted for AVR evaluation. D/W Dr. Sara Olvera PA-C [facility] [phone] Reason for Consultation: CAD Aortic Stenosis History of Presenting Illness: Marco Sung is a 67 y.o. male with a past medical history that includes CAD, HTN. [facility] as a a transfer from [facility] with severe CAD for CABG w/u. Patient initially presented to his PCP with exertional chest pain in September. He was referred to a area forester and was undergoing outpatient work-up. [facility] with extensive multi-vessel disease and JONY with severe aortic stenosis. [facility] was [facility] evaluation. 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 Recent Labs [...] Benoit MD, MSc Pulmonary and Critical Care [facility] [phone] (cell) yardage caller phone (5p-8a and on weekends): [phone] ([phone] ICUS) in this encounter [facility] - Allison Garcia, OT - 11/09/2017 2:54 PM [facility] - Honey Mack ROAD CLEANER - 11/08/2017 11:57 AM [facility] [...] check completed, no scripts noted MARCO SUNG [id number] 1950 DATE 11/05/2017 OPERATIVE REPORT SURGEON THIAGO MCINTOSH MD STOVE INSTALLER MISTI ACOSTAC STOVE INSTALLER 2 HONYE ORDAZ PA-C PREOPERATIVE DIAGNOSES Coronary artery disease, [...] harvest of the left leg. No qualified surgical technology instructor available to assist. ANESTHESIA General endotracheal anesthesia. ESTIMATED BLOOD LOSS 300 mL. COMPLICATIONS None. FINDINGS Trileaflet calcified aortic valve, 2 mm targets. Good quality REED and good quality vein. TUBES A 40-Rwandan mediastinal, 24-Rwandan left pleural Julian. WIRES Two atrial and [...] fraction was preserved. He was transferred to [facility] for definitive care. He had an intra-aortic [...] PDA, end-to-side with vein to the OM2, wcfu-ti-ikzw with vein to the OM1, and end-to-side [...] entire case. MD Miles BALLESTEROS 11/05/2017 19:02 [id number] T 11/06/2017 05:47 JML/MODL Patient self extubated; [...] blood loss anemia: Post operative Hgb 8.4 [id number] INR 1.4 Chest tubes MS and left [...] Date of Service: 11/03/2017 - 11/05/2017 CSN: [id number] Procedure(s): CORONARY ARTERY BYPASS GRAFTS TIMES FOUR WITH AORTIC VALVE REPLACEMENT, ENDOSCOPIC VEIN HARVEST, TRANSESOPHAGEAL ECHOCARDIOGRAM Pre-Operative Diagnoses: * UNSTABLE ANGINA Post-Operative Diagnoses: * Nonrheumatic aortic valve stenosis [I35.0] * CAD, multiple vessel [I25.10] * Angina pectoris (HCC) [I20.9] Surgeon(s) and Role: * Thiago Mcintosh MD - Primary Anesthesiologist: Maynor Zelaya MD Hand Fabric Cutter: Abiodun Pinto Physician Veterinarian Poultry: Meghan Lopez PA-C; Honey Ordaz PA-C Relief Director Of Digital Technology: Radha George RN; Maricruz Whitmore, RUBÉN; Kenia Simon RN Relief Scrub: Kartik Pickens RN Director Of Digital Technology Orientee: Luba Ruffin RN Director Of Digital Technology Preceptor: Rosanne Mendoza RN Scrub Person Preceptor: [...] Implant Name Type Inv. Item Serial No. Replenisher Lot No. LRB No. Used Action KIT MINI DEVICE COR-KNOT - [id number] KIT [employer] DEVICE COR-KNOT [id number] LSI SOLUTI [id number] N/A 1 Implanted GEORGE INTUITY ELITE AORTIC VALVE [id number] GEORGE LI N/A 1 Implanted SYRINGE 4ML PRE-FILLED SEALANT PREVELEAK - [id number] SYRINGE 4ML PRE-FILLED SEALANT PREVELEAK MALLINCKRO [id number] N/A 1 Implanted Drain(s): Chest Tube 2 [...] AFib -Premature family hx: YES, father of [place] age 59, brother had CABG age 58, brother had CABG four weeks ago age 69 -Pre-op teaching completed, all questions answered -Consent obtained, placed in blue folder -BPCI: yes, info given and discussed -setting expectations info given and discussed -caregiver, Tootie -primary area forester/cathing area forester Dr. Dion Peng, [facility] -STS for CABG/AVR: 2.708%/24.085% for [...] Benoit MD, MSc Pulmonary and Critical Care [facility] [phone] (cell) yardage caller phone (5p-8a and on weekends): [phone] ([phone] ICUS) [facility] Night Physician [phone] Patient transported to [facility] by Medic: medflight as a direct admit. Receiving unit notified of patient's arrival. Patient's vital signs BP 145/70, HR 80, RR 20, Pulse Ox 94% on room air . Patient has a chief complaint of needs CABG. Patient Does have IV access. Patient was on environmental monitoring technician prior to arrival. Patient transported to room 5107 in stable condition. Pt is CP free upon [facility] and has hep gtt infusing ROAD CLEANER. Pt also on a balloon pumpin this encounter Spoke to [facility]- transport there now. Spoke to [facility] [place]. [facility] ETA to [place] is 4 am. Report from Vani [place], [facility] ICU. PMH CAD, non-rheumatic aortic stenosis, HTN, obesity, arthritis. Symptoms of shortness of breath & exertional chest tightness. Had outpatient stress test which did not pass. Heart cath done today, significant blockage, EF 65%, has balloon pump. Was supposed to go to [facility] on Sunday to have CABG done but family lives in [place] so plan is to transfer to [facility]. Heart sounds murmur, lung sounds clear, [...] the am Call from Dr. Sebastian Rollins, [facility]. States wants to have pt transferred from [facility], inpatient ICU [phone], to [facility] bed & consult surgery. Dx: aortic stenosis & CAD. Has balloon pump but is stable. [facility] Dr. Shelley is aware of the [...] BE BASED ON THE PRIMARY CLINICAL RECORDS. [employer] provides no warranty or guarantee of the accuracy or completeness of information in this document.
== END | disposition home or self-care (01) ==
LOC: CVS 06:59
PROVIDERS: PCP Internal Medicine; Referring Provider Surgery; Visit Provider Surgery
DX: I25.10 Atherosclerotic heart disease of native coronary artery without angina pectoris (principal); R09.89 Other specified symptoms and signs involving the circulatory and respiratory systems; I65.29 Occlusion and stenosis of unspecified carotid artery
CPT/HCPCS: 93306; 93880; Q9957; A4216; C8929

== ENCOUNTER → 2023-10-11 | Outpatient (CLI) | payer OTHER, SELFPAY ==
--- NOTE | 2023-10-11 15:05 | CT_ITS ---
STUDY: CT LEFT ELBOW WITHOUT CONTRAST REASON FOR EXAM: Male, 73 years old. OA RADIATION DOSAGE (If Supplied By Facility): CTDIvol = ( 24.58 ) mGy, DLP = ( 658.94 ) mGycm TECHNIQUE: Transaxial CT imaging of the elbow was performed. Sagittal and coronal images were reconstructed. Individualized dose optimization techniques were used for this CT. COMPARISON: Left elbow radiographs dated 03/29/2022. FINDINGS: There is a radial head prosthesis without a periprosthetic fracture. 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 Intact visualized humerus, radius and ulna without an acute fracture. There is no significant elbow joint effusion. There is mild subcutaneous soft tissue edema along the posterior aspect of the elbow. CT/Extremity Upper without Contra IMPRESSION: Radial head prosthesis without a periprosthetic fracture. Severe ulnotrochlear arthrosis. Mild subcutaneous soft tissue edema along the posterior aspect of the elbow. Electronically Signed: Rafi Solares MD at 15:57 EDT ,
== END | disposition home or self-care (01) ==
PROVIDERS: PCP Internal Medicine
DX: M19.022 Primary osteoarthritis, left elbow (principal)
CPT/HCPCS: 73200

== ENCOUNTER → 2024-01-24 | Outpatient (CLI) | payer MEDICARE, OTHER, SELFPAY ==
[2024-01-24 11:24] LABS: AST(SGOT) 17 U/L (15-37); Alanine Aminotransfer ALT/SGPT 30 U/L (16-61); Albumin, Serum 3.7 g/dL (3.2-5.0); Alkaline Phosphatase 85 U/L (45-117); Bilirubin, Direct 0.16 mg/dL (0.00-0.30); Cholesterol 110 mg/dL (200); Globulin 3.8 g/dL (2.2-4.2); High Density Lipoprotein 48 mg/dL; Protein, Total 7.5 g/dL (6.4-8.2); Triglycerides 126 mg/dL; Very Low Density Lipoprotein 25 mg/dL (5-40)
== END | disposition home or self-care (01) ==
PROVIDERS: PCP Internal Medicine; Referring Provider Nurse Practitioner Family; Visit Provider Nurse Practitioner Family
DX: E78.00 Pure hypercholesterolemia, unspecified (principal)
CPT/HCPCS: 36415; 80061; 80076

== ENCOUNTER → 2024-06-16 | Outpatient (CLI) | payer MEDICARE, OTHER, SELFPAY ==
--- NOTE | 2024-06-16 12:48 | CDU_ITS ---
Reason For Study: Carotid Stenosis Rt. Velocities/BP Lt. Velocities/BP Prox CCA 71/8 cm/sec. Prox CCA 71/12 cm/sec. Mid CCA 97/14 cm/sec. Mid CCA 63/13 cm/sec. Dist CCA 225/22 cm/sec. Dist CCA 59/12 cm/sec. Prox ICA 202/21 cm/sec. Prox ICA 196/35 cm/sec. Mid ICA 129/27 cm/sec. Mid ICA 162/30 cm/sec. Dist ICA 105/30 cm/sec. Dist ICA 124/17 cm/sec. Rt. ICA/CCA = 2.08. Lt. ICA/CCA = 3.1. Prox ECA 274/5 cm/sec. Prox ECA 308/0 cm/sec. Rt. Vert. 61/12 cm/sec. Lt. Vert. 67/12 cm/sec. Right Extracranial There is heterogeneous, irregular atherosclerotic plaque noted in the right common carotid artery. There is heterogeneous, irregular atherosclerotic plaque noted in the right internal carotid artery. The atherosclerotic plaque causes acoustic shadowing. There is heterogeneous, irregular atherosclerotic plaque noted in the right external carotid artery. Antegrade flow is noted in the right vertebral artery. Left Extracranial There is heterogeneous, irregular atherosclerotic plaque noted in the left common carotid artery. There is heterogeneous, irregular atherosclerotic plaque noted in the left internal carotid artery. There is heterogeneous, irregular atherosclerotic plaque noted in the left external carotid artery. Antegrade flow is noted in the left vertebral artery. Procedure Carotid Duplex 34926. This is a Carotid Duplex examination using B-mode, color flow and specral Doppler. Exam performed in department. VL/Carotid Duplex Ultrasound Interpretation Summary Moderate (50-69%) stenosis right extracranial internal carotid. Moderate (50-69%) stenosis left extracranial internal carotid. Patent and antegrade vertebrals bilaterally. Ordering Physician: Maynor Glez Referring Physician: Do Shaw Performed By: Chelita Rubio, RDCS, RVT
== END | disposition home or self-care (01) ==
PROVIDERS: PCP Internal Medicine; Referring Provider Surgery Trauma Surgery; Visit Provider Surgery Trauma Surgery
DX: R09.89 Other specified symptoms and signs involving the circulatory and respiratory systems (principal)
CPT/HCPCS: 93880

== ENCOUNTER → 2024-08-19 | Outpatient (CLI) | payer MEDICARE, OTHER, SELFPAY ==
--- NOTE | 2024-08-19 12:59 | ART_ITS ---
Reason For Study Reason For Study: Claudication Procedure A bilateral lower extremity continuous wave Doppler with analog waveform analysis,segmental pressures,and ankle brachial indexes with exercise. Left Segmental Pressures Left brachial= 130mmHg. Left posterior tibial artery = 165mmHg. Left dorsalis pedis artery = 147mmHg. Left digit = 109 mmHg. The left dorsalis pedis waveforms are triphasic. The left posterior tibial artery waveforms are triphasic. Right Segmental Pressures Right brachial= 127mmHg. Right posterior tibial artery = 137mmHg. Right dorsalis pedis artery = 140mmHg. Right digit = 97 mmHg. The right dorsalis pedis waveforms are triphasic. The right posterior tibial artery waveforms are triphasic. Indices The right ankle brachial index by the dorsalis pedis is 1.08. The right ankle brachial index by the posterior tibial artery is 1.05. The right digital-brachial index is 0.75. The right post exercise ankle brachial index is 0.82. The left ankle brachial index by the dorsalis pedis is 1.13. The left ankle brachial index by the posterior tibial artery is 1.27. The left digital-brachial index is 0.84. The left post exercise ankle brachial index is 1.19. VL/Lower Ext Art Exam w/ Exercise Interpretation Summary Right REESE 1.08, normal. TBI and Doppler/PVR waveforms of the right leg normal a t rest. Right lower extremity with abnormal response to exercise and post exercise REESE in the moderate category. Left REESE 1.27, normal. TBI and Doppler/PVR waveforms of the left leg normal at rest. Left lower extremity exhibits normal response to exercise. Ordering Physician: Rosalie Moulton Referring Physician: Do Shaw Performed By: Ciera Coello RVT
== END | disposition home or self-care (01) ==
LOC: CVS 12:58
PROVIDERS: PCP Internal Medicine; Referring Provider Physician Assistant; Visit Provider Physician Assistant
DX: I73.9 Peripheral vascular disease, unspecified (principal)
CPT/HCPCS: 93924

== ENCOUNTER → 2025-01-08 | Outpatient (CLI) | payer MEDICARE, OTHER, SELFPAY ==
--- NOTE | 2025-01-08 08:05 | CDU_ITS ---
Reason For Study Reason For Study: Carotid Stenosis Rt. Velocities/BP Lt. Velocities/BP Prox CCA 75.4/12.7 cm/sec. Prox CCA 55.6/16.0 cm/sec. Mid CCA 107.6/14.4 cm/sec. Mid CCA 58.9/18.2 cm/sec. Dist CCA 122.2/19.9 cm/sec. Dist CCA 53.4/16.0 cm/sec. Prox ICA 135.2/25.5 cm/sec. Prox ICA 203.7/37.8 cm/sec. Mid ICA 80.6/19.2 cm/sec. Mid ICA 128.6/37.8 cm/sec. Dist ICA 63.4/20.4 cm/sec. Dist ICA 123.4/22.3 cm/sec. Rt. ICA/CCA = 1.3. Lt. ICA/CCA = 3.5. Prox ECA 234.7/0.0 cm/sec. Prox ECA 188.2/43.0 cm/sec. Rt. Vert. 58.9/12.7 cm/sec. Lt. Vert. 91.3/18.9 cm/sec. Right Extracranial There is heterogeneous, irregular atherosclerotic plaque noted in the right common carotid artery. There is heterogeneous, irregular atherosclerotic plaque noted in the right internal carotid artery. There is intimal thickening but no significant atherosclerotic plaque noted in the right external carotid artery. Antegrade flow is noted in the right vertebral artery. Left Extracranial There is homogeneous, smooth atherosclerotic plaque noted in the left common carotid artery. There is heterogeneous, irregular atherosclerotic plaque noted in the left internal carotid artery. There is heterogeneous, irregular atherosclerotic plaque noted in the left external carotid artery. Antegrade flow is noted in the left vertebral artery. Procedure Carotid Duplex 39957. This is a Carotid Duplex examination using B-mode, color flow and specral Doppler. Exam performed in department. VL/Carotid Duplex Ultrasound Interpretation Summary Moderate (50-69%) stenosis right extracranial internal carotid. Moderate (50-69%) stenosis left extracranial internal carotid. Patent and antegrade vertebrals bilaterally. Ordering Physician: Rosalie Moulton Referring Physician: Do Shaw MD Performed By: Lynnette Morales and Student, RVT
== END | disposition home or self-care (01) ==
PROVIDERS: PCP Internal Medicine; Referring Provider Physician Assistant; Visit Provider Physician Assistant
DX: I65.23 Occlusion and stenosis of bilateral carotid arteries (principal)
CPT/HCPCS: 93880

== ENCOUNTER → 2025-02-10 | Outpatient (CLI) | payer MEDICARE, OTHER, SELFPAY ==
[2025-02-10 11:16] LABS: AST(SGOT) 20 U/L (<=37); Alanine Aminotransfer ALT/SGPT 20 U/L (<=46); Albumin, Serum 4.3 g/dL (3.4-4.8); Alkaline Phosphatase 82 U/L (40-129); Bilirubin, Direct 0.23 mg/dL (0.00-0.30); Cholesterol 124 mg/dL (<=200); Globulin 2.9 g/dL (2.2-4.2); Low Density Lipoprotein Calc. 53 mg/dL; Triglycerides 137 mg/dL; Very Low Density Lipoprotein 27 mg/dL (5-40); cholesterol:hdl ratio screen 2.82
== END | disposition home or self-care (01) ==
PROVIDERS: Internal Medicine Cardiovascular Disease; PCP Internal Medicine; Referring Provider Nurse Practitioner Family; Visit Provider Nurse Practitioner Family
DX: E78.5 Hyperlipidemia, unspecified (principal); I25.10 Atherosclerotic heart disease of native coronary artery without angina pectoris
CPT/HCPCS: 36415; 80061; 80076

== ENCOUNTER → 2025-02-11 | Outpatient (CLI) | payer MEDICARE, OTHER, SELFPAY ==
[2025-02-11 11:01] LABS: Hematocrit 41.1 % (40-54); Hemoglobin 13.5 g/dL (13.0-16.5); Immature Granulocytes Count 0.030 X10^3/uL (0.0-0.0); Mean Corp Hgb Conc 32.8 g/dL (32-36); Mean Corpuscular Volume 95.1 fL (80-94); Mean Platelet Vol. 9.8 fl (6.2-12.0); NRBC Flagged by Analyzer 0 % (0-5); Platelet Count 237 K/mm3 (150-450); RBC Distribution Width CV 12.5 % (11.6-14.6); RBC Distribution Width SD 44.2 fl (35.1-43.9); Red Blood Count 4.32 M/mm3 (4.6-6.2); White Blood Count 9.7 K/mm3 (4.4-11.0)
[2025-02-11 11:48] LABS: Anion Gap 10 (5-15); BUN 20 mg/dL (4-19); BUN/Creat Ratio 17.9 RATIO (10-20); Calcium,Total 9.9 mg/dL (7.6-11.0); Carbon Dioxide 24.0 mmol/L (21.0-32.0); Chloride 105 mmol/L (98-108); Glucose 89 mg/dL (70-99); Potassium 4.6 mmol/L (3.3-5.1); Pro- Brain NATRIURETIC PEPTIDE 197 pg/mL (<=900)
== END | disposition home or self-care (01) ==
LOC: LAB 10:05
PROVIDERS: PCP Internal Medicine; Referring Provider Nurse Practitioner Family; Visit Provider Nurse Practitioner Family
DX: I25.10 Atherosclerotic heart disease of native coronary artery without angina pectoris (principal); E78.5 Hyperlipidemia, unspecified; I10 Essential (primary) hypertension; Z95.3 Presence of xenogenic heart valve; R06.09 Other forms of dyspnea
CPT/HCPCS: 36415; 80048; 83880; 85025

== ENCOUNTER → 2025-03-16 | Outpatient (CLI) | payer MEDICARE, OTHER, SELFPAY ==
--- NOTE | 2025-03-16 06:01 | ECHOCS_ITS ---
Reason For Study ECHO/Echo Complete W/ Contrast
--- NOTE | 2025-03-16 09:00 | STRESSREP_ITS ---
Stress Test Report
--- NOTE | 2025-03-16 09:00 | STRESSREP ---
Stress Test Report Date: 03/16/2025 Procedure: Exercise tolerance test/imaging study Indications: Coronary artery disease/dyspnea Consent: Per the patient Procedure: The patient exercised on a Abiodun protocol for 7 minutes and 45 seconds achieving a peak heart rate of 120 bpm (82% predicted maximal heart rate) with a peak blood pressure 174/76 mmHg and a peak MET capacity of 10.4 METs. The baseline ECG demonstrated normal sinus rhythm. The peak exercise ECG sinus tachycardia with no ischemic changes. T wave inversions in recovery noted that may suggest ischemia. There were no cardiac dysrhythmias pretest, during exercise, or recovery. The functional capacity was considered very good for age. There was no complaints of chest discomfort during exercise or in recovery. However the patient did complain of shortness of breath. The examination was discontinued secondary to dyspnea. The patient was injected with 14.3 mCi of technetium 99m Cardiolite and subsequently rest SPECT Cardiolite nuclear imaging was obtained in the horizontal long, vertical long, and short axis views. Post-exercise, the patient was injected with 44.1 mCi of technetium 99m Cardiolite and subsequently stress SPECT Cardiolite nuclear imaging was obtained in the horizontal long, vertical long, and short axis views. A gated Cardiolite study at peak stress was obtained. Rest and stress SPECT Cardiolite nuclear imaging status post realignment, normalization, and attenuation correction, demonstrates moderate size reversible perfusion defect of the lateral wall, moderate in its intensity. This suggests reversible ischemia. There is end systolic thickening and brightening. The gated Cardiolite study demonstrates myocardial thickening and inward wall motion. The reported LVEF is 73%. Impression: 1. Technically adequate exercise tolerance test. No chest pain reported however the patient did report dyspnea. 2. Peak exercise ECG with no ischemic changes however T wave inversions in high lateral leads in recovery suggestive of ischemia 3. There were no cardiac dysrhythmias pretest, during exercise, or recovery 4. Rest and stress SPECT Cardiolite nuclear imaging demonstrate moderate size reversible perfusion defect of the lateral wall, suggestive of reversible ischemia. 5. The gated Cardiolite study reports an LVEF of 73%. This note was generated with [employer] software. It may contain incorrect words, spelling, and punctuation that were not noted in checking the note before signing.
== END | disposition home or self-care (01) ==
LOC: CVS 05:58
PROVIDERS: PCP Internal Medicine; Referring Provider Nurse Practitioner Family; Visit Provider Nurse Practitioner Family
DX: R06.02 Shortness of breath (principal); Z95.5 Presence of coronary angioplasty implant and graft; Z95.2 Presence of prosthetic heart valve
CPT/HCPCS: 78452; 93017; 93306; A9500; Q9957; A4216; C8929; J2785

== ENCOUNTER → 2025-03-23 | Outpatient (CLI) | payer MEDICARE, OTHER, SELFPAY ==
[2025-03-23 10:18] LABS: Hematocrit 39.0 % (40-54); Hemoglobin 13.1 g/dL (13.0-16.5); Immature Granulocytes Count 0.030 X10^3/uL (0.0-0.0); Mean Corp Hgb Conc 33.6 g/dL (32-36); Mean Corpuscular Volume 92.0 fL (80-94); Mean Platelet Vol. 9.7 fl (6.2-12.0); NRBC Flagged by Analyzer 0 % (0-5); Platelet Count 210 K/mm3 (150-450); RBC Distribution Width CV 12.1 % (11.6-14.6); RBC Distribution Width SD 40.9 fl (35.1-43.9); Red Blood Count 4.24 M/mm3 (4.6-6.2); White Blood Count 9.9 K/mm3 (4.4-11.0)
[2025-03-23 10:54] LABS: Anion Gap 10 (5-15); BUN 23 mg/dL (4-19); BUN/Creat Ratio 22.9 RATIO (10-20); Calcium,Total 9.4 mg/dL (7.6-11.0); Carbon Dioxide 22.9 mmol/L (21.0-32.0); Chloride 106 mmol/L (98-108); Glucose 95 mg/dL (70-99); Potassium 4.6 mmol/L (3.3-5.1)
== END | disposition home or self-care (01) ==
LOC: LAB 09:33
PROVIDERS: PCP Internal Medicine; Referring Provider Nurse Practitioner Family; Visit Provider Nurse Practitioner Family
DX: I65.23 Occlusion and stenosis of bilateral carotid arteries (principal); I10 Essential (primary) hypertension; E78.5 Hyperlipidemia, unspecified; Z95.3 Presence of xenogenic heart valve; Z95.5 Presence of coronary angioplasty implant and graft; Z95.1 Presence of aortocoronary bypass graft
CPT/HCPCS: 36415; 80048; 85025

== ENCOUNTER 2025-04-20 07:05 | Day surgery (SDC) | payer MEDICARE, OTHER, SELFPAY ==
--- NOTE | 2025-04-13 11:50 | RAD_ITS ---
PROCEDURE: CHEST PA AND LATERAL 04/13/2025 REASON FOR EXAM: PRE-OPERATIVE: [facility] TECHNIQUE: Procedure Code: RADCXR Modality: DX Procedure: CHEST PA AND LATERAL COMPARISON: 01/05/2022 FINDINGS: Lung markings are grossly unchanged. No pleural effusion or pneumothorax. Cardiac silhouette is within normal limits. Median sternotomy wires. Evidence of prior CABG. Calcified aortic arch. No acute fractures. RAD/Chest PA and Lateral IMPRESSION: Grossly stable exam. Reading Location: [id number]
[2025-04-17 08:09] VITALS: BMI 37.0
--- OUTSIDE RECORDS SUMMARY | 2025-04-20 07:08 | XMS RPT_ITS | CCD ---
Author Organization [facility] Care Team Providers Care Residential Property Tax Appraiser Name Role Phone Gwyn Sorensen Unavailable Unavailable Letha Rebollar Unavailable Unavailable Gwyn Sorensen Unavailable Unavailable Letha Rebollar Unavailable Unavailable SANIA GANDHINANDO X Unavailable Unavailable SANIA GANDHINANDEamon Ba Unavailable Unavailable IMCA Unavailable Unavailable Letha Rebollar Unavailable [phone] NIXON, GIOVANNY MCQUEEN Unavailable Unavail able ALINA RUIZ Unavailable Unavailable MCINTOSH, THIAGO CAMACHO Unavailable Unavaila ble MCINTOSH, THIAGO CAMACHO Unavailable Unavaila ble MCINTOSH, THIAGO CAMACHO Unavailable Unavaila ble PINEDA, KASEY Unavailable Unavailable SHARRI MCKEON Unavailable Unavailable [place], Giovanny Mcqueen Unavailable RAMSES RAMIREZ Unavailable Unavailable RAMSES RAMIREZ Unavailable Unavailable SHARRI PENG Unavailable Unavailable LETHA REBOLLAR Unavailable Unavailable DARBY MIMS Unavailable Unavailable LETHA REBOLLAR Unavailable Unavailable LETHA REBOLLAR Unavailable Unavailable DARBY MIMS Unavailable Unavailable Letha Rebollar Primary Care Provider Dr. Letha Rebollar Primary Care Provider [phone] Dr. Letha Rebollar Referring Provider Joanne SEQUENCING MACHINE OPERATOR, BRITTON-Yessenia Camejo Attending Provider Ceigor, Dr. Greg Aquino Attending Provider CeDr. Greg costa Referring Provider [phone] Dr. Letha Rebollar Primary Care Provider CeDr. Greg costa Attending Provider [phone] Dr. Greg Blackman Referring Provider [phone] Dr. Letha Rebollar Referring Provider Roof SEQUENCING MACHINE OPERATOR, SEQUENCING MACHINE OPERATOR-C Syed Camejo Attending Provider Dr. Letha Rebollar Primary Care Provider [phone] Roof SEQUENCING MACHINE OPERATOR, SEQUENCING MACHINE OPERATOR-C Syed H Referring Provider Roof SEQUENCING MACHINE OPERATOR, SEQUENCING MACHINE OPERATOR-C Syed H Other Provider Dr. Saúl Calderon Attending Provider Dr. Saúl Calderon Referring Provider Dr. Saúl Calderon Other Provider Dr. Letha Rebollar Primary Care Provider Dr. Letha Rebollar Referring Provider Roof SEQUENCING MACHINE OPERATOR, SEQUENCING MACHINE OPERATOR-C Syed H Attending Provider Roof SEQUENCING MACHINE OPERATOR, SEQUENCING MACHINE OPERATOR-C Syed H Referring Provider Roof SEQUENCING MACHINE OPERATOR, SEQUENCING MACHINE OPERATOR-C Syed H Other Provider Dr. Saúl Calderon Attending Provider Dr. Saúl Calderon Referring Provider Dr. Saúl Calderon Other Provider Dr. Letha Rebollar Primary Care Provider Breanna Lennon Attending Provider Unavailable Dr. Letha Rebollar Referring Provider Dr. Saúl Calderon Attending Provider Dr. Greg Blackman Attending Provider Dr. Letha Rebollar Primary Care Provider Dr. Letha Rebollar Referring Provider Roof SEQUENCING MACHINE OPERATOR, SEQUENCING MACHINE OPERATOR-C Syed Camejo Attending Provider Roof SEQUENCING MACHINE OPERATOR, SEQUENCING MACHINE OPERATOR-C Syed H Attending Provider Artemio BLANDON, Kartik Unavailable Unavailable Artemio BLANDON, Kartik Unavailable Luly Ulloa MD, Kartik Unavailable Luly Ulloa MD, Kartik Unavailable Luly Ulloa MD, Kartik Unavailable Unavailable Artemio BLADNON, Kartik Unavailable Unavailable Artemio MD, Kartik Unavailable Luly Ulloa MD, Kartik Unavailable Luly Ulloa MD, Kartik Unavailable Unavailable Valeria BLANDON, Dr. Lei Primary Care Provider [phone] Amaris BLANDON, Dr. Mcguire Attending Provider [phone] Amaris BLANDON, Dr. Mcguire Referring Provider [phone] Valeria BLANDON, Dr. Lei Referring Provider Moulton PA, Rosalie Attending Provider [phone] Moulton PA, Rosalie Referring Provider [phone] Valeria BLANDON, Dr. Lei Primary Care Provider [phone] Moulton PA, Rosalie Attending Provider [phone] Amaris BLANDON, Dr. Mcguire Attending Provider [phone] Valeria BLANDON, Dr. Lei Referring Provider Mack BLANDON, Dr. Mcclain Attending Provider Valeria BLANDON, Dr. Lei Primary Care Provider [phone] [phone] Moulton PA, Rosalie Attending Provider [phone] Moulton PA, Rosalie Referring Provider [phone] Yobany BLANDON, Dr. Foreman Other Provider [phone] Amaris BLANDON, Dr. Mcguire Attending Provider [phone] Valeria BLANDON, Dr. Lei Primary Care Physician Mack BLANDON, Dr. Mcclain Attending Physician [phone] Moulton PA, Rosalie Attending Physician [phone] Yobany BLANDON, Dr. Foreman Nurse Practitioner Dr. Maynor Glez MD Attending Physician Roof SEQUENCING MACHINE OPERATOR-C, Syed H Attending Physician [phone] Roof SEQUENCING MACHINE OPERATOR-C, Syed H Referring Provider Roof SEQUENCING MACHINE OPERATOR, Syed H Attending Unavailable Roof SEQUENCING MACHINE OPERATOR, Ysed H Referring Unavailable Do Shaw Primary Care Unavailable Roof SEQUENCING MACHINE OPERATOR, Syed H Attending Unavailable Roof SEQUENCING MACHINE OPERATOR, Syed H Referring Unavailable Valeria, Do Primary Care Unavailable Roof SEQUENCING MACHINE OPERATOR, Syed H Attending Unavailable Roof SEQUENCING MACHINE OPERATOR, Syed H Referring Unavailable [place], Do Primary Care Unavailable Valeria, Do Primary Care Unavailable [place]le[place], Maynor Referring Unavailable Amaris, Maynor Attending Unavailable [place], Do Primary Care Unavailable Amaris, Maynor Referring Unavailable Amaris, Maynor Attending Unavailable Amaris, Maynor Attending Unavailable [place], Do Primary Care Unavailable Moulton, Rosalie Referring Unavailable Amaris, Maynor Attending Unavailable [place], Do Primary Care Unavailable Moulton, Rosalie Referring Unavailable Vita Sexton Attending Unavailable Roof SEQUENCING MACHINE OPERATOR, Syed H Consulting Unavailable Roof SEQUENCING MACHINE OPERATOR, Syed H Referring Unavailable [place], Do Primary Care Unavailable Valeria, Do Referring Unavailable Roof SEQUENCING MACHINE OPERATOR, Syed H Attending Unavailable Valeria, Do Primary Care Unavailable Valeria, Do Primary Care Unavailable Moulton, Rosalie Attending Unavailable Valeria, Do Referring Unavailable Valeria, Do Referring Unavailable Johny Giron Attending Unavailable [place], Do Primary Care Unavailable [place], Do Referring Unavailable Roof SEQUENCING MACHINE OPERATOR, Syed H Attending Unavailable Valeria, Do Primary Care Unavailable Moulton, Rosalie Attending Unavailable Valeria, Do Primary Care Unavailable Moulton, Rosalie Referring Unavailable Moulton, Rosalie Attending Unavailable Yobany, [place] Consulting Unavailable [place], Do Primary Care Unavailable Moulton, Rosalie Referring Unavailable Roof SEQUENCING MACHINE OPERATOR, Syed H Referring Unavailable Roof SEQUENCING MACHINE OPERATOR, Syed H Attending Unavailable [place], Do Primary Care Unavailable Allergies Allergy Classification Reported Allergen(s) Allergy Type Date of Onset Reaction(s) Facility (1 source) No Known Medication Allergies; Translations: [No Known Medication Allergies] Propensity to adverse reactions to drug (disorder) [facility] Repository (14 sources) POISON KAYLYN EXTRACT Drug Allergy 2 [facility] (1 source) poison kaylyn extract Drug allergy (disorder) 5 [facility] Repository Medications Current Medications Medication Drug Class(es) Dates Sig (Normalized) Sig (Original) acetaminophen 325 mg / HYDROcodone bitartrate 5 mg oral tablet (20 sources) Opioid Agonist Start: 06-27-2024 Start: 08-24-2023 hydrocodone 5 mg-acetaminophen 325 mg tablet - Active Start: 07-18-2022 End: 06-27-2024 Hydrocodone-Acetaminophen 5- 325 mg tablet Discontinued 1 {tbl} PO Q12H 0 July 18, 2022 2:39pm June 27, 2024 9:28am Pain Start: 07-18-2022 take 1 tablet by vika th every twelve hours Hydrocodone-Acetaminophen Active 1 TABLET PO Q12H July 18, 2022 1:39pm Start: 12-24-2020 End: 07-18-2022 Hydrocodone-Acetaminophen 5- 325 mg tablet Discontinued 1 {tbl} PO Q8H 0 December 08, 2021 9:28am July 18, 2022 2:40pm Pain Start: 12-24-2020 End: 07-18-2022 take 1 tablet by mouth every eight hours Hydrocodone-Acetaminophen Discontinued 1 TABLET PO Q8H December 08, 2021 8:28am July 18, 2022 1:40pm Start: 11-03-2017 End: 11-05-2017 HYDROcodone-acetaminophen (N ORCO) 5-325 mg per tablet 1 tablet Start: 09-17-2017 End: 12-24-2020 Hydrocodone-Acetaminophen (V icodin) 5-300 mg tablet Discontinued 1 {tbl} PO THREE TIMES A DAY 0 September 17, 2017 12:00am December 24, 2020 3:09pm elbow pain End: 12-13-2017 take 1 tablet by mouth three times daily HYDROcodone-acetaminophen (NORCO) 5-325 mg per tablet Take 1 tablet by mouth 3 (three) times a day. 12/13/2017 Discontinued End: 11-10-2017 take 1 tablet by mouth every eight hours as needed HYDROcodone-acetaminophen (NORCO) 5-325 mg per tablet Take 1 tablet by mouth every 8 (eight) hours as needed . 11/10/2017 Discontinued amoxicillin 500 mg oral capsule (20 sources) Penicillin-class Antibacterial Start: 08-31-2023 amoxicillin 500 mg capsule - Active Start: 06-28-2021 End: 08-15-2021 take 4 tablets by mouth every hour as needed Start: 11-06-2018 End: 02-10-2020 take 4 tablets by mouth every hour Amoxicillin 500 mg tablet Discontinued 500 mg PO .COMPLEX 4 3 November 06, 2018 12:00am February 10, 2020 3:50pm 500 mg PO 4 tablets one hour prior to dental procedure; aspirin 81 mg delayed release oral tablet (20 sources) Nonsteroidal Anti-inflammatory Drug Start: 11-11-2017 Start: 11-06-2017 End: 11-06-2017 Start: 11-01-2017 End: 12-06-2018 take 1 tablet by mouth twice daily Aspirin (Adult Aspirin Regimen) 81 mg tablet,delayed release (DR/EC) Discontinued 81 mg PO TWICE A DAY November 01, 2017 12:00am December 06, 2018 10:10am heart cholecalciferol 0.025 mg oral capsule (14 sources) Vitamin D Start: 09-18-2017 take 1 capsule by mouth once daily cholecalciferol, vitamin D3, (VITAMIN D3 ORAL) (4 sources) take 1 capsule by mouth once daily cholecalciferol, vitamin D3, (VITAMIN D3 ORAL) Take 1 capsule by mouth daily. 0 Active take 1 capsule by mouth once reji ly cholecalciferol, vitamin D3, (VITAMIN D3 ORAL) Take 1 capsule by mouth daily. Active cyanocobalamin, vitamin B-12 , (VITAMIN B-12 ORAL) (4 sources) take 1 tablet by mouth once daily cyanocobalamin, vitamin B-12, (VITAMIN B-12 ORAL) Take 1 tablet by mouth daily. 0 Active take 1 tablet by mouth once dilan y cyanocobalamin, vitamin B-12, (VITAMIN B-12 ORAL) Take 1 tablet by mouth daily. Active diclofenac sodium 0.01 mg/mg topical gel (9 sources) Nonsteroidal Anti-inflammatory Drug Start: 11-16-2022 diclofenac 1 % topical gel - Active fish oil (3 sources) take 1 capsule by mouth once daily fish oil-omega-3 fatty acids 300-1,000 mg capsule Take 1 g by mouth daily. Active fish oil-omega-3 fatty acids 300-1,000 mg capsule (1 source) take 1 capsule by mouth once daily fish oil-omega-3 fatty acids 300-1,000 mg capsule Take 1 g by mouth daily. 0 Active fluconazole 200 mg oral tablet (9 sources) Azole Antifungal Start: 12-22-2022 fluconazole 200 mg tablet - Active furosemide 40 mg oral tablet (2 sources) Loop Diuretic Start: 11-07-2017 End: 11-18-2017 take 1 tablet by mouth once daily furosemide (LASIX) 40 MG tablet Take 1 (one) tablet (40 mg total) by mouth daily for 7 days. 7 tablet 0 11/11/2017 11/18/2017 Active loratadine 10 mg oral tablet (14 sources) Start: 01-04-2018 take 1 tablet by mouth once daily as needed nitroglycerin 0.4 mg sublingual tablet (17 sources) Nitrate Vasodilator Start: 02-18-2021 End: 02-03-2025 Start: 02-18-2021 Nitroglycerin Active 0.4 MG SL every 5 to 15 minutes February 17, 2021 11:00pm do not exceed 3 doses per episode [place]-3 Fatty Acids (Fish Oi l Concentrate) 1,000 mg capsule (20 sources) Start: 06-15-2023 Start: 06-15-2023 [place]-3 Fatty Acids (Fish Oil Concentrate) 1,000 mg capsule Active 2000 mg PO daily June 15, 2023 9:40am general health Start: 06-15-2023 [place]-3 Fatty Acids (Fish Oil Concentrate) 1,000 mg capsule Active 2000 mg PO daily June 15, 2023 9:40am Start: 06-15-2023 [place]-3 Fatty Acids (Fish Oil Concentrate) 1,000 mg capsule Active 2000 MG PO daily June 15, 2023 8:40am Start: 09-18-2017 take 1 capsule by mo [facility] once daily [employer] [place]-3 Fatty Acids (Fish Oil Concentrate) 1,000 mg capsule Active 1000 MG PO daily September 18, 2017 10:11am Start: 09-18-2017 End: 06-15-2023 take 1 capsule by mouth once daily [employer] [place]-3 Fatty Acids (Fish Oil Concentrate) 1,000 mg capsule Discontinued 1000 mg PO daily September 18, 2017 12:00am June 15, 2023 9:41am general health Start: 09-18-2017 End: 06-15-2023 take 1 capsule by mouth once daily [employer] [place]-3 Fatty Acids (Fish Oil Concentrate) 1,000 mg capsule Discontinued 1000 mg PO daily September 18, 2017 12:00am June 15, 2023 9:41am Start: 09-18-2017 End: 06-15-2023 take 1 capsule by mouth once daily [employer] [place]-3 Fatty Acids (Fish Oil Concentrate) 1,000 mg capsule Discontinued 1000 MG PO daily September 17, 2017 11:00pm June 15, 2023 8:41am Start: 09-18-2017 take 1 capsule by [facility] once daily [place]-3 Fatty Acids (Fish Oil Concentrate) 1,000 mg capsule Active 1000 MG PO daily September 17, 2017 11:00pm Start: 09-18-2017 take 1 capsule by [facility] once daily [place]-3 Fatty Acids (Fish Oil Concentrate) 1,000 mg capsule Active 1000 MG PO daily September 18, 2017 12:00am oxyCODONE hydrochloride 5 mg oral tablet (3 sources) Opioid Agonist Start: 11-05-2017 End: 11-17-2017 take 1 tablet by mouth every six hours as needed for pain and pain oxyCODONE (ROXICODONE) 5 MG immediate release tablet Indications: Acute pain Take 1 (one) tablet (5 mg total) by mouth every 6 (six) hours as needed (Days supply per fill: 7). 28 tablet 0 11/10/2017 11/17/2017 Active End: 12-13-2017 take 1 capsule by mouth every six hours as needed oxyCODONE (OXY-IR) 5 mg capsule Take 5 mg by mouth every 6 (six) hours as needed for pain. 12/13/2017 Discontinued microencapsulated potassium chloride 20 meq extended release oral tablet (3 sources) Start: 11-10-2017 End: 11-17-2017 take 1 tablet by mouth once daily potassium chloride SA (K-DUR,KLOR-CON) 20 MEQ tablet Take 1 (one) tablet (20 mEq total) by mouth daily for 7 days. 7 tablet 0 11/10/2017 11/17/2017 Active Start: 11-07-2017 End: 11-10-2017 Start: 11-05-2017 End: 11-06-2017 pregabalin 50 mg oral capsul e (20 sources) Start: 06-27-2024 take 1 capsule by [facility] three times daily Start: 08-24-2023 pregabalin 50 mg capsule - Active Start: 12-24-2020 End: 06-27-2024 take 1 capsule by mouth twice daily Pregabalin (Lyrica) 50 mg capsule Discontinued 50 mg PO TWICE A DAY December 24, 2020 3:10pm June 27, 2024 9:28am pain Start: 07-05-2020 End: 12-24-2020 take 1 capsule by mouth once daily Pregabalin (Lyrica) 50 mg capsule Discontinued 50 mg PO DAILY July 05, 2020 11:30am December 24, 2020 3:12pm Start: 12-06-2018 End: 07-05-2020 take 1 capsule by mouth at bedtime Pregabalin (Lyrica) 50 mg capsule Discontinued 50 mg PO AT BEDTIME December 06, 2018 12:00am July 05, 2020 11:33am End: 11-03-2017 take 1 capsule by mouth twice daily pregabalin (LYRICA) 75 MG capsule Take 75 mg by mouth 2 (two) times a day. 11/03/2017 Discontinued terbinafine 250 mg oral tablet (9 sources) Allylamine Antifungal Start: 01-11-2023 terbinafine HCl 250 mg tablet - Active Turmeric Root Extract (14 sources) Start: 07-27-2020 take 1000 mg by mouth once daily Turmeric Root Extract Active 1000 MG PO DAILY July 27, 2020 12:57pm Start: 07-27-2020 End: 02-09-2022 take 1 capsule by mouth once daily Turmeric Root Extract 500 mg capsule Discontinued 1000 mg PO DAILY July 27, 2020 12:00am February 09, 2022 8:42am supplement Start: 07-27-2020 End: 02-09-2022 take 1 capsule by mouth once daily Turmeric Root Extract 500 mg capsule Discontinued 1000 mg PO DAILY July 27, 2020 12:00am February 09, 2022 8:42am Start: 07-27-2020 End: 02-09-2022 take 1000 mg by mouth once daily Turmeric Root Extract Discontinued 1000 MG PO DAILY July 27, 2020 12:00am February 09, 2022 8:42am Start: 07-27-2020 End: 02-09-2022 take 1000 mg by mouth once daily Turmeric Root Extract Discontinued 1000 MG PO DAILY July 26, 2020 11:00pm February 09, 2022 7:42am Start: 07-27-2020 take 1000 mg by mout h once daily Turmeric Root Extract Active 1000 MG PO DAILY July 27, 2020 12:00am vitamin b12 5 mg sublingual tablet (14 sources) Vitamin B12 Start: 09-18-2017 take 1 tablet under the tongue once daily Start: 09-18-2017 take 1 tablet under the tongue once daily cyanocobalamin (vit B-12) 5,000 mcg sublingual tablet Active 5000 MCG SL daily September 17, 2017 11:00pm Completed/Discontinued Medications Medication Drug Class(es) Dates Sig (Normalized) Sig (Original) acetaminophen 325 mg oral tablet (5 sources) Start: 11-10-2017 End: 12-13-2017 take 2 tablets by mouth every four hours as needed acetaminophen (TYLENOL) 325 MG tablet Take 2 (two) tablets (650 mg total) by mouth every 4 (four) hours as needed. 30 tablet 0 11/10/2017 12/13/2017 Discontinued Start: 11-03-2017 End: 11-10-2017 take 2 tablets by mouth every four hours as needed 500 ml albumin human, skilled nursing 50 mg/ml injection (1 source) Human Serum Albumin Start: 11-05-2017 End: 11-06-2017 albuterol 0.83 mg/ml inhalant solution (1 source) beta2-Adrenergic Agonist Start: 11-06-2017 End: 11-10-2017 take 2.5 mg by inhalation every two hours as needed ALPRAZolam 0.25 mg oral tablet (1 source) Benzodiazepine Start: 11-07-2017 End: 11-10-2017 ALPRAZolam (XANAX) tablet 0.25 mg aluminum hydroxide 40 mg/ml / magnesium hydroxide 40 mg/ml / simethicone 4 mg/ml oral suspension (1 source) Start: 11-06-2017 End: 11-10-2017 take 30 mL by mouth every four hours as needed amiodarone hydrochloride 200 mg oral tablet (11 sources) Antiarrhythmic Start: 11-15-2017 End: 12-13-2017 amiodarone (CORDARONE) 200 MG tablet Take 1 (one) tablet (200 mg total) by mouth 2 (two) times a day For 18 days, then decrease to once daily. 60 tablet 1 11/15/2017 12/13/2017 Discontinued Start: 11-15-2017 amiodarone (CO RDARONE) 200 MG tablet Take 1 (one) tablet (200 mg total) by mouth 2 (two) times a day For 18 days, then decrease to once daily. 60 tablet 1 11/15/2017 Active Start: 11-15-2017 End: 11-10-2017 amiodarone (CORDARONE) table t 200 mg Start: 11-10-2017 End: 11-10-2017 amiodarone (CORDARONE) table t 400 mg Start: 11-09-2017 amiodarone (NE XTERONE) bolus from bag 150 mg Start: 11-08-2017 End: 11-09-2017 amiodarone (CORDARONE) table t 400 mg Start: 11-07-2017 End: 11-10-2017 amiodarone in dextrose,iso-o smotic (NEXTERONE) 360 mg/200 mL (1.8 mg/mL) infusion Start: 11-07-2017 amiodarone (NE XTERONE) bolus from bag 150 mg Start: 11-07-2017 End: 11-07-2017 amiodarone in dextrose,iso-o smotic (NEXTERONE) 360 mg/200 mL (1.8 mg/mL) infusion - ADS Override Pull amLODIPine 10 mg oral tablet (20 sources) Dihydropyridine Calcium Channel Jones Start: 12-25-2022 End: 10-22-2024 take 1 tablet by mouth once daily Amlodipine 10 mg tablet Discontinued 10 mg PO DAILY 90 January 02, 2024 8:02am October 22, 2024 8:01am Start: 06-29-2022 End: 12-25-2022 take 1 tablet by mouth once daily Amlodipine 5 mg tablet Discontinued 5 mg PO DAILY 90 June 29, 2022 11:49am December 25, 2022 9:30am Start: 12-08-2021 End: 06-29-2022 take 1 tablet by mouth once daily Amlodipine 2.5 mg tablet Discontinued 2.5 mg PO DAILY 90 December 08, 2021 12:00am June 29, 2022 11:50am atorvastatin 40 mg oral tablet (20 sources) HMG-CoA Reductase Inhibitor Start: 05-28-2023 End: 06-15-2023 Atorvastatin 40 mg tablet Discontinued 0 .ROUTE .COMPLEX 90 May 28, 2023 1:49pm June 15, 2023 10:01am TAKE 1 TABLET AT BEDTIME Start: 05-28-2023 End: 06-15-2023 Atorvastatin 40 mg tablet Discontinued 0 .ROUTE .COMPLEX May 28, 2023 1:49pm June 15, 2023 10:01am TAKE 1 TABLET AT BEDTIME Start: 05-28-2023 End: 06-15-2023 Atorvastatin Discontinued 0 .ROUTE .COMPLEX May 28, 2023 12:49pm June 15, 2023 9:01am TAKE 1 TABLET AT BEDTIME Start: 04-19-2022 End: 05-28-2023 Atorvastatin 40 mg tablet Discontinued 0 .ROUTE .COMPLEX 90 April 19, 2022 5:44pm May 28, 2023 1:50pm TAKE 1 TABLET AT BEDTIME Start: 04-19-2022 End: 05-28-2023 Atorvastatin 40 mg tablet Discontinued 0 .ROUTE .COMPLEX April 19, 2022 5:44pm May 28, 2023 1:50pm TAKE 1 TABLET AT BEDTIME Start: 04-19-2022 End: 05-28-2023 Atorvastatin Discontinued 0 .ROUTE .COMPLEX April 19, 2022 4:44pm May 28, 2023 12:50pm TAKE 1 TABLET AT BEDTIME Start: 04-19-2022 Atorvastatin A ctive 0 .ROUTE .COMPLEX April 19, 2022 5:44pm TAKE 1 TABLET AT BEDTIME Start: 04-19-2022 Atorvastatin A ctive 0 .ROUTE .COMPLEX April 19, 2022 4:44pm TAKE 1 TABLET AT BEDTIME Start: 12-06-2018 End: 01-05-2025 take 1 tablet by mouth at bedtime Atorvastatin 40 mg tablet Discontinued 40 mg PO AT BEDTIME 90 March 17, 2024 9:02am January 05, 2025 12:19pm Start: 01-04-2018 End: 05-29-2018 take 1 tablet by mouth once daily Atorvastatin 40 mg tablet Discontinued 40 mg PO DAILY 90 30 January 29, 2018 9:26am May 28, 2018 1:00am May 29, 2018 1:07am Start: 11-03-2017 End: 11-10-2017 take 1 tablet by mouth once daily atorvastatin (LIPITOR) 40 MG tablet Take 1 (one) tablet (40 mg total) by mouth nightly. 30 tablet 2 11/10/2017 Active Start: 11-01-2017 End: 01-04-2018 take 1 tablet by mouth once daily Atorvastatin 20 MG tablet Discontinued 20 mg PO daily November 02, 2017 1:17pm January 04, 2018 2:05pm cholesterol lowering baclofen 10 mg oral tablet (1 source) gamma-Aminobutyric Acid-ergic Agonist Start: 11-08-2017 End: 11-10-2017 take 1 tablet by mouth every eight hours as needed baclofen (LIORESAL) tablet 10 mg bisacodyl 10 mg rectal suppository (1 source) Stimulant Laxative Start: 11-09-2017 End: 11-10-2017 calcium chloride 0.0014 meq/ml / potassium chloride 0.004 meq/ml / sodium chloride 0.103 meq/ml / sodium lactate 0.028 meq/ml injectable solution (2 sources) Start: 11-06-2017 End: 11-06-2017 lactated Ringers infusion - ADS Override Pull Start: 11-06-2017 End: 11-06-2017 lactated ringers bolus 500 m L calcium chloride 1 g in sodium chloride 0.9 % (NS) 50 mL IVPB (1 source) Start: 11-05-2017 End: 11-06-2017 ceFAZolin 2000 mg injection (1 source) Cephalosporin Antibacterial Start: 11-06-2017 End: 11-07-2017 take 2000 mg intravenous route every eight hours celecoxib 200 mg oral capsule (15 sources) Nonsteroidal Anti-inflammatory Drug Start: 09-17-2017 End: 01-04-2018 take 1 capsule by mouth once daily Celecoxib 200 mg capsule Discontinued 200 mg PO daily September 17, 2017 12:00am January 04, 2018 2:06pm mood elevator cephalexin 500 mg oral capsule (1 source) Cephalosporin Antibacterial End: 11-10-2017 cephALEXin (KEFLEX) 500 MG capsule Take 500 mg by mouth. As needed prior to surgical procedures 11/10/2017 Discontinued chlorhexidine gluconate 1.2 mg/ml mouthwash (1 source) Start: 11-05-2017 End: 11-06-2017 50 ml clevidipine 0.5 mg/ml injection (1 source) Dihydropyridine Calcium Channel Jones Start: 11-05-2017 End: 11-06-2017 clobetasol propionate 0.0005 mg/mg topical ointment (20 sources) Corticosteroid Start: 07-17-2023 End: 11-20-2024 Clobetasol 0.05 % ointment Discontinued TOPICAL as needed August 07, 2023 9:52am November 20, 2024 8:40am Start: 07-09-2023 clobetasol 0.0 5 % topical ointment - Active clopidogrel 75 mg oral tablet (20 sources) P2Y12 Platelet Inhibitor Start: 02-18-2021 End: 06-15-2023 take 1 tablet by mouth once daily Clopidogrel (Plavix) 75 mg tablet Discontinued 75 mg PO DAILY 90 3 May 29, 2023 10:43am June 15, 2023 10:04am Start: 11-06-2017 End: 11-10-2017 take 1 tablet by mouth once daily clopidogrel (PLAVIX) 75 mg tablet Take 1 (one) tablet (75 mg total) by mouth daily. 30 tablet 2 11/11/2017 Active Start: 11-01-2017 End: 01-21-2018 take 4 tablets by mouth once daily, then take 1 tablet by mouth once daily Clopidogrel 75 MG tablet Discontinued 75 mg PO daily November 02, 2017 1:17pm January 21, 2018 3:35pm anti-coagulation Take four tablets today and then one tablet daily Start: 11-01-2017 End: 11-01-2017 take 1 tablet by mouth once daily Clopidogrel (Plavix) 75 mg tablet Discontinued 75 mg PO daily November 01, 2017 12:00am November 01, 2017 11:35am 100 ml dexmedetomidine 0.004 mg/ml injection (2 sources) Central alpha-2 Adrenergic Agonist Start: 11-06-2017 End: 11-06-2017 dexmedetomidine (PRECEDEX) infusion 400 mcg/100 mL in 0.9% sodium chloride Start: 11-06-2017 End: 11-06-2017 dexmedetomidine in 0.9 % NaC l (PRECEDEX) 400 mcg/100 mL (4 mcg/mL) infusion - ADS Override Pull diphenhydrAMINE hydrochloride 50 mg oral capsule (20 sources) Histamine-1 Receptor Antagonist Start: 12-24-2020 End: 08-07-2023 take 1 capsule by mouth at bedtime Diphenhydramine Hcl 50 mg capsule Discontinued 50 mg PO AT BEDTIME December 08, 2021 9:28am August 07, 2023 9:53am sleep Start: 01-04-2018 End: 12-06-2018 take 1 capsule by mouth at bedtime as needed for sleep Diphenhydramine Hcl 50 mg capsule Discontinued 50 mg PO AT BEDTIME as needed for Sleep January 04, 2018 12:00am December 06, 2018 10:10am docusate sodium 50 mg / manuel osides, skilled nursing 8.6 mg oral tablet (2 sources) Start: 11-06-2017 End: 11-10-2017 Start: 11-03-2017 End: 11-05-2017 0.4 ml enoxaparin sodium 100 mg/ml prefilled syringe (1 source) Low Molecular Weight Heparin Start: 11-07-2017 End: 11-10-2017 20 ml etomidate 2 mg/ml injection (1 source) General Anesthetic Start: 11-06-2017 End: 11-06-2017 etomidate (AMIDATE) injection 20 mg Start: 11-06-2017 End: 11-06-2017 etomidate (AMIDATE) injectio n 20 mg 2 ml famotidine 10 mg/ml injection (1 source) Histamine-2 Receptor Antagonist Start: 11-05-2017 End: 11-06-2017 1000 ml glucose 50 mg/ml / sodium chloride 2.25 mg/ml injection (2 sources) Start: 11-05-2017 End: 11-10-2017 250 ml heparin sodium, porcine 100 unt/ml injection (1 source) Start: 11-03-2017 End: 11-05-2017 Heparin Bolus From The Bag (1 source) Unfractionated Heparin, Anti-coagulant Start: 11-03-2017 End: 11-05-2017 hydrALAZINE HCl 20 MG per 1 ML Injection (2 sources) Arteriolar Vasodilator Start: 11-03-2017 End: 11-03-2017 hydrALAZINE (APRESOLINE) injection 10 mg Start: 11-03-2017 End: 11-03-2017 hydrALAZINE (APRESOLINE) 20 mg/mL injection - ADS Override Pull Hydromorphone 0.5 Mg/Ml In 0.9 % Sodium Chloride Intravenous Syringe (3 sources) Opioid Agonist Start: 11-07-2017 End: 11-07-2017 HYDROmorphone (DILAUDID) 0.5 mg/mL injection 1 mg Start: 11-06-2017 End: 11-10-2017 take 0.25-0.5 mg intravenous route every three hours a s needed Start: 11-05-2017 End: 11-06-2017 take 0.5-1.5 mg intravenous route every three hours as needed insulin glargine 100 unt/ml injectable solution (1 source) Insulin Analogue Start: 11-06-2017 End: 11-06-2017 insulin glargine (LANTUS) injection 0-94 Units insulin lispro 100 unt/ml injectable solution (1 source) Insulin Analogue Start: 11-07-2017 End: 11-08-2017 insulin lispro (HumaLOG) injection 0-30 Units insulin regular (HumuLIN R, NovoLIN R) 100 Units in sodium chloride 0.9 % (NS) 100 mL infusion (1 source) Start: 11-05-2017 End: 11-07-2017 24 hr isosorbide mononitrate 30 mg extended release oral tablet (20 sources) Nitrate Vasodilator Start: 08-08-2023 isosorbide mononitrate ER 30 mg tablet,extended release 24 hr - Active Start: 01-06-2022 End: 10-22-2024 take 1 tablet by mouth once daily, then take 1 tablet by mouth every twenty-four hours Isosorbide Mononitrate 30 mg tablet extended release 24 hr Discontinued 30 mg PO DAILY 90 January 02, 2024 8:02am October 22, 2024 8:01am lisinopril 20 mg oral tablet (20 sources) Angiotensin Converting Enzyme Inhibitor Start: 06-15-2023 End: 02-09-2025 take 1 tablet by mouth twice daily Lisinopril 20 mg tablet Discontinued 20 mg PO TWICE A DAY 180 April 21, 2024 10:10am February 09, 2025 3:51pm Start: 06-13-2021 End: 06-15-2023 Lisinopril 20 mg tablet Disc ontinued 0 .ROUTE .COMPLEX 90 May 28, 2023 1:50pm June 15, 2023 9:52am TAKE 1 TABLET EVERY DAY Start: 12-24-2020 End: 06-13-2021 take 2 tablets by mouth once daily Lisinopril 5 mg tablet Discontinued 10 mg PO DAILY 90 December 24, 2020 3:47pm June 13, 2021 12:10pm Start: 12-24-2020 End: 06-13-2021 take 10 mg by mouth once daily Lisinopril Discontinued 10 MG PO DAILY 90 December 24, 2020 2:47pm June 13, 2021 11:10am Start: 07-21-2020 End: 12-24-2020 take 1 tablet by mouth once daily Lisinopril 5 mg tablet Discontinued 5 mg PO DAILY 90 3 July 21, 2020 1:00am December 24, 2020 3:47pm magnesium hydroxide 80 mg/ml oral suspension (1 source) Start: 11-06-2017 End: 11-10-2017 magnesium sulfate (1 source) Start: 11-05-2017 End: 11-06-2017 melatonin 10 mg oral capsule (20 sources) Start: 01-04-2018 End: 02-09-2022 take 1 capsule by mouth at bedtime Melatonin 10 mg capsule Discontinued 10 mg PO BEDTIME December 08, 2021 9:29am February 09, 2022 8:42am Insomnia Start: 09-18-2017 End: 11-01-2017 take 1 capsule by mouth at bedtime as needed Melatonin 10 mg capsule Discontinued 10 mg PO BEDTIME as needed September 18, 2017 12:00am November 01, 2017 11:22am meloxicam 15 mg oral tablet (14 sources) Nonsteroidal Anti-inflammatory Drug Start: 07-27-2020 End: 12-08-2021 take 1 tablet by mouth once daily Meloxicam 15 mg tablet Discontinued 15 mg PO DAILY July 27, 2020 12:00am December 08, 2021 9:30am osteoarthritis metoprolol tartrate 50 mg oral tablet (20 sources) beta-Adrenergic Jones Start: 12-25-2022 End: 10-22-2024 take 1 tablet by mouth twice daily Metoprolol Tartrate 50 mg tablet Discontinued 50 mg PO TWICE A DAY 180 3 January 02, 2024 8:02am October 22, 2024 8:01am Start: 12-06-2018 End: 12-25-2022 take 1 tablet by mouth twice daily Metoprolol Tartrate 100 mg tablet Discontinued 100 mg PO TWICE A DAY 180 3 June 09, 2022 1:38pm December 25, 2022 9:28am Start: 01-04-2018 End: 01-29-2018 Metoprolol Tartrate 100 mg t ablet Discontinued PO 60 30 0 January 04, 2018 12:00am January 29, 2018 9:29am Start: 12-13-2017 End: 06-18-2018 take 1 tablet by mouth twice daily Metoprolol Tartrate 100 mg tablet Discontinued 100 mg PO TWICE A DAY 180 30 3 February 18, 2018 12:22pm June 17, 2018 1:00am June 18, 2018 1:07am Start: 11-21-2017 End: 12-13-2017 metoprolol tartrate (LOPRESS OR) 50 MG tablet Indications: Hypertension, unspecified type Take 1.5 (one and a half) tablets (75 mg total) by mouth 2 (two) times a day. 60 tablet 2 11/21/2017 12/13/2017 Discontinued Start: 11-09-2017 End: 11-10-2017 take 1 tablet by mouth twice daily metoprolol tartrate (LOPRESSOR) 50 MG tablet Take 1 (one) tablet (50 mg total) by mouth 2 (two) times a day. 60 tablet 2 11/10/2017 Active Start: 11-07-2017 End: 11-09-2017 metoprolol tartrate (LOPRESS OR) tablet 25 mg Start: 11-03-2017 End: 11-05-2017 metoprolol tartrate (LOPRESS OR) tablet 25 mg Start: 09-17-2017 End: 01-04-2018 take 1 tablet by mouth once daily Metoprolol Succinate 100 mg tablet extended release 24 hr Discontinued 100 mg PO DAILY September 17, 2017 12:00am January 04, 2018 2:04pm heart 2 ml midazolam 1 mg/ml injec tion (1 source) Benzodiazepine Start: 11-05-2017 End: 11-05-2017 Start: 11-05-2017 End: 11-05-2017 mupirocin 0.02 mg/mg topical ointment (2 sources) RNA Synthetase Inhibitor Antibacterial Start: 11-03-2017 End: 11-10-2017 naloxone (NARCAN) injection 0.1 mg (1 source) Start: 11-06-2017 End: 11-10-2017 naloxone (NARCAN) injection 0.1 mg ondansetron (ZOFRAN-ODT) disintegrating tablet 4 mg (1 source) Start: 11-06-2017 End: 11-10-2017 take 1 tablet by mouth every six hours as needed ondansetron (ZOFRAN-ODT) disintegrating tablet 4 mg pantoprazole 40 mg delayed release oral tablet (1 source) Proton Pump Inhibitor Start: 11-07-2017 End: 11-10-2017 20 ml propofol 10 mg/ml injection (2 sources) General Anesthetic Start: 11-05-2017 End: 11-06-2017 Start: 11-05-2017 End: 11-05-2017 propofol (DIPRIVAN) 10 mg/mL injection - ADS Override Pull sodium chloride (4 sources) Start: 11-06-2017 End: 11-10-2017 sodium chloride (PF) (NS) fl ush 10 mL Start: 11-06-2017 End: 11-10-2017 sodium chloride (PF) (NS) fl ush 5 mL Start: 11-05-2017 End: 11-06-2017 Start: 11-05-2017 End: 11-06-2017 succinylcholine chloride 20 mg/ml injectable solution (1 source) Depolarizing Neuromuscular Jones Start: 11-06-2017 End: 11-06-2017 succinylcholine (ANECTINE) injection 160 mg Start: 11-06-2017 End: 11-06-2017 succinylcholine (ANECTINE) i njection 160 mg traZODone hydrochloride 50 m g oral tablet (1 source) Serotonin Reuptake Inhibitor Start: 11-06-2017 End: 11-10-2017 Problems Active Problems Problem Classification Problem Date Documented Date Episodic/Chronic Cardiac dysrhythmias (3 sources) Atrial fibrillation; Translations: [Atrial fibrillation, transient (HCC)] Onset: 12-13-2017 12-13-2017 Chronic Coronary atherosclerosis and other heart disease (20 sources) Atherosclerotic heart disease of eek coronary artery without angina pectoris; Translations: [Multi vessel coronary artery disease] Onset: 11-05-2017 11-05-2017 Chronic Comment on above: REED-LAD, SVG seq OM 1-OM2, SVG-PDA Coronary atherosclerosis and other heart disease (20 sources) Presence of aortocoronary bypass graft; Translations: [Stented coronary artery] Onset: 11-05-2017 Episodic Comment on above: Successful PCI of pr oximal RCA 75% stenosis with VAN-3 flowWith predilatation using 2.5 x 15 mm balloon, followed by placement of drug-eluting stent 3.5 x 26 mm/OrsiroPostdilated with 4 x 15 mm NC balloon/Euphora with reduction of stenosis from 75% to 0% and maintenance of VAN-3 flow 03/08/21 Disorders of lipid metabolism (20 sources) Hyperlipidemia; Translations: [Hyperlipidemia, unspecified] Onset: 03-23-2025 Chronic Essential hypertension (20 sources) Essential (primary) hypertension; Translations: [Hypertensive disorder] Onset: 11-21-2017 Chronic Heart valve disorders (20 sources) Nonrheumatic aortic (valve) stenosis; Translations: [Aortic valve disorder] Onset: 10-12-2017 11-03-2017 Chronic Comment on above: AVR w/23MM hernandez i ntuity pericardial valve @ [facility] 11/05/17 AVR w/23MM hernandez i ntuity pericardial valve Immunizations and screening for infectious disease (14 sources) Patient encounter status; Translations: [Encounter for screening for COVID-19] 04-18-2021 Episodic Joint disorders and dislocations; trauma-related (4 sources) Traumatic arthropathy, upper arm; Translations: [Traumatic arthropathy of upper extremity] Onset: 02-09-2015 02-11-2015 Chronic Occlusion or stenosis of precerebral arteries (19 sources) Bilateral stenosis of carotid arteries; Translations: [Occlusion and stenosis of bilateral carotid arteries] Onset: 06-27-2024 Chronic Comment on above: Carotid duplex 025 showing 50 to 69% bilateral carotid artery stenosis with max PSV right proximal ICA 202/21 cm/s and max PSV left proximal ICA 196/35 cm/s. Osteoarthritis (20 sources) Primary osteoarthritis, left elbow; Translations: [Localized osteoarthrosis] Onset: 01-12-2015 01-12-2015 Chronic Other acquired deformities (10 sources) Spondylolisthesis; Translations: [Spondylolisthesis, site unspecified] 11-20-2024 Episodic Other circulatory disease (11 sources) H/O: heart disorder; Translations: [Personal history of other diseases of the circulatory system] 04-22-2018 Episodic Comment on above: Valve replaced concomittent with CABG surgery Other circulatory disease (14 sources) Carotid bruit; Translations: [Other specified symptoms and signs involving the circulatory and respiratory systems] 07-05-2020 Episodic Other circulatory disease (3 sources) History of aortic valve stenosis; Translations: [Personal history of other diseases of the circulatory system] 04-22-2018 Episodic Comment on above: Valve replaced concomittent with CABG surgery Other connective tissue disease (10 sources) Neurogenic claudication; Translations: [Other symptoms and signs involving the nervous system] 11-20-2024 Episodic Other inflammatory condition of skin (6 sources) Psoriasis; Translations: [Psoriasis, unspecified] 07-17-2023 Chronic Other lower respiratory disease (3 sources) Dyspnea; Translations: [Shortness of breath] Onset: 11-03-2017 Episodic Other lower respiratory disease (14 sources) Dyspnea on exertion; Translations: [Dyspnea, unspecified] 02-09-2022 Episodic Other lower respiratory disease (5 sources) Other forms of dyspnea; Translations: [Other respiratory abnormalities] Onset: 02-11-2025 Episodic Other lower respiratory disease (1 source) Shortness of breath; Translations: [Shortness of breath] Onset: 03-24-2025 Episodic Other nervous system disorders (4 sources) Lesion of ulnar nerve; Translations: [Lesion of ulnar nerve] Onset: 02-09-2015 02-09-2015 Chronic Other non-traumatic joint disorders (1 source) Arthritis of left elbow; Translations: [Arthritis of left elbow] Onset: 01-12-2015 01-12-2015 Other nutritional; endocrine; and metabolic disorders (14 sources) Obese class I; Translations: [Obesity, unspecified] 11-02-2017 Chronic Other screening for suspected conditions (not mental disorders or infectious disease) (20 sources) Echocardiogram abnormal; Translations: [Abnormal result of other cardiovascular function study] 04-22-2018 Episodic Other upper respiratory infections (14 sources) Upper respiratory infection; Translations: [Acute upper respiratory infection, unspecified] 04-18-2021 Episodic Peripheral and visceral atherosclerosis (10 sources) Peripheral vascular disease, unspecified; Translations: [Peripheral arterial disease] Onset: 08-22-2024 07-18-2022 Chronic Unclassified (1 source) Acute pain Episodic Unclassified (2 sources) Unknown / UNK(Unknown) Onset: 11-02-2017 Unclassified (2 sources) Pain, unspecified; Translations: [Pain, unspecified] Onset: 11-03-2017 Past or Other Problems Problem Classification Problem Date Documented Date Episodic/Chronic Other acquired deformities (1 source) Spondylolisthesis, lumbar region; Translations: [Spondylolisthesis, lumbar region] Onset: 5 Episodic Other circulatory disease (1 source) Other specified symptoms and signs involving the circulatory and respiratory systems; Translations: [Other specified symptoms and signs involving the circulatory and respiratory systems] Onset: 5 Episodic Other connective tissue disease (1 source) Other symptoms and signs involving the nervous system; Translations: [Other symptoms and signs involving the nervous system] Onset: 5 Episodic Residual codes; unclassified (12 sources) History of cardiac catheterization; Translations: [Other specified postprocedural states] Onset: 2 01-06-2022 Episodic Comment on above: LEFT MAIN: distal: e ccentric: 85 % Stenosis; LEFT ANTERIOR DESCENDING ARTERY:PROX LAD: 50 % Stenosis, MID LAD: fills from antegrade flow and REED graft flow with noangiographically significant appearing disease distal to the graft attachment; DIAGONAL 1: Proximal - fills from antegrade flow and retrograde from REED graft flow to the LAD; CIRCUMFLEX ARTERY: PROX CIRC: 50 % Stenosis; OM 1: Distal - no obvious flow distal to the SVG graft attachment, OM 2: Distal - no obvious flow distal to the SVG graft attachment; RIGHT CORONARY ARTERY:PROX RCA: Previously placed stent is patentGRAFTS: REED graft to the Mid LAD is patent,Saphenous Vein graft to the 1st OM is patent, with sequential portion to the 2nd OM being patent and s/p the anastomosis no obvious distal flow in OM1 and OM2; Saphenous Vein graft to the RCA is totally occluded demonstrated on the [facility] cardiac catheterization from 03/08/2021 and not reevaluated during thisprocedure); VALVE FINDINGS: Stable appearing bioprosthetic aortic valve apparatusper cardiac cath Dr. Calderon 01/06/22 Spondylosis; intervertebral disc disorders; other back problems (11 sources) Stenosis of lumbar vertebral foramen; Translations: [Spinal stenosis, lumbar region without neurogenic claudication] Onset: 5 11-20-2024 Episodic Unclassified (1 source) Post-op Onset: 8 Unclassified (1 source) CAD, multiple vessel Results Test Name Value Interpretation Reference Range Facility Basic Metabolic Profile (BMP )on 03-23-2025 BUN/CRE 22.9 RATIO High 03-02 [facility] Comment on above: Performed By: #### L 500.2500, L100.0100 #### [facility] [address] [place], [address] Calcium [Mass/Vol] 9.4 mg/dL Normal 7.6-11.0 [facility] Comment on above: Performed By: #### L 500.2500, L100.0100 #### [facility] [address] [place], [address] Chloride [Moles/Vol] 106 mmol/L Normal 98-108 [facility] Comment on above: Performed By: #### L 500.2500, L100.0100 #### [facility] [address] [place], [address] CO2 [Moles/Vol] 22.9 mmol/L Normal 21.0-32.0 [facility] Comment on above: Performed By: #### L 500.2500, L100.0100 #### [facility] [address] [place], [address] Creatinine [Mass/Vol] 1.00 mg/dL Normal 0.70-1.20 [facility] Comment on above: Performed By: #### L 500.2500, L100.0100 #### [facility] [address] [place], [address] GAP 10 Normal 5-15 [facility] Comment on above: Performed By: #### L 500.2500, L100.0100 #### [facility] [address] [place], [address] GFR/1.73 sq M.predicted among non-blacks MDRD (S/P/Bld) [Vol rate/Area] 79 mL/min/{1.73_m2} Normal >60 [facility] Comment on above: Result Comment: mL/m in/1.73m2 CKD-EPI Creatinine Equation (2020) Performed By: #### L 500.2500, L100.0100 #### [facility] [address] [place], [address] Glucose [Mass/Vol] 95 mg/dL Normal 70-99 [facility] Comment on above: Performed By: #### L 500.2500, L100.0100 #### [facility] [address] [place], [address] Potassium [Moles/Vol] 4.6 mmol/L Normal 3.3-5.1 [facility] Comment on above: Performed By: #### L 500.2500, L100.0100 #### [facility] [address] [place], [address] Sodium [Moles/Vol] 139 mmol/L Normal 133-145 [facility] Comment on above: Performed By: #### L 500.2500, L100.0100 #### [facility] [address] [place], [address] Urea nitrogen [Mass/Vol] 23 mg/dL High 4-19 [facility] Comment on above: Performed By: #### L 500.2500, L100.0100 #### [facility] [address] [place], [address] CBC W/Diff, Automatedon 11-1 0-2025 Absolute Lymph 2.33 X10 3/uL Normal 0.83-4.51 [facility] Comment on above: Performed By: #### L 500.2500, L100.0100 #### [facility] [address] [place], [address] Absolute Neut 6.6 X10 3/uL Normal 2.0-7.7 [facility] Comment on above: Performed By: #### L 500.2500, L100.0100 #### [facility] [address] [place], [address] Basophils/100 WBC (Bld) 0.8 % Normal 0-1 [facility] Comment on above: Performed By: #### L 500.2500, L100.0100 #### [facility] [address] [place], [address] Eosinophils/100 WBC (Bld) 2.6 % Normal 0-5 [facility] Comment on above: Performed By: #### L 500.2500, L100.0100 #### [facility] [address] [place], [address] Erythrocyte distribution width (RBC) [Ratio] 12.1 % Normal 11.6-14.6 [facility] Comment on above: Performed By: #### L 500.2500, L100.0100 #### [facility] [address] [place], [address] Hematocrit (Bld) [Volume fraction] 39.0 % Low 40-54 [facility] Comment on above: Performed By: #### L 500.2500, L100.0100 #### [facility] [address] [place], [address] Hemoglobin (Bld) [Mass/Vol] 13.1 g/dL Normal 13.0-16.5 [facility] Comment on above: Performed By: #### L 500.2500, L100.0100 #### [facility] [address] [place], [address] IG% 0.300 Normal 0.0-0.9 [facility] Comment on above: Result Comment: IG% - Immature Granulocytes (promyelocytes, myelocytes and metamyelocytes) > 1% indicates that a LEFT SHIFT is Present. Performed By: #### L 500.2500, L100.0100 #### [facility] [address] [place], [address] Lymphocytes/100 WBC (Bld) 23.6 % Normal 19-41 [facility] Comment on above: Performed By: #### L 500.2500, L100.0100 #### [facility] [address] [place], [address] MCH (RBC) [Entitic mass] 30.9 pg Normal 27.0-32.0 [facility] Comment on above: Performed By: #### L 500.2500, L100.0100 #### [facility] [address] [place], [address] MCHC (RBC) [Mass/Vol] 33.6 g/dL Normal 32-36 [facility] Comment on above: Performed By: #### L 500.2500, L100.0100 #### [facility] [address] [place], [address] MCV (RBC) [Entitic vol] 92.0 fL Normal 80-94 [facility] Comment on above: Performed By: #### L 500.2500, L100.0100 #### [facility] [address] [place], [address] Monocytes/100 WBC (Bld) 5.8 % Normal 0-10 [facility] Comment on above: Performed By: #### L 500.2500, L100.0100 #### [facility] [address] [place], [address] Neutrophils/100 WBC (Bld) 66.9 % Normal 47-70 [facility] Comment on above: Performed By: #### L 500.2500, L100.0100 #### [facility] [address] [place], [address] Nucleated RBC (Bld) [#/Vol] 0 10*3/uL Normal 0-5 [facility] Comment on above: Performed By: #### L 500.2500, L100.0100 #### [facility] [address] [place], [address] Platelet mean volume (Bld) [Entitic vol] 9.7 fL Normal 6.2-12.0 [facility] Comment on above: Performed By: #### L 500.2500, L100.0100 #### [facility] [address] [place], [address] Platelets (Bld) [#/Vol] 210 10*3/uL Normal 150-450 [facility] Comment on above: Performed By: #### L 500.2500, L100.0100 #### [facility] [address] [place], [address] RBC (Bld) [#/Vol] 4.24 10*6/uL Low 4.6-6.[address] [facility] Comment on above: Performed By: #### L 500.2500, L100.0100 #### [facility] [address] [place], [address] RDW SD 40.9 fl Normal 35.1-43.9 [facility] Comment on above: Performed By: #### L 500.2500, L100.0100 #### [facility] [address] [place], [address] WBC (Bld) [#/Vol] 9.9 10*3/uL Normal 4.4-11.0 [facility] Comment on above: Performed By: #### L 500.2500, L100.0100 #### [facility] [address] [place], [address] Echo Complete W/ Contraston 03-16-2025 Echo Complete W/ Contrast [facility] [address] [place] [address] Echo Complete W/ Contrast 03/16/25 0810 MR#: [id number] Acct: [id number] Name: HERB SUNG Rep #: [id number] : 1950 74 From: Vita Sexton MD Attending Dr: MELY Sullivan Status: REG CLI Ordering Dr: Syed Rubio NP SEQUENCING MACHINE OPERATOR-C Date: 03/16/25 Location: [facility] Sex: M C Admitted: Reason For Study Reason For Study: Valve replacement eval Procedure This was a 2D Doppler, Color Flow transthoracic echocardiogram. The study was technically difficult. Contrast injection was performed. Exam performed in department. Left Ventricle Normal LV size. Left ventricular systolic function is normal. The left ventricular ejection fraction is 60 %. Normal diastology for age. No regional wall motion abnormalities noted. Right Ventricle Mildly dilated right ventricle. Normal systolic function. Atria There is mild biatrial dilatation. Mitral Valve Normal mitral valve. Trivial mitral valve insufficiency. Tricuspid Valve Normal tricuspid valve. Unable to estimate RV systolic pressure due to insufficient tricuspid regurgitant envelope. Aortic Valve Peak aortic valve gradient 23 mmHg. Mean aortic valve gradient 13 mmHg. Bioprosthetic aortic valve. Stable appearing bioprosthetic aortic valve apparatus. Pulmonic Valve Normal pulmonic valve. Great Vessels Normal sized aortic root. Pericardium/Pleural No pericardial effusion. Medication 22 gauge I.V. with prn adaptor inserted into right arm. Diluted definity 1ml given slow IV push to enhance endocardial definition. MMode/2D Measurements Calculations LVIDd: 4.6 cm IVSd: 0.94 cm LVOT diam: 1.9 cm LVIDs: 3.0 cm LVPWd: 1.0 cm RVDd: 4.5 cm FS: 34.0 % LVOT area: 2.7 cm2 Ao root diam: 3.8 cm LAV(MOD-bp): 70.5 ml LVAd ap4: 35.4 cm2 LAV(MOD-bp) Indexed: 31.3 ml/m2 LVLd ap4: 9.0 cm LAV(MOD-sp2): 75.6 ml EDV(MOD-sp4): 112.5 ml LAV(MOD-sp4): 62.3 ml EDV(sp4-el): 117.8 ml LVAs ap4: 18.1 cm2 LVLs ap4: 7.5 cm ESV(MOD-sp4): 35.6 ml ESV(sp4-el): 37.0 ml EF(MOD-sp4): 68.4 % EF(sp4-el): 68.6 % SV(MOD-sp4): 76.9 ml SV(sp4-el): 80.9 ml LA A4 area: 21.4 cm2 SI(MOD-sp4): 34.1 ml/m2 LA dimension(2D): 4.9 cm RA A4 area: 20.8 cm2 TAPSE: 1.9 cm Time Measurements MV dec time: 0.24 sec Doppler Measurements Calculations MV E max sam: 71.8 cm/sec Lat Peak E' Sam: 9.3 cm/sec Med Peak E' Sam: 8.7 cm/sec MV A max sam: 75.6 cm/sec E/E' lat: 7.7 E/E' med: 8.2 MV E/A: 0.95 MV V2 max: 110.4 cm/sec MV P1/2t max sam: 110.4 cm/sec Ao V2 max: 238.7 cm/sec MV max P.9 mmHg MV P1/2t: 96.3 msec Ao max P.9 mmHg MV V2 mean: 58.0 cm/sec MV dec slope: 336.0 cm/sec2 Ao V2 mean: 168.8 cm/sec MV mean P.6 mmHg MVA(P1/2t): 2.3 cm2 Ao mean P.2 mmHg MV V2 VTI: 34.6 cm Ao V2 VTI: 56.7 cm MVA(VTI): 2.0 cm2 AV (velocity ratio): 0.44 HEATHER(I,D): 1.2 cm2 HEATHER(V,D): 1.1 cm2 LV V1 max: 100.2 cm/sec SV(LVOT): 68.3 ml PA V2 max: 104.7 cm/sec LV V1 max P.0 mmHg PA V2 mean: 65.0 cm/sec LV V1 mean P.5 mmHg LV V1 mean: 75.4 cm/sec LV V1 VTI: 25.2 cm ECHO/Echo Complete W/ Contrast Interpretation Summary The left ventricular ejection fraction is 60 %. Mildly dilated right ventricle. There is mild biatrial dilatation. Stable appearing bioprosthetic aortic valve apparatus. The study was technically difficult. Contrast injection was performed. Ordering Physician: Syed Rubio Referring Physician: Syed Rubio Performed By: Vasiliy Copeland RCS 03/16/25 1208 Date Vita Sexton MD CC: SEQUENCING MACHINE OPERATOR-C Syed Rubio; Dr. Do Shaw MD Date Dictated: 03/16/25 0810 Date Transcribed: 03/16/25 1208 Developing Machine Tender: Signed Normal [facility] Stress Reporton 03-16-2025 Stress Report [facility] [address] [place] [address] MR#: [id number] Acct: [id number] Name: HERB SUNG Rep #: [id number] : 1950 74 From: Vita Sexton MD Primary Care: Dr. Do Shaw MD Status: REG CLI Referring Dr: Syed Rubio NP SEQUENCING MACHINE OPERATOR-Yessenia Sex: M C Stress Test Report Date: 03/16/2025 Procedure: Exercise tolerance test/imaging study Indications: Coronary artery disease/dyspnea Consent: Per the patient Procedure: The patient exercised on a Abiodun protocol for 7 minutes and 45 seconds achieving a peak heart rate of 120 bpm (82% predicted maximal heart rate) with a peak blood pressure 174/76 mmHg and a peak MET capacity of 10.4 METs. The baseline ECG demonstrated normal sinus rhythm. The peak exercise ECG sinus tachycardia with no ischemic changes. T wave inversions in recovery noted that may suggest ischemia. There were no cardiac dysrhythmias pretest, during exercise, or recovery. The functional capacity was considered very good for age. There was no complaints of chest discomfort during exercise or in recovery. However the patient did complain of shortness of breath. The examination was discontinued secondary to dyspnea. The patient was injected with 14.3 mCi of technetium 99m Cardiolite and subsequently rest SPECT Cardiolite nuclear imaging was obtained in the horizontal long, vertical long, and short axis views. Post-exercise, the patient was injected with 44.1 mCi of technetium 99m Cardiolite and subsequently stress SPECT Cardiolite nuclear imaging was obtained in the horizontal long, vertical long, and short axis views. A gated Cardiolite study at peak stress was obtained. Rest and stress SPECT Cardiolite nuclear imaging status post realignment, normalization, and attenuation correction, demonstrates moderate size reversible perfusion defect of the lateral wall, moderate in its intensity. This suggests reversible ischemia. There is end systolic thickening and brightening. The gated Cardiolite study demonstrates myocardial thickening and inward wall motion. The reported LVEF is 73%. Impression: 1. Technically adequate exercise tolerance test. No chest pain reported however the patient did report dyspnea. 2. Peak exercise ECG with no ischemic changes however T wave inversions in high lateral leads in recovery suggestive of ischemia 3. There were no cardiac dysrhythmias pretest, during exercise, or recovery 4. Rest and stress SPECT Cardiolite nuclear imaging demonstrate moderate size reversible perfusion defect of the lateral wall, suggestive of reversible ischemia. 5. The gated Cardiolite study reports an LVEF of 73%. This note was generated with LoveLulaation software. It may contain incorrect words, spelling, and punctuation that were not noted in checking the note before signing. 03/16/25903 Date Vita Sexton MD CC: SEQUENCING MACHINE OPERATOR-C Syed Rubio; Dr. Do Shaw MD Date Dictated: 03/16/25899 Date Transcribed: 03/16/25899 Developing Machine Tender: RICHARD Signed Normal [facility] Absolute lymphocyte countOrd ered By: Syed Rubio on 02-11-2025 Lymphocytes Auto (Unsp spec) [#/Vol] 2.16 10*3/uL 0.83-4.51 [facility] Absolute neutrophil countOrd ered By: Syed Rubio on 02-11-2025 Neutrophils (Bld) [#/Vol] 6.5 10*3/uL 2.0-7.7 [facility] Anion gap in Serum or Plasma Ordered By: Syed Rubio on 02-11-2025 Anion gap [Moles/Vol] 10 mmol/L 5-15 [facility] Automated lymphocyte count a s percentage of total leukocytesOrdered By: Syed Rubio on 02-11-2025 Lymphocytes/100 WBC Auto (Unsp spec) 22.2 % - [facility] BUN/creatinine ratioOrdered By: Syed Rubio on 02-11-2025 Urea nitrogen/Creatinine [Mass ratio] 17.9 mg/mg 10- [facility] Basic Metabolic Profile (BMP )on 02-11-2025 BUN/CRE 17.9 RATIO Normal -20 [facility] Comment on above: Performed By: #### L 503.7505, L100.0100, L500.2500 #### [facility] [address] [place], [address] Calcium [Mass/Vol] 9.9 mg/dL Normal 7.6-11.0 [facility] Comment on above: Performed By: #### L 503.7505, L100.0100, L500.2500 #### [facility] [address] [place], [address] Chloride [Moles/Vol] 105 mmol/L Normal 98-108 [facility] Comment on above: Performed By: #### L 503.7505, L100.0100, L500.2500 #### [facility] [address] [place], [address] CO2 [Moles/Vol] 24.0 mmol/L Normal 21.0-32.0 [facility] Comment on above: Performed By: #### L 503.7505, L100.0100, L500.2500 #### [facility] [address] [place], [address] Creatinine [Mass/Vol] 1.12 mg/dL Normal 0.70-1.20 [facility] Comment on above: Performed By: #### L 503.7505, L100.0100, L500.2500 #### [facility] [address] [place], [address] GAP 10 Normal 5-15 [facility] Comment on above: Performed By: #### L 503.7505, L100.0100, L500.2500 #### [facility] [address] [place], [address] GFR/1.73 sq M.predicted among non-blacks MDRD (S/P/Bld) [Vol rate/Area] 69 mL/min/{1.73_m2} Normal >60 [facility] Comment on above: Result Comment: mL/m in/1.73m2 CKD-EPI Creatinine Equation (2020) Performed By: #### L 503.7505, L100.0100, L500.2500 #### [facility] [address] [place], [address] Glucose [Mass/Vol] 89 mg/dL Normal 70-99 [facility] Comment on above: Performed By: #### L 503.7505, L100.0100, L500.2500 #### [facility] [address] [place], [address] Potassium [Moles/Vol] 4.6 mmol/L Normal 3.3-5.1 [facility] Comment on above: Performed By: #### L 503.7505, L100.0100, L500.2500 #### [facility] [address] [place], [address] Sodium [Moles/Vol] 140 mmol/L Normal 133-145 [facility] Comment on above: Performed By: #### L 503.7505, L100.0100, L500.2500 #### [facility] [address] [place], [address] Urea nitrogen [Mass/Vol] 20 mg/dL High 4-19 [facility] Comment on above: Performed By: #### L 503.7505, L100.0100, L500.2500 #### [facility] [address] [place], [address] Basophil percentageOrdered B y: Syed Rubio on 02-11-2025 Basophils/100 WBC (Bld) 0.8 % 0-1 [facility] CBC W/Diff, Automatedon 10-0 Absolute Lymph 2.16 X10 3/uL Normal 0.83-4.51 [facility] Comment on above: Performed By: #### L 503.7505, L100.0100, L500.2500 #### [facility] [address] [place], [address] Absolute Neut 6.5 X10 3/uL Normal 2.0-7.7 [facility] Comment on above: Performed By: #### L 503.7505, L100.0100, L500.2500 #### [facility] [address] [place], [address] Basophils/100 WBC (Bld) 0.8 % Normal 0-1 [facility] Comment on above: Performed By: #### L 503.7505, L100.0100, L500.2500 #### [facility] [address] [place], [address] Eosinophils/100 WBC (Bld) 2.7 % Normal 0-5 [facility] Comment on above: Performed By: #### L 503.7505, L100.0100, L500.2500 #### [facility] [address] [place], [address] Erythrocyte distribution width (RBC) [Ratio] 12.5 % Normal 11.6-14.6 [facility] Comment on above: Performed By: #### L 503.7505, L100.0100, L500.2500 #### [facility] [address] [place], [address] Hematocrit (Bld) [Volume fraction] 41.1 % Normal 40-54 [facility] Comment on above: Performed By: #### L 503.7505, L100.0100, L500.2500 #### [facility] [address] [place], [address] Hemoglobin (Bld) [Mass/Vol] 13.5 g/dL Normal 13.0-16.5 [facility] Comment on above: Performed By: #### L 503.7505, L100.0100, L500.2500 #### [facility] [address] [place], [address] IG% 0.300 Normal 0.0-0.9 [facility] Comment on above: Result Comment: IG% - Immature Granulocytes (promyelocytes, myelocytes and metamyelocytes) > 1% indicates that a LEFT SHIFT is Present. Performed By: #### L 503.7505, L100.0100, L500.2500 #### [facility] [address] [place], [address] Lymphocytes/100 WBC (Bld) 22.2 % Normal 19-41 [facility] Comment on above: Performed By: #### L 503.7505, L100.0100, L500.2500 #### [facility] [address] [place], [address] MCH (RBC) [Entitic mass] 31.3 pg Normal 27.0-32.0 [facility] Comment on above: Performed By: #### L 503.7505, L100.0100, L500.2500 #### [facility] [address] [place], [address] MCHC (RBC) [Mass/Vol] 32.8 g/dL Normal 32-36 [facility] Comment on above: Performed By: #### L 503.7505, L100.0100, L500.2500 #### [facility] [address] [place], [address] MCV (RBC) [Entitic vol] 95.1 fL High 80-94 [facility] Comment on above: Performed By: #### L 503.7505, L100.0100, L500.2500 #### [facility] [address] [place], [address] Monocytes/100 WBC (Bld) 6.9 % Normal 0-10 [facility] Comment on above: Performed By: #### L 503.7505, L100.0100, L500.2500 #### [facility] [address] [place], [address] Neutrophils/100 WBC (Bld) 67.1 % Normal 47-70 [facility] Comment on above: Performed By: #### L 503.7505, L100.0100, L500.2500 #### [facility] [address] [place], [address] Nucleated RBC (Bld) [#/Vol] 0 10*3/uL Normal 0-5 [facility] Comment on above: Performed By: #### L 503.7505, L100.0100, L500.2500 #### [facility] [address] [place], [address] Platelet mean volume (Bld) [Entitic vol] 9.8 fL Normal 6.2-12.0 [facility] Comment on above: Performed By: #### L 503.7505, L100.0100, L500.2500 #### [facility] [address] [place], [address] Platelets (Bld) [#/Vol] 237 10*3/uL Normal 150-450 [facility] Comment on above: Performed By: #### L 503.7505, L100.0100, L500.2500 #### [facility] [address] [place], [address] RBC (Bld) [#/Vol] 4.32 10*6/uL Low 4.6-6.[address] [facility] Comment on above: Performed By: #### L 503.7505, L100.0100, L500.2500 #### [facility] [address] [place], [address] RDW SD 44.2 fl High 35.1-43.9 [facility] Comment on above: Performed By: #### L 503.7505, L100.0100, L500.2500 #### [facility] [address] [place], [address] WBC (Bld) [#/Vol] 9.7 10*3/uL Normal 4.4-11.0 [facility] Comment on above: Performed By: #### L 503.7505, L100.0100, L500.2500 #### [facility] [address] [place], [address] Carbon dioxide, total [Moles /volume] in Central venous bloodOrdered By: Syed Rubio on 02-11-2025 CO2 [Moles/Vol] 24.0 mmol/L 21.0-32.0 [facility] Cardiology Visit Reporton Cardiology Visit Report [facility] [address] [place] [address] OFFICE VISIT Date of Service: 02/11/25 MR#: [id number] Acct: [id number] Name: HERB SUNG Rep #: [id number] : 1950 Provider: MELY shetty Age/Sex: 74/M [place] [facility] [place] Status: Signed with Addenda ADDENDUM by MELY Rubio on 02/12/25 at 1649 HPI History of Present Illness Details: This is a 73-year-old white male that presents to the office today for a cardiovascular visit with a past cardiovascular history which includes underlying CAD, status post CABG (October 2017: [facility]: REED to the LAD, sequential SVG to OM1 and OM2, and SVG to the PDA), status post aortic valve replacement (October 2017: [facility]: Number 23 mm Hernandez Intuity pericardial valve), and status post Drug-eluting stent to proximal RCA in February 2021, superimposed upon hyperlipidemia, and hypertension. He denies chest, arm, jaw, or neck discomfort. He denies palpitations. He states mild, bilateral bilateral lower extremity edema. He denies claudication. He denies shortness of breath with activity, shortness of breath at rest, orthopnea, or PND. He denies chronic cough. He denies significant, sudden weight gain. He states an episode in which he went from a sitting position quickly to a standing position and passed out a few years ago. This has been a one-time event. He denies lightheadedness, dizziness, or near-syncope. He denies blood in urine, blood in stool, or epistaxis. He denies fever with chills. He denies myalgia. He denies fatigue. His exercise level has remained stable. He wanted to know whether he could cut down on some of his medications. 02/12/251648 Date Syed Rubio NP SEQUENCING MACHINE OPERATOR-C cc: Dr. Do Shaw MD * Signed HPI HPI History of Present Illness Details: This is a 74-year-old white male that presents to the office today for a cardiovascular visit with a past cardiovascular history which includes underlying CAD, status post CABG (October 2017: [facility]: REED to the LAD, sequential SVG to OM1 and OM2, and SVG to the PDA), status post aortic valve replacement (October 2017: [facility]: Number 23 mm Hernandez Intuity pericardial valve), and status post Drug-eluting stent to proximal RCA in February 2021, superimposed upon hyperlipidemia, and hypertension. He denies chest, arm, jaw, or neck discomfort. He denies palpitations. He states mild, bilateral bilateral lower extremity edema. He denies claudication. He states shortness of breath with activity such as walking on his vacation in [place] as well as flat surfaces. This is noted after walking 1-1.5 miles. This improved with rest. He denies shortness of breath at rest, orthopnea, or PND. He denies chronic cough. He denies significant, sudden weight gain. He states an episode last month in which he went from a sitting position quickly to a standing position and passed out. This has been a one-time event. He denies lightheadedness, dizziness, or near-syncope. He denies blood in urine, blood in stool, or epistaxis. He denies fever with chills. He denies myalgia. He denies fatigue. His exercise level has remained stable, but limited by back and knee orthopedic limits. 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 Required: No Is patient in pain?: No Allergies poison kaylyn extract Allergy (Intermediate, Verified 02/11/25 09:10) Rash Medications ???Medication ???Instructions ???Recorded ???Confirmed ???Type cholecalciferol (vitamin D3) 25 1,000 unit PO QDAY [facility] 09/18/17 02/11/25 History mcg (1,000 unit) capsule cyanocobalamin (vitamin B-12) 5,000 mcg sublingual QDAY general 09/18/17 02/11/25 History 5,000 mcg sublingual tablet health (Vitamin B-12) loratadine 10 mg tablet (Allergy 10 mg PO DAILY PRN Allergies 01/0402/11/25 History Relief (loratadine)) aspirin 81 mg tablet,delayed 162 mg PO DAILY heart 12/06/1806/07 History release (Adult Aspirin Regimen) amoxicillin 500 mg tablet 500 mg PO .COMPLEX 08/15/21 History melatonin 10 mg capsule 10 mg PO HS PRN Insomnia 02/09/22 02/11/25 History omega-3 fatty acids 1,000 mg 2,000 mg PO QDAY [facility] 02/11/25 History capsule (Fish Oil Concentrate) diphenhydramine HCl 50 mg capsule 50 mg PO QHS PRN sleep 08/07/23 1 History hydrocodone-acetaminop hen 5-325mg 1 tab PO Q8H Pain 06/27/24 History 5 (more content not included)... Normal [facility] Chloride assayOrdered By: Felicity Rubio on 02-11-2025 Chloride [Moles/Vol] 105 mmol/L 98-108 [facility] Eosinophil percentageOrdered By: Syed Rubio on 02-11-2025 Eosinophils/100 WBC (Bld) 2.7 % 0-5 [facility] Erythrocyte distribution wid th ratioOrdered By: Syed Rubio on 02-11-2025 Erythrocyte distribution width (RBC) [Ratio] 12.5 % 11.6-14.6 [facility] Erythrocyte distribution wid th standard deviationOrdered By: Syed Rubio on 02-11-2025 Erythrocyte distribution width (RBC) [Ratio] 44.2 fl High 35.1-43.9 [facility] Glomerular filtration rate ( GFR) estimation/1.73 sq m using serum, plasma, or whole bOrdered By: Syed Rubio on 02-11-2025 GFR/1.73 sq M.predicted among non-blacks MDRD (S/P/Bld) [Vol rate/Area] 69 mL/min/{1.73_m2} >60 [facility] Comment on above: mL/min/1.73m2 CKD-EP I Creatinine Equation (2020) Hematocrit Auto (Bld) [Volum e fraction]Ordered By: Syed Rubio on 02-11-2025 Hematocrit (Bld) [Volume fraction] 41.1 % 40-54 [facility] Hemoglobin measurementOrdere d By: Syed Rubio on 02-11-2025 Hemoglobin (Bld) [Mass/Vol] 13.5 g/dL 13.0-16.5 [facility] Immature granulocytes/100 WB C Auto (Bld)Ordered By: Syed Rubio on 02-11-2025 Immature granulocytes/100 WBC (Bld) 0.300 % 0.0-0.9 [facility] Comment on above: IG% - Immature Granu locytes (promyelocytes, myelocytes and metamyelocytes) > 1% indicates that a LEFT SHIFT is Present. MCV (mean corpuscular volume ) determinationOrdered By: Syed Rubio on 02-11-2025 MCV (RBC) [Entitic vol] 95.1 fL High 80-94 [facility] Mean corpuscular hemoglobin (MCH) determinationOrdered By: Syed Rubio 02-11-2025 MCH (RBC) [Entitic mass] 31.3 pg 27.0-32.0 [facility] Mean corpuscular hemoglobin concentration (MCHC) determinationOrdered By: Syed Rubio 02-11-2025 MCHC (RBC) [Mass/Vol] 32.8 g/dL 32-36 [facility] Mean platelet volume determi nationOrdered By: Syed Rubio on 02-11-2025 Platelet mean volume (Bld) [Entitic vol] 9.8 fL 6.2-12.0 [facility] Monocyte percentageOrdered B y: Syed Rubio on 02-11-2025 Monocytes/100 WBC (Bld) 6.9 % 0-10 [facility] Natriuretic peptide.B prohor oscar N-Terminal [Mass/volume] in Serum or PlasmaOrdered By: Syed Rubio on 02-11-2025 Natriuretic peptide.B prohormone N-Terminal [Mass/Vol] 197 pg/mL <900 [facility] Comment on above: Heart Failure Unlike ly: < 300 pg/mLHeart Failure Likely< 50 Years: > 450 pg/mL50-75 Years: > 900 pg/mL>75 Years: > 1800 pg/mL Neutrophil percentageOrdered By: Syed Rubio on 02-11-2025 Neutrophils/100 WBC (Bld) 67.1 % 47-70 [facility] Nucleated red blood cell per centageOrdered By: Syed Rubio on 02-11-2025 Nucleated RBC/100 WBC (Bld) [Ratio] 0 % 0-5 [facility] Platelet countOrdered By: Felicity Rubio on 02-11-2025 Platelets (Bld) [#/Vol] 237 10*3/uL 150-450 [facility] Potassium measurement (mass/ volume)Ordered By: Syed Rubio on 02-11-2025 Potassium (Unsp spec) [Mass/Vol] 4.6 mmol/L 3.3-5.1 [facility] Pro- Brain NATRIURETIC PEPTI Roxana 02-11-2025 Natriuretic peptide B (Bld) [Mass/Vol] 197 pg/mL Normal <=900 [facility] Comment on above: Result Comment: Hear t Failure Unlikely: < 300 pg/mL Heart Failure Likely < 50 Years: > 450 pg/mL 50-75 Years: > 900 pg/mL >75 Years: > 1800 pg/mL Performed By: #### L 503.2135, L100.0100, L500.2500 #### [facility] [address] [place], [address] RBC Auto (Bld) [#/Vol]Ordere d By: Syed Rubio on 02-11-2025 RBC (Bld) [#/Vol] 4.32 10*6/uL Low 4.6-6.[address] [facility] Serum creatinine measurement (mass/volume)Ordered By: Syed Rubio on 02-11-2025 Creatinine [Mass/Vol] 1.12 mg/dL 0.70-1.20 [facility] Serum glucose measurement (m ass/volume)Ordered By: Syed Rubio on 02-11-2025 Glucose [Mass/Vol] 89 mg/dL 70-99 [facility] Serum or plasma calcium garry urement (mass/volume)Ordered By: Syed Rubio on 02-11-2025 Calcium [Mass/Vol] 9.9 mg/dL 7.6-11.0 [facility] Serum or plasma urea nitroge n measurement (mass/volume)Ordered By: Syed Rubio on 02-11-2025 Urea nitrogen [Mass/Vol] 20 mg/dL High 4-19 [facility] Sodium levelOrdered By: Syed Rubio on 02-11-2025 Sodium [Moles/Vol] 140 mmol/L 133-145 [facility] White blood cell (WBC) count Ordered By: Syed Rubio on 02-11-2025 WBC (Bld) [#/Vol] 9.7 10*3/uL 4.4-11.0 [facility] Bilirubin directOrdered By: Ahsan Haywood on 02-10-2025 Bilirubin.direct [Mass/Vol] 0.23 mg/dL 0.00-0.30 [facility] Bilirubin, totalOrdered By: Ahsan Haywood on 02-10-2025 Bilirubin [Mass/Vol] 0.56 mg/dL 0.00-1.30 [facility] Calculated very low density lipoprotein (VLDL) cholesterol measurementOrdered By: Ahsan Haywood on 02-10-2025 Calculated very low density lipoprotein (VLDL) cholesterol measurement 27 mg/dL 5-40 [facility] LDL calc ser/plasOrdered By: Ahsan Haywood on 02-10-2025 Cholesterol in LDL [Mass/Vol] 53 mg/dL [facility] Comment on above: Jbbvakmucr=292-839 m g/dL & Higher Gvgg=483 mg/dL or greaterFriedwald Equation for LDL-C Laboratory - Chemistry and C hemistry - challengeOrdered By: Ahsan Haywood on 02-10-2025 AST [Catalytic activity/Vol] 20 U/L <38 [facility] Lipid Profileon 02-10-2025 CHOL:HDL 2.82 Normal [facility] Comment on above: Performed By: #### L 500.4100, L500.3400 ####[facility] [address] [place], [address] Cholesterol [Mass/Vol] 124 mg/dL Normal <=200 [facility] Comment on above: Result Comment: Chol esterol level, Desirable <200 mg/dL Borderline high cholesterol 200-239 mg/dL High cholesterol >=240 mg/dL Recommendations of the NCEP Adult Treatment Panel for the following risk-cutoff thresholds for the [place] population. Performed By: #### L 500.4100, L500.3400 ####[facility] [address] [place], [address] Cholesterol in HDL [Mass/Vol] 44 mg/dL Normal [facility] Comment on above: Result Comment: Lakisha onal Cholesterol Education Program (NCEP) guidelines: <40 mg/dL: Low HDL-cholesterol (major risk factor for CHD) >= 60 mg/dL: High HDL-cholesterol (negative risk factor for CHD) HDL-cholesterol is affected by a number of factors, e.g. smoking, exercise, hormones, sex and age. Performed By: #### L 500.4100, L500.3400 ####[facility] [address] [place], [address] Cholesterol in LDL [Mass/Vol] 53 mg/dL Normal [facility] Comment on above: Result Comment: Bord smuuzk=081-559 mg/dL Higher Cypu=216 mg/dL or greater Friedwald Equation for LDL-C Performed By: #### L 500.4100, L500.3400 ####[facility] [address] [place], [address] Cholesterol in VLDL [Mass/Vol] 27 mg/dL Normal 5-40 [facility] Comment on above: Performed By: #### L 500.4100, L500.3400 ####[facility] [address] [place], [address] Triglyceride [Mass/Vol] 137 mg/dL Normal [facility] Comment on above: Result Comment: The drugs N-Acetylcysteine and Metamizole may falsely depress this assay. Normal range: <150 mg/dL Borderline High: 150-199 mg/dL High: 200-499 mg/dL Very High: >500 mg/dL Performed By: #### L 500.4100, L500.3400 ####[facility] [address] [place], [address] CHOL Normal <=200 [facility] Comment on above: Result Comment: EXPI RED Performed By: #### L 500.3400, L500.4100 #### [facility] [address] [place], [address] CHOL:HDL Normal [facility] Comment on above: Result Comment: EXPI RED Performed By: #### L 500.3400, L500.4100 #### [facility] [address] [place], [address] CLDL Normal [facility] Comment on above: Result Comment: EXPI RED Performed By: #### L 500.3400, L500.4100 #### [facility] [address] [place], [address] HDL Normal [facility] Comment on above: Result Comment: EXPI RED Performed By: #### L 500.3400, L500.4100 #### [facility] [address] [place], [address] TRIG Normal [facility] Comment on above: Result Comment: EXPI RED Performed By: #### L 500.3400, L500.4100 #### [facility] [address] [place], [address] VLDL Normal 5-40 [facility] Comment on above: Result Comment: EXPI RED Performed By: #### L 500.3400, L500.4100 #### [facility] [address] [place], [address] Liver Profileon 02-10-2025 Albumin [Mass/Vol] 4.3 g/dL Normal 3.4-4.8 [facility] Comment on above: Performed By: #### L 500.4100, L500.3400 #### [facility] [address] [place], [address] ALK PHOS 82 U/L Normal 40-129 [facility] Comment on above: Performed By: #### L 500.4100, L500.3400 #### [facility] [address] [place], [address] ALT [Catalytic activity/Vol] 20 U/L Normal <=46 [facility] Comment on above: Performed By: #### L 500.4100, L500.3400 #### [facility] [address] [place], [address] AST [Catalytic activity/Vol] 20 U/L Normal <=37 [facility] Comment on above: Performed By: #### L 500.4100, L500.3400 #### [facility] [address] [place], [address] Bilirubin [Mass/Vol] 0.56 mg/dL Normal 0.00-1.30 [facility] Comment on above: Performed By: #### L 500.4100, L500.3400 #### [facility] [address] [place], [address] Bilirubin.direct [Mass/Vol] 0.23 mg/dL Normal 0.00-0.30 [facility] Comment on above: Performed By: #### L 500.4100, L500.3400 #### [facility] [address] [place], [address] Globulin (S) [Mass/Vol] 2.9 g/dL Normal 2.2-4.2 [facility] Comment on above: Performed By: #### L 500.4100, L500.3400 #### [facility] [address] [place], [address] T PROT 7.3 g/dL Normal 5.9-8.4 [facility] Comment on above: Performed By: #### L 500.4100, L500.3400 #### [facility] [address] [place], [address] ALB Normal 3.4-4.8 [facility] Comment on above: Result Comment: EXPI RED Performed By: #### L 500.3400, L500.4100 #### [facility] [address] [place], [address] ALK PHOS Normal 40-129 [facility] Comment on above: Result Comment: EXPI RED Performed By: #### L 500.3400, L500.4100 #### [facility] [address] [place], [address] ALT Normal <=46 [facility] Comment on above: Result Comment: EXPI RED Performed By: #### L 500.3400, L500.4100 #### [facility] [address] [place], [address] AST Normal <=37 [facility] Comment on above: Result Comment: EXPI RED Performed By: #### L 500.3400, L500.4100 #### [facility] [address] [place], [address] D BILI Normal 0.00-0.30 [facility] Comment on above: Result Comment: EXPI RED Performed By: #### L 500.3400, L500.4100 #### [facility] [address] [place], [address] T BILI Normal 0.00-1.30 [facility] Comment on above: Result Comment: EXPI RED Performed By: #### L 500.3400, L500.4100 #### [facility] [address] [place], [address] T PROT Normal 5.9-8.4 [facility] Comment on above: Result Comment: EXPI RED Performed By: #### L 500.3400, L500.4100 #### [facility] [address] [place], [address] Screening total cholesterol/ high density lipoprotein (HDL) cholesterol ratioOrdered By: Ahsan Haywood on 02-10-2025 Cholesterol.total/Isis sterol in HDL [Mass ratio] 2.82 {ratio} [facility] Serum globulin measurementOr dered By: Ahsan Haywood on 02-10-2025 Globulin (S) [Mass/Vol] 2.9 g/dL 2.2-4.2 [facility] Serum or plasma alanine amaro otransferase (ALT) measurementOrdered By: Ahsan Haywood on 02-10-2025 ALT [Catalytic activity/Vol] 20 U/L <47 [facility] Serum or plasma albumin garry urement (mass/volume)Ordered By: Ahsan Haywood on 02-10-2025 Albumin [Mass/Vol] 4.3 g/dL 3.4-4.8 [facility] Serum or plasma alkaline robe sphatase measurementOrdered By: Ahsan Haywood on 02-10-2025 ALP [Catalytic activity/Vol] 82 U/L 40-129 [facility] Serum or plasma cholesterol in HDL measurement (mass/volume)Ordered By: Ahsan Haywood on 02-10-2025 Cholesterol in HDL [Mass/Vol] 44 mg/dL >40 [facility] Comment on above: National Cholesterol Education Program (NCEP) guidelines:<40 mg/dL: Low HDL-cholesterol (major risk factor for CHD)>= 60 mg/dL: High HDL-cholesterol (negative risk factor for CHD)HDL-cholesterol is affected by a number of factors, e.g. smoking, exercise, hormones, sex and age. Serum or plasma cholesterol measurement (mass/volume)Ordered By: Ahsan Yobany on 02-10-2025 Cholesterol [Mass/Vol] 124 mg/dL <201 [facility] Comment on above: Cholesterol level, D esirable <200 mg/dLBorderline high cholesterol 200-239 mg/dLHigh cholesterol >=240 mg/dLRecommendations of the NCEP Adult Treatment Panel for the following risk-cutoff thresholds for the [place] population. Total proteinOrdered By: Olaf Haywood on 02-10-2025 Protein [Mass/Vol] 7.3 g/dL 5.9-8.4 [facility] Triglycerides measurementOrd ered By: Ahsan [facility] on 02-10-2025 Triglyceride [Mass/Vol] 137 mg/dL <199 [facility] Comment on above: The drugs N-Acetylcy steine and Metamizole may falsely depress this assay. Normal range: <150 mg/dLBorderline High: 150-199 mg/dLHigh: 200-499 mg/dLVery High: >500 mg/dL Carotid Duplex Ultrasoundon 01-08-2025 Carotid Duplex Ultrasound [facility] [address] [facility] [place] [address] Carotid Duplex Ultrasound 01/08/25825 MR#: [id number] Acct: [id number] Name: HERB SUNG Rep #: [id number] : 1950 74 From: Maynor Glez MD Attending Dr: HAYES Blas Status: REG CLI Ordering Dr: Rosalie Moulton Date: 01/08/25 Location: [facility] Sex: M C Admitted: Reason For Study Reason For Study: Carotid Stenosis Rt. Velocities/BP Lt. Velocities/BP Prox CCA 75.4/12.7 cm/sec. Prox CCA 55.6/16.0 cm/sec. Mid CCA 107.6/14.4 cm/sec. Mid CCA 58.9/18.2 cm/sec. Dist CCA 122.2/19.9 cm/sec. Dist CCA 53.4/16.0 cm/sec. Prox ICA 135.2/25.5 cm/sec. Prox ICA 203.7/37.8 cm/sec. Mid ICA 80.6/19.2 cm/sec. Mid ICA 128.6/37.8 cm/sec. Dist ICA 63.4/20.4 cm/sec. Dist ICA 123.4/22.3 cm/sec. Rt. ICA/CCA = 1.3. Lt. ICA/CCA = 3.5. Prox ECA 234.7/0.0 cm/sec. Prox ECA 188.2/43.0 cm/sec. Rt. Vert. 58.9/12.7 cm/sec. Lt. Vert. 91.3/18.9 cm/sec. Right Extracranial There is heterogeneous, irregular atherosclerotic plaque noted in the right common carotid artery. There is heterogeneous, irregular atherosclerotic plaque noted in the right internal carotid artery. There is intimal thickening but no significant atherosclerotic plaque noted in the right external carotid artery. Antegrade flow is noted in the right vertebral artery. Left Extracranial There is homogeneous, smooth atherosclerotic plaque noted in the left common carotid artery. There is heterogeneous, irregular atherosclerotic plaque noted in the left internal carotid artery. There is heterogeneous, irregular atherosclerotic plaque noted in the left external carotid artery. Antegrade flow is noted in the left vertebral artery. Procedure Carotid Duplex 30073. This is a Carotid Duplex examination using B-mode, color flow and specral Doppler. Exam performed in department. VL/Carotid Duplex Ultrasound Interpretation Summary Moderate (50-69%) stenosis right extracranial internal carotid. Moderate (50-69%) stenosis left extracranial internal carotid. Patent and antegrade vertebrals bilaterally. Ordering Physician: Rosalie Moulton Referring Physician: Do Shaw MD Performed By: Lynnette Morales and Student, RVT 01/08/251546 Date Maynor Glez MD CC: HAYES Blas; Dr. Do Shaw MD Date Dictated: 01/08/25825 Date Transcribed: 01/08/251546 Developing Machine Tender: Signed Normal [facility] Duplex ultrasound of carotid artery reportOrdered By: Maynor Glez on 01-08-2025 Study report [facility] [address] [place] [address] Carotid Duplex Ultrasound 01/08/25825 MR#: [id number] Acct: [id number] Name: HERB SUNG Rep #:[id number] : 1950 74 From: Maynor Aquino Attending Dr: HAYES Blas Stat us: REG CLI Ordering Dr: Rosalie Moulton Date: Location: [facility] Sex: M C Admitted: Reason For Study Reason For Study: Carotid Stenosis Rt. Velocities/BP Lt. Velocities/BP Prox CCA 75.4/12.7 cm/sec. Prox CCA 55.6/16.0 cm/sec. Mid CCA 107.6/14.4 cm/sec. Mid CCA 58.9/18.2 cm/sec. Dist CCA 122.2/19.9 cm/sec. Dist CCA 53.4/16.0 cm/sec. Prox ICA 135.2/25.5 cm/sec. Prox ICA 203.7/37.8 cm/sec. Mid ICA 80.6/19.2 cm/sec. Mid ICA 128.6/37.8 cm/sec. Dist ICA 63.4/20.4 cm/sec. Dist ICA 123.4/22.3 cm/sec. Rt. ICA/CCA = 1.3. Lt. ICA/CCA = 3.5. Prox ECA 234.7/0.0 cm/sec. Prox ECA 188.2/43.0 cm/sec. Rt. Vert. 58.9/12.7 cm/sec. Lt. Vert. 91.3/18.9 cm/sec. Right Extracranial There is heterogeneous, irregular atherosclerotic plaque noted in the right common carotid artery. There is heterogeneous, irregular atherosclerotic plaque noted in the right internal carotid artery. There is intimal thickening but no significant atherosclerotic plaque noted in the right external carotid artery. Antegrade flow is noted in the right vertebral artery. Left Extracranial There is homogeneous, smooth atherosclerotic plaque noted in the left common carotid artery. There is heterogeneous, irregular atherosclerotic plaque noted in the left internal carotid artery. There is heterogeneous, irregular atherosclerotic plaque noted in the left external carotid artery. Antegrade flowis noted in the left vertebral artery. Procedure Carotid Duplex 91158. This is a Carotid Duplex examination using B-mode, color flow and specral Doppler. Exam performed in department. VL/Carotid Duplex Ultrasound Interpretation Summary Moderate (50-69%) stenosis right extracranial internal carotid. Moderate (50-69%) stenosis left extracranial internal carotid. Patent and antegrade vertebrals bilaterally. Ordering Physician: Rosalie Moulton Referring Physician: Do Shaw MD Performed By: Lynnette Morales and Student, T 01/08/25 1547 Date _ aMynor Glez MD CC: HAYES Blas; Dr. Do Shaw MD ~ Date Dictated: 01/08/25825 Date Transcribed: 01/08/251546 Developing Machine Tender: Signed [facility] Work Phone: Orthopedic Visit Reporton Orthopedic Visit Report [facility] [facility] [address] [place] [address] OFFICE VISIT Date of Service: 11/20/24 MR#: [id number] Acct: [id number] Name: HERB SUNG Rep #: [id number] : 1950 Provider: Dr. Johny Giron MD Age/Sex: 74/M [place] [facility] Status: Signed Intake Vital Signs 02/12/24 09:56 11/20/24 08:37 Height 5 ft 10 in 5 ft 10 in Weight: 258 lb BMI 37.0 Intake Visit Reasons: LUMBAR SPINE Chief Complaint: Lumbar Spine Accompanied by: Is patient in pain?: Yes Pain scale (1-10): 7 Allergies poison kaylyn extract Allergy (Intermediate, Verified 11/20/24 08:38) Rash Medications ???Medication ???Instructions ???Recorded ???Confirmed ???Type cholecalciferol (vitamin D3) 25 1,000 unit PO QDAY general health 09/18/17 11/20/24 History mcg (1,000 unit) capsule cyanocobalamin (vitamin B-12) 5,000 mcg sublingual QDAY general 09/18/17 11/20/24 History 5,000 mcg sublingual tablet health (Vitamin B-12) loratadine 10 mg tablet (Allergy 10 mg PO DAILY PRN Allergies 01/0411/20/24 History Relief (loratadine)) aspirin 81 mg tablet,delayed 162 mg PO DAILY heart 12/06/1803/07 History release (Adult Aspirin Regimen) nitroglycerin 0.4 mg sublingual 0.4 mg sublingual Q5-15M PRN chest 02/18/21 11/20/24 Rx tablet pain #90 tabs amoxicillin 500 mg tablet 500 mg PO .COMPLEX 08/15/21 History melatonin 10 mg capsule 10 mg PO HS PRN Insomnia 02/09/22 11/20/24 History omega-3 fatty acids 1,000 mg 2,000 mg PO QDAY general health 11/20/24 History capsule (Fish Oil Concentrate) diphenhydramine HCl 50 mg capsule 50 mg PO QHS PRN sleep 08/07/23 0 11/20/24 History atorvastatin 40 mg tablet 40 mg PO QHS #90 TABLETS 03/17/24 11/20/24 Rx lisinopril 20 mg tablet 20 mg PO BID #180 tabs 04/21/24 Rx hydrocodone-acetaminop hen 5-325mg 1 tab PO Q8H Pain 06/27/24 History 5mg-325mg pregabalin 50 mg capsule (Lyrica) 50 mg PO TID pain 06/27/24 History amlodipine 10 mg tablet 10 mg PO DAILY #90 TABLETS 5 11/20/24 Rx isosorbide mononitrate 30 mg 30 mg PO DAILY #90 TABLETS 5 11/20/24 Rx tablet,extended release 24 hr metoprolol tartrate 50 mg tablet 50 mg PO BID #180 TABLETS 10/22/24 11/20/24 Rx Have you fallen in the past year?: No [facility] Medical History (Updated 11/20/24 @ 09:09 by Maci Kilpatrick RN) Spondylolisthesis Foraminal stenosis of lumbar region Neurogenic claudication Psoriasis History of left heart catheterization (LHC) ( 01/06/22) HLD (hyperlipidemia) Essential hypertension Abnormal stress test Bilateral carotid artery stenosis Osteoarthritis Bilateral carotid bruits History of aortic valve stenosis Atherosclerotic heart disease of eek coronary artery without angina pectoris Obesity (BMI 30.0-34.9) Surgical History History of aortic valve replacement with bioprosthetic valve ( 11/05/17) Presence of stent in coronary artery ( 03/08/21) History of colonoscopy ( 2018) History of coronary artery bypass graft (11/05/17) History of tonsillectomy History of open reduction and internal fixation (ORIF) procedure ( 1995) Family History Father Myocardial infarction from [place] age 59 CAD (coronary artery disease) Mother Diabetes Hypertension Brother Diabetes age 62 from diabetic complications CAD (coronary artery disease) coronary stent Brother CAD (coronary artery disease) CABG Brother Heart disease Social History adopted: No household members: spouse current occupational status: retired 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 Johny Giron MD 11/20/24 0876. Part of today???s visit was documented by Zora Bolton ATC and Maci Kilpatrick RN, acting as scribe. HERB SUNG is a 74 year old M here today for lumbar spine pain. Patient states the back has been bothering him for about a year and progressively worse in the last 6 months. He denies any specific injury to the back. He describes the pain over L4-5 and L5-S1 and it is mainly over the right lumbar sp (more content not included)... Normal [facility] Arterial study reportOrdered By: Maynor Glez on 08-19-2024 Noninvasive arteriosclerosis study report [facility] [address] [place] [address] Lower Ext Art Exam w/ Exercise 08/19/24 1300 MR#: [id number] Acct: [id number] Name: HERB SUNG Rep #:[id number] : 1950 73 From: Maynor Aquino Attending Dr: HAYES Blas Stat us: REG CLI Ordering Dr: Rosalie Moulton Date: Location: [facility] Sex: M C Admitted: Reason For Study Reason For Study: Claudication Procedure A bilateral lower extremity continuous wave Doppler with analog waveform analysis,segmental pressures,and ankle brachial indexes with exercise. Left Segmental Pressures Left brachial= 130mmHg. Left posterior tibial artery = 165mmHg. Left dorsalis pedis artery = 147mmHg. Left digit = 109 mmHg. The left dorsalis pedis waveforms are triphasic. The left posterior tibialartery waveforms are triphasic. Right Segmental Pressures Right brachial= 127mmHg. Right posterior tibial artery = 137mmHg. Right dorsalispedis artery = 140mmHg. Right digit = 97 mmHg. The right dorsalis pedis waveforms are triphasic. The right posterior tibial artery waveforms are triphasic. Indices The right ankle brachial index by the dorsalis pedis is 1.08. The right ankle brachial index by the posterior tibial artery is 1.05. The right digital-brachial index is 0.75. The right post exercise ankle brachial index is 0.82. The left ankle brachial index by the dorsalis pedis is 1.13. The left ankle brachial index by the posterior tibial artery is 1.27. The left digital-brachial index is 0.84. The left post exercise ankle brachial index is 1.19. VL/Lower Ext Art Exam w/ Exercise Interpretation Summary Right REESE 1.08, normal. TBI and Doppler/PVR waveforms of the right leg normal atrest. Right lower extremity with abnormal response to exercise and post exercise REESE in the moderate category. Left REESE 1.27, normal. TBI and Doppler/PVR waveforms of the left leg normal at rest. Left lower extremity exhibits normal response to exercise. Ordering Physician: Rosalie Moulton Referring Physician: Do Shaw Performed By: Ciera Coello RVT 08/19/241804 Date _ Maynor Glez MD CC: HAYES Blas; Dr. Do Shaw MD ~ Date Dictated: 08/19/24 1300 Date Transcribed: 08/19/241804 Developing Machine Tender: Signed [facility] Work Phone: Lower Ext Art Exam w/ Exerci rodney 08-19-2024 Lower Ext Art Exam w/ Exercise [facility] [place] [address] [address] Lower Ext Art Exam w/ Exercise 08/19/24 1300 MR#: [id number] Acct: [id number] Name: HERB SUNG Rep #: [id number] : 1950 73 From: Maynor Glez MD Attending Dr: HAYES Blas Status: REG CLI Ordering Dr: Rosalie Moulton Date: 08/19/24 Location: [facility] Sex: M C Admitted: Reason For Study Reason For Study: Claudication Procedure A bilateral lower extremity continuous wave Doppler with analog waveform analysis,segmental pressures,and ankle brachial indexes with exercise. Left Segmental Pressures Left brachial= 130mmHg. Left posterior tibial artery = 165mmHg. Left dorsalis pedis artery = 147mmHg. Left digit = 109 mmHg. The left dorsalis pedis waveforms are triphasic. The left posterior tibial artery waveforms are triphasic. Right Segmental Pressures Right brachial= 127mmHg. Right posterior tibial artery = 137mmHg. Right dorsalis pedis artery = 140mmHg. Right digit = 97 mmHg. The right dorsalis pedis waveforms are triphasic. The right posterior tibial artery waveforms are triphasic. Indices The right ankle brachial index by the dorsalis pedis is 1.08. The right ankle brachial index by the posterior tibial artery is 1.05. The right digital-brachial index is 0.75. The right post exercise ankle brachial index is 0.82. The left ankle brachial index by the dorsalis pedis is 1.13. The left ankle brachial index by the posterior tibial artery is 1.27. The left digital-brachial index is 0.84. The left post exercise ankle brachial index is 1.19. VL/Lower Ext Art Exam w/ Exercise Interpretation Summary Right REESE 1.08, normal. TBI and Doppler/PVR waveforms of the right leg normal at rest. Right lower extremity with abnormal response to exercise and post exercise REESE in the moderate category. Left REESE 1.27, normal. TBI and Doppler/PVR waveforms of the left leg normal at rest. Left lower extremity exhibits normal response to exercise. Ordering Physician: Rosalie Moulton Referring Physician: Do Shaw Performed By: Ciera Coello Juno 08/19/24 180 Date Maynor Glez MD CC: HAYES Blas; Dr. Do Shaw MD Date Dictated: 08/19/24 1300 Date Transcribed: 08/19/241804 Developing Machine Tender: Signed Normal [facility] MR/BMS.BVSon 06-27-2024 MR/BMS.BVS [facility] [place] [facility] [address] [place] [address] OFFICE VISIT Date of Service: 06/27/24 MR#: [id number] Acct: [id number] Name: HERB SUNG Rep #: [id number] : 1950 Provider: HAYES Blas Age/Sex: 73/M [place] [facility] Status: Signed Intake Vital Signs 02/12/24 09:56 06/27/24 08:34 Height 5 ft 10 in BP 124/73 H Blood Pressure Location Lt brachial Position Sitting Respiration 16 Pulse 59 L Pulse Source Monitor Temp 97.7 F L Temp Source Temporal Pulse Oximetry (%) 98 Oxygen Delivery Method room air Intake Visit Reasons: Discuss Carotid US Chief Complaint: establish care Is patient in pain?: No Allergies poison kaylyn extract Allergy (Intermediate, Verified 06/27/24 08:35) Rash Medications ???Medication ???Instructions ???Recorded ???Confirmed ???Type cholecalciferol (vitamin D3) 25 1,000 unit PO QDAY [facility] health 09/18/17 06/27/24 History mcg (1,000 unit) capsule cyanocobalamin (vitamin B-12) 5,000 mcg sublingual QDAY general 09/18/17 06/27/24 History 5,000 mcg sublingual tablet health (Vitamin B-12) loratadine 10 mg tablet (Allergy 10 mg PO DAILY PRN Allergies 01/0406/27/24 History Relief (loratadine)) aspirin 81 mg tablet,delayed 162 mg PO DAILY heart 12/06/18 History release (Adult Aspirin Regimen) nitroglycerin 0.4 mg sublingual 0.4 mg sublingual Q5-15M PRN chest 02/18/21 06/27/24 Rx tablet pain #90 tabs amoxicillin 500 mg tablet 500 mg PO .COMPLEX 08/15/21 History melatonin 10 mg capsule 10 mg PO HS PRN Insomnia 02/09/22 06/27/24 History omega-3 fatty acids 1,000 mg 2,000 mg PO QDAY [facility] 06/27/24 History capsule (Fish Oil Concentrate) clobetasol 0.05 % topical ointment topical PRN 08/07/23 06/27/24 Hi story diphenhydramine HCl 50 mg capsule 50 mg PO QHS PRN sleep 08/07/23 0 06/27/24 History amlodipine 10 mg tablet 10 mg PO DAILY #90 TABLETS 4 06/27/24 Rx isosorbide mononitrate 30 mg 30 mg PO DAILY #90 TABLETS 4 06/27/24 Rx tablet,extended release 24 hr metoprolol tartrate 50 mg tablet 50 mg PO BID #180 TABLETS 01/02/24 06/27/24 Rx atorvastatin 40 mg tablet 40 mg PO QHS #90 TABLETS 03/17/24 06/27/24 Rx lisinopril 20 mg tablet 20 mg PO BID #180 tabs 04/21/24 Rx hydrocodone-acetaminop hen 5-325mg 1 tab PO Q8H Pain 06/27/24 History 5mg-325mg pregabalin 50 mg capsule (Lyrica) 50 mg PO TID pain 06/27/24 History Have you fallen in the past year?: No PFSH Medical History Psoriasis History of left heart catheterization (LHC) ( 01/06/22) HLD (hyperlipidemia) Essential hypertension Abnormal stress test Bilateral carotid artery stenosis Osteoarthritis Bilateral carotid bruits History of aortic valve stenosis Atherosclerotic heart disease of eek coronary artery without angina pectoris Obesity (BMI 30.0-34.9) Surgical History History of aortic valve replacement with bioprosthetic valve ( 11/05/17) Presence of stent in coronary artery ( 03/08/21) History of colonoscopy ( 2018) History of coronary artery bypass graft (11/05/17) History of tonsillectomy History of open reduction and internal fixation (ORIF) procedure ( 1995) Family History Father Myocardial infarction from [place] age 59 CAD (coronary artery disease) Mother Diabetes Hypertension Brother Diabetes age 62 from diabetic complications CAD (coronary artery disease) coronary stent Brother CAD (coronary artery disease) CABG Brother Heart disease Social History adopted: No household members: spouse current occupational status: retired 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 Blackman. Carotid duplex 06/16/2024 showing 50 to 69% bilateral carotid artery stenosis with max PSV right proximal ICA 202/21 cm/s and max PSV left proximal ICA 196/35 cm/s. He does not have any history of CVA, TIA, or prior carot (more content not included)... Normal [facility] Carotid Duplex Ultrasoundon 06-16-2024 Carotid Duplex Ultrasound [facility] [place] [address] Carotid Duplex Ultrasound 06/16/24 1310 MR#: [id number] Acct: [id number] Name: HERB SUNG Rep #: [id number] : 1950 73 From: Maynor Glez MD Attending Dr: Dr. Maynor Glez MD Status: REG C MATA Ordering Dr: Maynor Glez MD Date: 06/16/24 Location: [facility] Sex: M C Admitted: Reason For Study: Carotid Stenosis Rt. Velocities/BP Lt. Velocities/BP Prox CCA 71/8 cm/sec. Prox CCA 71/12 cm/sec. Mid CCA 97/14 cm/sec. Mid CCA 63/13 cm/sec. Dist CCA 225/22 cm/sec. Dist CCA 59/12 cm/sec. Prox ICA 202/21 cm/sec. Prox ICA 196/35 cm/sec. Mid ICA 129/27 cm/sec. Mid ICA 162/30 cm/sec. Dist ICA 105/30 cm/sec. Dist ICA 124/17 cm/sec. Rt. ICA/CCA = 2.08. Lt. ICA/CCA = 3.1. Prox ECA 274/5 cm/sec. Prox ECA 308/0 cm/sec. Rt. Vert. 61/12 cm/sec. Lt. Vert. 67/12 cm/sec. Right Extracranial There is heterogeneous, irregular atherosclerotic plaque noted in the right common carotid artery. There is heterogeneous, irregular atherosclerotic plaque noted in the right internal carotid artery. The atherosclerotic plaque causes acoustic shadowing. There is heterogeneous, irregular atherosclerotic plaque noted in the right external carotid artery. Antegrade flow is noted in the right vertebral artery. Left Extracranial There is heterogeneous, irregular atherosclerotic plaque noted in the left common carotid artery. There is heterogeneous, irregular atherosclerotic plaque noted in the left internal carotid artery. There is heterogeneous, irregular atherosclerotic plaque noted in the left external carotid artery. Antegrade flow is noted in the left vertebral artery. Procedure Carotid Duplex 31073. This is a Carotid Duplex examination using B-mode, color flow and specral Doppler. Exam performed in department. VL/Carotid Duplex Ultrasound Interpretation Summary Moderate (50-69%) stenosis right extracranial internal carotid. Moderate (50-69%) stenosis left extracranial internal carotid. Patent and antegrade vertebrals bilaterally. Ordering Physician: Maynor Glez Referring Physician: Do Shaw Performed By: Chelita Rubio, ELIEL, RVT 06/16/241807 Date Maynor Glez MD CC: Dr. Do Shaw MD; Dr. Maynor Glez MD Date Dictated: 06/16/24 1310 Date Transcribed: 06/16/241807 Developing Machine Tender: Signed Normal [facility] Basophil percentageOrdered B y: Syed Rubio on 06-15-2023 Bilirubin [Mass/Vol] 0.40 mg/dL 0.20-1.00 [facility] Comment on above: For patients on eltr ombopag therapy, use of Dimension [place] TBIL is not recommended. Cholesterol [Mass/Vol] 124 mg/dL <200 [facility] Comment on above: <200 mg/dL Desirable 200-240 mg/dL Borderline >240 mg/dL High Risk Protein [Mass/Vol] 7.8 g/dL 6.4-8.2 [facility] Triglyceride [Mass/Vol] 101 mg/dL <199 [facility] Comment on above: The drugs N-Acetylcy steine and Metamizole may falsely depress this assay.Serum Triglycerides Reference Interval Normal <150 mg/dL Borderline high 150 - 199 mg/dL High 200 - 499 mg/dL Very High > or = 500 mg/dL Direct bilirubinOrdered By: Syde Rubio on 06-15-2023 Bilirubin.direct [Mass/Vol] 0.14 mg/dL 0.00-0.30 [facility] Laboratory - Chemistry and C hemistry - challengeOrdered By: Syed Rubio on 06-15-2023 ALP [Catalytic activity/Vol] 91 U/L 45-117 [facility] ALT [Catalytic activity/Vol] 27 U/L 16-61 [facility] Cholesterol in HDL (Body fld) [Mass/Vol] 48 mg/dL >40 [facility] Comment on above: The drugs N-Acetylcy steine and Metamizole may falsely depress this assay. Reference Range HDL <40 mg/dL Low HDL Cholesterol HDL >or= 60 mg/dL High HDL Cholesterol Cholesterol in LDL (Body fld) [Moles/Vol] 56 mg/dL 0-130 [facility] Cholesterol in VLDL Calc [Moles/Vol] 20 mg/dL 5-40 [facility] Globulin (S) [Mass/Vol] 3.8 g/dL 2.2-4.2 [facility] Thin prep Papanicolaou smear with manual screeningOrdered By: Syed Rubio on 06-15-2023 Thin prep Papanicolaou smear with manual screening 4.0 g/dL 3.2-5.0 [facility] Thin prep Papanicolaou smear with manual screening 16 U/L 15-37 [facility] Absolute lymphocyte countOrd ered By: Syed Rubio on 12-25-2022 Lymphocytes Auto (Unsp spec) [#/Vol] 2.16 10*3/uL 0.83-4.51 [facility] Basophil percentageOrdered B y: Syed Rubio on 12-25-2022 Basophils/100 WBC (Bld) 0.8 % 0-1 [facility] Eosinophils/100 WBC (Bld) 3.3 % 0-5 [facility] Neutrophils (Bld) [#/Vol] 5.4 10*3/uL 2.0-7.7 [facility] Neutrophils/100 WBC (Bld) 62.9 % 47-70 [facility] WBC (Bld) [#/Vol] 8.5 10*3/uL 4.4-11.0 [facility] Bilirubin [Mass/Vol] 0.40 mg/dL 0.20-1.00 [facility] Comment on above: For patients on eltr ombopag therapy, use of Dimension [place] TBIL is not recommended. Chloride [Moles/Vol] 108 mmol/L 98-107 [facility] Cholesterol [Mass/Vol] 116 mg/dL <200 [facility] Comment on above: <200 mg/dL Desirable 200-240 mg/dL Borderline >240 mg/dL High Risk Glucose [Mass/Vol] 95 mg/dL 74-106 [facility] Potassium [Moles/Vol] 4.9 mmol/L 3.5-5.1 [facility] Protein [Mass/Vol] 7.4 g/dL 6.4-8.2 [facility] Sodium [Moles/Vol] 141 mmol/L 136-145 [facility] Triglyceride [Mass/Vol] 117 mg/dL <199 [facility] Comment on above: The drugs N-Acetylcy steine and Metamizole may falsely depress this assay.Serum Triglycerides Reference Interval Normal <150 mg/dL Borderline high 150 - 199 mg/dL High 200 - 499 mg/dL Very High > or = 500 mg/dL Blood erythrocytes count (nu mber/volume)Ordered By: Syed Rubio on 12-25-2022 RBC (Bld) [#/Vol] 4.36 10*6/uL 4.6-6.[address] [facility] Blood hemoglobin measurement (mass/volume)Ordered By: Syed Rubio on 12-25-2022 Hemoglobin (Bld) [Mass/Vol] 13.3 g/dL 13.0-16.5 [facility] Blood lymphocytes/100 leukoc ytesOrdered By: Syed Rubio on 12-25-2022 Lymphocytes/100 WBC (Bld) 25.4 % 19-41 [facility] Blood monocytes/100 leukocyt esOrdered By: Syed Rubio on 12-25-2022 Monocytes/100 WBC (Bld) 7.1 % 0-10 [facility] Blood platelet mean volumeOr dered By: Syed Rubio on 12-25-2022 Platelet mean volume (Bld) [Entitic vol] 9.8 fL 6.2-12.0 [facility] Determination of erythrocyte mean corpuscular volume (MCV)Ordered By: Syed Rubio on 12-25-2022 MCV (RBC) [Entitic vol] 96.3 fL 80-94 [facility] Direct bilirubinOrdered By: Syed Rubio on 12-25-2022 Bilirubin.direct [Mass/Vol] 0.15 mg/dL 0.00-0.30 [facility] Hematocrit Auto (Bld) [Volum e fraction]Ordered By: Syed Rubio on 12-25-2022 Hematocrit (Bld) [Volume fraction] 42.0 % 40-54 [facility] Laboratory - Chemistry and C hemistry - challengeOrdered By: Syed Rubio on 12-25-2022 ALP [Catalytic activity/Vol] 82 U/L 45-117 [facility] ALT [Catalytic activity/Vol] 29 U/L 16-61 [facility] CO2 [Moles/Vol] 29.0 mmol/L 21.0-32.0 [facility] Globulin (S) [Mass/Vol] 3.7 g/dL 2.2-4.2 [facility] Magnesium [Mass/Vol] 2.2 mg/dL 1.6-2.6 [facility] Urea nitrogen/Creatinine [Mass ratio] 17.3 mg/mg 10-20 [facility] Laboratory - Hematology and Cell countsOrdered By: Syed Rubio on 12-25-2022 Erythrocyte distribution width (RBC) [Entitic vol] 43.5 fL 35.1-43.9 [facility] Erythrocyte distribution width (RBC) [Ratio] 12.3 % 11.6-14.6 [facility] Immature granulocytes/100 WBC (Bld) 0.500 % 0.0-0.9 [facility] Comment on above: IG% - Immature Granu locytes (promyelocytes, myelocytes and metamyelocytes) > 1% indicates that a LEFT SHIFT is Present. MCH (RBC) [Entitic mass] 30.5 pg 27.0-32.0 [facility] Nucleated RBC/100 WBC (Bld) [Ratio] 0 % 0-5 [facility] MCHC Auto (RBC) [Mass/Vol]Or dered By: Syed Rubio on 12-25-2022 MCHC (RBC) [Mass/Vol] 31.7 g/dL 32-36 [facility] No Panel InformationOrdered By: Syed Rubio on 12-25-2022 Vitamin B12 Level > 2000 pg/mL 211-[address] [facility] Vitamin D 25-Hydroxy 45.9 ng/mL [facility] Comment on above: Vitamin D 25(OH) Sta tus Range Deficiency <20 ng/mL (50nmol/L) Insufficiency 20 - 30 ng/mL (50 - 75 nmol/L) Sufficiency 30 - 100 ng/mL (75 - 250 nmol/L) Toxicity >100 ng/mL (>250 nmol/L) Estimated GFR (MDRD) Amer 85 mL/min >60 [facility] Comment on above: GFR Calc Estimated GFR (MDRD) Non-Af Amer 70 mL/min >60 [facility] Comment on above: Non- GFR Calc Prostate Specific Antigen Screen 0.40 ng/mL 0.00-4.00 [facility] Comment on above: This test was perfor med using the TPSA assay method for the[employer] chemistry system. Values obtained with differentassay methods cannot be used interchangably.When changing PSA assays in the course of monitoring apatient, additional sequential testing should be carriedout to confirm baseline values. Thyroid Stimulating Hormone (TSH) 3.05 uIU/mL 0.358-3.74 [facility] Platelets bldOrdered By: Carrington Rubio on 12-25-2022 Platelets (Bld) [#/Vol] 197 10*3/uL 150-450 [facility] Serum or plasma albumin garry urement (mass/volume)Ordered By: Syed Rubio on 12-25-2022 Albumin [Mass/Vol] 3.7 g/dL 3.2-5.0 [facility] Serum or plasma albumin/glob ulin mass ratioOrdered By: Syed Rubio on 12-25-2022 Albumin/Globulin [Mass ratio] 1.0 {ratio} 0.9-2.4 [facility] Serum or plasma calcium garry urement (mass/volume)Ordered By: Syed Rubio on 12-25-2022 Calcium [Mass/Vol] 9.1 mg/dL 8.5-10.1 [facility] Serum or plasma cholesterol in HDL measurement (mass/volume)Ordered By: Syed Rubio on 12-25-2022 Cholesterol in HDL [Mass/Vol] 43 mg/dL >40 [facility] Comment on above: The drugs N-Acetylcy steine and Metamizole may falsely depress this assay. Reference Range HDL <40 mg/dL Low HDL Cholesterol HDL >or= 60 mg/dL High HDL Cholesterol Serum or plasma cholesterol in VLDL measurement (mass/volume)Ordered By: Syed Rubio on 12-25-2022 Cholesterol in VLDL [Mass/Vol] 23 mg/dL 5-40 [facility] Serum or plasma creatinine m easurement (mass/volume)Ordered By: Syed Rubio on 12-25-2022 Creatinine [Mass/Vol] 1.10 mg/dL 0.70-1.30 [facility] Comment on above: The validity of the calculated GFR & GFRAA in patients over 70 years has not been determined. Clinical correlation is essential. Serum or plasma low density lipoprotein (LDL) cholesterol measurement (mass/volume)Ordered By: Syed Rubio on 12-25-2022 Cholesterol in LDL [Mass/Vol] 50 mg/dL 0-130 [facility] Serum or plasma urea nitroge n measurement (mass/volume)Ordered By: Syed Rubio on 12-25-2022 Urea nitrogen [Mass/Vol] 19 mg/dL 7-18 [facility] Thin prep Papanicolaou smear with manual screeningOrdered By: Syed Rubio on 12-25-2022 Thin prep Papanicolaou smear with manual screening 19 U/L 15-37 [facility] Thin prep Papanicolaou smear with manual screening 4 5-15 [facility] Whole blood hemoglobin A1c/t otal hemoglobin ratio (mass fraction)Ordered By: Syed Rubio on 12-25-2022 HbA1c (Bld) [Mass fraction] 5.6 % 3.8-5.6 [facility] Comment on above: Normal < 5.7 % Predi abetic 5.7 - 6.4 % Diabetic >or= 6.5 % Please note range changes. Basophil percentageOrdered B y: Syed Rubio on 06-27-2022 Bilirubin [Mass/Vol] 0.60 mg/dL 0.20-1.00 [facility] Comment on above: For patients on eltr ombopag therapy, use of Dimension [place] TBIL is not recommended. Cholesterol [Mass/Vol] 98 mg/dL <200 [facility] Comment on above: <200 mg/dL Desirable 200-240 mg/dL Borderline >240 mg/dL High Risk Protein [Mass/Vol] 7.5 g/dL 6.4-8.2 [facility] Triglyceride [Mass/Vol] 112 mg/dL <199 [facility] Comment on above: The drugs N-Acetylcy steine and Metamizole may falsely depress this assay.Serum Triglycerides Reference Interval Normal <150 mg/dL Borderline high 150 - 199 mg/dL High 200 - 499 mg/dL Very High > or = 500 mg/dL Direct bilirubinOrdered By: Syed Rubio on 06-27-2022 Bilirubin.direct [Mass/Vol] 0.16 mg/dL 0.00-0.30 [facility] Laboratory - Chemistry and C hemistry - challengeOrdered By: Syed Rubio on 06-27-2022 ALP [Catalytic activity/Vol] 74 U/L 45-117 [facility] ALT [Catalytic activity/Vol] 28 U/L 16-61 [facility] Globulin (S) [Mass/Vol] 3.6 g/dL 2.2-4.2 [facility] Serum or plasma albumin garry urement (mass/volume)Ordered By: Syed Rubio on 06-27-2022 Albumin [Mass/Vol] 3.9 g/dL 3.2-5.0 [facility] Serum or plasma cholesterol in HDL measurement (mass/volume)Ordered By: Syed Rubio on 06-27-2022 Cholesterol in HDL [Mass/Vol] 39 mg/dL >40 [facility] Comment on above: The drugs N-Acetylcy steine and Metamizole may falsely depress this assay. Reference Range HDL <40 mg/dL Low HDL Cholesterol HDL >or= 60 mg/dL High HDL Cholesterol Serum or plasma cholesterol in VLDL measurement (mass/volume)Ordered By: Syed Rubio on 06-27-2022 Cholesterol in VLDL [Mass/Vol] 22 mg/dL 5-40 [facility] Serum or plasma low density lipoprotein (LDL) cholesterol measurement (mass/volume)Ordered By: Syed Rubio on 06-27-2022 Cholesterol in LDL [Mass/Vol] 37 mg/dL 0-130 [facility] Thin prep Papanicolaou smear with manual screeningOrdered By: Syed Rubio on 06-27-2022 Thin prep Papanicolaou smear with manual screening 19 U/L 15-37 [facility] Absolute lymphocyte counton 01-05-2022 Lymphocytes Auto (Unsp spec) [#/Vol] 2.33 10*3/uL 0.83-4.51 [facility] Work Phone: [phone] Basophil percentageon 2021 Basophils/100 WBC (Bld) 0.7 % 0-1 [facility] Work Phone: [phone] Chloride [Moles/Vol] 110 mmol/L 98-107 [facility] Work Phone: Eosinophils/100 WBC (Bld) 2.5 % 0-5 [facility] Work Phone: [phone] Glucose [Mass/Vol] 90 mg/dL 74-106 [facility] Work Phone: [phone] Neutrophils (Bld) [#/Vol] 5.2 10*3/uL 2.0-7.7 [facility] Work Phone: [phone] Neutrophils/100 WBC (Bld) 61.8 % 47-70 [facility] Work Phone: [phone] Potassium [Moles/Vol] 4.3 mmol/L 3.5-5.1 [facility] Work Phone: [phone] Sodium [Moles/Vol] 141 mmol/L 136-145 [facility] Work Phone: [phone] WBC (Bld) [#/Vol] 8.4 10*3/uL 4.4-11.0 [facility] Work Phone: Blood erythrocytes count (nu mber/volume)on 01-05-2022 RBC (Bld) [#/Vol] 4.42 10*6/uL 4.6-6.[address] [facility] Work Phone: [phone] Blood hemoglobin measurement (mass/volume)on 01-05-2022 Hemoglobin (Bld) [Mass/Vol] 13.8 g/dL 13.0-16.5 [facility] Work Phone: [phone] Blood lymphocytes/100 leukoc yteson 01-05-2022 Lymphocytes/100 WBC (Bld) 27.9 % 19-41 [facility] Work Phone: Blood monocytes/100 leukocyt eson 01-05-2022 Monocytes/100 WBC (Bld) 6.7 % 0-10 [facility] Work Phone: Blood platelet mean volumeon 01-05-2022 Platelet mean volume (Bld) [Entitic vol] 9.8 fL 6.2-12.0 [facility] Work Phone: Determination of erythrocyte mean corpuscular volume (MCV)on 01-05-2022 MCV (RBC) [Entitic vol] 93.4 fL 80-94 [facility] Work Phone: Hematocrit Auto (Bld) [Volum e fraction]on 01-05-2022 Hematocrit (Bld) [Volume fraction] 41.3 % 40-54 [facility] Work Phone: INR in Blood by Coagulation assayon 01-05-2022 INR Coag (Bld) [Relative time] 1.1 {INR} [facility] Work Phone: Laboratory - Chemistry and C hemistry - challengeon 01-05-2022 CO2 [Moles/Vol] 28.0 mmol/L 21.0-32.0 [facility] Work Phone: Urea nitrogen/Creatinine [Mass ratio] 17.9 mg/mg 10-20 [facility] Work Phone: Laboratory - Coagulationon 0 01-05-2022 aPTT Coag (Bld) [Time] 31.6 s 24.1-36.2 [facility] Work Phone: PT Coag (PPP) [Time] 13.9 s 11.7-14.[address] [facility] Work Phone: Laboratory - Hematology and Cell countson 01-05-2022 Erythrocyte distribution width (RBC) [Entitic vol] 42.5 fL 35.1-43.9 [facility] Work Phone: Erythrocyte distribution width (RBC) [Ratio] 12.3 % 11.6-14.6 [facility] Work Phone: Immature granulocytes/100 WBC (Bld) 0.400 % 0.0-0.9 [facility] Work Phone: Comment on above: IG% - Immature Granu locytes (promyelocytes, myelocytes and metamyelocytes) > 1% indicates that a LEFT SHIFT is Present. MCH (RBC) [Entitic mass] 31.2 pg 27.0-32.0 [facility] Work Phone: Nucleated RBC/100 WBC (Bld) [Ratio] 0 % 0-5 [facility] Work Phone: MCHC Auto (RBC) [Mass/Vol]on 01-05-2022 MCHC (RBC) [Mass/Vol] 33.4 g/dL 32-36 [facility] Work Phone: No Panel Informationon 01-05 Estimated GFR (MDRD) Amer 83 mL/min >60 [facility] Work Phone: Comment on above: GFR Calc Estimated GFR (MDRD) Non-Af Amer 69 mL/min >60 [facility] Work Phone: Comment on above: Non- GFR Calc Platelets bldon 01-05-2022 Platelets (Bld) [#/Vol] 190 10*3/uL 150-450 [facility] Work Phone: Serum or plasma calcium garry urement (mass/volume)on 01-05-2022 Calcium [Mass/Vol] 9.3 mg/dL 8.5-10.1 [facility] Work Phone: Serum or plasma creatinine m easurement (mass/volume)on 01-05-2022 Creatinine [Mass/Vol] 1.12 mg/dL 0.70-1.30 [facility] Work Phone: Comment on above: The validity of the calculated GFR & GFRAA in patients over 70 years has not been determined. Clinical correlation is essential. Serum or plasma urea nitroge n measurement (mass/volume)on 01-05-2022 Urea nitrogen [Mass/Vol] 20 mg/dL 7-18 [facility] Work Phone: Thin prep Papanicolaou smear with manual screeningon 01-05-2022 Thin prep Papanicolaou smear with manual screening 3 5-15 [facility] Work Phone: Basophil percentageon 2021 Chloride [Moles/Vol] 106 mmol/L 98-107 [facility] Work Phone: Glucose [Mass/Vol] 96 mg/dL 74-106 [facility] Work Phone: Potassium [Moles/Vol] 4.6 mmol/L 3.5-5.1 [facility] Work Phone: Sodium [Moles/Vol] 139 mmol/L 136-145 [facility] Work Phone: Laboratory - Chemistry and C hemistry - challengeon 12-08-2021 CO2 [Moles/Vol] 29.0 mmol/L 21.0-32.0 [facility] Work Phone: Natriuretic peptide B (Bld) [Mass/Vol] 74.4 pg/mL 0-100 [facility] Work Phone: Urea nitrogen/Creatinine [Mass ratio] 15.7 mg/mg 10-20 [facility] Work Phone: No Panel Informationon 12-08 Estimated GFR (MDRD) Amer 81 mL/min >60 [facility] Work Phone: Comment on above: GFR Calc Estimated GFR (MDRD) Non-Af Amer 67 mL/min >60 [facility] Work Phone: Comment on above: Non- GFR Calc Serum or plasma calcium garry urement (mass/volume)on 12-08-2021 Calcium [Mass/Vol] 9.4 mg/dL 8.5-10.1 [facility] Work Phone: Serum or plasma creatinine m easurement (mass/volume)on 12-08-2021 Creatinine [Mass/Vol] 1.15 mg/dL 0.70-1.30 [facility] Work Phone: Comment on above: The validity of the calculated GFR & GFRAA in patients over 70 years has not been determined. Clinical correlation is essential. Serum or plasma urea nitroge n measurement (mass/volume)on 12-08-2021 Urea nitrogen [Mass/Vol] 18 mg/dL 7-18 [facility] Work Phone: Thin prep Papanicolaou smear with manual screeningon 12-08-2021 Thin prep Papanicolaou smear with manual screening 4 5-15 [facility] Work Phone: Basophil percentageon 2021 Bilirubin [Mass/Vol] 0.50 mg/dL 0.20-1.00 [facility] Work Phone: Comment on above: For patients on eltr ombopag therapy, use of Dimension [place] TBIL is not recommended. Cholesterol [Mass/Vol] 115 mg/dL <200 [facility] Work Phone: Comment on above: <200 mg/dL Desirable 200-240 mg/dL Borderline >240 mg/dL High Risk Protein [Mass/Vol] 7.2 g/dL 6.4-8.2 [facility] Work Phone: Triglyceride [Mass/Vol] 144 mg/dL <199 [facility] Work Phone: Comment on above: The drugs N-Acetylcy steine and Metamizole may falsely depress this assay.Serum Triglycerides Reference Interval Normal <150 mg/dL Borderline high 150 - 199 mg/dL High 200 - 499 mg/dL Very High > or = 500 mg/dL Direct bilirubinon 2 Bilirubin.direct [Mass/Vol] 0.14 mg/dL 0.00-0.30 [facility] Work Phone: Laboratory - Chemistry and C hemistry - challengeon 12-07-2021 ALP [Catalytic activity/Vol] 76 U/L 45-117 [facility] Work Phone: ALT [Catalytic activity/Vol] 30 U/L 16-61 [facility] Work Phone: Globulin (S) [Mass/Vol] 3.5 g/dL 2.2-4.2 [facility] Work Phone: Serum or plasma albumin garry urement (mass/volume)on 12-07-2021 Albumin [Mass/Vol] 3.7 g/dL 3.2-5.0 [facility] Work Phone: Serum or plasma cholesterol in HDL measurement (mass/volume)on 12-07-2021 Cholesterol in HDL [Mass/Vol] 38 mg/dL >40 [facility] Work Phone: Comment on above: The drugs N-Acetylcy steine and Metamizole may falsely depress this assay. Reference Range HDL <40 mg/dL Low HDL Cholesterol HDL >or= 60 mg/dL High HDL Cholesterol Serum or plasma cholesterol in VLDL measurement (mass/volume)on 12-07-2021 Cholesterol in VLDL [Mass/Vol] 29 mg/dL 5-40 [facility] Work Phone: Serum or plasma low density lipoprotein (LDL) cholesterol measurement (mass/volume)on 12-07-2021 Cholesterol in LDL [Mass/Vol] 48 mg/dL 0-130 [facility] Work Phone: Thin prep Papanicolaou smear with manual screeningon 12-07-2021 Thin prep Papanicolaou smear with manual screening 20 U/L 15-37 [facility] Work Phone: Basophil percentageon 2021 Bilirubin [Mass/Vol] 0.40 mg/dL 0.20-1.00 [facility] Work Phone: Comment on above: For patients on eltr ombopag therapy, use of Dimension [place] TBIL is not recommended. Chloride [Moles/Vol] 107 mmol/L 98-107 [facility] Work Phone: Cholesterol [Mass/Vol] 115 mg/dL <200 [facility] Work Phone: Comment on above: <200 mg/dL Desirable 200-240 mg/dL Borderline >240 mg/dL High Risk Glucose [Mass/Vol] 95 mg/dL 74-106 [facility] Work Phone: Potassium [Moles/Vol] 4.7 mmol/L 3.5-5.1 [facility] Work Phone: Protein [Mass/Vol] 7.9 g/dL 6.4-8.2 [facility] Work Phone: Sodium [Moles/Vol] 139 mmol/L 136-145 [facility] Work Phone: Triglyceride [Mass/Vol] 185 mg/dL [facility] Work Phone: Comment on above: The drugs N-Acetylcy steine and Metamizole may falsely depress this assay.Serum Triglycerides Reference Interval Normal <150 mg/dL Borderline high 150 - 199 mg/dL High 200 - 499 mg/dL Very High > or = 500 mg/dL Direct bilirubinon 2 Bilirubin.direct [Mass/Vol] 0.09 mg/dL 0.00-0.30 [facility] Work Phone: Laboratory - Chemistry and C hemistry - challengeon 06-22-2021 ALP [Catalytic activity/Vol] 91 U/L 45-117 [facility] Work Phone: ALT [Catalytic activity/Vol] 33 U/L 16-61 [facility] Work Phone: CO2 [Moles/Vol] 28.0 mmol/L 21.0-32.0 [facility] Work Phone: Globulin (S) [Mass/Vol] 4.0 g/dL 2.2-4.2 [facility] Work Phone: Urea nitrogen/Creatinine [Mass ratio] 19.3 mg/mg 10-20 [facility] Work Phone: No Panel Informationon 06-22 Estimated GFR (MDRD) Amer 78 mL/min >60 [facility] Work Phone: Comment on above: GFR Calc Estimated GFR (MDRD) Non-Af Amer 64 mL/min >60 [facility] Work Phone: Comment on above: Non- GFR Calc Serum or plasma albumin garry urement (mass/volume)on 06-22-2021 Albumin [Mass/Vol] 3.9 g/dL 3.2-5.0 [facility] Work Phone: Serum or plasma calcium garry urement (mass/volume)on 06-22-2021 Calcium [Mass/Vol] 9.3 mg/dL 8.5-10.1 [facility] Work Phone: Serum or plasma cholesterol in HDL measurement (mass/volume)on 06-22-2021 Cholesterol in HDL [Mass/Vol] 35 mg/dL [facility] Work Phone: Comment on above: The drugs N-Acetylcy steine and Metamizole may falsely depress this assay. Reference Range HDL <40 mg/dL Low HDL Cholesterol HDL >or= 60 mg/dL High HDL Cholesterol Serum or plasma cholesterol in VLDL measurement (mass/volume)on 06-22-2021 Cholesterol in VLDL [Mass/Vol] 37 mg/dL 5-40 [facility] Work Phone: Serum or plasma creatinine m easurement (mass/volume)on 06-22-2021 Creatinine [Mass/Vol] 1.19 mg/dL 0.70-1.30 [facility] Work Phone: Comment on above: The validity of the calculated GFR & GFRAA in patients over 70 years has not been determined. Clinical correlation is essential. Serum or plasma low density lipoprotein (LDL) cholesterol measurement (mass/volume)on 06-22-2021 Cholesterol in LDL [Mass/Vol] 43 mg/dL 0-130 [facility] Work Phone: Serum or plasma urea nitroge n measurement (mass/volume)on 02-09-2022 Urea nitrogen [Mass/Vol] 23 mg/dL 7-18 [facility] Work Phone: Thin prep Papanicolaou smear with manual screeningon 06-22-2021 Thin prep Papanicolaou smear with manual screening 19 U/L 15-37 [facility] Work Phone: Thin prep Papanicolaou smear with manual screening 4 5-15 [facility] Work Phone: COMPREHENSIVE PANELon 2020 Albumin [Mass/Vol] 4.5 g/dL Normal 3.4 - 5.0 [facility] Comment on above: Performed By: #### C MP #### [address] [address] ALP [Catalytic activity/Vol] 69 U/L Normal 33 - 136 [facility] Comment on above: Performed By: #### C MP #### [address] [address] ALT [Catalytic activity/Vol] 18 U/L Normal 10 - 52 [facility] Comment on above: Result Comment: Yolanda ents treated with Sulfasalazine may generate falsely decreased results for ALT. Performed By: #### C MP #### [address] [address] Anion gap [Moles/Vol] 11 mmol/L Normal 10 - 20 [facility] Comment on above: Performed By: #### C MP #### [address] [address] AST [Catalytic activity/Vol] 19 U/L Normal 9 - 39 [facility] Comment on above: Performed By: #### C MP #### [address] [address] Bilirubin [Mass/Vol] 0.6 mg/dL Normal 0.0 - 1.2 [facility] Comment on above: Performed By: #### C MP #### [address] [address] Calcium [Mass/Vol] 9.7 mg/dL Normal 8.6 - 10.3 [facility] Comment on above: Performed By: #### C MP #### [address] [address] Chloride [Moles/Vol] 105 mmol/L Normal 98 - 107 [facility] Comment on above: Performed By: #### C MP #### [address] [address] Creatinine [Mass/Vol] 1.00 mg/dL Normal 0.50 - 1.30 [facility] Comment on above: Performed By: #### C MP #### [address] [address] GFR- AM. >60 Normal >60 [facility] Comment on above: Result Comment: CALC ULATIONS OF ESTIMATED GFR ARE PERFORMED USING THE MDRD STUDY EQUATION FOR THE IDMS-TRACEABLE CREATININE METHODS. CLIN CHEM 2007;53:766-72 Performed By: #### C MP #### [address] [address] GFR-NON AM. >60 Normal >60 [facility] Comment on above: Performed By: #### C MP #### [address] [address] Glucose [Mass/Vol] 91 mg/dL Normal 74 - 99 [facility] Comment on above: Performed By: #### C MP #### [address] [address] HCO3 (Bld) [Moles/Vol] 28 mmol/L Normal 21 - 32 [facility] Comment on above: Performed By: #### C MP #### [address] [address] Potassium [Moles/Vol] 4.3 mmol/L Normal 3.5 - 5.3 [facility] Comment on above: Performed By: #### C MP #### [address] [address] Protein [Mass/Vol] 7.4 g/dL Normal 6.4 - 8.2 [facility] Comment on above: Performed By: #### C MP #### [address] [address] Sodium [Moles/Vol] 140 mmol/L Normal 136 - 145 [facility] Comment on above: Performed By: #### C MP #### [address] [address] Urea nitrogen [Mass/Vol] 19 mg/dL Normal 6 - 23 [facility] Comment on above: Performed By: #### C MP #### [address] [address] HEMOGLOBIN A1Con 07-29-2020 HbA1c (Bld) [Mass fraction] 5.4 % Normal [facility] Comment on above: Result Comment: Diag nosis of Diabetes-Adults Non-Diabetic: < or = 5.6% Increased risk for developing diabetes: 5.7-6.4% Diagnostic of diabetes: > or = 6.5% . Monitoring of Diabetes Age (y) Therapeutic Goal (%) Adults: >18 <7.0 Pediatrics: 13-18 <7.5 7-12 <8.0 0- 6 7.5-8.5 [employer]. Diabetes Care 33(S1), May 2009. Performed By: #### H BA1E #### [address] [address] HbA1c (Bld) [Mass fraction] 108 MG/DL Normal [facility] Comment on above: Performed By: #### H BA1E #### [address] [address] LIPID PANEL (CORONARY RISK 2 )on 07-29-2020 Cholesterol [Mass/Vol] 109 mg/dL Normal 0 - 199 [facility] Comment on above: Result Comment: . AGE DESIRABLE BORDERLINE HIGH HIGH 0-19 Y 0 - 169 170 - 199 >/= 200 20-24 Y 0 - 189 190 - 224 >/= 225 >24 Y 0 - 199 200 - 239 >/= 240 All ranges are based on fasting samples. Specific therapeutic targets will vary based on patient-specific cardiac risk. . Pediatric guidelines reference:Pediatrics 2011, 128(S5). Adult guidelines reference: NCEP ATPIII Guidelines, KIRILL 2001, 258:2486-97 . Venipuncture immediately after or during the administration of Metamizole may lead to falsely low results. Testing should be performed immediately prior to Metamizole dosing. Performed By: #### L IPID #### [address] [address] Cholesterol in HDL [Mass/Vol] 34.0 mg/dL Abnormal [facility] Comment on above: Result Comment: . AGE VERY LOW LOW NORMAL HIGH 0-19 Y < 35 < 40 40-45 ---- 20-24 Y ---- < 40 >45 ---- >24 Y ---- < 40 40-60 >60 . Performed By: #### L IPID #### [address] [address] Cholesterol in LDL [Mass/Vol] 45 mg/dL Normal 0 - 99 [facility] Comment on above: Result Comment: . NEAR BORD AGE DESIRABLE OPTIMAL HIGH HIGH VERY HIGH 0-19 Y 0 - 109 --- 110-129 >/= 130 ---- 20-24 Y 0 - 119 --- 120-159 >/= 160 ---- >24 Y 0 - 99 100-129 130-159 160-189 >/=190 . Performed By: #### L IPID #### [address] [address] Cholesterol in VLDL [Mass/Vol] 30 mg/dL Normal 0 - 40 [facility] Comment on above: Performed By: #### L IPID #### [address] [address] Cholesterol.total/Isis sterol in HDL [Mass ratio] 3.2 {ratio} Normal [facility] Comment on above: Result Comment: REF VALUES DESIRABLE < 3.4 HIGH RISK > 5.0 Performed By: #### L IPID #### [address] [address] Triglyceride [Mass/Vol] 151 mg/dL High 0 - 149 [facility] Comment on above: Result Comment: . AGE DESIRABLE BORDERLINE HIGH HIGH VERY HIGH 0 D-90 D 19 - 174 ---- ---- ---- 91 D- 9 Y 0 - 74 75 - 99 >/= 100 ---- 10-19 Y 0 - 89 90 - 129 >/= 130 ---- 20-24 Y 0 - 114 115 - 149 >/= 150 ---- >24 Y 0 - 149 150 - 199 200- 499 >/= 500 . Venipuncture immediately after or during the administration of Metamizole may lead to falsely low results. Testing should be performed immediately prior to Metamizole dosing. Performed By: #### L IPID #### [address] [address] MAGNESIUMon 07-29-2020 Magnesium [Mass/Vol] 1.91 mg/dL Normal 1.60 - 2.40 [facility] Comment on above: Performed By: #### M G #### [address] [address] PROSTATE SPECIFIC AGon 07-29 Prostate specific Ag [Mass/Vol] 0.25 ng/mL Normal 0.00 - 4.00 [facility] Comment on above: Result Comment: The FDA requires that the method used for PSA assay be reported to the physician. Values obtained with different assay methods must not be used interchangeably. This test was performed at [facility] using the [employer] PSA assay is a two-site immunoenzymatic sandwich assay. The assay is approved for measurement of prostate-specific antigen (PSA)in serum and may be used in conjunction with a digital rectal examination in men 50 years and older as an aid in detection of prostate cancer. 9-Gpfbp-linrpevam inhibitors (e.g. Proscar, Finasteride, Avodart, Dutasteride and Elise) for the treatment of BPH have been shown to lower PSA levels by an average of 50% after 6 months of treatment. Performed By: #### P SA #### [address] [address] TSHon 07-29-2020 TSH Qn 2.62 m[IU]/L Normal 0.44 - 3.98 [facility] Comment on above: Result Comment: TSH testing is performed using different testing methodology at [facility] than at other [facility]. Direct result comparisons should only be made within the same method. Performed By: #### T SH2 #### [address] [address] VITAMIN D, 25-HYDROXYon - VITAMIN D, 25-HYDROXY 34 ng/mL Normal [facility] Comment on above: Result Comment: . DEFICIENCY: < 20 NG/ML INSUFFICIENCY: 20-29 NG/ML SUFFICIENCY: 30-100 NG/ML THIS ASSAY ACCURATELY QUANTIFIES THE SUM OF VITAMIN D3, 25-HYDROXY AND VIT D2,25-HYDROXY. Performed By: #### V TDOH #### [facility] [address] [place] [address] CORONAVIRUS(COVID-19)SARS-Co V-2 IgGon 11-18-2019 COVID-19 SARS-COV-2 IGG Negative Normal Negative [facility] Comment on above: Result Comment: . Negative results do not rule out SARS-CoV-2 (COVID-19) infection, particularly in those who have been in contact with the virus. Follow-up testing with a molecular diagnostic test should be considered to rule out acute infection in these individuals with current or recent symptoms (<14days). Results from antibody testing should not be used as the sole basis to diagnose or exclude SARS-CoV-2 infection or to inform infection status. . This test is for in vitro diagnostic use under the FDA Emergency Use Authorization (EUA) for US laboratories certified under CLIA to perform moderate or high complexity tests. This test has not been FDA cleared or approved. This test should not be used for screening of donated blood. Performed By: #### C OVGG #### [facility] [address] [place], [place] [id number] CORONAVIRUS(COVID-19)SARS-Co V-2 IgGon 11-17-2019 Lab Specimen Source Normal [facility] [place] Comment on above: Performed By: #### C OVGG #### [facility] [address] [place], [place] [id number] CBCon 11-10-2017 Erythrocyte distribution width Auto Entitic volume (RBC) 12.7 % Invalid Interpretation Code 11.6 - 14.8 % [facility] Erythrocytes (RBC) 2.76 M/mcL Low 4.50 - 5.90 [facility] Hematocrit (HCT) 25.4 % Low 41 - 53 % [facility] Hemoglobin mass conc (Bld) 8.6 g/dL Low 13.5 - 17.5 g/dL [facility] Interpretation and review of laboratory results Abnormal Invalid Interpretation Code [facility] MCH 31.2 pg Invalid Interpretation Code 26 - 34 pg [facility] MCHC mass conc (RBC) 33.9 g/dL Invalid Interpretation Code 31 - 37 g/dL [facility] MCV 92.0 fL Invalid Interpretation Code 80 - 100 fL [facility] Nucleated erythrocytes 0.02 K/mcL High 0.00 - 0.00 [facility] Nucleated erythrocytes/100 erythrocytes 0.2 % Invalid Interpretation Code [facility] Platelet mean volume (PMV) 10.4 fL Invalid Interpretation Code 9 - 15.5 fL [facility] Platelets 209 K/mcL Invalid Interpretation Code 150 - 400 [facility] WBC (Leukocytes) 9.97 K/mcL Invalid Interpretation Code 4.50 - 11.00 [facility] Chem 7on 11-10-2017 Anion gap 15 mmol/L Invalid Interpretation Code 10 - 20 mmol/L [facility] Bicarbonate (HCO3) 28 mmol/L Invalid Interpretation Code 21 - 32 mmol/L [facility] BUN/Creatinine Ratio 22.5 mg/mg High 10.0 - 20.0 [facility] Chloride 97 mmol/L Low 98 - 108 mmol/L [facility] Creatinine 0.71 mg/dL Low 0.8 - 1.3 mg/dL [facility] eGFR (non-black) The eGFR should be used for monitoring renal function only and not for medication dosing. Invalid Interpretation Code [facility] eGFR (non-black) 97 mL/min/{1.73_m2} Invalid Interpretation Code >=60 [facility] Glucose mass conc 97 mg/dL Invalid Interpretation Code 65 - 99 mg/dL [facility] Potassium molar conc 4.1 mmol/L Invalid Interpretation Code 3.5 - 5.1 mmol/L [facility] Sodium 136 mmol/L Invalid Interpretation Code 135 - 145 mmol/L [facility] Urea nitrogen 16 mg/dL Invalid Interpretation Code 8 - 25 mg/dL [facility] POC Glucoseon 11-10-2017 Glucose mass conc 100 mg/dL High 65 - 99 mg/dL [facility] Interpretation and review of laboratory results Abnormal Invalid Interpretation Code [facility] XR CHEST PA/APon 11-10-2017 XR CHEST PA/AP CLINICAL HISTORY:Status post left pleural chest tube removal, evaluate for pneumothorax.EXAMINATI ON:PORTABLE AP UPRIGHT CHEST: 11/10/2017 AT 1550 HOURS.COMPARISON:AP chest 11/07/2017.FINDINGS:Th e patient is status post sternotomy with 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 The heart size remains normal. There are some linear densities at lung bases. There is removal of the left-sided chest tube, mediastinal drainage tube, right IJ line. There is a small pneumothorax on the left which measures approximately 3 mm.IMPRESSION:1. Removal of lines and tubes.2. Small 3 mm pneumothorax at the left apex.3. Bibasilar atelectatic changes.ASHLEE/vivienneWorksta tion ID: [id number] by: SUSHMA YAN on Sat Nov 10, 2017 4:09:25 PM EDTTranscribed by: MARIA M DICKERSON on Sat Nov 10, 2017 4:14:48 PM EDTFinalized by: SUSHMA YAN on Sat Nov 10, 2017 4:24:57 PM EDT Normal [facility] Comment on above: Order Comment: Reaso n for exam?:s/p L pleural chest tube removal, eval for PTXInjury/Trauma or Illness?:Illness/OtherHow long have you had these symptoms (acute/chronic)?:UnknownHistory of cancer?:NOSurgeries, chemotherapy, or radiation?:PROSTHESIS IN THE LEFT ELBOWType of Exam?:UnknownAdditional signs and symptoms?:unk XR Chest 1 Viewon 11-10-2017 XR Chest 1 View CLINICAL HISTORY: Status post left pleural chest tube removal, evaluate for pneumothorax. EXAMINATION: PORTABLE AP UPRIGHT CHEST: 11/10/2017 AT 1550 HOURS. COMPARISON: AP chest 11/07/2017. 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 The heart size remains normal. There are some linear densities at lung bases. There is removal of the left-sided chest tube, mediastinal drainage tube, right IJ line. There is a small pneumothorax on the left which measures approximately 3 mm. Invalid Interpretation Code [facility] XR Chest 1 View 1. Removal of lines and tubes. 2. Small 3 mm pneumothorax at the left apex. 3. Bibasilar atelectatic changes. [employer] Workstation ID: [id number] Invalid Interpretation Code [employer] [facility] XR Chest 1 View Interface, Rad In Romain Tangq - 11/10/2017 4:27 PM EDT CLINICAL HISTORY: Status post left pleural chest tube removal, evaluate for pneumothorax. EXAMINATION: PORTABLE AP UPRIGHT CHEST: 11/10/2017 AT 1550 HOURS. COMPARISON: AP chest 11/07/2017. 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 The heart size remains normal. There are some linear densities at lung bases. There is removal of the left-sided chest tube, mediastinal drainage tube, right IJ line. There is a small pneumothorax on the left which measures approximately 3 mm. IMPRESSION: 1. Removal of lines and tubes. 2. Small 3 mm pneumothorax at the left apex. 3. Bibasilar atelectatic changes. [employer] Workstation ID: [id number] Invalid Interpretation Code [employer] [facility] Basic Metabolic Panelon - Anion gap 15 mmol/L Invalid Interpretation Code 10 - 20 mmol/L [facility] Bicarbonate (HCO3) 27 mmol/L Invalid Interpretation Code 21 - 32 mmol/L [facility] BUN/Creatinine Ratio 25.4 mg/mg High 10.0 - 20.0 [facility] Calcium 8.6 mg/dL Invalid Interpretation Code 8.4 - 10.2 mg/dL [facility] Chloride 98 mmol/L Invalid Interpretation Code 98 - 108 mmol/L [facility] Creatinine 0.71 mg/dL Low 0.8 - 1.3 mg/dL [facility] eGFR (non-black) The eGFR should be used for monitoring renal function only and not for medication dosing. Invalid Interpretation Code [facility] eGFR (non-black) 97 mL/min/{1.73_m2} Invalid Interpretation Code >=60 [facility] Glucose mass conc 108 mg/dL High 65 - 99 mg/dL [facility] Potassium molar conc 3.5 mmol/L Invalid Interpretation Code 3.5 - 5.1 mmol/L [facility] Sodium 136 mmol/L Invalid Interpretation Code 135 - 145 mmol/L [facility] Urea nitrogen 18 mg/dL Invalid Interpretation Code 8 - 25 mg/dL [facility] CBCon 11-09-2017 Erythrocyte distribution width Auto Entitic volume (RBC) 12.7 % Invalid Interpretation Code 11.6 - 14.8 % [facility] Erythrocytes (RBC) 2.57 M/mcL Low 4.50 - 5.90 [facility] Hematocrit (HCT) 23.7 % Low 41 - 53 % [facility] Hemoglobin mass conc (Bld) 7.9 g/dL Low 13.5 - 17.5 g/dL [facility] Comment on above: Peripheral smear rev iewed manually Interpretation and review of laboratory results Abnormal Invalid Interpretation Code [facility] MCH 30.7 pg Invalid Interpretation Code 26 - 34 pg [facility] MCHC mass conc (RBC) 33.3 g/dL Invalid Interpretation Code 31 - 37 g/dL [facility] MCV 92.2 fL Invalid Interpretation Code 80 - 100 fL [facility] Nucleated erythrocytes 0.00 K/mcL Invalid Interpretation Code 0.00 - 0.00 [facility] Nucleated erythrocytes/100 erythrocytes 0.0 % Invalid Interpretation Code [facility] Platelet mean volume (PMV) 10.7 fL Invalid Interpretation Code 9 - 15.5 fL [facility] Platelets 147 K/mcL Low 150 - 400 [facility] WBC (Leukocytes) 13.38 K/mcL High 4.50 - 11.00 [facility] POC Glucoseon 11-09-2017 Glucose mass conc 103 mg/dL High 65 - 99 mg/dL [facility] Interpretation and review of laboratory results Abnormal Invalid Interpretation Code [facility] Glucose mass conc 117 mg/dL High 65 - 99 mg/dL [facility] Interpretation and review of laboratory results Abnormal Invalid Interpretation Code [facility] Basic Metabolic Panelon 10-13 Anion gap 19 mmol/L Invalid Interpretation Code 10 - 20 mmol/L [facility] Bicarbonate (HCO3) 24 mmol/L Invalid Interpretation Code 21 - 32 mmol/L [facility] BUN/Creatinine Ratio 24.1 mg/mg High 10.0 - 20.0 [facility] Calcium 8.7 mg/dL Invalid Interpretation Code 8.4 - 10.2 mg/dL [facility] Chloride 99 mmol/L Invalid Interpretation Code 98 - 108 mmol/L [facility] Creatinine 0.83 mg/dL Invalid Interpretation Code 0.8 - 1.3 mg/dL [facility] eGFR (non-black) 91 mL/min/{1.73_m2} Invalid Interpretation Code >=60 [facility] eGFR (non-black) The eGFR should be used for monitoring renal function only and not for medication dosing. Invalid Interpretation Code [facility] Glucose mass conc 114 mg/dL High 65 - 99 mg/dL [facility] Potassium molar conc 4.1 mmol/L Invalid Interpretation Code 3.5 - 5.1 mmol/L [facility] Sodium 138 mmol/L Invalid Interpretation Code 135 - 145 mmol/L [facility] Urea nitrogen 20 mg/dL Invalid Interpretation Code 8 - 25 mg/dL [facility] CBCon 11-08-2017 Erythrocyte distribution width Auto Entitic volume (RBC) 13.0 % Invalid Interpretation Code 11.6 - 14.8 % [facility] Erythrocytes (RBC) 2.75 M/mcL Low 4.50 - 5.90 [facility] Hematocrit (HCT) 25.4 % Low 41 - 53 % [facility] Hemoglobin mass conc (Bld) 8.7 g/dL Low 13.5 - 17.5 g/dL [facility] Interpretation and review of laboratory results Abnormal Invalid Interpretation Code [facility] MCH 31.6 pg Invalid Interpretation Code 26 - 34 pg [facility] MCHC mass conc (RBC) 34.3 g/dL Invalid Interpretation Code 31 - 37 g/dL [facility] MCV 92.4 fL Invalid Interpretation Code 80 - 100 fL [facility] Nucleated erythrocytes 0.00 K/mcL Invalid Interpretation Code 0.00 - 0.00 [facility] Nucleated erythrocytes/100 erythrocytes 0.0 % Invalid Interpretation Code [facility] Platelet mean volume (PMV) 10.9 fL Invalid Interpretation Code 9 - 15.5 fL [facility] Platelets 153 K/mcL Invalid Interpretation Code 150 - 400 [facility] WBC (Leukocytes) 18.44 K/mcL High 4.50 - 11.00 [facility] POC Glucoseon 11-08-2017 Glucose mass conc 145 mg/dL High 65 - 99 mg/dL [facility] Interpretation and review of laboratory results Abnormal Invalid Interpretation Code [facility] Glucose mass conc 89 mg/dL Invalid Interpretation Code 65 - 99 mg/dL [facility] Interpretation and review of laboratory results Normal Invalid Interpretation Code [facility] Glucose mass conc 121 mg/dL High 65 - 99 mg/dL [facility] Interpretation and review of laboratory results Abnormal Invalid Interpretation Code [facility] Glucose mass conc 114 mg/dL High 65 - 99 mg/dL [facility] Interpretation and review of laboratory results Abnormal Invalid Interpretation Code [facility] Basic Metabolic Panelon 10-13 Anion gap 19 mmol/L Invalid Interpretation Code 10 - 20 mmol/L [facility] Bicarbonate (HCO3) 21 mmol/L Invalid Interpretation Code 21 - 32 mmol/L [facility] BUN/Creatinine Ratio 17.8 mg/mg Invalid Interpretation Code 10.0 - 20.0 [facility] Calcium 8.6 mg/dL Invalid Interpretation Code 8.4 - 10.2 mg/dL [facility] Chloride 102 mmol/L Invalid Interpretation Code 98 - 108 mmol/L [facility] Creatinine 0.90 mg/dL Invalid Interpretation Code 0.8 - 1.3 mg/dL [facility] eGFR (non-black) 88 mL/min/{1.73_m2} Invalid Interpretation Code >=60 [facility] eGFR (non-black) The eGFR should be used for monitoring renal function only and not for medication dosing. Invalid Interpretation Code [facility] Glucose mass conc 134 mg/dL High 65 - 99 mg/dL [facility] Potassium molar conc 4.7 mmol/L Invalid Interpretation Code 3.5 - 5.1 mmol/L [facility] Sodium 137 mmol/L Invalid Interpretation Code 135 - 145 mmol/L [facility] Urea nitrogen 16 mg/dL Invalid Interpretation Code 8 - 25 mg/dL [facility] CBCon 11-07-2017 Erythrocyte distribution width Auto Entitic volume (RBC) 12.9 % Invalid Interpretation Code 11.6 - 14.8 % [facility] Erythrocytes (RBC) 2.99 M/mcL Low 4.50 - 5.90 [facility] Hematocrit (HCT) 28.5 % Low 41 - 53 % [facility] Hemoglobin mass conc (Bld) 9.4 g/dL Low 13.5 - 17.5 g/dL [facility] Interpretation and review of laboratory results Abnormal Invalid Interpretation Code [facility] MCH 31.4 pg Invalid Interpretation Code 26 - 34 pg [facility] MCHC mass conc (RBC) 33.0 g/dL Invalid Interpretation Code 31 - 37 g/dL [facility] MCV 95.3 fL Invalid Interpretation Code 80 - 100 fL [facility] Nucleated erythrocytes 0.00 K/mcL Invalid Interpretation Code 0.00 - 0.00 [facility] Nucleated erythrocytes/100 erythrocytes 0.0 % Invalid Interpretation Code [facility] Platelet mean volume (PMV) 10.7 fL Invalid Interpretation Code 9 - 15.5 fL [facility] Platelets 186 K/mcL Invalid Interpretation Code 150 - 400 [facility] WBC (Leukocytes) 22.65 K/mcL High 4.50 - 11.00 [facility] POC Glucoseon 11-07-2017 Glucose mass conc 141 mg/dL High 65 - 99 mg/dL [facility] Interpretation and review of laboratory results Abnormal Invalid Interpretation Code [facility] Glucose mass conc 149 mg/dL High 65 - 99 mg/dL [facility] Interpretation and review of laboratory results Abnormal Invalid Interpretation Code [facility] Glucose mass conc 170 mg/dL High 65 - 99 mg/dL [facility] Interpretation and review of laboratory results Abnormal Invalid Interpretation Code [facility] Glucose mass conc 138 mg/dL High 65 - 99 mg/dL [facility] Interpretation and review of laboratory results Abnormal Invalid Interpretation Code [facility] XR CHEST PA/APon 11-07-2017 XR CHEST PA/AP EXAMINATION:XR CHEST PA/APHISTORY:ORDERING SYSTEM PROVIDED HISTORY: severe left chest pain, TECHNOLOGIST PROVIDED HISTORY: Reason for exam: severe left chest painIllness/OtherCance r History: NOSurgery, RadiationHistory: PROSTHESIS IN THE LEFT ELBOWEncounter Type: OngoingAdditional signs and symptoms: unknownORDERING SYSTEM PROVIDED DIAGNOSIS CODES:R06.02 SOB (shortness of breath)COMPARISON:10/13 and 11/05/2017.FINDINGS:Th ere has been interval extubation and removal of the esophagogastric tube. [place] catheter has been removed with right IJ introducer sheath remaining. Left chest tube remains unchanged in position. No pneumothorax. Prior median sternotomy and CABG. Cardiomediastinal contour is stable. Slight decrease in overall lung volumes with slight increase in interstitial edema and bibasilar atelectatic change. Tiny residual left pleural effusion.IMPRESSION:1. Interval extubation and removal of the esophagogastric tube and [place] catheter with right IJ introducer sheath remaining as is a left chest tube. No pneumothorax.2. Decrease in lung volumes with increasing bibasilar atelectatic change and slight increase in interstitial edema.DLH/hffWorkstati on ID: [id number] by: FRANCISCO BRUCE on SunNov 07, 2017 4:48:38 AM EDTTranscribed by: FRANK BRAND on SunNov 07, 2017 5:07:22 AM EDTFinalized by: FRANCISCO BRUCE on SunNov 07, 2017 5:34:10 AM EDT Normal [facility] Comment on above: Order Comment: Reaso n for exam?:severe left cheft painInjury/Trauma or Illness?:Illness/OtherHow long have you had these symptoms (acute/chronic)?:UnknownHistory of cancer?:NOSurgeries, chemotherapy, or radiation?:PROSTHESIS IN THE LEFT ELBOWType of Exam?:OngoingAdditional signs and symptoms?:unknown XR Chest 1 Viewon 11-07-2017 XR Chest 1 View Interface, Rad In Fu ji Speechq - 11/07/2017 5:36 AM EDT EXAMINATION: XR CHEST PA/AP HISTORY: ORDERING SYSTEM PROVIDED HISTORY: severe left chest pain, TECHNOLOGIST PROVIDED HISTORY: Reason for exam: severe left chest pain Illness/Other Cancer History: NO Surgery, RadiationHistory: PROSTHESIS IN THE LEFT ELBOW Encounter Type: Ongoing Additional signs and symptoms: unknown ORDERING SYSTEM PROVIDED DIAGNOSIS CODES: R06.02 SOB (shortness of breath) COMPARISON: 11/06/2017 and 11/05/2017. FINDINGS: There has been interval extubation and removal of the esophagogastric tube. [place] catheter has been removed with right IJ introducer sheath remaining. Left chest tube remains unchanged in position. No pneumothorax. Prior median sternotomy and CABG. Cardiomediastinal contour is stable. Slight decrease in overall lung volumes with slight increase in interstitial edema and bibasilar atelectatic change. Tiny residual left pleural effusion. IMPRESSION: 1. Interval extubation and removal of the esophagogastric tube and [place] catheter with right IJ introducer sheath remaining as is a left chest tube. No pneumothorax. 2. Decrease in lung volumes with increasing bibasilar atelectatic change and slight increase in interstitial edema. [employer] Workstation ID: [id number] Invalid Interpretation Code [employer] [facility] XR Chest 1 View EXAMINATION: XR CHES T PA/AP HISTORY: ORDERING SYSTEM PROVIDED HISTORY: severe left chest pain, TECHNOLOGIST PROVIDED HISTORY: Reason for exam: severe left chest pain Illness/Other Cancer History: NO Surgery, RadiationHistory: PROSTHESIS IN THE LEFT ELBOW Encounter Type: Ongoing Additional signs and symptoms: unknown ORDERING SYSTEM PROVIDED DIAGNOSIS CODES: R06.02 SOB (shortness of breath) COMPARISON: 11/06/2017 and 11/05/2017. FINDINGS: There has been interval extubation and removal of the esophagogastric tube. [place] catheter has been removed with right IJ introducer sheath remaining. Left chest tube remains unchanged in position. No pneumothorax. Prior median sternotomy and CABG. Cardiomediastinal contour is stable. Slight decrease in overall lung volumes with slight increase in interstitial edema and bibasilar atelectatic change. Tiny residual left pleural effusion. Invalid Interpretation Code [employer] [facility] XR Chest 1 View 1. Interval extubati on and removal of the esophagogastric tube and [place] catheter with right IJ introducer sheath remaining as is a left chest tube. No pneumothorax. 2. Decrease in lung volumes with increasing bibasilar atelectatic change and slight increase in interstitial edema. [email or web address] Workstation ID: [id number] Invalid Interpretation Code [employer] [facility] APTTon 11-06-2017 aPTT Therapeutic range fo r APTT's is 68 - 104 seconds Invalid Interpretation Code [facility] aPTT 33 s Invalid Interpretation Code 23 - 34 [facility] Interpretation and review of laboratory results Normal Invalid Interpretation Code [facility] Basic Metabolic Panelon 10-13 Anion gap 20 mmol/L Invalid Interpretation Code 10 - 20 mmol/L [facility] Bicarbonate (HCO3) 17 mmol/L Low 21 - 32 mmol/L [facility] BUN/Creatinine Ratio 18.1 mg/mg Invalid Interpretation Code 10.0 - 20.0 [facility] Calcium 8.3 mg/dL Low 8.4 - 10.2 mg/dL [facility] Chloride 108 mmol/L Invalid Interpretation Code 98 - 108 mmol/L [facility] Creatinine 0.83 mg/dL Invalid Interpretation Code 0.8 - 1.3 mg/dL [facility] eGFR (non-black) The eGFR should be used for monitoring renal function only and not for medication dosing. Invalid Interpretation Code [facility] eGFR (non-black) 91 mL/min/{1.73_m2} Invalid Interpretation Code >=60 [facility] Glucose mass conc 153 mg/dL High 65 - 99 mg/dL [facility] Potassium molar conc 4.7 mmol/L Invalid Interpretation Code 3.5 - 5.1 mmol/L [facility] Sodium 140 mmol/L Invalid Interpretation Code 135 - 145 mmol/L [facility] Urea nitrogen 15 mg/dL Invalid Interpretation Code 8 - 25 mg/dL [facility] Blood Gas, Mixed Venouson Base Ex, Mixed Venous -4.9 1 Low -2.0 - 2.0 [facility] CO2 35.5 mm Hg Invalid Interpretation Code [facility] HCO3, Mixed Venous 19.5 mmol/L Invalid Interpretation Code [facility] Hematocrit (HCT) 25.9 % Low 41 - 53 % [facility] Hemoglobin mass conc (Bld) 8.3 g/dL Low 13.5 - 18 g/dL [facility] Interpretation and review of laboratory results Abnormal Invalid Interpretation Code [facility] O2 saturation 59.8 % Invalid Interpretation Code [facility] Oxygen inhaled concentration 40 % Invalid Interpretation Code %/L [facility] pH, Mixed Venous 7.36 1 Invalid Interpretation Code [facility] PO2, Mixed Venous 35 mm Hg Invalid Interpretation Code [facility] Base Ex, Mixed Venous -4.7 1 Low -2.0 - 2.0 [facility] CO2 34.9 mm Hg Invalid Interpretation Code [facility] HCO3, Mixed Venous 19.6 mmol/L Invalid Interpretation Code [facility] Hematocrit (HCT) 25.3 % Low 41 - 53 % [facility] Hemoglobin mass conc (Bld) 8.1 g/dL Low 13.5 - 18 g/dL [facility] Interpretation and review of laboratory results Abnormal Invalid Interpretation Code [facility] O2 saturation 67.8 % Invalid Interpretation Code [facility] Oxygen inhaled concentration 40 % Invalid Interpretation Code %/L [facility] pH, Mixed Venous 7.37 1 Invalid Interpretation Code [facility] PO2, Mixed Venous 38 mm Hg Invalid Interpretation Code [facility] CBCon 11-06-2017 Erythrocyte distribution width Auto Entitic volume (RBC) 12.6 % Invalid Interpretation Code 11.6 - 14.8 % [facility] Erythrocytes (RBC) 2.86 M/mcL Low 4.50 - 5.90 [facility] Hematocrit (HCT) 26.5 % Low 41 - 53 % [facility] Hemoglobin mass conc (Bld) 8.9 g/dL Low 13.5 - 17.5 g/dL [facility] Interpretation and review of laboratory results Abnormal Invalid Interpretation Code [facility] MCH 31.1 pg Invalid Interpretation Code 26 - 34 pg [facility] MCHC mass conc (RBC) 33.6 g/dL Invalid Interpretation Code 31 - 37 g/dL [facility] MCV 92.7 fL Invalid Interpretation Code 80 - 100 fL [facility] Nucleated erythrocytes 0.00 K/mcL Invalid Interpretation Code 0.00 - 0.00 [facility] Nucleated erythrocytes/100 erythrocytes 0.0 % Invalid Interpretation Code [facility] Platelet mean volume (PMV) 10.3 fL Invalid Interpretation Code 9 - 15.5 fL [facility] Platelets 138 K/mcL Low 150 - 400 [facility] WBC (Leukocytes) 14.83 K/mcL High 4.50 - 11.00 [facility] Calcium Levelon 11-06-2017 Calcium 8.1 mg/dL Low 8.4 - 10.2 mg/dL [facility] Interpretation and review of laboratory results Abnormal Invalid Interpretation Code [facility] ECHO JONY INTRAOP TRANSCATHET ER PROCEDUREon 11-06-2017 ECHO JONY INTRAOP TRANSCATHETER PROCEDURE Transesophageal Echocardiogram Pati ent: ANA LILIA LARA E [facility] Rec#: [id number] (Age): 1950(67y) Height: 185.4(cm)/72(inStudy Date: 11/05/2017 Weight: 102(kg)/224(lbsRoom#: BSA: 2.26 Type: Loc: Operating RoomSex: M Reading: Von Nolan MD, FAC Referring: Thiago Mcintosh MD Performing: Von Nolan MD, FAC Diagnosis: ICD-10-PCS Nonrheumatic aortic valve disorder,unspecified (I35.9) Aortic valve disorders (424.1) CPT Code(s): DOP ECHO COLOR INNA SAM MAPG (75798) DOP ECHO COMPL(12056) JONY R-T IMG 2D W/PRB IMG ACQUISJ IR (84800) Summary: A 2D transesophageal echocardiogram with Doppler andcolor flow Doppler was performed. A technically adequate intraoperativeTEE study was performed. Esophageal intubation of the JONY probe wasperformed by the anesthesiologist. Conclusions: Post-operative JONY performed in the OR immediately following A bio-prosthetic aortic valve is present (S/P 23 mm Hernandez IntuityElite AVR) with no evidence of aortic regurgitation. The mean gradientof the aortic valve is 6 mmHg. There is no comparison study available.Findings Reason For Study:Aortic Valve Disorder. JONY Procedures:The JONY probe was passed in the operating room after the patient wassedated with general anesthesia. Left Ventricle:The left ventricular chamber size is normal. Mild concentric leftventricular hypertrophy is observed. There is normal left ventricularsystolic function. Not all myocardial regions were visualized.Ventricular septal wall motion has a post-operative appearance. Left Atrium:The left atrium is borderline dilated. Aortic Valve:There is no hemodynamically significant stenosis. The peakinstantaneous gradient of the aortic valve is 10 mmHg. The meangradient of the aortic valve is 6 mmHg. There is no evidence of aorticregurgitation. A bio-prosthetic aortic valve is present. S/P 23 mmEdwards Intuity Elite AVR Mitral Valve:The mitral valve leaflets appear normal. There is a trace of mitralregurgitation. Pericardium:There is no pericardial effusion. Aorta:There is evidence of grade 3 (atheroma Less Than = 5mm) atheroma in thetransverse aorta. There is evidence of grade 3 (atheroma Less Than =5mm) atheroma in the descending aorta. Measurements Aortic ValveName Value Normal Range AV peak gradient 10 mmHg (Less Than 36)AV mean gradient 6 mmHg (Less Than 20)Electronically Signed at 11/06/2017 12:40:10 by: Von Nolan MD,FACC, FASE, FASRUTH, FSCCTProbable late OR JONY for Dr Nolan [facility] Comment on above: Order Comment: OR 27 Echocardiogram intraop JONY valentina escobar 11-06-2017 Echocardiogram intraop JONY guidance Transesophageal Echocardiogram ____ Patient: ANA LILIA Lynne [facility] Rec#: [id number] (Age): 1950(67y) Height: 185.4(cm)/72(in Study Date: 11/05/2017 Weight: 102(kg)/224(lbs Room#: BSA: 2.26 Type: Loc: Operating Room Sex: M ____ Reading: Von Nolan MD, FAC Referring: Thiago Mcintosh MD Performing: Von Nolan MD, FAC Diagnosis: ICD-10-PCS Nonrheumatic aortic valve disorder, unspecified (I35.9) Aortic valve disorders (424.1) CPT Code(s): DOP ECHO COLOR INNA SAM MAPG (04929) DOP ECHO COMPL (53524) JONY R-T IMG 2D W/PRB IMG ACQUISJ IR (30500) Summary: A 2D transesophageal echocardiogram with Doppler and color flow Doppler was performed. A technically adequate intraoperative JONY study was performed. Esophageal intubation of the JONY probe was performed by the anesthesiologist. Conclusions: Post-operative JONY performed in the OR immediately following A bio-prosthetic aortic valve is present (S/P 23 mm Hernandez Intuity Elite AVR) with no evidence of aortic regurgitation. The mean gradient of the aortic valve is 6 mmHg. There is no comparison study available. Findings Reason For Study: Aortic Valve Disorder. JONY Procedures: The JONY probe was passed in the operating room after the patient was sedated with general anesthesia. Left Ventricle: The left ventricular chamber size is normal. Mild concentric left ventricular hypertrophy is observed. There is normal left ventricular systolic function. Not all myocardial regions were visualized. Ventricular septal wall motion has a post-operative appearance. Left Atrium: The left atrium is borderline dilated. Aortic Valve: There is no hemodynamically significant stenosis. The peak instantaneous gradient of the aortic valve is 10 mmHg. The mean gradient of the aortic valve is 6 mmHg. There is no evidence of aortic regurgitation. A bio-prosthetic aortic valve is present. S/P 23 mm Hernandez Intuity Elite AVR Mitral Valve: The mitral valve leaflets appear normal. There is a trace of mitral regurgitation. Pericardium: There is no pericardial effusion. Aorta: There is evidence of grade 3 (atheroma Less Than = 5mm) atheroma in the transverse aorta. There is evidence of grade 3 (atheroma Less Than = 5mm) atheroma in the descending aorta. Measurements Aortic Valve Name Value Normal Range AV peak gradient 10 mmHg (Less Than 36) AV mean gradient 6 mmHg (Less Than 20) Electronically Signed at 11/06/2017 12:40:10 by: Von Nolan MD, FACC, ALMAZ, ALBERT, FSCCT Invalid Interpretation Code [facility] Echocardiogram intraop JONY guidance Interface, Rad In [facility] Xper Echopacs - 11/06/2017 12:42 PM EDT Transesophageal Echocardiogram ____ Patient: ANA LILIA Rushing Rec#: [id number] (Age): 1950(67y) Height: 185.4(cm)/72(in Study Date: 11/05/2017 Weight: 102(kg)/224(lbs Room#: BSA: 2.26 Type: Loc: Operating Room Sex: M ____ Reading: Von Nolan MD, FAC Referring: Thiago Mcintosh MD Performing: Von Nolan MD, FAC Diagnosis: ICD-10-PCS Nonrheumatic aortic valve disorder, unspecified (I35.9) Aortic valve disorders (424.1) CPT Code(s): DOP ECHO COLOR INNA SAM MAPG (94878) DOP ECHO COMPL (85353) JONY R-T IMG 2D W/PRB IMG ACQUISJ IR (55037) Summary: A 2D transesophageal echocardiogram with Doppler and color flow Doppler was performed. A technically adequate intraoperative JONY study was performed. Esophageal intubation of the JONY probe was performed by the anesthesiologist. Conclusions: Post-operative JONY performed in the OR immediately following A bio-prosthetic aortic valve is present (S/P 23 mm Hernandez Intuity Elite AVR) with no evidence of aortic regurgitation. The mean gradient of the aortic valve is 6 mmHg. There is no comparison study available. Findings Reason For Study: Aortic Valve Disorder. JONY Procedures: The JONY probe was passed in the operating room after the patient was sedated with general anesthesia. Left Ventricle: The left ventricular chamber size is normal. Mild concentric left ventricular hypertrophy is observed. There is normal left ventricular systolic function. Not all myocardial regions were visualized. Ventricular septal wall motion has a post-operative appearance. Left Atrium: The left atrium is borderline dilated. Aortic Valve: There is no hemodynamically significant stenosis. The peak instantaneous gradient of the aortic valve is 10 mmHg. The mean gradient of the aortic valve is 6 mmHg. There is no evidence of aortic regurgitation. A bio-prosthetic aortic valve is present. S/P 23 mm Hernandez Intuity Elite AVR Mitral Valve: The mitral valve leaflets appear normal. There is a trace of mitral regurgitation. Pericardium: There is no pericardial effusion. Aorta: There is evidence of grade 3 (atheroma Less Than = 5mm) atheroma in the transverse aorta. There is evidence of grade 3 (atheroma Less Than = 5mm) atheroma in the descending aorta. Measurements Aortic Valve Name Value Normal Range AV peak gradient 10 mmHg (Less Than 36) AV mean gradient 6 mmHg (Less Than 20) Electronically Signed at 11/06/2017 12:40:10 by: Von Nolan MD, FACC, FASE, FASNC, FSCCT Invalid Interpretation Code [facility] Hemoglobinon 11-06-2017 Hemoglobin mass conc (Bld) 8.4 g/dL Low 13.5 - 17.5 g/dL [facility] Hemoglobin Nurse may obtain PRN if condition warrants. Invalid Interpretation Code [facility] Magnesium Levelon 11-06-2017 Magnesium 2.1 mg/dL Invalid Interpretation Code 1.6 - 2.4 mg/dL [facility] Magnesium 2.4 mg/dL Invalid Interpretation Code 1.6 - 2.4 mg/dL [facility] POC ABG SURGon 11-06-2017 Base Excess, Arterial -5 1 Low -2 - 2 [facility] Bicarbonate (HCO3) 19.4 mmol/L Low 22 - 26 mmol/L [facility] CO2 33.3 mm Hg Low 35.0 - 45.0 [facility] Glucose mass conc 145 mg/dL High 65 - 99 mg/dL [facility] Interpretation and review of laboratory results Abnormal Invalid Interpretation Code [facility] Ionized Calcium 4.9 mg/dL Invalid Interpretation Code 4.5 - 5.3 mg/dL [facility] O2 saturation 99.0 % Invalid Interpretation Code 92 - 99 % [facility] Oxygen in arterial blood 146 mm[Hg] High 75 - 85 [facility] pH of blood 7.37 [pH] Invalid Interpretation Code 7.35 - 7.45 [facility] Potassium molar conc 4.7 mmol/L Invalid Interpretation Code 3.5 - 5.1 mmol/L [facility] Base Excess, Arterial -5 1 Low -2 - 2 [facility] Bicarbonate (HCO3) 19.2 mmol/L Low 22 - 26 mmol/L [facility] CO2 32.4 mm Hg Low 35.0 - 45.0 [facility] Glucose mass conc 143 mg/dL High 65 - 99 mg/dL [facility] Interpretation and review of laboratory results Abnormal Invalid Interpretation Code [facility] Ionized Calcium 4.8 mg/dL Invalid Interpretation Code 4.5 - 5.3 mg/dL [facility] O2 saturation 99.0 % Invalid Interpretation Code 92 - 99 % [facility] Oxygen in arterial blood 140 mm[Hg] High 75 - 85 [facility] pH of blood 7.38 [pH] Invalid Interpretation Code 7.35 - 7.45 [facility] Potassium molar conc 4.7 mmol/L Invalid Interpretation Code 3.5 - 5.1 mmol/L [facility] Base Excess, Arterial -5 1 Low -2 - 2 [facility] Bicarbonate (HCO3) 18.6 mmol/L Low 22 - 26 mmol/L [facility] CO2 27.7 mm Hg Low 35.0 - 45.0 [facility] Glucose mass conc 141 mg/dL High 65 - 99 mg/dL [facility] Interpretation and review of laboratory results Abnormal Invalid Interpretation Code [facility] Ionized Calcium 4.8 mg/dL Invalid Interpretation Code 4.5 - 5.3 mg/dL [facility] O2 saturation 99.0 % Invalid Interpretation Code 92 - 99 % [facility] Oxygen in arterial blood 133 mm[Hg] High 75 - 85 [facility] pH of blood 7.44 [pH] Invalid Interpretation Code 7.35 - 7.45 [facility] Potassium molar conc 4.7 mmol/L Invalid Interpretation Code 3.5 - 5.1 mmol/L [facility] Base Excess, Arterial -4 1 Low -2 - 2 [facility] Bicarbonate (HCO3) 19.5 mmol/L Low 22 - 26 mmol/L [facility] CO2 30.1 mm Hg Low 35.0 - 45.0 [facility] Glucose mass conc 109 mg/dL High 65 - 99 mg/dL [facility] Interpretation and review of laboratory results Abnormal Invalid Interpretation Code [facility] Ionized Calcium 4.9 mg/dL Invalid Interpretation Code 4.5 - 5.3 mg/dL [facility] O2 saturation 99.0 % Invalid Interpretation Code 92 - 99 % [facility] Oxygen in arterial blood 129 mm[Hg] High 75 - 85 [facility] pH of blood 7.42 [pH] Invalid Interpretation Code 7.35 - 7.45 [facility] Potassium molar conc 4.5 mmol/L Invalid Interpretation Code 3.5 - 5.1 mmol/L [facility] Base Excess, Arterial -6 1 Low -2 - 2 [facility] Bicarbonate (HCO3) 19.1 mmol/L Low 22 - 26 mmol/L [facility] CO2 35.3 mm Hg Invalid Interpretation Code 35.0 - 45.0 [facility] Glucose mass conc 149 mg/dL High 65 - 99 mg/dL [facility] Interpretation and review of laboratory results Abnormal Invalid Interpretation Code [facility] Ionized Calcium 4.8 mg/dL Invalid Interpretation Code 4.5 - 5.3 mg/dL [facility] O2 saturation 98.0 % Invalid Interpretation Code 92 - 99 % [facility] Oxygen in arterial blood 120 mm[Hg] High 75 - 85 [facility] pH of blood 7.34 [pH] Low 7.35 - 7.45 [facility] Potassium molar conc 4.6 mmol/L Invalid Interpretation Code 3.5 - 5.1 mmol/L [facility] Base Excess, Arterial -3 1 Low -2 - 2 [facility] Bicarbonate (HCO3) 21.0 mmol/L Low 22 - 26 mmol/L [facility] CO2 30.8 mm Hg Low 35.0 - 45.0 [facility] Glucose mass conc 124 mg/dL High 65 - 99 mg/dL [facility] Interpretation and review of laboratory results Abnormal Invalid Interpretation Code [facility] Ionized Calcium 4.7 mg/dL Invalid Interpretation Code 4.5 - 5.3 mg/dL [facility] O2 saturation 99.0 % Invalid Interpretation Code 92 - 99 % [facility] Oxygen in arterial blood 142 mm[Hg] High 75 - 85 [facility] pH of blood 7.44 [pH] Invalid Interpretation Code 7.35 - 7.45 [facility] Potassium molar conc 4.2 mmol/L Invalid Interpretation Code 3.5 - 5.1 mmol/L [facility] POC Glucoseon 11-06-2017 Glucose mass conc 129 mg/dL High 65 - 99 mg/dL [facility] Interpretation and review of laboratory results Abnormal Invalid Interpretation Code [facility] Glucose mass conc 115 mg/dL High 65 - 99 mg/dL [facility] Interpretation and review of laboratory results Abnormal Invalid Interpretation Code [facility] Glucose mass conc 116 mg/dL High 65 - 99 mg/dL [facility] Interpretation and review of laboratory results Abnormal Invalid Interpretation Code [facility] Glucose mass conc 128 mg/dL High 65 - 99 mg/dL [facility] Interpretation and review of laboratory results Abnormal Invalid Interpretation Code [facility] Glucose mass conc 122 mg/dL High 65 - 99 mg/dL [facility] Interpretation and review of laboratory results Abnormal Invalid Interpretation Code [facility] Glucose mass conc 130 mg/dL High 65 - 99 mg/dL [facility] Interpretation and review of laboratory results Abnormal Invalid Interpretation Code [facility] Glucose mass conc 156 mg/dL High 65 - 99 mg/dL [facility] Interpretation and review of laboratory results Abnormal Invalid Interpretation Code [facility] Glucose mass conc 144 mg/dL High 65 - 99 mg/dL [facility] Interpretation and review of laboratory results Abnormal Invalid Interpretation Code [facility] PT/INRon 11-06-2017 INR Coag RelTime (Bld) During the induct ion phase of oral anticoagulation, the INR may not reflect the anticoagulation status of the patient. Therapeutic ranges for INR's are: Most clinical situations: INR 2.0-3.0 Mechanical Prosthetic Valve: INR 2.5-3.5 Critical: INR >5.0 Invalid Interpretation Code [facility] INR Coag RelTime (PPP) 1.3 {INR} High 0.8 - 1.1 [facility] Prothrombin time (PT) Coag time (PPP) 15.6 s High 11.8 - 14.3 [facility] INR Coag RelTime (Bld) During the induct ion phase of oral anticoagulation, the INR may not reflect the anticoagulation status of the patient. Therapeutic ranges for INR's are: Most clinical situations: INR 2.0-3.0 Mechanical Prosthetic Valve: INR 2.5-3.5 Critical: INR >5.0 Invalid Interpretation Code [facility] INR Coag RelTime (PPP) 1.4 {INR} High 0.8 - 1.1 [facility] Prothrombin time (PT) Coag time (PPP) 16.5 s High 11.8 - 14.3 [facility] Potassium Levelon 11-06-2017 Interpretation and review of laboratory results Normal Invalid Interpretation Code [facility] Potassium molar conc 4.2 mmol/L Invalid Interpretation Code 3.5 - 5.1 mmol/L [facility] XR CHEST PA/APon 11-06-2017 XR CHEST PA/AP EXAMINATION:XR CHEST PA/APHISTORY:post open heart surgeryCOMPARISON:Ches t radiograph, yesterday at 7:37 p.m.FINDINGS:Cardiomed iastinal silhouette is normal. The lungs are clear of any congestion or infiltrate. No pleural effusion. No acute osseous abnormality. Endotracheal tube, [place] catheter, NG tube, and left chest tube are stable. No significant pneumothorax.IMPRESSIO N:Stable life-support appliances. Lungs remain clear.Workstation ID: [id number] by: JOHN JOHNSON on SunNov 06, 2017 4:15:56 AM EDTTranscribed by: JOHN JOHNSON on SunNov 06, 2017 4:15:56 AM EDTFinalized by: JOHN JOHNSON on SunNov 06, 2017 4:15:56 AM EDT Normal [facility] Comment on above: Order Comment: Reaso n for exam?:post open heart surgeryInjury/Trauma or Illness?:Illness/OtherHow long have you had these symptoms (acute/chronic)?:UnknownHistory of cancer?:NOSurgeries, chemotherapy, or radiation?:PROSTHESIS IN THE LEFT ELBOWType of Exam?:Subsequent/Follow-upAdditional signs and symptoms?: XR Chest 1 Viewon 11-06-2017 XR Chest 1 View Stable life-support appliances. Lungs remain clear. Workstation ID: [id number] Invalid Interpretation Code [employer] [facility] XR Chest 1 View EXAMINATION: XR CHES T PA/AP HISTORY: post open heart surgery COMPARISON: Chest radiograph, yesterday at 7:37 p.m. FINDINGS: Cardiomediastinal silhouette is normal. The lungs are clear of any congestion or infiltrate. No pleural effusion. No acute osseous abnormality. Endotracheal tube, [place] catheter, NG tube, and left chest tube are stable. No significant pneumothorax. Invalid Interpretation Code [employer] [facility] XR Chest 1 View Interface, Rad In Romain navarro Speechq - 11/06/2017 4:18 AM EDT EXAMINATION: XR CHEST PA/AP HISTORY: post open heart surgery COMPARISON: Chest radiograph, yesterday at 7:37 p.m. FINDINGS: Cardiomediastinal silhouette is normal. The lungs are clear of any congestion or infiltrate. No pleural effusion. No acute osseous abnormality. Endotracheal tube, [place] catheter, NG tube, and left chest tube are stable. No significant pneumothorax. IMPRESSION: Stable life-support appliances. Lungs remain clear. Workstation ID: [id number] Invalid Interpretation Code [employer] [facility] APTTon 11-05-2017 aPTT Therapeutic range fo r APTT's is 68 - 104 seconds Invalid Interpretation Code [facility] aPTT 35 s High 23 - 34 [facility] Comment on above: Results checked. APTT Heparin Coverageon 10-13 aPTT 90 s High 23 - 34 [facility] aPTT Therapeutic range fo r APTT's is 68 - 104 seconds Invalid Interpretation Code [facility] Interpretation and review of laboratory results Abnormal Invalid Interpretation Code [facility] Basic Metabolic Panelon 10-13 Anion gap 17 mmol/L Invalid Interpretation Code 10 - 20 mmol/L [facility] Bicarbonate (HCO3) 22 mmol/L Invalid Interpretation Code 21 - 32 mmol/L [facility] BUN/Creatinine Ratio 15.4 mg/mg Invalid Interpretation Code 10.0 - 20.0 [facility] Calcium 7.8 mg/dL Low 8.4 - 10.2 mg/dL [facility] Chloride 106 mmol/L Invalid Interpretation Code 98 - 108 mmol/L [facility] Creatinine 0.91 mg/dL Invalid Interpretation Code 0.8 - 1.3 mg/dL [facility] eGFR (non-black) 87 mL/min/{1.73_m2} Invalid Interpretation Code >=60 [facility] eGFR (non-black) The eGFR should be used for monitoring renal function only and not for medication dosing. Invalid Interpretation Code [facility] Glucose mass conc 101 mg/dL High 65 - 99 mg/dL [facility] Interpretation and review of laboratory results Abnormal Invalid Interpretation Code [facility] Potassium molar conc 3.9 mmol/L Invalid Interpretation Code 3.5 - 5.1 mmol/L [facility] Sodium 141 mmol/L Invalid Interpretation Code 135 - 145 mmol/L [facility] Urea nitrogen 14 mg/dL Invalid Interpretation Code 8 - 25 mg/dL [facility] Anion gap 17 mmol/L Invalid Interpretation Code 10 - 20 mmol/L [facility] Bicarbonate (HCO3) 25 mmol/L Invalid Interpretation Code 21 - 32 mmol/L [facility] BUN/Creatinine Ratio 18.4 mg/mg Invalid Interpretation Code 10.0 - 20.0 [facility] Calcium 9.4 mg/dL Invalid Interpretation Code 8.4 - 10.2 mg/dL [facility] Chloride 102 mmol/L Invalid Interpretation Code 98 - 108 mmol/L [facility] Creatinine 0.76 mg/dL Low 0.8 - 1.3 mg/dL [facility] eGFR (non-black) 94 mL/min/{1.73_m2} Invalid Interpretation Code >=60 [facility] eGFR (non-black) The eGFR should be used for monitoring renal function only and not for medication dosing. Invalid Interpretation Code [facility] Glucose mass conc 97 mg/dL Invalid Interpretation Code 65 - 99 mg/dL [facility] Interpretation and review of laboratory results Abnormal Invalid Interpretation Code [facility] Potassium molar conc 4.2 mmol/L Invalid Interpretation Code 3.5 - 5.1 mmol/L [facility] Sodium 140 mmol/L Invalid Interpretation Code 135 - 145 mmol/L [facility] Urea nitrogen 14 mg/dL Invalid Interpretation Code 8 - 25 mg/dL [facility] Blood Gas, Mixed Venouson Base Ex, Mixed Venous -4.0 1 Low -2.0 - 2.0 [facility] CO2 36.6 mm Hg Invalid Interpretation Code [facility] HCO3, Mixed Venous 20.3 mmol/L Invalid Interpretation Code [facility] Hematocrit (HCT) 30.7 % Low 41 - 53 % [facility] Hemoglobin mass conc (Bld) 9.9 g/dL Low 13.5 - 18 g/dL [facility] Interpretation and review of laboratory results Abnormal Invalid Interpretation Code [facility] O2 saturation 42.4 % Invalid Interpretation Code [facility] pH, Mixed Venous 7.36 1 Invalid Interpretation Code [facility] PO2, Mixed Venous 26 mm Hg Invalid Interpretation Code [facility] CBCon 11-05-2017 Erythrocyte distribution width Auto Entitic volume (RBC) 12.4 % Invalid Interpretation Code 11.6 - 14.8 % [facility] Erythrocytes (RBC) 3.57 M/mcL Low 4.50 - 5.90 [facility] Hematocrit (HCT) 32.5 % Low 41 - 53 % [facility] Hemoglobin mass conc (Bld) 11.1 g/dL Low 13.5 - 17.5 g/dL [facility] MCH 31.1 pg Invalid Interpretation Code 26 - 34 pg [facility] MCHC mass conc (RBC) 34.2 g/dL Invalid Interpretation Code 31 - 37 g/dL [facility] MCV 91.0 fL Invalid Interpretation Code 80 - 100 fL [facility] Nucleated erythrocytes 0.00 K/mcL Invalid Interpretation Code 0.00 - 0.00 [facility] Nucleated erythrocytes/100 erythrocytes 0.0 % Invalid Interpretation Code [facility] Platelet mean volume (PMV) 10.2 fL Invalid Interpretation Code 9 - 15.5 fL [facility] Platelets 150 K/mcL Invalid Interpretation Code 150 - 400 [facility] WBC (Leukocytes) 18.48 K/mcL High 4.50 - 11.00 [facility] Erythrocyte distribution width Auto Entitic volume (RBC) 12.3 % Invalid Interpretation Code 11.6 - 14.8 % [facility] Erythrocytes (RBC) 4.56 M/mcL Invalid Interpretation Code 4.50 - 5.90 [facility] Hematocrit (HCT) 41.8 % Invalid Interpretation Code 41 - 53 % [facility] Hemoglobin mass conc (Bld) 13.9 g/dL Invalid Interpretation Code 13.5 - 17.5 g/dL [facility] MCH 30.5 pg Invalid Interpretation Code 26 - 34 pg [facility] MCHC mass conc (RBC) 33.3 g/dL Invalid Interpretation Code 31 - 37 g/dL [facility] MCV 91.7 fL Invalid Interpretation Code 80 - 100 fL [facility] Nucleated erythrocytes 0.00 K/mcL Invalid Interpretation Code 0.00 - 0.00 [facility] Nucleated erythrocytes/100 erythrocytes 0.0 % Invalid Interpretation Code [facility] Platelet mean volume (PMV) 9.9 fL Invalid Interpretation Code 9 - 15.5 fL [facility] Platelets 199 K/mcL Invalid Interpretation Code 150 - 400 [facility] WBC (Leukocytes) 9.78 K/mcL Invalid Interpretation Code 4.50 - 11.00 [facility] CBC While on heparin Invalid Interpretation Code [facility] Magnesium Levelon 11-05-2017 Interpretation and review of laboratory results Normal Invalid Interpretation Code [facility] Magnesium 2.0 mg/dL Invalid Interpretation Code 1.6 - 2.4 mg/dL [facility] Interpretation and review of laboratory results Normal Invalid Interpretation Code [facility] Magnesium 1.8 mg/dL Invalid Interpretation Code 1.6 - 2.4 mg/dL [facility] PFT SPIROMETRYon 11-05-2017 PFT SPIROMETRY PFT SPIROMETRY INTERPRETATIONPFT INTERPRETATION INDICATIONS:Dx codes listed based upon CMS 2015 accepted ICD10 codesSOBSPIROMETRY:Spi rometry is normal.ADDITIONAL STATEMENTS / CONCLUSIONS:See support technician's [id number] ATS/ERS PFT Reference Sets (NHANES III) and Interpretation Guidelines in use.Finalized by: CHRISTINA TEE on SunNov 05, 2017 11:33:48 AM EDT Normal [facility] PFT spirometry (only)on 10-13 DLCO Predicted 25.9 mL/mmHg/min Invalid Interpretation Code 0.05 - 99.99 [facility] DLCO/VA Predicted 3.62 mL/mHg/min/L Invalid Interpretation Code [facility] FEV1 %Pre Predicted 96 % Invalid Interpretation Code 0 - 300 % [facility] FEV1 Pre 3.57 Liters Invalid Interpretation Code 0 - 12 [facility] FEV1 Predicted 3.73 Liters Invalid Interpretation Code 0.05 - 9.99 [facility] FEV1/FVC %Pre Predicted 103 % Invalid Interpretation Code [facility] FEV1/FVC Pre 77 % Invalid Interpretation Code 0 - 12 [facility] FEV1/FVC Predicted 74 % Invalid Interpretation Code 1 - 99 % [facility] FRC N2 Predicted 3.87 Liters Invalid Interpretation Code 0.05 - 9.[address] [facility] FR[address] Predicted 3.87 Liters Invalid Interpretation Code 0.05 - 9.99 [facility] FVC %Pre Predicted 93 % Invalid Interpretation Code 0 - 300 % [facility] FVC Pre 4.66 Liters Invalid Interpretation Code 0 - 12 [facility] FVC Predicted 5.02 Liters Invalid Interpretation Code 0.05 - 9.99 [facility] MVV Predicted 149 L/min Invalid Interpretation Code 0 - 300 L/min [facility] PE max Predicted 199 cmH2O Invalid Interpretation Code [facility] PI max Predicted 106 cmH2O Invalid Interpretation Code [facility] RV Predicted 2.7 Liters Invalid Interpretation Code 0.05 - 9.99 [facility] TLC Predicted 7.27 Liters Invalid Interpretation Code 0.05 - 11.99 [facility] VC Predicted 5.02 Liters Invalid Interpretation Code 0.05 - 9.99 [facility] PFT spirometry (only) PFT INTERPRETATION INDICATIONS: Dx codes listed based upon CMS 2015 accepted ICD10 codes SOB SPIROMETRY: Spirometry is normal. ADDITIONAL STATEMENTS / CONCLUSIONS: See support technician's comments 2005 ATS/ERS PFT Reference Sets (NHANES III) and Interpretation Guidelines in use. Invalid Interpretation Code [facility] POC ABG SURGon 11-05-2017 Base Excess, Arterial -3 1 Low -2 - 2 [facility] Bicarbonate (HCO3) 20.6 mmol/L Low 22 - 26 mmol/L [facility] CO2 30.6 mm Hg Low 35.0 - 45.0 [facility] Glucose mass conc 139 mg/dL High 65 - 99 mg/dL [facility] Interpretation and review of laboratory results Abnormal Invalid Interpretation Code [facility] Ionized Calcium 4.4 mg/dL Low 4.5 - 5.3 mg/dL [facility] O2 saturation 100.0 % High 92 - 99 % [facility] Oxygen in arterial blood 182 mm[Hg] High 75 - 85 [facility] pH of blood 7.44 [pH] Invalid Interpretation Code 7.35 - 7.45 [facility] Potassium molar conc 4.1 mmol/L Invalid Interpretation Code 3.5 - 5.1 mmol/L [facility] Base Excess, Arterial 1 1 Invalid Interpretation Code -2 - 2 [facility] Bicarbonate (HCO3) 25.6 mmol/L Invalid Interpretation Code 22 - 26 mmol/L [facility] CO2 39.9 mm Hg Invalid Interpretation Code 35.0 - 45.0 [facility] Glucose mass conc 98 mg/dL Invalid Interpretation Code 65 - 99 mg/dL [facility] Interpretation and review of laboratory results Abnormal Invalid Interpretation Code [facility] Ionized Calcium 4.4 mg/dL Low 4.5 - 5.3 mg/dL [facility] O2 saturation 100.0 % High 92 - 99 % [facility] Oxygen in arterial blood 293 mm[Hg] High 75 - 85 [facility] pH of blood 7.41 [pH] Invalid Interpretation Code 7.35 - 7.45 [facility] Potassium molar conc 3.8 mmol/L Invalid Interpretation Code 3.5 - 5.1 mmol/L [facility] Base Excess, Arterial 3 1 High -2 - 2 [facility] Bicarbonate (HCO3) 27.7 mmol/L High 22 - 26 mmol/L [facility] CO2 44.9 mm Hg Invalid Interpretation Code 35.0 - 45.0 [facility] Glucose mass conc 91 mg/dL Invalid Interpretation Code 65 - 99 mg/dL [facility] Hematocrit (HCT) 28 % Low 41 - 53 % [facility] Hemoglobin mass conc (Bld) 9.5 g/dL Low 13.5 - 17.5 g/dL [facility] Interpretation and review of laboratory results Abnormal Invalid Interpretation Code [facility] Ion[facility] Calcium 4.2 mg/dL Low 4.5 - 5.3 mg/dL [facility] O2 saturation 100.0 % High 92 - 99 % [facility] B Oxygen in arterial blood 459 mm[Hg] High 75 - 85 [facility] pH of blood 7.40 [pH] Invalid Interpretation Code 7.35 - 7.45 [facility] Potassium molar conc 3.9 mmol/L Invalid Interpretation Code 3.5 - 5.1 mmol/L [facility] Sodium 139 mmol/L Invalid Interpretation Code 135 - 145 mmol/L [facility] Base Excess, Arterial 5 1 High -2 - 2 [facility] Bicarbonate (HCO3) 29.5 mmol/L High 22 - 26 mmol/L [facility] CO2 41.3 mm Hg Invalid Interpretation Code 35.0 - 45.0 [facility] Glucose mass conc 99 mg/dL Invalid Interpretation Code 65 - 99 mg/dL [facility] Hematocrit (HCT) 29 % Low 41 - 53 % [facility] Hemoglobin mass conc (Bld) 9.9 g/dL Low 13.5 - 17.5 g/dL [facility] Interpretation and review of laboratory results Abnormal Invalid Interpretation Code [facility] Ionized Calcium 4.2 mg/dL Low 4.5 - 5.3 mg/dL [facility] Oxygen in arterial blood mm[Hg] High 75 - 85 mm Hg [facility] pH of blood 7.46 [pH] High 7.35 - 7.45 [facility] Potassium molar conc 5.0 mmol/L Invalid Interpretation Code 3.5 - 5.1 mmol/L [facility] Sodium 139 mmol/L Invalid Interpretation Code 135 - 145 mmol/L [facility] Base Excess, Arterial 6 1 High -2 - 2 [facility] Bicarbonate (HCO3) 30.5 mmol/L High 22 - 26 mmol/L [facility] CO2 42.0 mm Hg Invalid Interpretation Code 35.0 - 45.0 [facility] Glucose mass conc 83 mg/dL Invalid Interpretation Code 65 - 99 mg/dL [facility] Hematocrit (HCT) 28 % Low 41 - 53 % [facility] Hemoglobin mass conc (Bld) 9.5 g/dL Low 13.5 - 17.5 g/dL [facility] Interpretation and review of laboratory results Abnormal Invalid Interpretation Code [facility] Ionized Calcium 4.2 mg/dL Low 4.5 - 5.3 mg/dL [facility] Oxygen in arterial blood mm[Hg] High 75 - 85 mm Hg [facility] pH of blood 7.47 [pH] High 7.35 - 7.45 [facility] Potassium molar conc 4.4 mmol/L Invalid Interpretation Code 3.5 - 5.1 mmol/L [facility] Sodium 140 mmol/L Invalid Interpretation Code 135 - 145 mmol/L [facility] Base Excess, Arterial 6 1 High -2 - 2 [facility] Bicarbonate (HCO3) 30.4 mmol/L High 22 - 26 mmol/L [facility] CO2 43.8 mm Hg Invalid Interpretation Code 35.0 - 45.0 [facility] Glucose mass conc 86 mg/dL Invalid Interpretation Code 65 - 99 mg/dL [facility] [facility] Hematocrit (HCT) 29 % Low 41 - 53 % [facility] Hemoglobin mass conc (Bld) 9.9 g/dL Low 13.5 - 17.5 g/dL [facility] Interpretation and review of laboratory results Abnormal Invalid Interpretation Code [facility] Ionized Calcium 4.1 mg/dL Low 4.5 - 5.3 mg/dL [facility] Oxygen in arterial blood mm[Hg] High 75 - 85 mm Hg [facility] pH of blood 7.45 [pH] Invalid Interpretation Code 7.35 - 7.45 [facility] Potassium molar conc 4.2 mmol/L Invalid Interpretation Code 3.5 - 5.1 mmol/L [facility] Sodium 138 mmol/L Invalid Interpretation Code 135 - 145 mmol/L [facility] Base Excess, Arterial 5 1 High -2 - 2 [facility] Bicarbonate (HCO3) 29.8 mmol/L High 22 - 26 mmol/L [facility] CO2 46.1 mm Hg High 35.0 - 45.0 [facility] Glucose mass conc 100 mg/dL High 65 - 99 mg/dL [facility] Hematocrit (HCT) 29 % Low 41 - 53 % [facility] Hemoglobin mass conc (Bld) 9.9 g/dL Low 13.5 - 17.5 g/dL [facility] Interpretation and review of laboratory results Abnormal Invalid Interpretation Code [facility] Ionized Calcium 4.1 mg/dL Low 4.5 - 5.3 mg/dL [facility] Oxygen in arterial blood mm[Hg] High 75 - 85 mm Hg [facility] pH of blood 7.42 [pH] Invalid Interpretation Code 7.35 - 7.45 [facility] Potassium molar conc 4.1 mmol/L Invalid Interpretation Code 3.5 - 5.1 mmol/L [facility] Sodium 138 mmol/L Invalid Interpretation Code 135 - 145 mmol/L [facility] Base Excess, Arterial 5 1 High -2 - 2 [facility] Bicarbonate (HCO3) 30.0 mmol/L High 22 - 26 mmol/L [facility] CO2 47.3 mm Hg High 35.0 - 45.0 [facility] Glucose mass conc 98 mg/dL Invalid Interpretation Code 65 - 99 mg/dL [facility] Hematocrit (HCT) 35 % Low 41 - 53 % [facility] Hemoglobin mass conc (Bld) 11.9 g/dL Low 13.5 - 17.5 g/dL [facility] Interpretation and review of laboratory results Abnormal Invalid Interpretation Code [facility] Ionized Calcium 4.5 mg/dL Invalid Interpretation Code 4.5 - 5.3 mg/dL [facility] O2 saturation 100.0 % High 92 - 99 % [facility] LA B Oxygen in arterial blood 559 mm[Hg] High 75 - 85 [facility] pH of blood 7.41 [pH] Invalid Interpretation Code 7.35 - 7.45 [facility] Potassium molar conc 4.3 mmol/L Invalid Interpretation Code 3.5 - 5.1 mmol/L [facility] Sodium 138 mmol/L Invalid Interpretation Code 135 - 145 mmol/L [facility] Base Excess, Arterial 2 1 Invalid Interpretation Code -2 - 2 [facility] Bicarbonate (HCO3) 28.5 mmol/L High 22 - 26 mmol/L [facility] CO2 48.8 mm Hg High 35.0 - 45.0 [facility] Glucose mass conc 93 mg/dL Invalid Interpretation Code 65 - 99 mg/dL [facility] Hematocrit (HCT) 38 % Low 41 - 53 % [facility] Hemoglobin mass conc (Bld) 12.9 g/dL Low 13.5 - 17.5 g/dL [facility] Interpretation and review of laboratory results Abnormal Invalid Interpretation Code [facility] Ionized Calcium 4.9 mg/dL Invalid Interpretation Code 4.5 - 5.3 mg/dL [facility] O2 saturation 98.0 % Invalid Interpretation Code 92 - 99 % [facility] Oxygen in arterial blood 109 mm[Hg] High 75 - 85 [facility] pH of blood 7.37 [pH] Invalid Interpretation Code 7.35 - 7.45 [facility] Potassium molar conc 3.9 mmol/L Invalid Interpretation Code 3.5 - 5.1 mmol/L [facility] Sodium 141 mmol/L Invalid Interpretation Code 135 - 145 mmol/L [facility] POC Activated Clotting Timeo n 11-05-2017 Act Kaolin 110 seconds Invalid Interpretation Code [facility] Act Kaolin 409 seconds Invalid Interpretation Code [facility] Act Kaolin 402 seconds Invalid Interpretation Code [facility] Act Kaolin 456 seconds Invalid Interpretation Code [facility] Act Kaolin 453 seconds Invalid Interpretation Code [facility] Act Kaolin 393 seconds Invalid Interpretation Code [facility] Act Kaolin 412 seconds Invalid Interpretation Code [facility] Act Kaolin 198 seconds Invalid Interpretation Code [facility] Act Kaolin 240 seconds Invalid Interpretation Code [facility] Act Kaolin 103 seconds Invalid Interpretation Code [facility] PT/INRon 11-05-2017 INR Coag RelTime (Bld) During the induct ion phase of oral anticoagulation, the INR may not reflect the anticoagulation status of the patient. Therapeutic ranges for INR's are: Most clinical situations: INR 2.0-3.0 Mechanical Prosthetic Valve: INR 2.5-3.5 Critical: INR >5.0 Invalid Interpretation Code [facility] INR Coag RelTime (PPP) 1.5 {INR} High 0.8 - 1.1 RI [facility] Prothrombin time (PT) Coag time (PPP) 18 s High 11.8 - 14.3 [facility] Potassium, Whole Bloodon Interpretation and review of laboratory results Normal Invalid Interpretation Code [facility] Potassium molar conc 4.1 mmol/L Invalid Interpretation Code 3.5 - 5.1 mmol/L [facility] Tissue Examon 11-05-2017 Case Report Surgical Pathology Report Case: [id number] Authorizing Provider: Thiago Mcintosh MD Collected: 11/05/2017 04:55 PM Ordering Location: [facility] Received: 11/05/2017 05:48 PM Hospital Periop Pathologist: Katerina Mark MD Specimen: Heart Valve, Aortic Invalid Interpretation Code [facility] Clinical Information Unstable angina Invalid Interpretation Code [facility] EMBEDIMG Invalid Interpretation Code [facility] Path gross observations Received in form shola labeled Fromme,Leray E and designated aortic heart valve are three rhodes-white portions of tissue consistent with aortic valve cusp, 3.5 x 2.3 x 0.2 cm in aggregate. Each is remarkable for a scant amount of calcification. There is no vegetation identified grossly. M/1. 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 VS/ddh Invalid Interpretation Code [facility] Pathology narrative of stain Microscopic examination is performed. Invalid Interpretation Code [facility] XR CHEST PA/APon 11-05-2017 XR CHEST PA/AP EXAMINATION:PORTABLE CHESTCOMPARISON:CT of the chest 11/04/2017, chest radiograph 11/04/2017.HISTORY:Sta tus post open heart surgery.FINDINGS:The patient is now status post sternotomy and coronary bypass. Life-support devices are in satisfactory positions and include SG catheter at the level of the pulmonary outflow tract, ET tube in good position, and a nasogastric tube extending below the left hemidiaphragm. Mediastinal and left chest tubes are in place. There is no pneumothorax or congestive failure. A trace of atelectasis is seen at the left lung base. There is an aortic valve graft mesh seen over the slx-jq-wbzyf mediastinum.IMPRESSION :Satisfactory appearance of the chest status post sternotomy, coronary bypass, and surgical aortic valve replacement.[facility] kstation ID: [id number] by: SANDIP BENSON on SunNov 05, 2017 9:20:07 PM EDTTranscribed by: SETH CAMARA on SunNov 05, 2017 9:30:08 PM EDTFinalized by: SANDIP BENSON on SunNov 05, 2017 9:39:04 PM EDT [facility] Comment on above: Order Comment: Reaso n for exam?:post open heart surgeryInjury/Trauma or Illness?:Illness/OtherHow long have you had these symptoms (acute/chronic)?:AcuteHistory of cancer?:NOSurgeries, chemotherapy, or radiation?:PROSTHESIS IN THE LEFT ELBOWType of Exam?:InitialAdditional signs and symptoms?: XR Chest 1 Viewon 11-05-2017 XR Chest 1 View Interface, Rad In Fu ji Speechq - 11/05/2017 9:41 PM EDT EXAMINATION: PORTABLE CHEST COMPARISON: CT of the chest 11/04/2017, chest radiograph 11/04/2017. HISTORY: Status post open heart surgery. FINDINGS: The patient is now status post sternotomy and coronary bypass. Life-support devices are in satisfactory positions and include SG catheter at the level of the pulmonary outflow tract, ET tube in good position, and a nasogastric tube extending below the left hemidiaphragm. Mediastinal and left chest tubes are in place. There is no pneumothorax or congestive failure. A trace of atelectasis is seen at the left lung base. There is an aortic valve graft mesh seen over the biq-mo-smkdz mediastinum. IMPRESSION: Satisfactory appearance of the chest status post sternotomy, coronary bypass, and surgical aortic valve replacement. [facility]/[employer] Workstation ID: [id number] Invalid Interpretation Code [employer] XR Chest 1 View Satisfactory appearance of the chest status post sternotomy, coronary bypass, and surgical aortic valve replacement. [facility]ITALWelltheon Workstation ID: [id number] Invalid Interpretation Code [employer] [place] XR Chest 1 View EXAMINATION: PORTABL E CHEST COMPARISON: CT of the chest 11/04/2017, chest radiograph 11/04/2017. HISTORY: Status post open heart surgery. FINDINGS: The patient is now status post sternotomy and coronary bypass. Life-support devices are in satisfactory positions and include SG catheter at the level of the pulmonary outflow tract, ET tube in good position, and a nasogastric tube extending below the left hemidiaphragm. Mediastinal and left chest tubes are in place. There is no pneumothorax or congestive failure. A trace of atelectasis is seen at the left lung base. There is an aortic valve graft mesh seen over the rsn-aj-gutwu mediastinum. Invalid Interpretation Code [employer] [facility] ABORH Verificationon 018 ABO+Rh group Positive Invalid Interpretation Code [facility] Verification of ABORH ABO/Rh Verification Invali d Interpretation Code [facility] ABORH Verification Patient's ABO/Rh is verified. Invalid Interpretation Code [facility] APTT Heparin Coverageon 10-13 aPTT 85 s High 23 - 34 [facility] aPTT Therapeutic range fo r APTT's is 68 - 104 seconds Invalid Interpretation Code [facility] Interpretation and review of laboratory results Abnormal Invalid Interpretation Code [facility] aPTT 56 s High 23 - 34 [facility] aPTT Therapeutic range fo r APTT's is 68 - 104 seconds Invalid Interpretation Code [facility] Interpretation and review of laboratory results Abnormal Invalid Interpretation Code [facility] aPTT 43 s High 23 - 34 [facility] aPTT Therapeutic range fo r APTT's is 68 - 104 seconds Invalid Interpretation Code [facility] Basic Metabolic Panelon 10-13 Anion gap 19 mmol/L Invalid Interpretation Code 10 - 20 mmol/L [facility] Bicarbonate (HCO3) 24 mmol/L Invalid Interpretation Code 21 - 32 mmol/L [facility] BUN/Creatinine Ratio 15.0 mg/mg Invalid Interpretation Code 10.0 - 20.0 [facility] Calcium 9.4 mg/dL Invalid Interpretation Code 8.4 - 10.2 mg/dL [facility] Chloride 103 mmol/L Invalid Interpretation Code 98 - 108 mmol/L [facility] Creatinine 0.80 mg/dL Invalid Interpretation Code 0.8 - 1.3 mg/dL [facility] eGFR (non-black) The eGFR should be used for monitoring renal function only and not for medication dosing. Invalid Interpretation Code [facility] eGFR (non-black) 92 mL/min/{1.73_m2} Invalid Interpretation Code >=60 [facility] Glucose mass conc 102 mg/dL High 65 - 99 mg/dL [facility] Interpretation and review of laboratory results Abnormal Invalid Interpretation Code [facility] Potassium molar conc 4.5 mmol/L Invalid Interpretation Code 3.5 - 5.1 mmol/L [facility] Sodium 141 mmol/L Invalid Interpretation Code 135 - 145 mmol/L [facility] Urea nitrogen 12 mg/dL Invalid Interpretation Code 8 - 25 mg/dL [facility] CBCon 11-04-2017 Erythrocyte distribution width Auto Entitic volume (RBC) 12.8 % Invalid Interpretation Code 11.6 - 14.8 % [facility] Erythrocytes (RBC) 4.54 M/mcL Invalid Interpretation Code 4.50 - 5.90 [facility] Hematocrit (HCT) 41.2 % Invalid Interpretation Code 41 - 53 % [facility] Hemoglobin mass conc (Bld) 14.3 g/dL Invalid Interpretation Code 13.5 - 17.5 g/dL [facility] MCH 31.5 pg Invalid Interpretation Code 26 - 34 pg [facility] MCHC mass conc (RBC) 34.7 g/dL Invalid Interpretation Code 31 - 37 g/dL [facility] MCV 90.7 fL Invalid Interpretation Code 80 - 100 fL [facility] Nucleated erythrocytes 0.00 K/mcL Invalid Interpretation Code 0.00 - 0.00 [facility] Nucleated erythrocytes/100 erythrocytes 0.0 % Invalid Interpretation Code [facility] Platelet mean volume (PMV) 9.9 fL Invalid Interpretation Code 9 - 15.5 fL [facility] Platelets 214 K/mcL Invalid Interpretation Code 150 - 400 [facility] WBC (Leukocytes) 12.30 K/mcL High 4.50 - 11.[address] [facility] [address] CHEST WITHOUT CONTRASTon 11-04-2017 CT CHEST WITHOUT CONTRAST EXAMINATION:CT CHEST WITHOUT CONTRASTHISTORY:ORDERI NG SYSTEM PROVIDED HISTORY: pre op CABG/AVR; evaluate size of ascending; okay for no contrast; not suspecting dissection, TECHNOLOGIST PROVIDED HISTORY: Reason for exam: pre op CABG/AVR; evaluate size of ascending; okay for no contrast; not suspecting dissectionIllness/Othe rEncounter Type: InitialAdditional signs and symptoms: f/uORDERING SYSTEM PROVIDED DIAGNOSIS CODES:COMPARISON:None. TECHNIQUE:CT examination of the chest without IV contrast. Coronal and sagittal reformations were performed.Dose reduction techniques were achieved by using automated exposure control and/or adjustment of mA and/or kV according to patient size and/or use of iterative reconstruction technique.FINDINGS:The ascending aorta measures up to 3.4 cm in diameter.The aortic arch measures approximately 3.2 cm in diameter.The descending thoracic aorta at the level of the left pulmonary artery measures up to 2.9 x 3.0 cm.The descending thoracic aorta at the diaphragmatic hiatus measures 2.7 x 2.6 cm on the axial image.There is jqvz-ld-uzgxpipu calcification within the aorta. There are curc-da-lcbjwdmh coronary artery calcifications.There is no pericardial effusion. There is no significant lymphadenopathy.No acute airspace disease, pneumothorax, or pleural effusion.There are no acute bony abnormalities. There are mild degenerative changes of the thoracic spine.IMPRESSION:1. The thoracic aorta is normal in caliber. Please see measurements above.2. No other acute abnormalities.[facility]/[employer] orkstation ID: [id number] by: VANESSA MAS on SunNov 04, 2017 3:48:44 PM EDTTranscribed by: MEG HARRINGTON on SunNov 04, 2017 4:25:19 PM EDTFinalized by: VANESSA MAS on SunNov 05, 2017 8:24:53 AM EDT [facility] Comment on above: Order Comment: Reaso n for exam?:pre op CABG/AVR; evaluate size of ascending; okay for no contrast; not suspecting dissectionInjury/Trauma or Illness?:Illness/OtherHow long have you had these symptoms (acute/chronic)?:AcuteType of Exam?:InitialAdditional signs and symptoms?:f/u CT Chest Without Contraston 11-04-2017 CT Chest Without Contrast 1. The thoracic aorta is normal in caliber. Please see measurements above. 2. No other acute abnormalities. [employer] Workstation ID: [id number] Invalid Interpretation Code [employer] [facility] CT Chest Without Contrast EXAMINATION: CT CHEST WITHOUT CONTRAST HISTORY: ORDERING SYSTEM PROVIDED HISTORY: pre op CABG/AVR; evaluate size of ascending; okay for no contrast; not suspecting dissection, TECHNOLOGIST PROVIDED HISTORY: Reason for exam: pre op CABG/AVR; evaluate size of ascending; okay for no contrast; not suspecting dissection Illness/Other Encounter Type: Initial Additional signs and symptoms: f/u ORDERING SYSTEM PROVIDED DIAGNOSIS CODES: COMPARISON: None. TECHNIQUE: CT examination of the chest without IV contrast. Coronal and sagittal reformations were performed. Dose reduction techniques were achieved by using automated exposure control and/or adjustment of mA and/or kV according to patient size and/or use of iterative reconstruction technique. FINDINGS: The ascending aorta measures up to 3.4 cm in diameter. The aortic arch measures approximately 3.2 cm in diameter. The descending thoracic aorta at the level of the left pulmonary artery measures up to 2.9 x 3.0 cm. The descending thoracic aorta at the diaphragmatic hiatus measures 2.7 x 2.6 cm on the axial image. There is olit-ws-xrzeqrsq calcification within the aorta. There are tprl-ln-gokphcss coronary artery calcifications. There is no pericardial effusion. There is no significant lymphadenopathy. No acute airspace disease, pneumothorax, or pleural effusion. There are no acute bony abnormalities. There are mild degenerative changes of the thoracic spine. Invalid Interpretation Code [facility] [employer] [facility] CT Chest Without Contrast Interface, Rad In [facility] - 11/05/2017 8:27 AM EDT EXAMINATION: CT CHEST WITHOUT CONTRAST HISTORY: ORDERING SYSTEM PROVIDED HISTORY: pre op CABG/AVR; evaluate size of ascending; okay for no contrast; not suspecting dissection, TECHNOLOGIST PROVIDED HISTORY: Reason for exam: pre op CABG/AVR; evaluate size of ascending; okay for no contrast; not suspecting dissection Illness/Other Encounter Type: Initial Additional signs and symptoms: f/u ORDERING SYSTEM PROVIDED DIAGNOSIS CODES: COMPARISON: None. TECHNIQUE: CT examination of the chest without IV contrast. Coronal and sagittal reformations were performed. Dose reduction techniques were achieved by using automated exposure control and/or adjustment of mA and/or kV according to patient size and/or use of iterative reconstruction technique. FINDINGS: The ascending aorta measures up to 3.4 cm in diameter. The aortic arch measures approximately 3.2 cm in diameter. The descending thoracic aorta at the level of the left pulmonary artery measures up to 2.9 x 3.0 cm. The descending thoracic aorta at the diaphragmatic hiatus measures 2.7 x 2.6 cm on the axial image. There is qhhr-yz-isgfbzyi calcification within the aorta. There are kqkx-fg-fuliimtd coronary artery calcifications. There is no pericardial effusion. There is no significant lymphadenopathy. No acute airspace disease, pneumothorax, or pleural effusion. There are no acute bony abnormalities. There are mild degenerative changes of the thoracic spine. IMPRESSION: 1. The thoracic aorta is normal in caliber. Please see measurements above. 2. No other acute abnormalities. [employer] Workstation ID: [id number] Invalid Interpretation Code [facility] Calcium, Ionizedon 8 Ionized Calcium 5.1 mg/dL Invalid Interpretation Code 4.5 - 5.3 mg/dL [facility] Fibrinogenon 11-04-2017 Fibrinogen in platelet poor plasma 474 mg/dL Invalid Interpretation Code 224 - 483 mg/dL [facility] Interpretation and review of laboratory results Normal Invalid Interpretation Code [facility] Magnesiumon 11-04-2017 Magnesium 1.9 mg/dL Invalid Interpretation Code 1.6 - 2.4 mg/dL [facility] Prepare RBC: 4 Unitson 11-04 Blood Type Positive Invalid Interpretation Code [facility] Blood Type Code 5100 1 Invalid Interpretation Code [facility] Cross Match Compatible Invalid Interpretation Code [facility] Product Code [id number] Invalid Interpretation Code [facility] Product Code [id number] Invalid Interpretation Code [facility] Product ID Red Blood Cells Invalid Interpretation Code [facility] Status Info Returned from Issue Invalid Interpretation Code [facility] Unit Number [id number] Invalid Interpretation Code [facility] Unit Number [id number] Invalid Interpretation Code [facility] Unit Number [id number] Invalid Interpretation Code [facility] Unit Number [id number] Invalid Interpretation Code [facility] Saphenous vein mapping, bila teralon 11-04-2017 Saphenous vein mapping, bilateral Non-Invasive Vascular ____ Patient: ANA LILIA Rushing Rec#: [id number] (Age): 1950(67y) Account#: 1 Study Date: 11/03/2017 Room#: Type: Inpatient Sex: M ____ Reading: Jordon Galeas MD Referring: Cielo Gonzalez NP Fingerer: Maci Garces BS, RVT, RDMS Procedure Info: [id number] Study Quality: ____ Diagnosis: Z01.818 Encounter for other preprocedural examination Lower Vein Map ____ Conclusions There was no evidence of thrombus in the lower extremity superficial venous system. Vessel diameters are listed below. ____ Measurements R Vein Measurements Name Value Units GSV Thigh - prox 5.6 mm GSV Thigh - mid 4.2 mm GSV Thigh - dist 4.6 mm GSV at Knee 4.6 mm GSV Calf - prox 3.4 mm GSV Calf - mid 3.1 mm GSV Calf - dist 3.5 mm GSV at Ankle 3.8 mm SSV Calf - prox 2 mm SSV Calf - mid 1.8 mm SSV Calf - dist 1.3 mm L Vein Measurements Name Value Units GSV Thigh - prox 3.5 mm GSV Thigh - mid 5.2 mm GSV Thigh - dist 3.7 mm GSV at Knee 3.5 mm GSV Calf - prox 3.7 mm GSV Calf - mid 2.5 mm GSV Calf - dist 2.7 mm GSV at Ankle 2.9 mm SSV Calf - prox 1.5 mm SSV Calf - mid 2 mm SSV Calf - dist 1.5 mm Electronically signed at 11/04/2017 16:56:06 by: Jordon Galeas MD Invalid Interpretation Code [facility] Saphenous vein mapping, bilateral Interface, Rad In Heartlab [facility]per [facility] - 11/04/2017 5:07 PM EDT Non-Invasive Vascular ____ Patient: ANA LILIA LARA E [facility] Rec#: [id number] (Age): 1950(67y) Account#: 1 Study Date: 11/03/2017 Room#: Type: Inpatient Sex: M ____ Reading: Jordon Galeas MD Referring: Cielo Gonzalez NP Fingerer: Maci Garces BS, RVT, RDMS Procedure Info: [id number] Study Quality: ____ Diagnosis: Z01.818 Encounter for other preprocedural examination Lower Vein Map ____ Conclusions There was no evidence of thrombus in the lower extremity superficial venous system. Vessel diameters are listed below. ____ Measurements R Vein Measurements Name Value Units GSV Thigh - prox 5.6 mm GSV Thigh - mid 4.2 mm GSV Thigh - dist 4.6 mm GSV at Knee 4.6 mm GSV Calf - prox 3.4 mm GSV Calf - mid 3.1 mm GSV Calf - dist 3.5 mm GSV at Ankle 3.8 mm SSV Calf - prox 2 mm SSV Calf - mid 1.8 mm SSV Calf - dist 1.3 mm L Vein Measurements Name Value Units GSV Thigh - prox 3.5 mm GSV Thigh - mid 5.2 mm GSV Thigh - dist 3.7 mm GSV at Knee 3.5 mm GSV Calf - prox 3.7 mm GSV Calf - mid 2.5 mm GSV Calf - dist 2.7 mm GSV at Ankle 2.9 mm SSV Calf - prox 1.5 mm SSV Calf - mid 2 mm SSV Calf - dist 1.5 mm Electronically signed at 11/04/2017 16:56:06 by: Jordon Galeas MD Invalid Interpretation Code C RAD Type and Screenon 11-04-2017 ABO+Rh group Positive Invalid Interpretation Code [facility] Blood group antibody presence Negative Invalid Interpretation Code [facility] Specimen Expires 11/07/2017 23:59 EST Invalid Interpretation Code [facility] US DOPPLER CAROTIDon 06-24-2 018 US DOPPLER CAROTID Non-Invasive Vascular Patient: ANA LILIA Rushing Rec#: [id number] (Age): 1950(67y)Account #: 1 Study Date: 11/03/2017 Room#: Type: Inpatient Sex: M Reading: Jordon Galeas MDReferring: Cielo Gonzalez NPSonographer: Maci Garces BS, RVT, RDMSProcedure Info: [id number]... Study Quality: ____Diagnosis:Z01.818 Encounter for other preprocedural examinationCarotid Duplex ____ConclusionsThere was a 40-59% stenosis in the right internal carotid artery. Theright vertebral artery was patent with antegrade flow.There was a 40-59% stenosis in the left internal carotid artery. Theleft vertebral artery was patent with antegrade flow. FindingsThe right internal carotid artery contained a small amount of plaque,heterogeneous in consistency.The left internal carotid artery contained a small amount of plaque,heterogeneous in consistency.Measuremen ts Right Carotid PSV Name Value Units PCCA 109 cm/sec DCCA 137 cm/sec PICA 151 cm/sec AVTAR 98 cm/sec DICA 98 cm/sec ECA 171 cm/sec Vertebral 47 cm/sec Right Carotid EDV Name Value Units PCCA 14 cm/sec DCCA 24 cm/sec PICA 29 cm/sec AVTAR 29 cm/sec DICA 27 cm/sec ECA 0 cm/sec Vertebral 10 cm/sec Left Carotid PSV Name Value Units PCCA 70 cm/sec DCCA 59 cm/sec PICA 127 cm/sec AVTAR 131 cm/sec DICA 90 cm/sec ECA 112 cm/sec Vertebral 88 cm/sec Left Carotid EDV Name Value Units PCCA 15 cm/sec DCCA 16 cm/sec PICA 33 cm/sec AVTAR 23 cm/sec DICA 25 cm/sec ECA 9 cm/sec Vertebral 17 cm/sec Blood Pressures and Ratios Name Value Units R ICA/CCA 1.1 ratio L ICA/CCA 2.2 ratio Electronically signed at 11/04/2017 16:55:29 by: Jordon Galeas MD [facility] SAPHENOUS VEIN MAP BILAT/ COMPLETEon 11-04-2017 SAPHENOUS VEIN MAP BILAT/COMPLETE Non-Invasive Vascular Patient: ANA LILIA LARA E [facility] Rec#: [id number] (Age): 1950(67y)Account #: 1 Study Date: 11/03/2017 Room#: Type: Inpatient Sex: M Reading: Jordon Galeas MDReferring: Cielo Gonzalez NPSonographer: Maci Garces BS, RVT, RDMSProcedure Info: [id number] Quality: ____Diagnosis:Z01.818 Encounter for other preprocedural examinationLower Vein Map ____ConclusionsThere was no evidence of thrombus in the lower extremity superficialvenous system. Vessel diameters are listed below. Measurements R Vein Measurements Name Value Units GSV Thigh - prox 5.6 mm GSV Thigh - mid 4.2 mm GSV Thigh - dist 4.6 mm GSV at Knee 4.6 mm GSV Calf - prox 3.4 mm GSV Calf - mid 3.1 mm GSV Calf - dist 3.5 mm GSV at Ankle 3.8 mm SSV Calf - prox 2 mm SSV Calf - mid 1.8 mm SSV Calf - dist 1.3 mm L Vein Measurements Name Value Units GSV Thigh - prox 3.5 mm GSV Thigh - mid 5.2 mm GSV Thigh - dist 3.7 mm GSV at Knee 3.5 mm GSV Calf - prox 3.7 mm GSV Calf - mid 2.5 mm GSV Calf - dist 2.7 mm GSV at Ankle 2.9 mm SSV Calf - prox 1.5 mm SSV Calf - mid 2 mm SSV Calf - dist 1.5 mm Electronically signed at 11/04/2017 16:56:06 by: Jordon Galeas MD [facility] Ultrasound duplex carotidon 11-04-2017 Ultrasound duplex carotid Interface, Rad In Heartlab Xper [facility] - 11/04/2017 5:07 PM EDT Non-Invasive Vascular ____ Patient: ANA LILIA LARA [facility] Rec#: [id number] (Age): 1950(67y) Account#: 1 Study Date: 11/03/2017 Room#: Type: Inpatient Sex: M ____ Reading: Jordon Galeas MD Referring: Cielo Gonzalez NP Fingerer: Maci Garces, JADENT, OZZIEMS Procedure Info: [id number]... Study Quality: ____ Diagnosis: Z01.818 Encounter for other preprocedural examination Carotid Duplex ____ Conclusions There was a 40-59% stenosis in the right internal carotid artery. The right vertebral artery was patent with antegrade flow. There was a 40-59% stenosis in the left internal carotid artery. The left vertebral artery was patent with antegrade flow. ____ Findings The right internal carotid artery contained a small amount of plaque, heterogeneous in consistency. The left internal carotid artery contained a small amount of plaque, heterogeneous in consistency. Measurements Right Carotid PSV Name Value Units PCCA 109 cm/sec DCCA 137 cm/sec PICA 151 cm/sec AVTAR 98 cm/sec DICA 98 cm/sec ECA 171 cm/sec Vertebral 47 cm/sec Right Carotid EDV Name Value Units PCCA 14 cm/sec DCCA 24 cm/sec PICA 29 cm/sec AVTAR 29 cm/sec DICA 27 cm/sec ECA 0 cm/sec Vertebral 10 cm/sec Left Carotid PSV Name Value Units PCCA 70 cm/sec DCCA 59 cm/sec PICA 127 cm/sec AVTAR 131 cm/sec DICA 90 cm/sec ECA 112 cm/sec Vertebral 88 cm/sec Left Carotid EDV Name Value Units PCCA 15 cm/sec DCCA 16 cm/sec PICA 33 cm/sec AVTAR 23 cm/sec DICA 25 cm/sec ECA 9 cm/sec Vertebral 17 cm/sec Blood Pressures and Ratios Name Value Units R ICA/CCA 1.1 ratio L ICA/CCA 2.2 ratio Electronically signed at 11/04/2017 16:55:29 by: Jordon Galeas MD Invalid Interpretation Code [facility] RAD Ultrasound duplex carotid Non-Invasive Vascular ____ Patient: ANA LILIA LARA [facility] Rec#: [id number] (Age): 1950(67y) Account#: 1 Study Date: 11/03/2017 Room#: Type: Inpatient Sex: M ____ Reading: Jordon Galeas MD Referring: Cielo Gonzalez NP Fingerer: Maci Garces BS, RVT, RDMS Procedure Info: [id number]... Study Quality: ____ Diagnosis: Z01.818 Encounter for other preprocedural examination Carotid Duplex ____ Conclusions There was a 40-59% stenosis in the right internal carotid artery. The right vertebral artery was patent with antegrade flow. There was a 40-59% stenosis in the left internal carotid artery. The left vertebral artery was patent with antegrade flow. ____ Findings The right internal carotid artery contained a small amount of plaque, heterogeneous in consistency. The left internal carotid artery contained a small amount of plaque, heterogeneous in consistency. Measurements Right Carotid PSV Name Value Units PCCA 109 cm/sec DCCA 137 cm/sec PICA 151 cm/sec AVTAR 98 cm/sec DICA 98 cm/sec ECA 171 cm/sec Vertebral 47 cm/sec Right Carotid EDV Name Value Units PCCA 14 cm/sec DCCA 24 cm/sec PICA 29 cm/sec AVTAR 29 cm/sec DICA 27 cm/sec ECA 0 cm/sec Vertebral 10 cm/sec Left Carotid PSV Name Value Units PCCA 70 cm/sec DCCA 59 cm/sec PICA 127 cm/sec AVTAR 131 cm/sec DICA 90 cm/sec ECA 112 cm/sec Vertebral 88 cm/sec Left Carotid EDV Name Value Units PCCA 15 cm/sec DCCA 16 cm/sec PICA 33 cm/sec AVTAR 23 cm/sec DICA 25 cm/sec ECA 9 cm/sec Vertebral 17 cm/sec Blood Pressures and Ratios Name Value Units R ICA/CCA 1.1 ratio L ICA/CCA 2.2 ratio Electronically signed at 11/04/2017 16:55:29 by: Jordon Galeas MD Invalid Interpretation Code C RAD XR CHEST PA/APon 11-04-2017 XR CHEST PA/AP EXAMINATION:XR CHEST PA/APHISTORY:ORDERING SYSTEM PROVIDED HISTORY: pre op, TECHNOLOGIST PROVIDED HISTORY: Reason for exam: pre opIllness/OtherCancer History: NOSurgery, RadiationHistory: PROSTHESIS IN THE LEFT ELBOWEncounter Type: OngoingAdditional signs and symptoms:ORDERING SYSTEM PROVIDED DIAGNOSIS CODES:COMPARISON:None available.FINDINGS:Sin gle portable semierect AP radiograph of the chest was obtained. EKG leads project over the patient. There are calcifications within the left hilum likely due to old granulomatous disease. The patient is slightly rotated. There is prominence of the ascending thoracic aorta, most likely related to patient rotation. The heart is normal in size. There is mild elevation of the right hemidiaphragm. There is linear subsegmental atelectasis within the right lung base. There is no focal airspace consolidation. There is no pleural effusion. There is no pneumothorax.IMPRESSIO N:No evidence of acute cardiopulmonary process. Low lung volumes with elevation of the right hemidiaphragm.BDZ/horacioeW orkstation ID: [id number] by: BRITTANI CHI on SunNov 04, 2017 5:28:34 AM EDTTranscribed by: MEG HARRINGTON on SunNov 04, 2017 6:42:17 AM EDTFinalized by: BRITTANI CHI on SunNov 04, 2017 7:03:08 AM EDT Normal [facility] Comment on above: Order Comment: Reaso n for exam?:pre opInjury/Trauma or Illness?:Illness/OtherHow long have you had these symptoms (acute/chronic)?:UnknownHistory of cancer?:NOSurgeries, chemotherapy, or radiation?:PROSTHESIS IN THE LEFT ELBOWType of Exam?:OngoingAdditional signs and symptoms?: XR Chest 1 Viewon 11-04-2017 XR Chest 1 View Interface, Rad In Fu ji Speechq - 11/04/2017 7:05 AM EDT EXAMINATION: XR CHEST PA/AP HISTORY: ORDERING SYSTEM PROVIDED HISTORY: pre op, TECHNOLOGIST PROVIDED HISTORY: Reason for exam: pre op Illness/Other Cancer History: NO Surgery, RadiationHistory: PROSTHESIS IN THE LEFT ELBOW Encounter Type: Ongoing Additional signs and symptoms: ORDERING SYSTEM PROVIDED DIAGNOSIS CODES: COMPARISON: None available. FINDINGS: Single portable semierect AP radiograph of the chest was obtained. EKG leads project over the patient. There are calcifications within the left hilum likely due to old granulomatous disease. The patient is slightly rotated. There is prominence of the ascending thoracic aorta, most likely related to patient rotation. The heart is normal in size. There is mild elevation of the right hemidiaphragm. There is linear subsegmental atelectasis within the right lung base. There is no focal airspace consolidation. There is no pleural effusion. There is no pneumothorax. IMPRESSION: No evidence of acute cardiopulmonary process. Low lung volumes with elevation of the right hemidiaphragm. [employer] Workstation ID: [id number] Invalid Interpretation Code [facility] XR Chest 1 View EXAMINATION: XR CHES T PA/AP HISTORY: ORDERING SYSTEM PROVIDED HISTORY: pre op, TECHNOLOGIST PROVIDED HISTORY: Reason for exam: pre op Illness/Other Cancer History: NO Surgery, RadiationHistory: PROSTHESIS IN THE LEFT ELBOW Encounter Type: Ongoing Additional signs and symptoms: ORDERING SYSTEM PROVIDED DIAGNOSIS CODES: COMPARISON: None available. FINDINGS: Single portable semierect AP radiograph of the chest was obtained. EKG leads project over the patient. There are calcifications within the left hilum likely due to old granulomatous disease. The patient is slightly rotated. There is prominence of the ascending thoracic aorta, most likely related to patient rotation. The heart is normal in size. There is mild elevation of the right hemidiaphragm. There is linear subsegmental atelectasis within the right lung base. There is no focal airspace consolidation. There is no pleural effusion. There is no pneumothorax. Invalid Interpretation Code [employer] [place] XR Chest 1 View No evidence of acute cardiopulmonary process. Low lung volumes with elevation of the right hemidiaphragm. [employer] Workstation ID: [id number] Invalid Interpretation Code [employer] [facility] APTT Heparin Coverageon 10-13 aPTT 42 s High 23 - 34 [facility] aPTT Therapeutic range fo r APTT's is 68 - 104 seconds Invalid Interpretation Code [facility] Interpretation and review of laboratory results Abnormal Invalid Interpretation Code [facility] CBC Auto Differentialon 10-13 Basophils Auto #/vol (Bld) 0.05 K/mcL Invalid Interpretation Code 0.00 - 0.30 [facility] Basophils/100 WBC Auto (Bld) 0.4 % Invalid Interpretation Code [facility] Eosinophils 0.06 K/mcL Invalid Interpretation Code 0.00 - 0.50 [facility] Eosinophils/100 leukocytes 0.4 % Invalid Interpretation Code [facility] Erythrocyte distribution width Auto Entitic volume (RBC) 12.4 % Invalid Interpretation Code 11.6 - 14.8 % [facility] Erythrocytes (RBC) 4.88 M/mcL Invalid Interpretation Code 4.50 - 5.90 [facility] Hematocrit (HCT) 43.8 % Invalid Interpretation Code 41 - 53 % [facility] Hemoglobin mass conc (Bld) 14.9 g/dL Invalid Interpretation Code 13.5 - 17.5 g/dL [facility] Immature granulocytes #/vol (Bld) 0.05 K/mcL Invalid Interpretation Code 0.00 - 0.30 [facility] Immature granulocytes/100 WBC (Bld) 0.40 % Invalid Interpretation Code [facility] Comment on above: The IG parameter is the percentage of metamyelocytes, myelocytes, and promyelocytes. Interpretation and review of laboratory results Abnormal Invalid Interpretation Code [facility] Lymphocytes 2.45 K/mcL Invalid Interpretation Code 0.90 - 4.00 [facility] Lymphocytes/100 leukocytes 17.6 % Invalid Interpretation Code [facility] MCH 30.5 pg Invalid Interpretation Code 26 - 34 pg [facility] MCHC mass conc (RBC) 34.0 g/dL Invalid Interpretation Code 31 - 37 g/dL [facility] MCV 89.8 fL Invalid Interpretation Code 80 - 100 fL [facility] Monocytes 0.77 K/mcL Invalid Interpretation Code 0.30 - 0.90 [facility] Monocytes/100 leukocytes 5.5 % Invalid Interpretation Code [facility] Neutrophils 10.51 K/mcL High 1.70 - 7.00 [facility] Neutrophils/100 WBC Auto (Bld) 75.7 % Invalid Interpretation Code [facility] Nucleated erythrocytes 0.00 K/mcL Invalid Interpretation Code 0.00 - 0.00 [facility] Nucleated erythrocytes/100 erythrocytes 0.0 % Invalid Interpretation Code [facility] Platelet mean volume (PMV) 9.6 fL Invalid Interpretation Code 9 - 15.5 fL [facility] Platelets 258 K/mcL Invalid Interpretation Code 150 - 400 [facility] WBC (Leukocytes) 13.89 K/mcL High 4.50 - 11.00 [facility] CBC and Differentialon 11-03 Creatinine The following orders were created for panel order CBC and Differential. Procedure Abnormality Status --------- ------ CBC Auto Differential[[id number] ] Abnormal Final result Please view results for these tests on the individual orders. Invalid Interpretation Code [facility] Calcium, Ionizedon 8 Interpretation and review of laboratory results Normal Invalid Interpretation Code [facility] Ionized Calcium 5.3 mg/dL Invalid Interpretation Code 4.5 - 5.3 mg/dL [facility] Comprehensive Metabolic Pane laura 11-03-2017 Alanine aminotransferase (ALT) 11 U/L Invalid Interpretation Code 0 - 40 U/L [facility] Albumin 4.3 g/dL Invalid Interpretation Code 3.2 - 5.2 g/dL [facility] Alkaline phosphatase (ALP) 73 U/L Invalid Interpretation Code 40 - 150 U/L [facility] Anion gap 19 mmol/L Invalid Interpretation Code 10 - 20 mmol/L [facility] Aspartate aminotransferase (AST) 15 U/L Invalid Interpretation Code 0 - 45 U/L [facility] Bicarbonate (HCO3) 23 mmol/L Invalid Interpretation Code 21 - 32 mmol/L [facility] Bilirubin (total) 0.5 mg/dL Invalid Interpretation Code 0 - 1.3 mg/dL [facility] BUN/Creatinine Ratio 17.9 mg/mg Invalid Interpretation Code 10.0 - 20.0 [facility] Calcium 9.1 mg/dL Invalid Interpretation Code 8.4 - 10.2 mg/dL [facility] Chloride 102 mmol/L Invalid Interpretation Code 98 - 108 mmol/L [facility] Creatinine 0.67 mg/dL Low 0.8 - 1.3 mg/dL [facility] eGFR (non-black) The eGFR should be used for monitoring renal function only and not for medication dosing. Invalid Interpretation Code [facility] eGFR (non-black) 99 mL/min/{1.73_m2} Invalid Interpretation Code >=60 [facility] Glucose mass conc 109 mg/dL High 65 - 99 mg/dL [facility] Potassium molar conc 4.2 mmol/L Invalid Interpretation Code 3.5 - 5.1 mmol/L [facility] Protein 7.1 g/dL Invalid Interpretation Code 6 - 8 g/dL [facility] Sodium 140 mmol/L Invalid Interpretation Code 135 - 145 mmol/L [facility] Urea nitrogen 12 mg/dL Invalid Interpretation Code 8 - 25 mg/dL [facility] Hemoglobin A1con 11-03-2017 Glucose mass conc 111 mg/dL Invalid Interpretation Code 68 - 126 mg/dL [facility] Hemoglobin A1c/Hemoglobin.total mass fraction (Bld) 5.5 % Invalid Interpretation Code 4.2 - 6 % [facility] Lactic Acid, Plasmaon 2017 Interpretation and review of laboratory results Normal Invalid Interpretation Code [facility] Lactate 1.8 mmol/L Invalid Interpretation Code 0.6 - 2 mmol/L [facility] Lipid Panelon 11-03-2017 Cholesterol 163 mg/dL Invalid Interpretation Code 100 - 199 mg/dL [facility] Cholesterol non HDL mass conc 115 mg/dL Invalid Interpretation Code [facility] Comment on above: National Cholesterol Education Program Guidelines: NON HDL Cholesterol Desirable: <130 mg/dL Borderline High: 130-159 mg/dL High: 160-189 mg/dL Very High: > or = 190 mg/dL Cholesterol to HDL Ratio 3.4 {ratio} Invalid Interpretation Code [facility] Comment on above: Males Cholesterol/HD L Ratio: Average risk: 5.0 1/2 average risk: 3.4 2 x average risk: 9.6 HDL Cholesterol 48 mg/dL Invalid Interpretation Code 40 - 59 [facility] LDL Cholesterol 92 mg/dL Invalid Interpretation Code 10 - 130 mg/dL [facility] Comment on above: National Cholesterol Education Program Guidelines: LDL Cholesterol Optimal: <100 mg/dL Near Optimal/above Optimal: 100-129 mg/dL Borderline High: 130-159 mg/dL High: 160-189 mg/dL Very High: greater than or equal to 190 mg/dL Reference range change on 05/28/17 to reflect NCEP guidelines. Triglyceride 117 mg/dL Invalid Interpretation Code 30 - 150 mg/dL [facility] MRSA DNA Amplified Probeon 0 11-03-2017 Interpretation and review of laboratory results Normal Invalid Interpretation Code [facility] MRSA presence Negative Invalid Interpretation Code Negative for MRSA by Amplified DNA Probe [facility] Magnesiumon 11-03-2017 Magnesium 1.9 mg/dL Invalid Interpretation Code 1.6 - 2.4 mg/dL [facility] PT/INRon 11-03-2017 INR Coag RelTime (Bld) During the induct ion phase of oral anticoagulation, the INR may not reflect the anticoagulation status of the patient. Therapeutic ranges for INR's are: Most clinical situations: INR 2.0-3.0 Mechanical Prosthetic Valve: INR 2.5-3.5 Critical: INR >5.0 Invalid Interpretation Code [facility] INR Coag RelTime (PPP) 1.1 {INR} Invalid Interpretation Code 0.8 - 1.1 [facility] Interpretation and review of laboratory results Normal Invalid Interpretation Code [facility] Prothrombin time (PT) Coag time (PPP) 13.5 s Invalid Interpretation Code 11.8 - 14.3 [facility] Phosphoruson 11-03-2017 Phosphate 2.7 mg/dL Invalid Interpretation Code 2.3 - 3.7 mg/dL [facility] TSH with Reflex Free T4on Thyroid stimulating hormone (TSH) 2.36 mcIU/mL Invalid Interpretation Code 0.32 - 5.00 [facility] Urinalysison 11-03-2017 Bilirubin Ql (U) Negative Invalid Interpretation Code Negative [facility] Blood, Urine Negative Invalid Interpretation Code Negative [facility] Interpretation and review of laboratory results Abnormal Invalid Interpretation Code [facility] Mucus, Urine Rare Invalid Interpretation Code None Seen, Rare /lpf [facility] Nitrite, Urine Negative Invalid Interpretation Code Negative [facility] Urine, bacteria in sediment Rare Abnormal None Seen /hpf [facility] Urine, clarity Clear Invalid Interpretation Code Clear [facility] Urine, color Yellow Invalid Interpretation Code Colorless, Yellow [facility] Urine, erythrocytes 4 /hpf High 0 - 3 [facility] Urine, glucose presence Negative Invalid Interpretation Code Negative mg/dL [facility] Urine, ketones presence Negative Invalid Interpretation Code Negative mg/dL [facility] Urine, leukocyte esterase presence Small Abnormal Negative [facility] Urine, pH 6.0 [pH] Invalid Interpretation Code 5.0 - 7.0 [facility] Urine, protein Negative Invalid Interpretation Code Negative mg/dL [facility] Urine, specific gravity 1.017 1 Invalid Interpretation Code 1.005 - 1.025 [facility] Urine, urobilinogen 2.0 mg/dL Abnormal <2.0 [facility] WBCs, Urine 7 /hpf High 0 - 5 [facility] Urinalysis Microscopic examination is performed on all urinalysis samples and only positive findings are reported. The test for blood on the chemical analytic portion of urinalysis may also be positive due to hemoglobinuria and myoglobinuria and if red blood cells are present they are quantified by microscopic examination. Invalid Interpretation Code [facility] Vital Signs Date Time Vital Sign Value Performing Clinician Facility 02-11-2025 07:45-0400 Body mass index (BMI) [Ratio] 36 kg/m2 Dr. Do Shaw MD Work Phone: [facility] 02-11-2025 07:45-0400 Body weight 113.[address] Do Shaw MD Work Phone: [facility] 02-11-2025 07:45-0400 Diastolic blood pressure 77 mm[Hg] Dr. Do Shaw MD Work Phone: [facility] 02-11-2025 07:45-0400 Heart rate 59 /min Dr. Do Shaw MD Work Phone: [facility] 02-11-2025 07:45-0400 Respiratory rate 18 /min Dr. Do Shaw MD Work Phone: [facility] 02-11-2025 07:45-0400 SaO2% (BldA) [Mass fraction] 97 % Dr. Do Shaw MD Work Phone: [facility] 02-11-2025 07:45-0400 Systolic blood pressure 159 mm[Hg] Dr. Do Shaw MD Work Phone: [facility] 11-20-2024 08:37-0400 Body height 177.[address] Do Shaw MD Work Phone: [facility] 11-20-2024 08:37-0400 Body mass index (BMI) [Ratio] 37 kg/m2 Dr. Do Shaw MD Work Phone: [facility] 11-20-2024 08:37-0400 Body weight 117.[address] Do Shaw MD Work Phone: [facility] 06-27-2024 08:34-0500 Body temperature 97.7 [degF] Dr. Do Shaw MD Work Phone: [facility] 06-27-2024 08:34-0500 Diastolic blood pressure 73 mm[Hg] Dr. Do Shaw MD Work Phone: [facility] 06-27-2024 08:34-0500 Heart rate 59 /min Dr. Do Shaw MD Work Phone: [facility] 06-27-2024 08:34-0500 Respiratory rate 16 /min Dr. Do Shaw MD Work Phone: [facility] 06-27-2024 08:34-0500 SaO2% (BldA) [Mass fraction] 98 % Dr. Do Shaw MD Work Phone: [facility] 06-27-2024 08:34-0500 Systolic blood pressure 124 mm[Hg] Dr. Do Shaw MD Work Phone: [facility] 10-23-2023 10:33-0400 Body height 176.53 cm Kartik Ulloa MD [facility] 10-23-2023 10:33-0400 Body mass index (BMI) [Ratio] 36.68 kg/m2 Kartik Ulloa MD [facility] 10-23-2023 10:33-0400 Body weight 114.31 kg Kartik Ulloa MD [facility] 09-11-2023 10:32-0400 Body height 178.31 cm Kartik Ulloa MD [facility] 09-11-2023 10:32-0400 Body mass index (BMI) [Ratio] 36.52 kg/m2 Kartik Ulloa MD [facility] 09-11-2023 10:32-0400 Body weight 116.12 kg Kartik Ulloa MD [facility] 06-15-2023 08:37-0500 Body height 177.8 cm SEQUENCING MACHINE OPERATOR-C Syed Rubio SEQUENCING MACHINE OPERATOR Work Phone: [facility] 06-15-2023 08:37-0500 Body mass index (BMI) [Ratio] 36.8 kg/m2 SEQUENCING MACHINE OPERATOR-C Syed Roof SEQUENCING MACHINE OPERATOR Work Phone: [facility] 06-15-2023 08:37-0500 Body weight 116.57 kg SEQUENCING MACHINE OPERATOR-C Syed Roof SEQUENCING MACHINE OPERATOR Work Phone: [facility] 06-15-2023 08:37-0500 Diastolic blood pressure 70 mm[Hg] SEQUENCING MACHINE OPERATOR-C Syed Roof SEQUENCING MACHINE OPERATOR Work Phone: [facility] 06-15-2023 08:37-0500 Heart rate 67 /min SEQUENCING MACHINE OPERATOR-C Syed Rubio SEQUENCING MACHINE OPERATOR Work Phone: [facility] 06-15-2023 08:37-0500 Respiratory rate 16 /min SEQUENCING MACHINE OPERATOR-C Syed Rubio SEQUENCING MACHINE OPERATOR Work Phone: [facility] 06-15-2023 08:37-0500 Systolic blood pressure 146 mm[Hg] SEQUENCING MACHINE OPERATOR-C Syed Rubio SEQUENCING MACHINE OPERATOR Work Phone: [facility] 12-25-2022 08:49-0400 Body height 177.[address] Letha Rebollar Work Phone: [facility] 12-25-2022 08:49-0400 Body mass index (BMI) [Ratio] 36.4 kg/m2 Dr. Letha Rebollar Work Phone: [facility] 12-25-2022 08:49-0400 Body weight 115.[address] Letha Rebollar Work Phone: [facility] 12-25-2022 08:49-0400 Diastolic blood pressure 69 mm[Hg] Dr. Letha Rebollar Work Phone: [facility] 12-25-2022 08:49-0400 Heart rate 53 /min Dr. Letha Rebollar Work Phone: [facility] 12-25-2022 08:49-0400 Respiratory rate 18 /min Dr. Letha Rebollar Work Phone: [facility] 12-25-2022 08:49-0400 SaO2% (BldA) [Mass fraction] 96 % Dr. Letha Rebollar Work Phone: [facility] 12-25-2022 08:49-0400 Systolic blood pressure 135 mm[Hg] Dr. Letha Rebollar Work Phone: [facility] 06-29-2022 10:24-0500 Body height 177.[address] Letha Rebollar Work Phone: [facility] 06-29-2022 10:24-0500 Body mass index (BMI) [Ratio] 36.1 kg/m2 Dr. Letha Rebollar Work Phone: [facility] 06-29-2022 10:24-0500 Body weight 114.[address] Letha Rebollar Work Phone: [facility] 06-29-2022 10:24-0500 Diastolic blood pressure 70 mm[Hg] Dr. Letha Rebollar Work Phone: [facility] 06-29-2022 10:24-0500 Heart rate 54 /min Dr. Letha Rebollar Work Phone: [facility] 06-29-2022 10:24-0500 Respiratory rate 16 /min Dr. Letha Rebollar Work Phone: [facility] 06-29-2022 10:24-0500 Systolic blood pressure 150 mm[Hg] Dr. Letha Rebollar Work Phone: [facility] 02-09-2022 08:35-0400 Body height 177.[address] Letha Rebollar Work Phone: [facility] Work Phone: 02-09-2022 08:35-0400 Body mass index (BMI) [Ratio] 36.1 kg/m2 Dr. Letha Rebollar Work Phone: [facility] Work Phone: 02-09-2022 08:35-0400 Body weight 114.[address] Letha Rebollar Work Phone: [facility] Work Phone: 02-09-2022 08:35-0400 Diastolic blood pressure 55 mm[Hg] Dr. Letha Rebollar Work Phone: [facility] Work Phone: 02-09-2022 08:35-0400 Heart rate 52 /min Dr. Letha Rebollar Work Phone: [facility] Work Phone: 02-09-2022 08:35-0400 Respiratory rate 16 /min Dr. Letha Rebollar Work Phone: [facility] Work Phone: 02-09-2022 08:35-0400 Systolic blood pressure 107 mm[Hg] Dr. Letha Rebollar Work Phone: [facility] Work Phone: 01-06-2022 07:12-0400 Body height 177.[address] Letha Rebollar Work Phone: [facility] Work Phone: 01-06-2022 07:12-0400 Body weight 115.[address] Letha Rebollar Work Phone: [facility] Work Phone: 01-05-2022 09:07-0400 Body mass index (BMI) [Ratio] 36.6 kg/m2 Dr. Letha Rebollar Work Phone: [facility] Work Phone: 12-08-2021 09:20-0400 Body height 177.[address] Letha Rebollar Work Phone: [facility] Work Phone: 12-08-2021 09:20-0400 Body mass index (BMI) [Ratio] 36.6 kg/m2 Dr. Letha Rebollar Work Phone: [facility] Work Phone: 12-08-2021 09:20-0400 Body weight 115.[address] Letha Rebollar Work Phone: [facility] Work Phone: 12-08-2021 09:20-0400 Diastolic blood pressure 74 mm[Hg] Dr. Letha Rebollar Work Phone: [facility] Work Phone: 12-08-2021 09:20-0400 Heart rate 53 /min Dr. Letha Rebollar Work Phone: [facility] Work Phone: 12-08-2021 09:20-0400 Respiratory rate 16 /min Dr. Letha Rebollar Work Phone: [facility] Work Phone: 12-08-2021 09:20-0400 Systolic blood pressure 147 mm[Hg] Dr. Letha Rebollar Work Phone: [facility] Work Phone: 06-16-2021 09:31-0500 Body height 177.[address] Letha Rebollar Work Phone: [facility] Work Phone: 06-16-2021 09:31-0500 Body weight 116.[address] Letha Rebollar Work Phone: [facility] Work Phone: 06-13-2021 09:16-0500 Body mass index (BMI) [Ratio] 37.1 kg/m2 Dr. Letha Rebollar Work Phone: [facility] Work Phone: 06-13-2021 09:16-0500 Body weight 117.[address] Letha Rebollar Work Phone: [facility] Work Phone: 06-13-2021 09:16-0500 Diastolic blood pressure 74 mm[Hg] Dr. Letha Rebollar Work Phone: [facility] Work Phone: 06-13-2021 09:16-0500 Heart rate 60 /min Dr. Letha Rebollar Work Phone: [facility] Work Phone: 06-13-2021 09:16-0500 Respiratory rate 16 /min Dr. Letha Rebollar Work Phone: [facility] Work Phone: 06-13-2021 09:16-0500 Systolic blood pressure 160 mm[Hg] Dr. Letha Rebollar Work Phone: [facility] Work Phone: 05-16-2021 07:56-0500 Body weight 116.[address] Letha Rebollar Work Phone: [facility] Work Phone: 04-13-2021 08:21-0500 Body weight 114.[address] Letha Rebollar Work Phone: [facility] Work Phone: 12-13-2017 09:50-0400 BMI (Body Mass Index) 28.76 kg/m2 [facility] 12-13-2017 09:50-0400 BP Diastolic 86 mm[Hg] [facility] 12-13-2017 09:50-0400 BP Systolic 155 mm[Hg] [facility] 12-13-2017 09:50-0400 Height 185.4 cm [facility] 12-13-2017 09:50-0400 Pulse (Heart Rate) 60 /min [facility] 12-13-2017 09:50-0400 Pulse Oximetry 98 % [facility] 12-13-2017 09:50-0400 Weight 98.88 kg [facility] 11-10-2017 13:35-0400 BP Diastolic 70 mm[Hg] Luis Shelley [facility] 11-10-2017 13:35-0400 BP Systolic 119 mm[Hg] Luis Shelley [facility] 11-10-2017 13:35-0400 Pulse (Heart Rate) 71 /min Luis Shelley [facility] 11-10-2017 13:35-0400 Pulse Oximetry 96 % Luis Shelley [facility] 11-10-2017 13:35-0400 Respiratory Rate 17 /min Luis Karsten [facility] 11-10-2017 11:10-0400 Body Temperature 98.6 [degF] Luis Shelley [facility] 11-09-2017 22:10-0400 BMI (Body Mass Index) 30.8 kg/m2 Luis Shelley [facility] 11-09-2017 22:10-0400 Weight 105.9 kg Luis Shelley [facility] 11-05-2017 10:47-0400 Height 185.4 cm Luis Shelley [facility] Encounters Encounter Date Encounter Type Care Provider Facility Start: 03-23-2025 ambulatory Syed Rubio SEQUENCING MACHINE OPERATOR Facility :[facility] Start: 03-23-2025 End: 03-23-2025 ambulatory Do Shaw Facility:[facility] Start: 03-16-2025 ambulatory Vita Darshan [facility] Start: 03-16-2025 End: 03-16-2025 ambulatory Syed Rubio SEQUENCING MACHINE OPERATOR Facility:[facility] Start: 02-11-2025 End: 02-11-2025 Patient encounter procedure Syed Rubio SEQUENCING MACHINE OPERATOR-C -Laboratory Work Phone: Start: 02-11-2025 End: 02-11-[address] Do Shaw MD Work Phone: -[facility] Start: 02-10-2025 End: 02-11-[address] Do Shaw MD Work Phone: -Laboratory Start: 02-10-2025 End: 02-10-2025 Patient encounter procedure Syed Rubio SEQUENCING MACHINE OPERATOR-C -Laboratory Work Phone: Start: 02-10-2025 End: 02-10-2025 ambulatory Syed Rubio SEQUENCING MACHINE OPERATOR Facility:[facility] Start: 01-08-2025 Non-patient / Non-visit Dr. Maynor Glez MD -[facility] Start: 01-08-2025 End: 01-08-[address] Do Shaw MD Work Phone: -Cardiovascular Services Start: 01-08-2025 End: 01-08-2025 Patient encounter procedure Rosalie Moulton PA -Cardiovascular Services Work Phone: Start: 01-08-2025 End: 01-08-2025 ambulatory Rosalie Moulton Facility:[facility] Start: 11-20-2024 End: 11-20-[address] Johny Giron MD -[facility] Work Phone: Start: 11-20-2024 End: 11-20-[address] Do Shaw MD Work Phone: -[facility] Start: 08-19-2024 Non-patient / Non-visit Dr. Maynor Glez MD -[facility] Start: 08-19-2024 End: 08-19-[address] Do Shaw MD Work Phone: [facility] Work Phone: Start: 08-19-2024 End: 08-19-2024 Patient encounter procedure Rosalie KOO -Cardiovascular Services Work Phone: Start: 08-19-2024 End: 08-19-2024 ambulatory Rosalie Moulton Facility:[facility] Start: 06-27-2024 End: 06-27-2024 Patient encounter procedure Rosalie Moulton [facility] Work Phone: Start: 06-27-2024 End: 06-27-2024 ambulatory Do Houston Facility:[facility] Start: 06-16-2024 ambulatory Do Valeria Facility :[facility] Start: 06-16-2024 Non-patient / Non-visit Dr. Maynor Glez MD -[facility] Start: 06-16-2024 End: 06-16-[address] Maynor Glez MD -Cardiovascular Services Work Phone: Start: 06-16-2024 End: 06-16-2024 ambulatory Do Valeria Facility:[facility] Start: 10-23-2023 End: 10-23-2023 Office outpatient visit 25 minutes Kartik Ulloa Work Phone: [place] Start: 10-17-2023 End: 10-17-2023 Encounter identifier Kartik Ulloa Work Phone: [facility] [place] Start: 09-28-2023 End: 09-28-2023 Encounter identifier Kartik Ulloa Work Phone: [facility] [place] Start: 09-14-2023 End: 09-14-2023 Encounter identifier Kartik Ulloa Work Phone: [facility] [place] Start: 09-11-2023 End: 09-11-2023 Office outpatient new 45 minutes Kartik Ulloa Work Phone: [facility] [place] Start: 09-11-2023 End: 09-11-2023 Encounter identifier Kartik Ulloa Work Phone: [facility] [place] Start: 09-10-2023 End: 09-10-2023 Encounter identifier Apollo Reynoso Work Phone: [facility] [place] Start: 08-30-2023 End: 08-30-2023 Encounter identifier Kartik Ulloa Work Phone: [facility] [place] Start: 08-29-2023 End: 08-29-2023 Encounter identifier Alireza Busch Work Phone: [facility] [place] Start: 06-15-2023 End: 06-15-2023 ambulatory SEQUENCING MACHINE OPERATOR-Yessenia Rubio SEQUENCING MACHINE OPERATOR Work Phone: [facility] Work Phone: Start: 06-15-2023 End: 06-15-2023 Patient encounter procedure SEQUENCING MACHINE OPERATOR-Yessenia Rubio SEQUENCING MACHINE OPERATOR Work Phone: [facility] Work Phone: Start: 12-25-2022 End: 12-25-[address] Letha Rebollar Work Phone: [facility] Work Phone: Start: 12-25-2022 End: 12-25-[address] Letha Rebollar Work Phone: [facility] Work Phone: Start: 07-11-2022 Non-patient / Non-visit Dr. Letha Rebollar Work Phone: [facility] Start: 07-11-2022 End: 07-11-[address] Letha Rebollar Work Phone: [facility] Work Phone: Start: 07-11-2022 End: 07-11-[address] eLtha Rebollar Work Phone: [facility]-Cardiovascular Services Start: 07-11-2022 Non-patient / Non-visit Dr. Letha Rebollar Work Phone: [facility] Start: 06-29-2022 End: 06-29-[address] Letha Rebollar Work Phone: [facility] Start: 06-27-2022 End: 06-27-[address] Letha Rebollar Work Phone: [facility] Work Phone: Start: 06-27-2022 End: 06-27-[address] Letha Rebollar Work Phone: [facility]-Laboratory Start: 06-16-2022 Non-patient / Non-visit Dr. Letha Rebollar Work Phone: [facility] Start: 03-29-2022 End: 03-29-[address] Letha Rebollar Work Phone: [facility] Work Phone: Start: 03-29-2022 End: 03-29-[address] Letha Rebollar Work Phone: [facility] Start: 02-09-2022 End: 02-09-[address] Letha Rebollar Work Phone: [facility] Start: 01-06-2022 End: 01-06-2022 Admission to same day surgery center Dr. Letha Rebollar Work Phone: [facility]-Supervisor Policy [employer]erks/Special Procedures Start: 01-06-2022 End: 01-06-[address] Letha Rebollar Work Phone: [facility] Work Phone: Start: 01-05-2022 Non-patient / Non-visit Dr. Letha Rebollar Work Phone: [facility] Start: 12-26-2021 Non-patient / Non-visit Dr. Letha Rebollar Work Phone: [facility] Start: 12-26-2021 End: 12-26-[address] [facility] Start: 12-08-2021 End: 12-08-[address] Letha Rebollar Work Phone: [facility]-Laboratory Start: 12-08-2021 End: 12-08-[address] Letha Rebollar Work Phone: [facility] Start: 12-07-2021 End: 12-07-[address] Letha Rebollar Work Phone: [facility]-Laboratory Start: 08-22-2021 Non-patient / Non-visit Dr. Letha Rebollar Work Phone: [facility] Start: 08-22-2021 End: 08-22-[address] [facility]bollar [facility] Start: 08-15-2021 End: 08-15-[address] Letha Rebollar Work Phone: [facility] Start: 07-27-2021 Non-patient / Non-visit Dr. Letha Rebollar Work Phone: [facility] Start: 07-27-2021 End: 07-27-[address] Letha Rebollar Work Phone: [facility]-Cardi[facility] Services Start: 06-22-2021 End: 06-22-[address] Letha Rebollar Work Phone: [facility]-Laboratory Start: 06-15-2021 End: 07-11-[address] [facility]bollar [facility] Start: 06-13-2021 End: 06-13-[address] Letha Rebollar Work Phone: [facility] Start: 05-20-2021 End: 06-13-[address] [facility]bollar [facility] Start: 05-11-2021 End: 05-13-[address] Leth[facility]bollar [facility] Start: 07-08-2020 End: 07-08-2020 Orders Only Chelsea Breanna Zavala Work Phone: [facility] Start: 12-13-2017 End: 12-13-2017 Patient encounter DARBY MIMS [facility] Start: 12-13-2017 End: 12-13-2017 Postop follow up visit related to original px Darby Mims Work Phone: [facility] Start: 11-21-2017 End: 11-21-2017 Patient encounter RAMSES RAMIREZ [facility] Start: 11-03-2017 End: 11-10-2017 Evaluation and management of inpatient GIOVANNY SHARI MARTIN [facility] Start: 11-03-2017 End: 11-10-2017 Evaluation and management of inpatient Luis Ferrera Karsten Barth Work Phone: [facility] Start: 11-02-2017 End: 11-02-2017 Patient encounter Giovanny Martin [facility] Start: 11-02-2017 Evaluation and management of inpatient POWER GANDHI Facility:[facility] Start: 09-13-2017 Ambulatory Gwyn Sorensen Facility: [facility] Procedures Date Procedure Procedure Detail Performing Clinician Start: 09-11-2023 End: 09-11-2023 Radex elbow complete minimum 3 views Kartik Ulloa MD Start: 03-29-2022 Plain x-ray of elbow Dr Killian Rebollar Work Phone: Start: 01-05-2022 Plain chest X-ray Dr. Miles Rebollar Work Phone: Start: 12-26-2021 Radionuclide imaging of perfusion of myocardium under exercise stress Dr. Letha Rebollar Work Phone: Start: 11-06-2017 End: 11-06-2017 Echo jony guid tcat icar/vessel structural intvn Thiago Mcintosh Work Phone: Start: 11-05-2017 End: 11-05-2017 VENTILATOR Thiago Mcintosh Work Phone: Start: 11-05-2017 End: 11-05-2017 VENTILATOR WEANING SPONTANEOUS BREATHING TRIAL (SBT) Thiago Mcintosh Work Phone: Start: 11-05-2017 End: 11-05-2017 CORONARY ARTERY BYPASS GRAFTS TIMES FOUR WITH AORTIC VALVE REPLACEMENT, ENDOSCOPIC VEIN HARVEST, TRANSESOPHAGEAL ECHOCARDIOGRAM Thiago Mcintosh Work Phone: Start: 11-05-2017 History of coronary artery bypass grafting History of coronary artery bypass graft Dr. Letha Rebollar Work Phone: Comment on above: REED-LAD, SVG seq OM 1-OM2, SVG-PDA @ [facility] 11/05/17 Start: 11-05-2017 End: 11-05-2017 Spmtry w/vc expiratory inna w/wo mxml vol vntj Stephy Vazquez Work Phone: Plan of Treatment Date Care Activity Detail Author Start: 02-11-2025 End: 02-11-2025 Evaluation of diagnostic study results [facility] Start: 10-23-2023 Herb Sung [facility] Work Phone: Start: 09-14-[address] w/o contrast, Left (46938), Body Site: Elbow, Sent on: [facility] Start: 01-06-2022 Pulse taking [facility] Work Phone: Start: 01-06-2022 Notification of physician [facility] Work Phone: Start: 01-06-2022 Patient discharge [facility] Work Phone: Start: 01-06-2022 Provision of activity privileges [facility] Work Phone: Start: 01-06-2022 Scheduling [facility] Work Phone: Start: 01-06-2022 Taking patient vital signs [facility] Work Phone: Start: 01-06-2022 Vascular disease risk assessment [facility] Work Phone: Start: 01-06-2022 Vital signs measurements [facility] Work Phone: Start: 01-06-2022 [facility] Work Phone: Start: 01-13-2020 Influenza vaccination given Sequential Influenza Vaccine (#1) [facility] Start: 01-23-2018 Pneumococcal vaccination Pneumococcal Vaccine Age 65+ (2 of 2 - PPSV23) [facility] Start: 01-12-2018 Influenza vaccination [facility] Start: 12-13-2017 End: 12-13-2017 Ambulatory 12/13/2017 Follow-Up Cardiothoracic Surgery [facility] Start: 11-22-2017 End: 11-22-2017 Ambulatory 11/22/2017 Follow-Up Cardiothoracic Surgery Damari Bassett, ACID CLEANER [facility] [address] [place] [id number] [phone] [facility] Start: 01-13-2016 CLASS III : OFFICE VISIT CLASS III : OFFICE VISIT [facility] Start: 08-21-2015 Pneumococcal vaccination PNEUMOCOCCAL VACCINE AGE 65+ (1 of 2 - PCV13) [facility] Start: 03-20-2013 Administration of herpes zoster vaccine Zoster Vaccines (2 of 3) [facility] Start: 2010 Zoster vaccine hzv live for subcutaneous use ZOSTER VACCINE [facility] Start: 2000 Screening for malignant neoplasm of colon [facility] Start: 1968 Hepatitis C antibody, confirmatory test Hepatitis C Screening [facility] Start: 1966 COVID-19 Vaccine (1 of 2) COVID-19 Vaccine (1 of 2) [facility] Start: 1962 Adolescent depression screening assessment Depression Screening (PHQ9) [facility] Start: 1953 History and physical examination, annual for health maintenance Wellness Visit [facility] Start: 1950 Fall risk assessment Falls Risk Assessment [facility] Start: 1950 Prostate specific antigen measurement PSA Level [facility] Start: 1950 CLASS III : ALT CLASS III : ALT [facility] Start: 1950 CLASS III : AST CLASS III : AST [facility] Start: 1950 CLASS III : CXR CLASS III : CXR [facility] Start: 1950 CLASS III : EKG CLASS III : EKG [facility] Start: 1950 CLASS III : PFT CLASS III : PFT [facility] Start: 1950 CLASS III : TSH CLASS III : TSH [facility] Start: 1950 HEPATITIS C SCREENING HEPATITIS C SCREENING [facility] Start: 1950 Screening colonoscopy COLONOSCOPY [facility] Start: 1950 End: 1950 Tetanus vaccination [facility] Radionuclide imaging of perfusion of myocardium under exercise stress [facility] Work Phone: [place] Carotid arteries [facility] Immunizations Immunization Date Immunization Notes Care Provider Fa [facility] 03-28-2023 influenza, injectabl e, quadrivalent, preservative free Dr. Do Shaw MD Work Phone: [facility] 02-13-2022 Covid Moderna Bivale nt Booster Dr. Do Shaw MD Work Phone: [facility] 02-13-2022 influenza, injectabl e, quadrivalent, preservative free Dr. Do Shaw MD Work Phone: [facility] 02-25-2021 influenza, injectabl e, quadrivalent, preservative free Dr. Do Shaw MD Work Phone: [facility] 08-03-2020 pneumococcal polysaccharide vaccine, [address] Do Shaw MD Work Phone: [facility] 06-07-2020 Covid (Moderna) Dr. Do piña MD Work Phone: [facility] 05-10-2020 Covid (Moderna) Dr. Do piña MD Work Phone: [facility] 02-11-2020 Influenza High-Dose Quadrivalent Dr. Do Shaw MD Work Phone: [facility] 07-15-[address] Do Shaw MD Work Phone: [facility] 05-05-[address] Do Shaw MD Work Phone: [facility] 03-17-2019 pneumococcal conjuga te vaccine, [address] Do Shaw MD Work Phone: [facility] 03-11-2019 Influenza, high dose seasonal Dr. Do Shaw MD Work Phone: [facility] 02-20-2019 influenza, injectabl e, quadrivalent, preservative free Dr. Do Shaw MD Work Phone: [facility] 01-22-2018 Influenza, high dose seasonal Dr. Do Shaw MD Work Phone: [facility] 01-11-2018 Influenza, high dose seasonal Dr. Do Shaw MD Work Phone: [facility] 10-13-2015 pneumococcal conjuga te vaccine, [address] Letha Rebollar Work Phone: [facility] 06-04-2015 influenza, injectabl e, quadrivalent, preservative free Dr. Do Shaw MD Work Phone: [facility] 01-23-2013 pneumococcal polysaccharide vaccine, [address] Do Shaw MD Work Phone: [facility] 01-23-2013 zoster vaccine, live Dr. Eligio Shaw MD Work Phone: [facility] 02-24-2009 novel influenza-H1N1 -09, preservative-free, injectable Dr. Do Shaw MD Work Phone: [facility] 12-08-2002 hepatitis B vaccine, pediatric or pediatric/adolescent dosage Dr. Do Shaw MD Work Phone: [facility] 12-08-2002 TD(adult) unspecifie d formulation Dr. Do Shaw MD Work Phone: [facility] 06-09-2002 hepatitis B vaccine, pediatric or pediatric/adolescent dosage Dr. Do Shaw MD Work Phone: [facility] 05-05-2002 hepatitis B vaccine, pediatric or pediatric/adolescent dosage Dr. Do Shaw MD Work Phone: [facility] Payers Date Payer Category Payer Self-pay [id number] 2023 Medicare [id number] 2023 Unknown [id number] 2017 Medicare 2015 Medicare MEDICARE MEDICAR E PART A & B [id number] 2015-Present [place] [id number] 1995 Unknown [id number] 1995 Worker's Compensation [id number] Medicare [id number] Unknown [employer] [id number] Effective for all dates [id number] Unknown [id number] Unknown [id number] 2.16.840.1.374464.3.579.2. 462 Unknown [id number] 2.16.840.1.727803.3.579.2. 462 Unknown [id number] 2.16.840.1.407903.3.579.2. 462 Unknown [id number] 2.16.840.1.114023.3.579.2. 462 Unknown [id number] 2.16.840.1.079493.3.579.2. 462 Unknown [id number] 2.16.840.1.592469.3.579.2. 462 Unknown [id number] 2.16.840.1.633772.3.579.2. 462 Unknown [id number] 2.16.840.1.268841.3.579.2. 462 Unknown [id number] 2.16.840.1.095347.3.579.2. 462 Unknown [id number] 2.16.840.1.682433.3.579.2. 462 Unknown [id number] 2.16.840.1.775211.3.579.2. 462 Unknown [id number] 2.16.840.1.001932.3.579.2. 462 Unknown [id number] 2.16.840.1.024377.3.579.2. 462 Unknown [id number] 2.16.840.1.281935.3.579.2. 462 Unknown [id number] 2.16.840.1.905954.3.579.2. 462 Social History Date Type Detail Facility Start: 11-06-2017 End: 12-13-2017 Tobacco smoking status NHIS Never smoker [facility] Sex Assigned At Not on file [facility] Start: 12-13-2017 Tobacco use and exposure Never used [facility] Start: 12-13-2017 Alcohol intake Current drinke r of alcohol (finding) [facility] Start: 01-12-2015 Alcohol Comment 2-3 drinks per week [facility] Start: 08-15-2021 End: 09-11-2023 Tobacco smoking status WYIS Unknown if ever smoked [facility] Start: 1950 Sex Assigned At Male [facility] Start: 11-02-2017 Occasional [facility] Start: 11-02-2017 None [facility] Start: 11-02-2017 Spouse/ Signif icant Other [facility] Start: 11-03-2017 Non-smoker [facility] Start: 09-12-2022 Sexual Orientation Choose not to disclose [facility] Start: 06-11-2019 Sexual Orientation Straight or heterosexual [facility] Start: 09-11-2023 Alcohol intake Alcohol Use Details [facility] Start: 09-11-2023 Tobacco use and exposure Non-Smoking Tobacco Use Details [facility] Start: 08-07-2023 Tobacco smoking status NHIS Ex-smoker (finding) [facility] Start: 08-22-2024 Sex Male (finding) [facility] Sex Male [facility] NEGATED: Highlighted rowStart: 10-23-2023 Tobacco smoking status NHIS Never smoker [facility] NEGATED: Highlighted rowStart: 10-23-2023 History of tobacco use Current non-smoker [facility] Medical Equipment Procedure Code Equipment Code Equipment Origin al Text Equipment Identifier Dates Kit Mini Device Cor-Knot - [id number] Start: 11-05-2017 Hernandez Intuity Elite Aortic Valve Start: 11-05-2017 Syringe 4ml Pre-Filled Sealant Preveleak - [id number] Start: 11-05-2017 Kit Mini Device Cor-Knot - [id number] Start: 11-05-2017 Hernandez Intuity Elite Aortic Valve Start: 11-05-2017 Syringe 4ml Pre-Filled Sealant Preveleak - [id number] Start: 11-05-2017 Kit Mini Device Bill-Masha - [id number] Start: 11-05-2017 Comment on above: Description: Charge only Hernandez Intuity Elite Aortic Valve [id number] Start: 11-05-2017 Syringe 4ml Pre-Filled Sealant Preveleak - [id number] Start: 11-05-2017 ([id number]) Drug-eluting coronary artery stent, bioabsorbable-polyme r-coated [id number] FDA Start: 03-08-2021 Femoral vessel suture implantation set [id number] FDA Start: 03-08-2021 Functional Status Date Assessment Result Facility 10-23-2023 Pain severity - 0-10 verbal numeric rating [Score] - Reported 3/10 [facility] 09-11-2023 Pain severity - 0-10 verbal numeric rating [Score] - Reported 2/10 [facility] Clinical Notes 10-12-2017 to 02-11-2025 Note Date & Type Note Facility 02-11-2025 Progress note [facility] 11-20-2024 Evaluation note Diagnosis Onset Date Resolution Foraminal stenosis of lumbar region acute November 20, 2024 8:27am Neurogenic claudication acute 2024 8:27am Spondylolisthesis acute November 202024 8:27am [facility] Work Phone: 1(783) 368-868607-10-2025 Evaluation note* Diagnosis Onset Date Resolution Status Admit Date Foraminal stenosis of lumbar region acute November 20, 2024 8:27am Neurogenic claudication acute J 2024 8:27am Spondylolisthesis acute November 202024 8:27am 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 February 11, 2025 9:06am Essential hypertension chronic [facility] 2024 9:06am History of aortic valve replacement November 05, 2017 chronic February 11 9:06am HLD (hyperlipidemia) chronic Octo 2024 9:06am [facility] Work Phone: 1(909) [phone] Evaluation note* Diagnosis Onset Date Resolution Status Admit Date Bilateral carotid artery stenosis acute June 27, 2 025 8:20am PAD (peripheral artery disease) acute June 27, 2 025 8:20am [facility] Work Phone: 1(520) 979-921906-25-2018 Evaluation note* Diagnosis Onset Date Resolution Status 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 Essential hypertension chron ic History of aortic valve replacement November 05, 2017 chronic History of coronary artery bypass graft November 05 8 chronic HLD (hyperlipidemia) chronic Presence of stent in coronary artery February, chronic Bilateral carotid artery stenosis acute [facility] Work Phone: 1(568) 519-788406-25-2018 Evaluation note* Diagnosis Onset Date Resolution Status Dyspnea on exertion acute 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 Essential hypertension chron ic History of aortic valve replacement November 05, 2017 chronic History of coronary artery bypass graft November 05 8 chronic HLD (hyperlipidemia) chronic Presence of stent in coronary artery February, [facility] Work Phone: 1(476) 307-708006-25-2018 Evaluation note* Diagnosis Onset Date Resolution Status 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 Essential hypertension chron ic History of aortic valve replacement November 05, 2017 chronic History of coronary artery bypass graft November 05 8 chronic HLD (hyperlipidemia) chronic Presence of stent in coronary artery February, chronic Dyspnea on exertion resolved 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 Essential hypertension chron ic History of aortic valve replacement November 05, 2017 chronic History of coronary artery bypass graft November 05 8 chronic HLD (hyperlipidemia) chronic Presence of stent in coronary artery February, chronic Dyspnea on exertion resolved [facility] Work Phone: 1(910) 110-893106-25-2018 Evaluation note* Diagnosis Onset Date Resolution Status 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 Essential hypertension chron ic History of coronary artery bypass graft November 05 8 chronic HLD (hyperlipidemia) chronic Presence of stent in coronary artery February, chronic [facility] Work Phone: 1(364) 573-939806-01-2018 Evaluation note* Diagnosis Onset Date Resolution Status 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 Essential hypertension chron ic History of aortic valve repl acement with bioprosthetic valve October, chronic HLD (hyperlipidemia) [facility] Work Phone: Consult note* Clinical Note Date No Information [facility] Phone: Discharge summary* Clinical Note Date No Information [facility] Phone: Evaluation note* Diagnosis Onset Date Resolution Status 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 Essential hypertension chron ic HLD (hyperlipidemia) [facility] Work Phone: Evaluation note* Type Assessment Date No Information [facility] Phone: Evaluation note* Diagnosis Onset Date Resolution Status Admit Date Foraminal stenosis of lumbar region acute November 20, 2024 8:27am Neurogenic claudication acute 2024 8:27am Spondylolisthesis acute November 202024 8:27am [facility] Work Phone: History and physical note* Clinical Note Date No Information [facility] Phone: History of Present illness Narrative* Encounter Date Complaint History Of Prese nt Illness No Information [facility] Phone: Instructions* Date Instruction Additional Infor mation No Information [facility] Phone: Progress note* Clinical Note Date No Information [facility] Phone: Progress note Author Syed Rubio [facility] Note Date/Time February 11, 2025 9: 57am [facility] [address] [place] [address] OFFICE VISIT Date of Service: 02/11/25 MR#: [id number] Acct: [id number] Name: HERB SUNG Rep #: [id number] : 1950 Provider: MELY Rubio Age/Sex: 74/M [place] [facility] Status: Signed HPI HPI History of Present Illness Details: This is a 74-year-old white male that presents to the office today for a cardiovascular visit with a past cardiovascular history which includes underlying CAD, status post CABG (October 2017: [facility]: REED to the LAD, sequential SVG to OM1 and OM2, and SVG to the PDA), status post aortic valve replacement (October 2017: [facility]: Number 23 mm Hernandez Intuity pericardial valve), and status post Drug-eluting stent to proximal RCA in February 2021, superimposed upon hyperlipidemia, and hypertension. He denies chest, arm, jaw, or neck discomfort. He denies palpitations. He states mild, bilateral bilateral lower extremity edema. He denies claudication. He states shortness of breath with activity such as walking on his vacation in [place] as well as flat surfaces. This is noted after walking 1-1.5 miles. This improved with rest. He denies shortness of breath at rest, orthopnea, or PND. He denies chronic cough. He denies significant, sudden weight gain. He states an episode last month in which he went from a sitting position quickly to a standing position and passed out. This has been a one-time event. He denies lightheadedness, dizziness, or near-syncope. He denies blood in urine, blood instool, or epistaxis. He denies fever with chills. He denies myalgia. He denies fatigue. His exercise level has remained stable, but limited by back andknee orthopedic limits. 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 [employer] Required: No Is patient in pain?: No Allergies poison kaylyn extract Allergy (Intermediate, Verified 02/11/25 09:10) Rash Medications ?Medication ?Instructions ?Recorded ?Confirmed ?Type cholecalciferol (vitamin D3) 25 1,000 unit PO QDAY Jintronix 09/18/17 02/11/25 History mcg (1,000 unit) capsule cyanocobalamin (vitamin B-12) 5,000 mcg sublingual QDA Y general 09/18/17 02/11/25 History 5,000 mcg sublingual tablet health (Vitamin B-12) loratadine 10 mg tablet (Allergy 10 mg PO DAILY PRN Al lergies 01/04/18 02/11/25 History Relief (loratadine)) aspirin 81 mg tablet,delayed 162 mg PO DAILY heart 02/11/25 History release (Adult Aspirin Regimen) amoxicillin 500 mg tablet 500 mg PO .COMPLEX 08/15/21 02/11/25 History melatonin 10 mg capsule 10 mg PO HS PRN Insomnia 02/11/25 History omega-3 fatty acids 1,000 mg 2,000 mg PO QDAY general health 06/15/23 02/11/25 History capsule (Fish Oil Concentrate) diphenhydramine HCl 50 mg capsule 50 mg PO QHS PRN sle ep 08/07/23 02/11/25 History hydrocodone-acetaminophen 5-325mg 1 tab PO Q8H Pain 02/11/25 History 5mg-325mg pregabalin 50 mg capsule (Lyrica) 50 mg PO TID pain 02/11/25 History amlodipine 10 mg tablet 10 mg PO DAILY #90 TABLETS 0 10/22/24 02/11/25 Rx isosorbide mononitrate 30 mg 30 mg PO DAILY #90 TABLET S 10/22/24 02/11/25 Rx tablet,extended release 24 hr metoprolol tartrate 50 mg tablet 50 mg PO BID #180 TAB LETS 10/22/24 02/11/25 Rx atorvastatin 40 mg tablet 40 mg PO QHS #90 TABLETS 02/11/25 Rx nitroglycerin 0.4 mg sublingual 0.4 mg sublingual Q5-1 5M PRN chest 02/03/25 02/11/25 Rx tablet pain #25 tabs lisinopril 20 mg tablet 20 mg PO BID #180 tabs 02/0902/11/25 Rx Ejection fraction %: 65 Have you fallen in the past year?: No PFSH Medical History (Updated 11/20/24 @ 09:09 by Maci Kilpatrick RN) Spondylolisthesis Foraminal stenosis of lumbar region Neurogenic claudication Psoriasis History of left heart catheterization (LHC) (~01/06/22) HLD (hyperlipidemia) Essential hypertension Abnormal stress test Bilateral carotid artery stenosis Osteoarthritis Bilateral carotid bruits History of aortic valve stenosis Atherosclerotic heart disease of eek coronary artery without angina pectoris Obesity (BMI 30.0-34.9) Surgical History (Updated 02/11/25 @ 10:22 by Syed Rubio SEQUENCING MACHINE OPERATOR, SEQUENCING MACHINE OPERATOR-C) History of aortic valve replacement with bioprosthetic valve (~11/05/17) Presence of stent in coronary artery (~03/08/21) History of colonoscopy (~2018) History of coronary artery bypass graft (11/05/17) History of tonsillectomy History of open reduction and internal fixation (ORIF) procedure (~1995) Family History Father Myocardial infarction from [place] age 59 CAD (coronary artery disease) Mother Diabetes Hypertension Brother Diabetes age 62 from diabetic complications CAD (coronary artery disease) coronary stent Brother CAD (coronary artery disease) CABG Brother Heart disease Social History adopted: No household members: spouse current occupational status: retired 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, [email or web address] ([employer]) pets and animals: No Smoking Status: Former smoker quit date: 05/14/74 pack-years: 6 Tobacco: How many years used: 6 alcohol intake: current alcohol intake frequency: a few times a week Alcohol type: wine substance use type: does not use caffeine: Yes (2-3) Type: coffee Number of servings: 3 frequency: 3-4 times per week do you feel safe at home: Yes ROS Const Const: Negative for fatigue, weakness, headache(s) or frequent falls Eyes Eyes: Negative for blurry vision ENT ENT: Negative for headache(s), dizziness or Nosebleed/epistaxis Cardio Chest Pain: No Palpitations: No Edema: Bilateral and None Muscle aches with walking: None Resp Respiratory: Negative for SOB with activity, SOB at rest or SOB orthopnea\SOB lying down GI GI: Negative nausea, vomiting, heartburn, bright, red blood in stools or black,tarry stools : Negative for hematuria Musc Musc: Negative for muscle aches/ myalgia Skin Skin: Negative non-healing lesions or rash Neuro Neuro: Negative for dizziness, lightheadedness, near syncope, syncope, frequent falls, headache(s), weakness or blurry vision Endo Endo: Negative for fatigue Allergy Allergy/Immunology: Negative for rash Cardiology Exam Const Appearance: cooperative, healthy appearing, comfortable and no acute distress Nutritional Appearance: well nourished and obese Orientation: alert, awake and oriented x3 Head Head: normal to inspection Ears: hearing grossly normal bilaterally Nose: external nose normal Face and Sinus: face symmetric Mouth: moist mucous membranes Eyes General: appearance normal, both eyes and all related structures Eyelids: eyelids normal EOM: EOM intact bilaterally Neck Neck: normal visual inspection and no JVD Carotids: normal carotid upstroke Chest Chest inspection: normal inspection of the chest, symmetric chest movement and normal respiratory effort; Negative cough Auscultation: Bilateral: Clear to Auscultation Cardio Rate: regular rate Rhythm: regular rhythm Heart sounds: S1 normal, S2 normal and murmur; Negative rub or gallop Murmur: Grade 1/6 and HUSAM loudest primary aortic area GI GI: normal to inspection and obese Neuro General: patient alert, patient awake, patient oriented x3 and CN's II-XI intactbilaterally Skin Skin: no rashes or lesions noted Extremities Pulses: Normal: Right Posterior Tibial Pulse, Left Posterior Tibial Pulse, RightRadial Pulse and Left Radial Pulse Lower Extremity Edema: None: Bilateral Psych Psychological: normal affect Supplemental Info Supplemental Information Echocardiogram from 07/04/2023: Interpretation Summary Normal LV size. Mild concentric left ventricular hypertrophy. The estimated ejection fraction is 65 %. Bioprosthetic aortic valve. Mean aortic valve gradient 12 mmHg. Echocardiogram from 07/11/2022: Interpretation Summary The study was technically difficult. Left ventricular systolic function is normal. The estimated ejection fraction is 65 %. Mild focal mitral valve calcification of the posterior leaflet. Mild (1+) mitral valve insufficiency. Mild tricuspid valve insufficiency. Stable appearing bioprosthetic aortic valve apparatus. Trivial pulmonic valve insufficiency. Unable to estimate RV systolic pressure/pulmonary artery pressure due to technically difficult study. Diastolic function is indeterminate. Stress Test Report 12-26-2021 Impression: 1.? Rest and stress SPECT Cardiolite nuclear imaging demonstrate myocardial perfusion changes concerning for an area of stress-induced myocardial ischemia involving the mid lateral segments. 2.? The gated Cardiolite study reports an LVEF of 70%. Heart catheterization 01/06/2022: CONCLUSIONS [place] Multivessel CAD RCA: stent: patent REED to LAD: patent SVG to OM1 sequencing to OM2: patent SVG to RCA: occluded: chronic CORONARY ANGIOGRAPHY DOMINANCE: Right Dominant LEFT HEART ASSESSMENT Left Ventricular Ejection Fraction: Not assessed LEFT MAIN: distal: eccentric: 85 % Stenosis LEFT ANTERIOR DESCENDING ARTERY: PROX LAD: 50 % Stenosis MID LAD: fills from antegrade flow and REED graft flow with no angiographically significant appearing disease distal to the graft attachment DIAGONAL 1: Proximal - fills from antegrade flow and retrograde from REED graft flow to the LAD CIRCUMFLEX ARTERY: PROX CIRC: 50 % Stenosis OM 1: Distal - no obvious flow distal to the SVG graft attachment OM 2: Distal - no obvious flow distal to the SVG graft attachment RIGHT CORONARY ARTERY: PROX RCA: Previously placed stent is patent GRAFTS: REED graft to the Mid LAD is patent Saphenous Vein graft to the 1st OM is patent with sequential portion to the 2nd OM being patent and s/p the anastomosis no obvious distal flow in OM1 and OM2 Saphenous Vein graft to the RCA is totally occluded (demonstrated on the [facility] cardiac catheterization from 03/08/2021 and not reevaluated during this procedure) VALVE FINDINGS: Stable appearing bioprosthetic aortic valve apparatus PCI Cardiac Cath Report: 03/08/2021 PCI Report: 1. Successful PCI of proximal RCA 75% stenosis with VAN-3 flow With predilatation using 2.5 x 15 mm balloon, followed by placement of drug- eluting stent 3.5 x 26 mm/Orsiro Postdilated with 4 x 15 mm NC balloon/Euphora with reduction of stenosis from 75% to 0% and maintenance of VAN-3 flow. 2. Successful placement of Perclose to the right common femoral artery arteriotomy site. Open heart surgery: 11-05-2017: [facility] REED to the LAD SVG sequential graft to OM1 and OM 2 SVG to the PDA Aortic valve replacement with a number 23 mm Hernandez Intuity pericardial tissue valve Carotid Duplex 07/04/23 Interpretation Summary Irregular calcific plaque with shadowing at the proximal right internal carotid artery with 50 to 69% stenosis Less than 50% stenosis right external carotid artery Irregular calcific plaque at the proximal left internal carotid artery with 50 to 69% stenosis Less than 50% stenosis left external carotid artery Patent and antegrade vertebral arteries bilaterally Findings appear similar to previous examination of July 11, 2022 although atthat time there was felt to be greater than 50% stenosis of the left external carotid artery. Carotid duplex ultrasound from 07/14/2020: Interpretation Summary Moderate (50-69%) stenosis right extracranial internal carotid. Moderate (50- 69%) stenosis left extracranial internal carotid. Flow within the vertebral arteries is antegrade bilaterally. Labs: LDL Cholesterol, (0-130) 37 mg/dL HDL Cholesterol, (40-) 44 mg/dL Cholesterol, (<=200) 124 mg/dL Triglycerides, (-199) 137 mg/dL Diagnostics: Electrocardiogram Echocardiogram Transesophageal Echocardiogram Stress Test Stress Test Nuclear Medicine Stress Echocardiogram Cardiac Catheterization Catheterization Lab Chest X-Ray Carotid Duplex Extremity Arterial Study Past Visits: Cardiology Visit Today Assessment and Plan Assessment and Plan (1) Atherosclerotic heart disease of eek coronary artery without angina pectoris: Status: Chronic Qualifiers: [place] vs. transplanted heart: eek heart Qualified Code(s): I25.10 -Atherosclerotic heart disease of eek coronary artery without angina pectoris Comment: REED-LAD, SVG seq OM1-OM2, SVG-PDA Plan: He has a history of stenting and CABG. His heart catheterization December 2021 resulted in medical therapy. He was known to have patent RCA stent, patent LIMAto LAD, patent SVG to OM1 sequential OM 2, and chronically occluded SVG to RCA. On account of his exertional shortness of breath, he proceed with further evaluation. Twelve-lead ECG on 02/11/2025 shows sinus bradycardia first-degree AV block and continual T wave wave abnormality that was also noted in 2020. He proceed with laboratory testing to assess for anemia or congestive heart failurethat may be contributing. He will proceed with echocardiogram and stress test. Depending on results, further recommendation will be made. (2) History of aortic valve replacement: Status: Chronic Comment: AVR w/23MM hernandez intuity pericardial valve Plan: His most recent echocardiogram in June 2023 showed ejection fraction of 65%,normal LV and RV size, and stable appearing bioprosthetic aortic valve apparatus. He will continue AHA antibiotic prophylaxis in the interim. He will repeat echocardiogram to ensure no significant changes that may be contributing to his symptoms. (3) Essential hypertension: Status: Chronic Plan: Patient's blood pressure is well-controlled. We will continue to monitor. We will not make any medication regimen changes. (4) HLD (hyperlipidemia): Status: Chronic Qualifiers: Hyperlipidemia type: unspecified Qualified Code(s): E78.5 - Hyperlipidemia, unspecified Plan: He will continue his medical therapy with his atorvastatin. Lipid panel on 02/10/2025 showed total cholesterol: 124, HDL: 44, triglycerides: 137, and LDL: 53. He was reminded of LDL goal of 70 and below for secondary prevention. He will continue risk factor and lifestyle modification. He will continue current medical therapy. Orders: Orders CBC W/Diff, Automated Today E78.5 - Hyperlipidemia, unspecified, I10 - Essential (primary) hypertension, I25.10 - Atherosclerotic heart disease of eek coronary artery without angina pectoris, Z95.3 - Presence of xenogenic heart valve Pro- Brain NATRIURETIC PEPTIDE Today E78.5 - Hyperlipidemia, unspecified, I10 -Essential (primary) hypertension, I25.10 - Atherosclerotic heart disease of eek coronary artery without angina pectoris, R06.09 - Other forms of dyspnea,Z95.3 - Presence of xenogenic heart valve Basic Metabolic Profile (BMP) Today E78.5 - Hyperlipidemia, unspecified, I10 - Essential (primary) hypertension, I25.10 - Atherosclerotic heart disease of eek coronary artery without angina pectoris, Z95.3 - Presence of xenogenic heart valve 12 Lead EKG performed by BMS Today I25.10 - Atherosclerotic heart disease of eek coronary artery without angina pectoris, Z95.3 - Presence of xenogenic heart valve Plan Details Additional Comments: Thank you for allowing us to participate in the patients plan of care, if you have any questions please do not hesitate to call. Plan was reviewed with patient/family member along with red flag symptoms. Understanding was acknowledged. Questions were answered to apparent satisfaction. This note was generated using a voice recognition system and there may be incorrect words, spelling or punctuation that were not noted when reviewing the office note prior to saving. Portions of this documentation were copied and pasted from previous office visitnotes to provide a cohesive continuity of the history. The note has been reviewed, edited, and updated, as necessary. Follow Up: 4-6 weeks (SEQUENCING MACHINE OPERATOR/PA) 12-15 Months (MAINTENANCE DISPATCHER) Coding Level of Care Code Off vis,est,level 4 Diagnoses Atherosclerosis of eek coronary artery of eek heart without angina pectoris I25.10 [place] vs. transplanted heart: eek heart History of aortic valve replacement Z95.2 Essential hypertension I10 Hyperlipidemia, unspecified hyperlipidemia type E78.5 Hyperlipidemia type: unspecified Coding Level of Care Code Off vis,est,level 4 Diagnoses Atherosclerosis of eek coronary artery of eek heart without angina pectoris I25.10 [place] vs. transplanted heart: eek heart History of aortic valve replacement Z95.2 Essential hypertension I10 Hyperlipidemia, unspecified hyperlipidemia type E78.5 Hyperlipidemia type: unspecified Clinical Quality Measures Falls Risk Screening/Assistive Devices Have you fallen in the past year?: No Cardiac Ejection fraction %: 65 02/11/25 1024 <Electronically signed by Syed Freeman P SEQUENCING MACHINE OPERATOR-C> Date _ Syed Rubio NP SEQUENCING MACHINE OPERATOR-C Cosigner Signature: Date (if applicable) CC: Dr. Do Shaw MD ~ [facility] Work Phone: Reason for referral (narrative)* Reason For Referral No Information [facility] Work Phone: Reason for referral (narrative)[facility] for [facility]: Summary Purpose Family History No Family History Records Found Relationship Condition Age at Onset Recorded Date/T negro father Myocardial infarction Unknown Coronary artery disease Unknown mother Diabetes mellitus Unknown Hypertension Unknown brother Diabetes mellitus Unknown brother Coronary artery disease Unknown brother Cardiac disease Unknown Family Member Type Diagnosis Age At Onset No Information Advance Directives No Advanced Directives Records FoundLatest Code Status on File Code Status Date Activated Date Inactivated Comments Full Code 11/06/2017 6:23 PM Full Code 11/05/2017 7:18 PM 11/06/2017 6:23 PM Full Code 11/03/2017 9:03 AM 11/05/2017 7:18 PM Advance Directive Response Recorded Date/ Time Advance Directives Yes March 08, 2021 8:07am Living Will Yes March 16 1:58pm Power of Fly Finisher Yes March 16, 2021 1:58pm Advance Directive Response Recorded Date/ Time Advance Directives on File Yes 2021 7:12am Name of Medical Power of Fly Finisher Kelsy Fromme- January 06, 2022 7:12am Advance Directives Yes January 06, 2022 7:12am Living Will Yes January 06 7:12am Power of Fly Finisher Yes January 06 7:12am Advance Directive Response Recorded Date/ Time Advance Directives on File Yes 2021 6:12am Name of Medical Power of Fly Finisher Kelsy Fromme- January 06, 2022 6:12am Advance Directives Yes January 06, 2022 6:12am Living Will Yes January 06 6:12am Power of Fly Finisher Yes January 06 6:12am Advance Directive Response Recorded Date/ Time Advance Directives Yes January 06, 2022 6:12am Living Will Yes January 06 6:12am Power of Fly Finisher Yes January 06 6:12am Advance Directive Response Recorded Date/ Time Advance Directives Yes January 06, 2022 7:12am Living Will Yes January 06 7:12am Power of Fly Finisher Yes January 06 7:12am Directive Yes / No Effective Date File Name No Information Advance Directive Response Recorded Date/ Time Living Will Yes January 06 7:12am Do you have a Healthcare Power of Fly Finisher? Yes January 06, 2022 7:12am Advance Directives Yes January 06, 2022 7:12am Advance Directive Response Recorded Date/ Time Advance Directives Yes January 06, 2022 7:12am Discharge Instructions * Discharge Instr - IP OT - Kelsey Prater, OT - 11/09/2017 4:21 PM EDT CURRENT SELF CARE CONCERNS:(Patient should NOT complete the following tasks/roles UNASSISTED):MANAGE YOUR MEDICATION Recommendation: someone to double check your medication before you take it is/are needed to help you (your patient) safely manage your medications when you return home. * Discharge Instr - IP PT - Mya Díaz, REGULATORY ADMINISTRATOR - 11/06/2017 3:00 PM EDT Walking Program: [...] THE CAR * Discharge Instr - IP PHARMACY - Stephy Sparks CPhT - 11/05/2017 11:08 AM EDT There may be medications on your list that you were prescribed or previously taking but you said you are no longer taking. These medications may still be important for your health. Please discuss these with the person who prescribed the medication(s) to you. * Stephy Vazquez, ACID CLEANER - 11/09/2017 Formatting of this note may be different from the original. Aortic valve replacement with a 23 mm Hernandez Intuity pericardial valve. Coronary artery bypass grafting [...] Personal Risk factors for stroke discussed include: [place] pertinent risk factors -High blood pressure -Elevated [...] with the x-ray facilityto wait for or picker and packer the x-ray films later to take to [...] transie nt (HCC) Hypertension, unspecified ty pe Chief Complaint and Reason for Visit Chief Complaint Admit Date LUMBAR SPINE November 20, 2024 8:27 am CAROTID STENOSIS January 08, 2025 8: 03am Reason for Visit Admit Date Foraminal stenosis of lumbar region November 20, 2024 8:27am Neurogenic claudication November 20, 2024 8:27am Spondylolisthesis November 20, 2024 8:27 am Chief Complaint PCI W/CORONARY STENT PCI W/CORONARY STENT 3 M FU PCI W/CORONARY STENT INT LABS CAROTID STENOSIS Yearly Heidi F/U Carotid Stenosis SCREENING FOR AAA Reason for Visit Atherosclerotic hear t disease of eek coronary artery without angina pectoris Essential hypertension History of aortic valve replacement History of coronary artery bypass graft HLD (hyperlipidemia) Presence of stent in coronary artery Bilateral carotid artery stenosis Chief Complaint SCREENING FOR AAA 6 m fu e orders Reason for Visit Dyspnea on exertion Atherosclerotic heart disease of eek coronary artery without angina pectoris Essential hypertension History of aortic valve replacement History of coronary artery bypass graft HLD (hyperlipidemia) Presence of stent in coronary artery Chief Complaint 6 m fu e orders SOB Shortness of breath ABN STRESS ABN STRESS Reason for Visit Dyspnea on exertion Atherosclerotic heart disease of eek coronary artery without angina pectoris Essential hypertension History of aortic valve replacement History of coronary artery bypass graft HLD (hyperlipidemia) Presence of stent in coronary artery Chief Complaint 6 m fu e orders SOB Shortness of breath ABN STRESS ABN STRESS 4-6 WK FU Reason for Visit Atherosclerotic hear t disease of eek coronary artery without angina pectoris Essential hypertension History of aortic valve replacement History of coronary artery bypass graft HLD (hyperlipidemia) Presence of stent in coronary artery Dyspnea on exertion Atherosclerotic heart disease of eek coronary artery without angina pectoris Essential hypertension History of aortic valve replacement History of coronary artery bypass graft HLD (hyperlipidemia) Presence of stent in coronary artery Dyspnea on exertion Chief Complaint Amb Documentation INT ORDERS 1 y fu Reason for Visit Atherosclerotic hear t disease of eek coronary artery without angina pectoris Essential hypertension History of coronary artery bypass graft HLD (hyperlipidemia) Presence of stent in coronary artery Chief Complaint Amb Documentation INT ORDERS 1 y fu BILAT CS Reason for Visit Atherosclerotic hear t disease of eek coronary artery without angina pectoris Essential hypertension History of coronary artery bypass graft HLD (hyperlipidemia) Presence of stent in coronary artery Chief Complaint INT LABS AND ORDER 6 M FU Reason for Visit Atherosclerotic hear t disease of eek coronary artery without angina pectoris Essential hypertension HLD (hyperlipidemia) Chief Complaint E ORDERS 6 M FU Reason for Visit Atherosclerotic hear t disease of eek coronary artery without angina pectoris Essential hypertension History of aortic valve replacement with bioprosthetic valve HLD (hyperlipidemia) Chief Complaint Admit Date Other specified symptoms and signs invol ving the c June 16, 2024 12:44pm Discuss Carotid US June 27, 2024 8:20am PERIPHERAL VASCULAR DISEASE August 19 025 12:57pm Reason for Visit Admit Date Bilateral carotid artery stenosis Februa 2024 8:20am PAD (peripheral artery disease) June 27, 2024 8:20am Chief Complaint Admit Date PERIPHERAL VASCULAR DISEASE August 19 025 12:57pm LUMBAR SPINE November 20, 2024 8:27 am Chief Complaint Admit Date LUMBAR SPINE November 20, 2024 8:27 am CAROTID STENOSIS January 08, 2025 8: 03am E ORDERS February 10, 2025 9:32am 1 Y FU February 11, 2025 9: 06am EORDERS February 11, 2025 10 :04am Reason for Visit Admit Date Foraminal stenosis of lumbar region November 20, 2024 8:27am Neurogenic claudication November 20, 2024 8:27am Spondylolisthesis November 20, 2024 8:27 am 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 angina pectoris February 11, 2025 9:06am Essential hypertension February 11, 2025 9:06am History of aortic valve replacement Octo 2024 9:06am HLD (hyperlipidemia) February 11, 2025 9 :06am Additional Source Comments (unrecognized sect ion and content) No Status Records FoundNo Status Records FoundNo Status Records FoundNo Status Records FoundNo Status Records FoundNo Status Records FoundNo Status Records Found INFORMATION SOURCE (unrecogn ized section and content) DATE CREATED AUTHOR 11/01/2017 [facility] DATE CREATED AUTHOR AUTHOR'S ORGANIZ ATION 11/02/2017 [facility] DATE CREATED AUTHOR AUTHOR'S ORGANIZ ATION 11/16/2017 [facility] DATE CREATED AUTHOR AUTHOR'S ORGANIZ ATION 12/13/2017 [facility] DATE CREATED AUTHOR AUTHOR'S ORGANIZ ATION 12/05/2019 [facility] DATE CREATED AUTHOR AUTHOR'S ORGANIZ ATION 08/01/2020 [facility] DATE CREATED AUTHOR AUTHOR'S ORGANIZ ATION 03/26/2025 [facility] Thiago Mcintosh MD - 11/05/2017 12:41 PM Thiago Cuba MD - 11/03/2017 2:12 PM Ethan Grimaldo DO - 11/03/2017 9:16 AM EDT H&P Notes (unrecognized sect ion and content) INTERVAL HISTORY AND PHYSICAL Patient Name: Marco Sung Admit Date: [id number] MR #: [id number] : 1950 The H&P has been reviewed and the patient has been examined. I concur with the findings of the H&P. There are no significant changes. It is appropriate to proceed with the planned procedure. Thiago Mcintosh MD 11/05/2017 12:41 PM Formatting of this note may be different from the original. CARDIOTHORACIC CONSULT NOTE Patient Name: Marco Sung Admit Date: [id number] MR #: [id number] : 1950 Physicians: Letha Rebollar MD (Family); No ref. provider found (Referring) Chief Complaint/Reason for Visit: Unstable angina History of Present Illness: Marco Sung is a 67 y.o. y/o male presenting from home with c/o chest discomfort. This has been present for approximately 6 months. It seems to have been getting worse. He recently went on a 500 mile hike through [facility] and was experiencing chest pressure and dyspnea on exertion while walking up hills and strenuous activity. He felt this was bronchitis and was medicating himself with gfeg-xag-emtpooa remedies. However, this did not resolve his [...] Osmel Lara, who requested he come to [facility] for definitive care. 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 Transferred from spring run to [facility] ICU on heparin and IABP in place. [...] evaluation. Presented to PCP and furtehr to [facility]. Systolic murmur was noted. 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 The patient's home setup is a lead programmer analyst and family/caregiver support is a lead programmer analyst for return to prior level of function. The patient's awareness of own capacity and performance is a lead programmer analyst to return to prior level of function. 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 provider found (Referring) Chief Complaint/Reason for Visit: Unstable angina History of Present Illness: Marco Sung is a 67 y.o. y/o male presenting from home with c/o chest discomfort. This has been present for approximately 6 months. It seems to have been getting worse. He recently went on a 500 mile hike through [facility] and was experiencing chest pressure and dyspnea on exertion while walking up hills and strenuous activity. He felt this was bronchitis and was medicating himself with egbo-hmq-cnxthbq remedies. However, this did not resolve his [...] Osmel Lara, who requested he come to [facility] for definitive care. 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 Associated Order(s): IP CONSULT TO BANK CREDIT CARD COLLECTION CLERK Formatting of this note may be [...] a 67 y.o. male who presented to [facility] MICU for evaluation of severe , IABP , multivessel CAD pending CABG. He states he was undergoing evaluation for his 6-12 month history of intermittent chest pain and shortness of breath typically with exertion. He had a stress test which was abnormal followed by a [facility] which showed 85% stenosis in left main, [...] 3 Years of education: college Occupational History [employer] Social History Main Topics Smoking status: Never [...] and plan. Exam: Vital Signs: Temp: [98.2 F (36.8 C )] 98.2 F (36.8 C ) Heart Rate: [68-83] 73 Resp: [7-25] 7 [...] HPI, assessment and plan.. Cr 0.67 Alina Ruiz MD, MSc Pulmonary and Critical Care [facility] [phone] (cell) on call phone (5p-8a and on weekends): [phone] ([phone] [phone]) Formatting of this note may be different from the original. Pulmonary and Critical Care Consult Note Impression and Recommendations Marco Sung is a 67 y.o. male with: Unstable Angina: Extensive multivessel CAD noted on LHC. Continue IABP and heparin gtt. CT surgery consulted for CABG evaluation. Aortic Stenosis: Noted to be severe with peak gradient [address] [facility] [address] surgery consulted for AVR evaluation. D/W Dr. Sara Olvera PA-C [facility] [phone] Reason for Consultation: CAD Aortic Stenosis History of Presenting Illness: Marco Sung is a 67 y.o. male with a past medical history that includes CAD, HTN. He presented to [facility] on 11/03/2017 as a a transfer from [facility] with severe CAD for CABG w/u. Patient initially presented to his PCP with exertional chest pain in September. He was referred to a plumber pipe fitting and was undergoing outpatient work-up. [facility] with extensive multi-vessel disease and JONY with severe aortic stenosis. He was transferred to [facility] for CT surgery evaluation. 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 Recent Labs [...] 42* Physical Exam: Vital Signs: Temp: [98.2 F (36.8 C )] 98.2 F (36.8 C ) Heart Rate: [68-83] 83 Resp: [13-25] 25 [...] Right femoral IABP Associated attestation - Alina Ruiz MD - 11/04/2017 7:40 AM EDT Patient examined and discussed with Critical Care team on rounds. Historical data, most recent available chest images, meds, labs, VS, I/O's reviewed at that time. Assessment and plan discussed. Please see my note. Alina Ruiz MD, MSc Pulmonary and Critical Care [facility] [phone] (cell) on call phone (5p-8a and on weekends): [phone] ([phone] ICUS) in this encounter [facility] - Allison Garcia, OT - 11/09/2017 2:54 PM EDTVariance IP Rehab - Honey Mack PTA - 11/08/2017 11:57 AM EDTVariance IP Rehab [...] (intubation) - Expected recovery: unknown Temp: [37 C (98.6 F )] 37 C (98.6 F ) Heart Rate: [59-81] 70 Resp: [6-20] 12 BP: (98-166)/(51-86) 103/61 SpO2: [97 %-100 %] 100 % Associated Problem(s): CAD, multiple vessel 11/05/17 Aortic valve replacement with a 23 mm Hernandez Intuity pericardial valve. Coronary artery bypass grafting [...] check completed, no scripts noted MARCO SUNG [id number] 1950 DATE 11/05/2017 OPERATIVE REPORT SURGEON THIAGO MCINTOSH MD LANDSCAPE MANAGEMENT TECHNICIAN KELSEY BENITO PA-C LANDSCAPE MANAGEMENT TECHNICIAN 2 HONEY CARMICHAEL PA-C PREOPERATIVE DIAGNOSES Coronary artery disease, multivessel; angina pectoris, hypertension, hyperlipidemia, moderate to severe aortic stenosis. POSTOPERATIVE DIAGNOSES Coronary artery disease, multivessel; angina pectoris, hypertension, hyperlipidemia, moderate to severe aortic stenosis. PROCEDURE PERFORMED 1. Aortic valve replacement with a 23 mm Hernandez Intuity pericardial valve. 2. Coronary artery bypass grafting x4 with a left internal mammary artery to the left anterior descending, saphenous vein graft sequenced to the obtuse marginal 1 and obtuse margin 2, and a saphenous vein graft to the posterior descending artery. 3. Endoscopic vein harvest of the left leg. No qualified claims vice president available to assist. ANESTHESIA General endotracheal anesthesia. ESTIMATED BLOOD LOSS 300 mL. COMPLICATIONS None. FINDINGS Trileaflet calcified aortic valve, 2 mm targets. Good quality REED and good quality vein. TUBES A 40-Slovak mediastinal, 24-Slovak left pleural Julian. WIRES Two atrial and [...] fraction was preserved. He was transferred to [facility] for definitive care. He had an [...] table, induced under general anesthetic, endotracheally intubated. Downing catheter was placed. Cardiovascular monitoring lines were [...] PDA, end-to-side with vein to the OM2, [id number] with vein to the OM1, and end-to-side [...] I sized this to a 23 mm Hernandez Intuity valve, placed with 3 meg stitches, [...] entire case. MD Miles BALLESTEROS 11/05/2017 19:02 [id number] T 11/06/2017 05:47 JML/ARETHA Patient self extubated; breathing very shallow, no [...] blood loss anemia: Post operative Hgb 8.4 [id number] INR 1.4 Chest tubes MS and left [...] y.o.) Date of Service: 11/03/2017 - 11/05/2017 [facility]: [id number] Procedure(s): CORONARY ARTERY BYPASS GRAFTS TIMES FOUR WITH AORTIC VALVE REPLACEMENT, ENDOSCOPIC VEIN HARVEST, TRANSESOPHAGEAL ECHOCARDIOGRAM Pre-Operative Diagnoses: * UNSTABLE ANGINA Post-Operative Diagnoses: * Nonrheumatic aortic valve stenosis [I35.0] * CAD, multiple vessel [I25.10] * Angina pectoris (HCC) [I20.9] Surgeon(s) and Role: * Thiago Mcintosh MD - Primary Anesthesiologist: Maynor Zelaya MD Highway Patrol Pilot: Abiodun Pinto Physician Vendor Specialist: Kelsey Benito PA-C; Honey Carmichael PA-C Relief Expediter: Radha Hernandez RN; Maricruz Whitmore, RUBÉN; Kenia Simon RN Relief Scrub: Kartik Pickens RN Expediter Orientee: Luba Ruffin RN Expediter Preceptor: Rosanne Mendoza RN Scrub Person Preceptor: Maite Pritchard; Maricruz Whitmore RN Scrub Person Orientee: Suze Irving RN Float RN: Bernadette Sandoval RN Operative findings: trileaflet [...] Implant Name Type Inv. Item Serial No. Ambulance Driver Lot No. LRB No. Used Action KIT MINI DEVICE COR-KNOT - [id number] KIT MINI DEVICE [employer]-KNOT [id number] LSI SOLUTI [id number] N/A 1 Implanted HERNANDEZ INTUITY ELITE AORTIC VALVE [id number] HERNANDEZ LI N/A 1 Implanted SYRINGE 4ML PRE-FILLED SEALANT PREVELEAK - [id number] SYRINGE 4ML PRE-FILLED SEALANT PREVELEAK MALLINCKRO [id number] N/A 1 Implanted Drain(s): Chest Tube 2 [...] AFib -Premature family hx: YES, father of IA age 59, brother had CABG age 58, brother had CABG four weeks ago age 69 -Pre-op teaching completed, all questions answered -Consent obtained, placed in blue folder -BPCI: yes, info given and discussed -setting expectations info given and discussed -caregiver, Tootie -primary plumber pipe fitting/cathing plumber pipe fitting [facility] -STS for CABG/AVR: 2.708%/24.085% for [...] at 0818 Examined patient at 0837 Alina Ruiz MD, MSc Pulmonary and Critical Care [facility] [phone] (cell) on call phone (5p-8a and on weekends): [phone] ([phone] [phone]) [facility] Night Physician [phone] Patient transported to [place] by Medic: medflight as a direct admit. Receiving unit notified of patient's arrival. Patient's vital signs BP 145/70, HR 80, RR 20, Pulse Ox 94% on room air . Patient has a chief complaint of needs CABG. Patient Does have IV access. Patient was on cardiac cath lab technologist prior to arrival. Patient transported to room 5107 in stable condition. Pt is CP free upon arrival to [facility] and has hep gtt infusing REGULATORY ADMINISTRATOR. Pt also on a balloon pumpin this encounter Spoke to [facility]- transport there now. Spoke to Vani [place]. [facility] MICU will be transporting the pt. ETA to [place] is 4 am. Report from Vani [place], [facility] ICU. PMH CAD, non-rheumatic aortic stenosis, HTN, obesity, arthritis. Symptoms of shortness of breath & exertional chest tightness. Had outpatient stress test which did not pass. Heart cath done today, significant blockage, EF 65%, has balloon pump. Was supposed to go to [facility] on Sunday to have CABG done but family lives in [place] so plan is to transfer to [facility]. Heart sounds murmur, lung sounds clear, [...] the am Call from Dr. Sebastian Rollins, [facility] Cardiology. [facility] wants to have pt transferred from [facility], inpatient ICU [phone], to [facility] CCU bed & consult surgery. Dx: aortic stenosis & CAD. Has balloon pump but is stable. States Dr. Shelley is aware of the transfer. in this encounter Goals (unrecognized section and content) Health Concern Goal Type Priority Status No Information Care Teams (unrecognized sec tion and content) Team Status: Active Member Role Status Dates Dr. Letha Rebollar MD Family Provider Active Dr. Letha Rebollar MD Primary Care Provider Active Team Status: Inactive Member Role Status Dates Dr. Letha Rebollar MD Primary Care Provider, Referrin g Provider Active Dr. Saúl Calderon MD Attending Provider Active Team Status: Active Member Role Status Dates Dr. Letha Rebollar MD Primary Care Provider Active Breanna Lennon Attending Provider Active Team Status: Inactive Member Role Status Dates Dr. Letha Rebollar MD Primary Care Provider Active LUANN SCHWARTZ Attending Provider, Referring Provider A ctive Team Status: Inactive Member Role Status Dates Dr. Letha Rebollar MD Primary Care Provider Active Syed Rubio SEQUENCING MACHINE OPERATOR, SEQUENCING MACHINE OPERATOR-C Attending Provider, Referring Pro vider Active Team Status: Active Member Role Status Dates Dr. Letha Rebollar MD Primary Care Provider Active Dr. Greg Blackman MD Attending Provider Active Team Status: Active Member Role Status Dates Dr. Letha Rebollar MD Primary Care Provider Active Dr. Saúl Calderon MD Attending Provider Active Team Status: Inactive Member Role Status Dates Dr. Letha Rebollar MD Primary Care Provider Active Dr. Saúl Calderon MD Attending Provider Active Team Status: Inactive Member Role Status Dates Dr. Letha Rebollar MD Primary Care Provider, Referrin g Provider Active Syed Rubio SEQUENCING MACHINE OPERATOR, SEQUENCING MACHINE OPERATOR-C Attending Provider Active Team Status: Active Member Role Status Dates Dr. Letha Rebollar MD Family Provider Active Team Status: Inactive Member Role Status Dates Syed Rubio SEQUENCING MACHINE OPERATOR, SEQUENCING MACHINE OPERATOR-C Attending Provider Active Name Effective Dates (start - stop) Status Members No Information Team Status: Active Member Role Status Dates Dr. Do Shaw MD Primary Care Provider Active Team Status: Inactive Member Role Status Dates Dr. Do Shaw MD Primary Care Provider Active Start: June 16, 2024 End: June 16, 2024 Dr. Maynor Glez MD Attending Provider Active S tart: June 16, 2024 End: June 16, 2024 Dr. Maynor Glez MD Referring Provider Active S tart: June 16, 2024 End: June 16, 2024 Team Status: Active Member Role Status Dates Dr. Do Shaw MD Primary Care Provider Active Start: June 16, 2024 Dr. Maynor Glez MD Attending Provider Active S tart: June 16, 2024 Dr. Maynor Glez MD Referring Provider Active S tart: June 16, 2024 Team Status: Inactive Member Role Status Dates Dr. Do Shaw MD Primary Care Provider Active Start: June 27, 2024 End: June 27, 2024 Dr. Do Shaw MD Referring Provider Active Start: June 27, 2024 End: June 27, 2024 HAYES Blas Attending Provider Active Star t: June 27, 2024 End: June 27, 2024 Team Status: Inactive Member Role Status Dates Dr. Do Shaw MD Primary Care Provider Active Start: August 19, 2024 End: August 19, 2024 HAYES Blas Attending Provider Active Star t: August 19, 2024 End: August 19, 2024 HAYES Blas Referring Provider Active Star t: August 19, 2024 End: August 19, 2024 Team Status: Active Member Role Status Dates Dr. Do Shaw MD Primary Care Provider Active Start: August 19, 2024 Dr. Maynor Glez MD Attending Provider Active S tart: August 19, 2024 Team Status: Active Member Role/Relationship Status Dates Dr. Do Shaw MD Primary Care Provider Active Team Status: Inactive Member Role/Relationship Status Dates Dr. Do Shaw MD Primary Care Provider Active Start: August 19, 2024 End: August 19, 2024 HAYES Blas Attending Provider Active Star t: August 19, 2024 End: August 19, 2024 HAYES Blas Referring Provider Active Star t: August 19, 2024 End: August 19, 2024 Team Status: Active Member Role/Relationship Status Dates Dr. Do Shaw MD Primary Care Provider Active Start: August 19, 2024 Dr. Maynor Glez MD Attending Provider Active S tart: August 19, 2024 HAYES Blas Referring Provider Active Star t: August 19, 2024 Team Status: Inactive Member Role/Relationship Status Dates Dr. Do Shaw MD Primary Care Provider Active Start: November 20, 2024 End: November 20, 2024 Dr. Do Shaw MD Referring Provider Active Start: November 20, 2024 End: November 20, 2024 Dr. Johny Giron MD Attending Provider Active Start: November 20, 2024 End: November 20, 2024 Team Status: Inactive Member Role/Relationship Status Dates Dr. Do Shaw MD Primary Care Provider Active Start: November 20, 2024 End: November 20, 2024 Dr. Do Shaw MD Referring Provider Active Start: November 20, 2024 End: November 20, 2024 Dr. Johny Giron MD Attending Provider Active Start: November 20, 2024 End: November 20, 2024 Team Status: Inactive Member Role/Relationship Status Dates Dr. Do Shaw MD Primary Care Provider Active Start: January 08, 2025 End: January 08, 2025 HAYES Blas Attending Provider Active Star t: January 08, 2025 End: January 08, 2025 HAYES Blas Referring Provider Active Star t: January 08, 2025 End: January 08, 2025 Dr. Ahsan Haywood MD Other Provider Active Start : January 08, 2025 End: January 08, 2025 Team Status: Active Member Role/Relationship Status Dates Dr. Do Shaw MD Primary Care Provider Active Start: January 08, 2025 Dr. Maynor Glez MD Attending Provider Active S tart: January 08, 2025 Team Status: Active Member Role/Relationship Status Dates Dr. Do Shaw MD Primary care physician Active Team Status: Inactive Member Role/Relationship Status Dates Dr. Do Shaw MD Primary care physician Active Start: November 20, 2024 End: November 20, 2024 Dr. Do Shaw MD Referring Provider Active Start: November 20, 2024 End: November 20, 2024 Dr. Johny Giron MD Attending physician Active Start: November 20, 2024 End: November 20, 2024 Team Status: Inactive Member Role/Relationship Status Dates Dr. Do Shaw MD Primary care physician Active Start: January 08, 2025 End: January 08, 2025 HAYES Blas Attending physician Active Sta rt: January 08, 2025 End: January 08, 2025 HAYES Blas Referring Provider Active Star t: January 08, 2025 End: January 08, 2025 Dr. Ahsan Haywood MD Nurse Practitioner Active S tart: January 08, 2025 End: January 08, 2025 Team Status: Active Member Role/Relationship Status Dates Dr. Do Shaw MD Primary care physician Active Start: January 08, 2025 Dr. Maynor Glez MD Attending physician Active Start: January 08, 2025 HAYES Blas Referring Provider Active Star t: January 08, 2025 Team Status: Active Member Role/Relationship Status Dates Dr. Do Shaw MD Primary care physician Active Start: February 10, 2025 Syed uRbio SEQUENCING MACHINE OPERATOR, SEQUENCING MACHINE OPERATOR-C Attending physician Active Start: February 10, 2025 Syed H Joanne SEQUENCING MACHINE OPERATOR, SEQUENCING MACHINE OPERATOR-C Referring Provider Active S tart: February 10, 2025 Team Status: Inactive Member Role/Relationship Status Dates Dr. Do Shaw MD Primary care physician Active Start: February 11, 2025 End: February 11, 2025 Dr. Do Shaw MD Referring Provider Active Start: February 11, 2025 End: February 11, 2025 Syed Rubio SEQUENCING MACHINE OPERATOR, SEQUENCING MACHINE OPERATOR-C Attending physician Active Start: February 11, 2025 End: February 11, 2025 Team Status: Active Member Role/Relationship Status Dates Dr. Do Shaw MD Primary care physician Active Start: February 11, 2025 Syed Rubio SEQUENCING MACHINE OPERATOR, SEQUENCING MACHINE OPERATOR-C Attending physician Active Start: February 11, 2025 Syed Rubio SEQUENCING MACHINE OPERATOR, SEQUENCING MACHINE OPERATOR-C Referring Provider Active S tart: February 11, 2025 Team Status: Inactive Member Role/Relationship Status Dates Dr. Do Shaw MD Primary care physician Active Start: February 10, 2025 End: February 10, 2025 Syed Rubio SEQUENCING MACHINE OPERATOR, SEQUENCING MACHINE OPERATOR-C Attending physician Active Start: February 10, 2025 End: February 10, 2025 Syed H Roof SEQUENCING MACHINE OPERATOR, SEQUENCING MACHINE OPERATOR-C Referring Provider Active S tart: February 10, 2025 End: February 10, 2025 Team Status: Inactive Member Role/Relationship Status Dates Dr. Do Shaw MD Primary care physician Active Start: February 11, 2025 End: February 11, 2025 Syed Rubio SEQUENCING MACHINE OPERATOR, SEQUENCING MACHINE OPERATOR-C Attending physician Active Start: February 11, 2025 End: February 11, 2025 Syed H Joanne SEQUENCING MACHINE OPERATOR, SEQUENCING MACHINE OPERATOR-C Referring Provider Active S tart: February 11, 2025 End: February 11, 2025 FOR RECORDS PERTAINING TO PATIENTS WHO ARE [...] BE BASED ON THE PRIMARY CLINICAL RECORDS. [facility] [employer] [facility]. provides no warranty or guarantee of the accuracy or completeness of information in this document.
--- NOTE | 2025-04-20 09:36 | CL.D_ITS ---
Patient Name: HERB SUNG EDSC Study Date: 04/20/2025 Performing: Ahsan Haywood MD Ht: 70 inches 177.8 cm : 1950 Wt: 258.01 lbs 117.03 kg Age: 74 Gender: male BSA: 2.33 PROCEDURE(S) PERFORMED DC04-([id number])LHC/COR/CABG CLINICAL PROFILE AND INDICATIONS Indications: Suspected CAD Heart Failure: None Stress/Imaging Date: 03/16/25Stress Test with SPECT MPI: Positive Intermediate Risk CAD Presentations: No Sxs, no angina. CONCLUSIONS Coronary artery disease with patent grafts from the MUSTAFA to the LAD and saphenous vein graft to the obtuse marginal branches. The distal circumflex artery is noted to be occluded and likely responsible for the abnormal stress test. RECOMMENDATIONS Continue aggressive medical therapy. DESCRIPTION OF PROCEDURE The patient arrived to the procedure lab. The risks and benefits of the procedure as well as a full description of our services here and current unavailability of surgical backup were fully explained to the patient and/or their significant other prior to the catheterization. The Timeout was completed, verifying the correct patient and procedure. The patient's procedural site was prepped and draped in the usual fashion. Local anesthetic was given subcutaneously to left radial region with Lidocaine 2%. Using a modified Seldinger technique, arterial access was obtained via the left radial artery, a 6Fr sheath was inserted. Left internal mammary artery graft to the LAD selective angiography was performed in multiple views using a 5 Fr. IM catheter. Left Coronary Artery selective angiography was performed in multiple views using a 5 Fr. JL4 catheter. Saphenous Vein graft to the OM 1 selective angiography was performed in multiple views using a 5 Fr. AR MOD catheter.The arterial sheath was pulled and a TR Band was applied for hemostasis 10ml of air CORONARY ANGIOGRAPHY DOMINANCE: Right Dominant LEFT HEART ASSESSMENT Left Ventricular Ejection Fraction: by Echo 65 % Normal LV wall motion Normal Left Ventricular systolic function LEFT MAIN: Severe distal left main stenosis. LEFT ANTERIOR DESCENDING ARTERY: This vessel is severely diseased in the proximal portion. There appears to be mild competitive flow in the mid to distal portion though. CIRCUMFLEX ARTERY: Moderate disease. RIGHT CORONARY ARTERY: This vessel was not imaged but was noted to be patent at the last catheterization. GRAFTS: MUSTAFA graft to the Mid LAD is patent Sequential graft to the Obtuse marginal branch is 1 and 2 are noted to be patent. In comparison to the previous films the above appeared to be unchanged. Sequential graft to the Posterior descending artery was previously noted to be occluded. VALVE FINDINGS: Prosthetic aortic valve noted well-seated COMPLICATIONS No Complications PROCEDURE MEDICATIONS Versed 1 mg IV Fentanyl 50 mcg IV Versed 1 mg IV Oxygen: 2 L/min via nasal cannula Heparin given IA 04/20/2025 08:36:07 Verapamil 2.5mg, Ntg 100mcgs, 3000 units of Heparin given IA 04/20/2025 08:36:07 SUMMARY OF HEMODYNAMIC DATA Time AIR REST ECG 07:31:44 Art 106/39 (63) 08:42:01 AO 113/36 (61) SA 08:55:22 AO 102/45 (69) 09:00:14 AIR REST 09:34:39 Signed By Ahsan Haywood MD On 04/20/2025 09:35:43 Signed By Ahsan Haywood MD On 04/20/2025 09:34:22 Ahsan Haywood MD
== END 2025-04-20 11:06 | disposition home or self-care (01) ==
PROVIDERS: PCP Internal Medicine; Referring Provider Internal Medicine Cardiovascular Disease; Visit Provider Internal Medicine Cardiovascular Disease
DX: I25.10 Atherosclerotic heart disease of native coronary artery without angina pectoris (principal); R94.39 Abnormal result of other cardiovascular function study; Z95.1 Presence of aortocoronary bypass graft; Z95.3 Presence of xenogenic heart valve; R60.0 Localized edema; Z79.899 Other long term (current) drug therapy; I10 Essential (primary) hypertension; Z87.891 Personal history of nicotine dependence; I65.23 Occlusion and stenosis of bilateral carotid arteries; E78.5 Hyperlipidemia, unspecified; Z95.5 Presence of coronary angioplasty implant and graft
CPT/HCPCS: 71046; 93455; 99152; 99153; Q9967; C1769; C1894